=== PATIENT | male | born 1945 | race African-American/Black ===

== ENCOUNTER → 2020-06-11 16:03 | Outpatient (BNVA) | payer MEDICARE, SELFPAY | PROVIDERS: PCP Internal Medicine Geriatric Medicine; Referring Provider Internal Medicine Geriatric Medicine; Visit Provider Internal Medicine Pulmonary Disease | DX: J84.117 Desquamative interstitial pneumonia (principal); Z79.52 Long term (current) use of systemic steroids; Z99.81 Dependence on supplemental oxygen | CPT/HCPCS: 99214 ==

== ENCOUNTER → 2020-09-03 13:52 | Outpatient (BNVA) | payer MEDICARE, SELFPAY | PROVIDERS: PCP Internal Medicine Geriatric Medicine; Visit Provider Internal Medicine Pulmonary Disease | DX: Z13.89 Encounter for screening for other disorder (principal) | CPT/HCPCS: Q3014 ==

== ENCOUNTER 2020-09-15 02:11 | Inpatient (IN) | payer MEDICARE, SELFPAY ==
[2020-09-15] VITALS (19 sets, daily range): BP systolic 106–162; BP diastolic 51–90; PULSE 70–147; RESP 18–50; TEMP 36.5–40.2; O2SAT 78–100; BMI 26.9
--- NOTE | ~2020-09-15 | XR_ITS ---
EXAMINATION: XR CHEST CLINICAL INFORMATION: Hypoxemia COMPARISON: Previous chest x-rays most recent 10/06/2020 TECHNIQUE: Frontal view of the chest was obtained. FINDINGS: The patient is rotated to the right. Taking this into account, the cardiac and mediastinal contours are probably stable. There is persistent mixed interstitial and airspace disease throughout the lungs, right greater than left. This does not appear appreciably changed from 10/06/2020. There is no pleural effusion or pneumothorax. XR/XR chest 1V IMPRESSION: Extensive diffuse mixed interstitial and airspace disease similar to 10/06/2020 exam.
--- NOTE | ~2020-09-15 | XR_ITS ---
EXAMINATION: XR CHEST CLINICAL INFORMATION: Hypoxemia, recent COVID infection COMPARISON: Chest radiograph from 09/15/2020 TECHNIQUE: Frontal view of the chest was obtained. FINDINGS: Persistent diffuse interstitial and groundglass opacities throughout the bilateral lung baker, greatest in the bilateral lung bases, relatively stable from prior imaging. There is no pneumothorax. The trachea is midline. The cardiomediastinal silhouette is stable. Aorta demonstrates mild tortuosity. There is no pleural effusions. Osseous structures are intact. Soft tissues are unremarkable. XR/XR chest 1V IMPRESSION: Persistent diffuse interstitial and groundglass opacities throughout the bilateral lung baekr, greatest in the bilateral lung bases, relatively stable from prior imaging.
--- NOTE | 2020-09-15 02:19 | ED_ITS ---
HPI - SOB/Dyspnea General Chief Complaint: Fever Stated Complaint: copd asthma Time Seen by Provider: 09/15/20 02:19 Source: patient and old records reviewed Mode of arrival: ambulatory Limitations: physical limitation (respiratory distress) History of Present Illness HPI Narrative: EMS found patient on 4L NC in 60s, given 2 duonebs, IV steroids, IV magnesium and placed on CPAP MOLST from February 2020 DNR/DNI MD elicited complaint: shortness of breath Pertinent past history: COPD and pneumonia Onset (ago): hour(s) (24) Timing: progressively worsening Severity: similar to previous episodes Exacerbating factors: exertion, movement and coughing Relieving factors: oxygen, rest and bronchodilators Known history of: other (DIP and respiratory failure) Associated symptoms: cough and wheezing Treatment prior to arrival: oxygen, bronchodilator and other (steroids, magnesium) Related Data Home Medications Medication Instructions Recorded Confirmed albuterol sulfate mg INHALATION QID PRN 06/11/20 amlodipine 10 mg tablet 10 mg PO DAILY 06/11/20 benzonatate 100 mg capsule 100 mg PO BID PRN 06/11/20 calcium carbonate 600 mg (1,500 2 tab PO DAILY 06/11/20 mg)-vitamin D3 400 unit tablet cyanocobalamin (vitamin B-12) 2,000 mcg PO DAILY 06/11/20 1,000 mcg tablet folic acid 1 mg tablet 1 mg PO DAILY 06/11/20 levetiracetam 1,000 mg tablet 1,000 mg PO Q12H 06/11/20 lisinopril 20 mg tablet 20 mg PO DAILY 06/11/20 loratadine 10 mg tablet 10 mg PO DAILY 06/11/20 multivitamin 1 tab PO DAILY 06/11/20 nystatin 100,000 unit/mL oral 5 ml PO QID 06/11/20 suspension omeprazole 40 mg capsule,delayed 40 mg PO DAILY 06/11/20 release tamsulosin 0.4 mg capsule 0.8 mg PO BEDTIME 06/11/20 trazodone 50 mg tablet 50 mg PO BEDTIME 06/11/20 Previous Rx's Medication Instructions Recorded prednisone 10 mg tablet 20 mg PO DAILY #90 tab 07/03/20 Allergies Allergy/AdvReac Type Severity Reaction Status Date / Time No Known Allergies Allergy Verified 09/03/20 13:53 [No Known Allergies*] Review of Systems Review of Systems: ROS unable to be obtained due to respiratory distress [facility] Past Medical History Attestation statement: The following information was validated with the patient. Source: old records reviewed Medical History DIP (desquamative interstitial pneumonia) HTN (hypertension) Respiratory failure Supplemental oxygen dependent Social History Social History (Updated 06/11/20 @ 16:04 by Mily Jaquez MA) Smoking Status: Never smoker Use of substances other than those prescribed or required for medical reasons: No Advance Directives: No Advance Directives Information Provided: No Physical Exam Vital Signs: Vital Signs: Last Vital Signs Temp 101.4 F H 09/15/20 04:34 Pulse 73 09/15/20 05:40 Resp 26 H 09/15/20 05:40 BP 117/63 09/15/20 05:40 Pulse Ox 95 09/15/20 05:40 Body Mass Index 3.4 Appearance: Seems somewhat dazed. Oriented X2. Moderate acute distress Eyes: Pupils equal, round and reactive to light. ENT: Pharynx normal. Neck: Normal inspection. Neck supple. CVS: tachycardic heart rate and rhythm. Pulses normal. Respiratory: Moderate respiratory distress with retractions, tachypnea one word answers. Breath sounds decreased throughout Abdomen: Soft and nontender. Skin: Skin warm and dry. Normal skin color. Normal skin turgor. Extremities: No lower extremity edema. No calf ttp Neuro: Oriented X 2. No motor deficit. No sensory deficit. Course Course Course Narrative: patient is 91-92% on bipap now 98% on 45% FiO2 bipap, temp 104, MD tylenol ordered, zosyn ordered as well K repletions ordered patient much more awake at this time alert and oriented x to person/place, respiratory status improved, will keep on bipap til 4am and trial off off bipap now on 5L NC 88% according to EMR this is around his baseline, RR 22 + COVID will try patient on verduzco device humidified O2 - 86% on 6L NC 10L NC Verduzco device 95% doing much better ddimer under upper limits of normal patient still disoriented, states he is normally not confused but she is ve ry vague about it and seems to need repeat questioning herself, at this time will obtain CT scan head to r/o trauma MDM - SOB/Dyspnea MDM Narrative Medical decision making narrative: 75 yo male with desquamative interstitial pneumonia, HTN, respiratory failure on chronic steroids and 4 to 5L NC with his sats around 88% while at home, over the last 24 hours he reports increased work of breathing EMS found him on 4L in the 60s, given duoneb x 2, CPAP, IV steroids and IV magnesium - patient still in respiratory distress at this time - labs, cultures, CXR, COVID swab, bipap, 5mg neb, empiric zosyn ordered - anticipate admission Lab Data Result diagrams: 09/15/20 02:31 09/15/20 02:32 Labs: Lab Results 09/15/20 09/15/20 09/15/20 Range/Units 02:31 02:31 02:31 WBC 9.1 (4.8-10.8) X10*3/uL RBC 4.16 L (4.60-5.80) X10*6/uL Hgb 13.7 L (14.0-18.0) g/dl Hct 41.2 L (42-52) % MCV 99.0 H (80-98) fL MCH 32.9 (27.0-33.0) pg MCHC 33.3 (31.0-36.0) g/dl RDW 13.7 (11.0-16.0) % Plt Count 112 L (160-400) X10*3/uL MPV 10.6 (9.4-12.4) fL Immature Gran % (Auto) 0.5 H (0.0-0.4) % Neut % (Auto) 77.6 H (45-73) % Lymph % (Auto) 17.2 L (20-40) % Alexander % (Auto) 4.4 (2-11) % Eos % (Auto) 0.1 (0-4) % Baso % (Auto) 0.2 (0-2) % Lymph # (Auto) 1.6 (1.2-4.9) X10*3/uL Alexander # (Auto) 0.4 (0.1-1.2) X10*3/uL Eos # (Auto) 0.0 (0.0-0.4) X10*3/uL Baso # (Auto) 0.0 (0.0-0.2) X10*3/uL Abs Immat Gran (auto) 0.05 H (0.00-0.03) X10*3/uL Absolute Neuts (auto) 7.1 (2.0-8.3) X10*3/uL Absolute Nucleated RBC 0.000 (0.0-0.012) X10*3/uL Nucleated RBC % (auto) 0.0 (0.0-0.2) /100WBC Smear Tech's Comments VERIFIED PT 13.8 H (10.8-13.0) SEC INR 1.2 H (0.9-1.1) APTT 28.1 (24.1-38.0) SEC D-Dimer 227 NG/ML ABG pH (7.35-7.45) ABG pCO2 (32-45) mmHg ABG pO2 (83-108) mmHg ABG HCO3 (22-26) mmol/L ABG O2 Saturation % ABG Base Excess Oxygen Given Sodium (135-145) mmol/L Potassium (3.3-5.1) mmol/l Chloride (96-108) mmol/L Carbon Dioxide (22-29) mmol/L Anion Gap (12-20) BUN (9-16) mg/dL Creatinine (0.5-1.4) mg/dL Estim Creat Clear Calc Estimated GFR Random Glucose (60-115) mg/dL Lactic Acid 2.9 H* (0.5-2.0) mmol/L Calcium (8.4-10.2) mg/dL Magnesium (1.6-2.6) mg/dL Ferritin (20-250) ng/mL Total Bilirubin (0.0-1.0) mg/dL Direct Bilirubin (0.0-0.5) mg/dL AST (5-37) U/L ALT (0-40) U/L Alkaline Phosphatase (39-117) U/L Lactate Dehydrogenase (118-273) U/L Troponin I High Sens (<3.5-35.0) ng/L B-Natriuretic Peptide (<100) pg/mL Total Protein (6.5-8.0) g/dL Albumin (3.5-5.0) g/dL Lipase (8-78) U/L Procalcitonin ng/mL Coronavirus (PCR) (Negative) Influenza Type A (PCR) (Negative) Influenza Type B (PCR) (Negative) RSV RNA Qual (PCR) (Negative) 09/15/20 09/15/20 09/15/20 Range/Units 02:32 02:32 02:32 WBC (4.8-10.8) X10*3/uL RBC (4.60-5.80) X10*6/uL Hgb (14.0-18.0) g/dl Hct (42-52) % MCV (80-98) fL MCH (27.0-33.0) pg MCHC (31.0-36.0) g/dl RDW (11.0-16.0) % Plt Count (160-400) X10*3/uL MPV (9.4-12.4) fL Immature Gran % (Auto) (0.0-0.4) % Neut % (Auto) (45-73) % Lymph % (Auto) (20-40) % Alexander % (Auto) (2-11) % Eos % (Auto) (0-4) % Baso % (Auto) (0-2) % Lymph # (Auto) (1.2-4.9) X10*3/uL Alexander # (Auto) (0.1-1.2) X10*3/uL Eos # (Auto) (0.0-0.4) X10*3/uL Baso # (Auto) (0.0-0.2) X10*3/uL Abs Immat Gran (auto) (0.00-0.03) X10*3/uL Absolute Neuts (auto) (2.0-8.3) X10*3/uL Absolute Nucleated RBC (0.0-0.012) X10*3/uL Nucleated RBC % (auto) (0.0-0.2) /100WBC Smear Tech's Comments PT (10.8-13.0) SEC INR (0.9-1.1) APTT (24.1-38.0) SEC D-Dimer NG/ML ABG pH (7.35-7.45) ABG pCO2 (32-45) mmHg ABG pO2 (83-108) mmHg ABG HCO3 (22-26) mmol/L ABG O2 Saturation % ABG Base Excess Oxygen Given Sodium 143 (135-145) mmol/L Potassium 2.9 L (3.3-5.1) mmol/l Chloride 103 (96-108) mmol/L Carbon Dioxide 26 (22-29) mmol/L Anion Gap 17 (12-20) BUN 7 L (9-16) mg/dL Creatinine 0.96 (0.5-1.4) mg/dL Estim Creat Clear Calc 10.6 Estimated GFR > 60 Random Glucose 67 (60-115) mg/dL Lactic Acid (0.5-2.0) mmol/L Calcium 8.3 L (8.4-10.2) mg/dL Magnesium 2.8 H (1.6-2.6) mg/dL Ferritin 2305 H (20-250) ng/mL Total Bilirubin 0.8 (0.0-1.0) mg/dL Direct Bilirubin 0.6 H (0.0-0.5) mg/dL AST 83 H (5-37) U/L ALT 66 H (0-40) U/L Alkaline Phosphatase 68 (39-117) U/L Lactate Dehydrogenase 452 H (118-273) U/L Troponin I High Sens (<3.5-35.0) ng/L B-Natriuretic Peptide 25 (<100) pg/mL Total Protein 6.2 L (6.5-8.0) g/dL Albumin 3.2 L (3.5-5.0) g/dL Lipase 37 (8-78) U/L Procalcitonin 0.10 ng/mL Coronavirus (PCR) (Negative) Influenza Type A (PCR) (Negative) Influenza Type B (PCR) (Negative) RSV RNA Qual (PCR) (Negative) 09/15/20 09/15/20 09/15/20 Range/Units 02:33 02:33 03:17 WBC (4.8-10.8) X10*3/uL RBC (4.60-5.80) X10*6/uL Hgb (14.0-18.0) g/dl Hct (42-52) % MCV (80-98) fL MCH (27.0-33.0) pg MCHC (31.0-36.0) g/dl RDW (11.0-16.0) % Plt Count (160-400) X10*3/uL MPV (9.4-12.4) fL Immature Gran % (Auto) (0.0-0.4) % Neut % (Auto) (45-73) % Lymph % (Auto) (20-40) % Alexander % (Auto) (2-11) % Eos % (Auto) (0-4) % Baso % (Auto) (0-2) % Lymph # (Auto) (1.2-4.9) X10*3/uL Alexander # (Auto) (0.1-1.2) X10*3/uL Eos # (Auto) (0.0-0.4) X10*3/uL Baso # (Auto) (0.0-0.2) X10*3/uL Abs Immat Gran (auto) (0.00-0.03) X10*3/uL Absolute Neuts (auto) (2.0-8.3) X10*3/uL Absolute Nucleated RBC (0.0-0.012) X10*3/uL Nucleated RBC % (auto) (0.0-0.2) /100WBC Smear Tech's Comments PT (10.8-13.0) SEC INR (0.9-1.1) APTT (24.1-38.0) SEC D-Dimer NG/ML ABG pH 7.46 H (7.35-7.45) ABG pCO2 41 (32-45) mmHg ABG pO2 115 H (83-108) mmHg ABG HCO3 28 H (22-26) mmol/L ABG O2 Saturation 98.0 % ABG Base Excess 5.8 Oxygen Given 45% Sodium (135-145) mmol/L Potassium (3.3-5.1) mmol/l Chloride (96-108) mmol/L Carbon Dioxide (22-29) mmol/L Anion Gap (12-20) BUN (9-16) mg/dL Creatinine (0.5-1.4) mg/dL Estim Creat Clear Calc Estimated GFR Random Glucose (60-115) mg/dL Lactic Acid (0.5-2.0) mmol/L Calcium (8.4-10.2) mg/dL Magnesium (1.6-2.6) mg/dL Ferritin (20-250) ng/mL Total Bilirubin (0.0-1.0) mg/dL Direct Bilirubin (0.0-0.5) mg/dL AST (5-37) U/L ALT (0-40) U/L Alkaline Phosphatase (39-117) U/L Lactate Dehydrogenase (118-273) U/L Troponin I High Sens 19.7 (<3.5-35.0) ng/L B-Natriuretic Peptide (<100) pg/mL Total Protein (6.5-8.0) g/dL Albumin (3.5-5.0) g/dL Lipase (8-78) U/L Procalcitonin ng/mL Coronavirus (PCR) POSITIVE A (Negative) Influenza Type A (PCR) NEGATIVE (Negative) Influenza Type B (PCR) NEGATIVE (Negative) RSV RNA Qual (PCR) NEGATIVE (Negative) ECG Data Attestation: I personally reviewed and interpreted this ECG as follows: ECG interpretation date: 09/15/20 ECG interpretation time: 02:53 Interpretation: Rate: 115 Rhythm: sinus tachycardia [place]: left, LVH Normal P waves. Normal ATIF. RBBB ST T wave : inverted V1-V3, ST depression V4-V5 and I, no RERE qTC: prolonged prior studies: changed from 2019 The study has been interpreted contemporaneously by me. . Critical Care Time Critical Care Time Critical Care Time: Yes Total Critical Care Time: 60 Attestation: bipap, abg, nebs, iv antibiotics I attest to this time spent taking care of the patient Discharge Plan Discharge Clinical Impression: Acute hypokalemia, COVID-19, Pneumonia due to COVID-19 virus, Encephalopathy due to 2019-nCoV Fever Qualifiers: Fever type: unspecified Qualified Code(s): R50.9 - Fever, unspecified Respiratory failure Qualifiers: Chronicity: acute on chronic Respiratory failure complication: hypoxia Qualified Code(s): J96.21 - Acute and chronic respiratory failure with hypoxia Patient Disposition: Admitted As Inpatient
--- NOTE | 2020-09-15 02:20 | ECG_ITS ---
Test Reason : DIFFICULTY BREATHING Blood Pressure : / mmHG Vent. Rate : 115 BPM Atrial Rate : 115 BPM P-R Int : 142 ms QRS Dur : 116 ms QT Int : 400 ms P-R-T Axes : 030 -29 053 degrees QTc Int : 553 ms Sinus tachycardia with Premature supraventricular complexes Right bundle branch block Prolonged QT Abnormal ECG When compared with ECG of 01-APR-2019 19:01, Right bundle branch block now present Referred By: Eli Vargas Electronically Signed By:MOHIT ROTH
--- NOTE | 2020-09-15 02:21 | XR_ITS ---
EXAMINATION: XR CHEST CLINICAL INFORMATION: Dyspnea COMPARISON: 07/26/2019 TECHNIQUE: Frontal view of the chest was obtained. FINDINGS: Lung volumes are symmetric. Redemonstrated background of diffuse interstitial prominence. The possibility of some superimposed mild patchy opacity at the right base is difficult to exclude. No evidence of pneumothorax or significant pleural effusion. The cardiomediastinal contour is unremarkable. No acute osseous findings are seen. XR/XR chest 1V IMPRESSION: Chronic diffuse interstitial prominence. The possibility of mild superimposed developing patchy right basilar opacity is difficult to entirely exclude in the proper clinical setting.
[2020-09-15 02:41] LABS: Basophils Percent Auto 0.2 % (0-2); Eosinophils Percent Auto 0.1 % (0-4); MANUAL DIFF FLAG SCAN; Mean Platelet Volume 10.6 fL (9.4-12.4); PLT CLUMP 1; Red Cell Distribution Width 13.7 % (11.0-16.0); SCAN SMEAR FLAG 1
[2020-09-15 02:43] LABS: Hematocrit 41.2 % (42-52); Hemoglobin 13.7 g/dl (14.0-18.0); Imm Gran Abs Auto 0.05 X10*3/uL (0.00-0.03); Imm Gran Pct Auto 0.5 % (0.0-0.4); Lymphocytes Absolute Auto 1.6 X10*3/uL (1.2-4.9); Lymphocytes Percent Auto 17.2 % (20-40); Mean Corpuscular HGB Conc 33.3 g/dl (31.0-36.0); Mean Corpuscular Hemoglobin 32.9 pg (27.0-33.0); Monocytes Absolute Auto 0.4 X10*3/uL (0.1-1.2); Monocytes Percent Auto 4.4 % (2-11); Neutrophils Absolute Auto 7.1 X10*3/uL (2.0-8.3); Neutrophils Percent Auto 77.6 % (45-73); Platelet Count 112 X10*3/uL (160-400); Red Blood Count 4.16 X10*6/uL (4.60-5.80); White Blood Count 9.1 X10*3/uL (4.8-10.8)
[2020-09-15] MEDS: Piperacillin Sodium/Tazobactam 3.375 GM in 0.9 % Sodium Chloride 50 ML IV (02:45)
[2020-09-15 02:55] LABS: INTERNATIONAL NORM RATIO 1.2 (0.9-1.1); Prothrombin Time 13.8 SEC (10.8-13.0)
[2020-09-15 02:57] LABS: Partial Thromboplastin Time 28.1 SEC (24.1-38.0)
[2020-09-15 03:05] LABS: Alanine Aminotransferase 66 U/L (0-40); Albumin Level 3.2 g/dL (3.5-5.0); Alkaline Phosphatase 68 U/L (39-117); Anion Gap 17 (12-20); Aspartate Amino Transferase 83 U/L (5-37); Bilirubin Direct 0.6 mg/dL (0.0-0.5); Bilirubin Total 0.8 mg/dL (0.0-1.0); Blood Urea Nitrogen 7 mg/dL (9-16); Calcium 8.3 mg/dL (8.4-10.2); Carbon Dioxide 26 mmol/L (22-29); Chloride 103 mmol/L (96-108); Creatinine Clr Calc Pharmacy 10.6; Estimated Glomerular Filt Rate > 60; Glucose Random 67 mg/dL (60-115); Lactate Dehydrogenase 452 U/L (118-273); Lipase 37 U/L (8-78); Magnesium 2.8 mg/dL (1.6-2.6); Potassium 2.9 mmol/l (3.3-5.1); Sodium 143 mmol/L (135-145); Total Protein 6.2 g/dL (6.5-8.0)
[2020-09-15 03:07] LABS: B Type Natriuretic Peptide 25 pg/mL (<100)
[2020-09-15 03:07] LABS: Troponin-I High Sensitivity 19.7 ng/L (<3.5-35.0)
[2020-09-15 03:09] LABS: Lactic Acid 2.9 mmol/L (0.5-2.0)
[2020-09-15 03:21] LABS: SLIDE REVIEW VERIFIED
[2020-09-15] MEDS: Albuterol Sulfate (0.083%) 2.5 MG/3 ML VIAL.NEB 5 MG INHALE (03:23)
[2020-09-15] MEDS: KCl 40 mEq in 0.9 % Sodium Chl 40 MEQ/1,000 ML IV.SOLN 250 MEQ IVCONT ×3 (03:24→15:19)
[2020-09-15] MEDS: 0.9 % Sodium Chloride 500 ML IV (03:24)
[2020-09-15 03:26] LABS: ABG PCO2 41 mmHg (32-45); Base Excess ABG 5.8; HCO3 ABG 28 mmol/L (22-26); PO2 ABG 115 mmHg (83-108); Pt Ventilation O2% 45%; pH ABG 7.46 (7.35-7.45)
[2020-09-15 04:09] LABS: Influenza A PCR NEGATIVE (Negative); Influenza B PCR NEGATIVE (Negative); Resp Syncy Virus RNA Qual PCR NEGATIVE (Negative)
[2020-09-15 04:10] LABS: Ferritin 2305 ng/mL (20-250)
[2020-09-15 04:13] LABS: SARS COV2 PCR INHOUSE POSITIVE (Negative)
[2020-09-15 04:23] LABS: D Dimer 227 NG/ML
[2020-09-15 04:37] LABS: Reflex Lactate? Lactic Acid Added
--- NOTE | 2020-09-15 04:42 | PC.NURSE ---
pt has responded to ivf, rectal tylenol and is now on 10lnc humidified o2. pt is talking but vague with current year. pt is alert to person place and vague on time. pt is meseret ivf fluids and antibx. nsr on the monitor. ekg chest xray completed, abg completed. current vitals stable hr 81, 133/64 94% on 10l [id number]
--- NOTE | 2020-09-15 05:11 | CT_ITS ---
EXAMINATION: CT HEAD WITHOUT CONTRAST CLINICAL INFORMATION: Altered mental status COMPARISON: Head CT 05/25/2019 TECHNIQUE: Contiguous axial imaging was performed from the skull base to vertex without intravenous administration of contrast. This CT examination was performed using dose optimization techniques as appropriate, variously including the following: *Automated exposure control *Adjustment of mA and/or kV according to patient size (this includes techniques or standardized protocols for targeted exams where dose is matched to indication/reason for exam; i.e. extremities or head) *Use of iterative reconstruction technique DLP: 786 mGy-cm FINDINGS: There is no evidence of acute intracranial hemorrhage or territorial infarction. No abnormal mass effect or midline shift is seen. [place] to white matter differentiation is well preserved. No extra-axial fluid collections are identified. Complete interval resolution of previously visualized bilateral subdural hematomas. The ventricular system and cortical sulci are prominent, consistent with age-appropriate volume loss. There are areas of low density in the periventricular and subcortical white matter, most consistent with sequelae of microvascular ischemic change. The osseous structures and soft tissues are normal. There are calcifications of the cavernous internal carotid arteries. The visualized paranasal sinuses and mastoid air cells are well aerated. CT/CT head/brain wo con IMPRESSION: Chronic microvascular ischemic changes with no CT evidence of acute intracranial abnormality.
--- NOTE | 2020-09-15 05:18 | P.HPHOSP_ITS ---
History of Present Illness Date of Service: 09/15/20 Chief Complaint: SOB This is a 75-year-old male with 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 When asked about ROS , he tells me that the reason he came to the hospital is for coughing. he denies feeling any worsening SOB. He denies fever but reports chills, denies abdominal pain nausea or vomiting, no diarrhea constipation. Denies any chest pain, denies any sputum production her denies any urinary symptoms and no lower extremity edema. Per EMS report patient was found to be satting 60% on 5 L of oxygen at home. On arrival to the ED patient's vitals were significant for temperature of 104.4?, pulse rate of 112, of the Aminah rate of 12 off, blood pressure of 117/51, and pulse ox of her own 8% on room air. Patient was placed on CPAP for 1 hour with improvement of his symptoms, now he is on 10 L of non-rebreather satting 95%. Labs are significant for WBC count 9.1, hemoglobin 13.7, hematocrit 41.2, PT of 13.8, INR of 1.2, pH of 7.46, potassium of 2.9, BUN of 7, creatinine of 0.96, lactic acid of 2.9, COVID-19 PCR positive, Chest x-ray significant for chronic diffuse interstitial pneumonia with po ssibility of mild superimposed developing patchy right basilar opacity Past medical history: Subdural hematoma, hypertension, pulmonary interstitial fibrosis, BPH Past surgical history: Denies Family history: Denies Social history: Comes from home, reports former smoking occasional drinking, de nies illicit drugs Review of Systems Review of Systems: Yes all other systems are reviewed and are negative and Unobtainable due to mental status [facility] Medical History DIP (desquamative interstitial pneumonia) HTN (hypertension) Respiratory failure Supplemental oxygen dependent Social History (Updated 06/11/20 @ 16:04 by Mily Jaquez MA) Smoking Status: Never smoker Use of substances other than those prescribed or required for medical reasons: No Advance Directives: No Advance Directives Information Provided: No Meds Allergies Allergy/AdvReac Type Severity Reaction Status Date / Time No Known Allergies Allergy Verified 09/03/20 13:53 [No Known Allergies*] Home Medications Medication Instructions Recorded Confirmed Type albuterol sulfate mg INHALATION QID PRN 06/11/20 History amlodipine 10 mg tablet 10 mg PO DAILY 06/11/20 History benzonatate 100 mg capsule 100 mg PO BID PRN 06/11/20 History calcium carbonate 600 mg (1,500 2 tab PO DAILY 06/11/20 History mg)-vitamin D3 400 unit tablet cyanocobalamin (vitamin B-12) 2,000 mcg PO DAILY 06/11/20 History 1,000 mcg tablet folic acid 1 mg tablet 1 mg PO DAILY 06/11/20 History levetiracetam 1,000 mg tablet 1,000 mg PO Q12H 06/11/20 History lisinopril 20 mg tablet 20 mg PO DAILY 06/11/20 History loratadine 10 mg tablet 10 mg PO DAILY 06/11/20 History multivitamin 1 tab PO DAILY 06/11/20 History nystatin 100,000 unit/mL oral 5 ml PO QID 06/11/20 History suspension omeprazole 40 mg capsule,delayed 40 mg PO DAILY 06/11/20 History release tamsulosin 0.4 mg capsule 0.8 mg PO BEDTIME 06/11/20 History trazodone 50 mg tablet 50 mg PO BEDTIME 06/11/20 History Physical Exam Vital Signs and Narrative: Vital Signs: Last Vital Signs Temp 101.4 F H 09/15/20 04:34 Pulse 88 09/15/20 04:34 Resp 23 H 09/15/20 04:34 BP 133/64 09/15/20 04:34 Pulse Ox 91 L 09/15/20 04:34 Body Mass Index 3.4 Const: General: cooperative and no acute distress Eyes: General: appearance normal, both eyes and all related structures Resp: Effort & Inspection: normal respiratory effort and able to speak in complete sentences Cardio: Rate: regular rate Rhythm: regular rhythm GI: Palpation (GI): Soft to palpation Auscultation: normal bowel sounds Neuro: Cognition (Neuro): normal cognition Extrem: General: Yes normal to inspection and Yes no pedal edema Results Labs CBC and Chem 7: 09/15/20 02:31 09/15/20 02:32 Labs: Laboratory Results - last 24 hr 09/15/20 09/15/20 09/15/20 02:31 02:31 02:31 MCV 99.0 H MCH 32.9 MCHC 33.3 RDW 13.7 Plt Count 112 L MPV 10.6 Immature Gran % (Auto) 0.5 H Neut % (Auto) 77.6 H Lymph % (Auto) 17.2 L [place] % (Auto) 4.4 Eos % (Auto) 0.1 Baso % (Auto) 0.2 Lymph # (Auto) 1.6 [place] # (Auto) 0.4 Eos # (Auto) 0.0 Baso # (Auto) 0.0 Abs Immat Gran (auto) 0.05 H Absolute Neuts (auto) 7.1 Absolute Nucleated RBC 0.000 Nucleated RBC % (auto) 0.0 Smear Tech's Comments VERIFIED PT 13.8 H INR 1.2 H APTT 28.1 D-Dimer 227 ABG pH ABG pCO2 ABG pO2 ABG HCO3 ABG O2 Saturation ABG Base Excess Oxygen Given Anion Gap Estim Creat Clear Calc Estimated GFR Random Glucose Lactic Acid 2.9 H* Calcium Magnesium Ferritin Total Bilirubin Direct Bilirubin AST ALT Alkaline Phosphatase Lactate Dehydrogenase Troponin I High Sens B-Natriuretic Peptide Total Protein Albumin Lipase Procalcitonin Coronavirus (PCR) Influenza Type A (PCR) Influenza Type B (PCR) RSV RNA Qual (PCR) 09/15/20 09/15/20 09/15/20 02:32 02:32 02:32 MCV MCH MCHC RDW Plt Count MPV Immature Gran % (Auto) Neut % (Auto) Lymph % (Auto) [place] % (Auto) Eos % (Auto) Baso % (Auto) Lymph # (Auto) [place] # (Auto) Eos # (Auto) Baso # (Auto) Abs Immat Gran (auto) Absolute Neuts (auto) Absolute Nucleated RBC Nucleated RBC % (auto) Smear Tech's Comments PT INR APTT D-Dimer ABG pH ABG pCO2 ABG pO2 ABG HCO3 ABG O2 Saturation ABG Base Excess Oxygen Given Anion Gap 17 Estim Creat Clear Calc 10.6 Estimated GFR > 60 Random Glucose 67 Lactic Acid Calcium 8.3 L Magnesium 2.8 H Ferritin 2305 H Total Bilirubin 0.8 Direct Bilirubin 0.6 H AST 83 H ALT 66 H Alkaline Phosphatase 68 Lactate Dehydrogenase 452 H Troponin I High Sens B-Natriuretic Peptide 25 Total Protein 6.2 L Albumin 3.2 L Lipase 37 Procalcitonin 0.10 Coronavirus (PCR) Influenza Type A (PCR) Influenza Type B (PCR) RSV RNA Qual (PCR) 09/15/20 09/15/20 09/15/20 02:33 02:33 03:17 MCV MCH MCHC RDW Plt Count MPV Immature Gran % (Auto) Neut % (Auto) Lymph % (Auto) [place] % (Auto) Eos % (Auto) Baso % (Auto) Lymph # (Auto) [place] # (Auto) Eos # (Auto) Baso # (Auto) Abs Immat Gran (auto) Absolute Neuts (auto) Absolute Nucleated RBC Nucleated RBC % (auto) Smear Tech's Comments PT INR APTT D-Dimer ABG pH 7.46 H ABG pCO2 41 ABG pO2 115 H ABG HCO3 28 H ABG O2 Saturation 98.0 ABG Base Excess 5.8 Oxygen Given 45% Anion Gap Estim Creat Clear Calc Estimated GFR Random Glucose Lactic Acid Calcium Magnesium Ferritin Total Bilirubin Direct Bilirubin AST ALT Alkaline Phosphatase Lactate Dehydrogenase Troponin I High Sens 19.7 B-Natriuretic Peptide Total Protein Albumin Lipase Procalcitonin Coronavirus (PCR) POSITIVE A Influenza Type A (PCR) NEGATIVE Influenza Type B (PCR) NEGATIVE RSV RNA Qual (PCR) NEGATIVE Imaging Radiologist's Impressions: Impressions Chest X-Ray 09/15/20 02:21 IMPRESSION: Chronic diffuse interstitial prominence. The possibility of mild superimposed developing patchy right basilar opacity is difficult to entirely exclude in the proper clinical setting. Assessment and Plan (1) Sepsis with acute hypoxic respiratory failure: Qualifiers: Sepsis type: sepsis due to unspecified organism Severe sepsis shock status: without septic shock Qualified Code(s): A41.9 - Sepsis, unspecified organism; R65.20 - Severe sepsis without septic shock; J96.01 - Acute respiratory failure with hypoxia Status: Acute (2) Acute hypokalemia: Status: Acute (3) Pneumonia due to COVID-19 virus: Status: Acute This is a 75-year-old male with past medical history of pulmonary interstitial fibrosis on baseline 5-6 L of oxygen at home, and prednisone daily who presents to the hospital with shortness of breath, found to be hypoxic with O2 of 60% on 5 L of oxygen by EMS. # sepsis - most likely secondary to COVID pneumonia - has fever, tachycardia, tachypnea - no leukocytosis -will start patient on IV antibiotics, dexamethasone, - follow blood cultures # acute on chronic hypoxic respiratory failure - secondary to COVID-19 pneumonia versus bacterial pneumonia -COVID-19 PCR positive, chest x-ray significant for chronic interstitial fibrosis as well as new right-sided infiltrate concerning for pneumonia -fever of 104, no leukocytosis, procalcitonin of 0.10 Plan: -will start patient on dexamethasone 6 mg daily, will also start patient on broad-spectrum IV antibiotics given the right-sided infiltrate which is less typical of COVID-19 - consult infectious disease, follow blood cultures, - monitor respiratory staff # pneumonia due to COVID-19 - patient on baseline 5-6 L of oxygen now requiring 10 L of O2 -restart patient on dexamethasone, IV antibiotics, - continue O2 as required, monitor respiratory status # hypokalemia -repleted by ED physician -follow BMP #DIP - follows with Dr. Rahman - on baseline 5-6 L of O2 and chronic prednisone of 30 mg - follow up w human resources assistant manager upon discharge # History of subdural hematoma in 2019 DVT ppx: heparin subq
[2020-09-15] MEDS: Heparin Sodium,Porcine 5,000 UNIT/ML VIAL 5000 UNIT SUBCUT (05:25)
--- NOTE | 2020-09-15 05:35 | PC.NURSE ---
pt called in and tried to reconcile the meds the pt takes and this rn did not feel safe with the information she was giving on what he takes will clarify with pharmacy. pt unable to completly give a picture of the pt mental status before last night. pt was confused pulling at line and removing sat probe, pt states he takes his meds sometimes. states she gives him his medications daily. pper the pt has had the chills for 2-3 days before calling the ambulance. pt at this time is awake alert but vague to questions asked and is unknown if this is his baseline. pt follows commands very pleasant, avila. vitals improved.
[2020-09-15] MEDS: cefTRIAXone sodium 1 GM in 0.9 % Sodium Chloride 50 ML IV (07:09)
[2020-09-15] MEDS: Azithromycin 500 MG in 0.9 % Sodium Chloride 250 ML 125 MG IV (07:28)
--- NOTE | 2020-09-15 07:53 | PC.NURSE ---
report taken from darek blas pt medicated per emar, infiltrated l wrist iv removed, 22g iv placed in l hand. r hand iv patent and running. pt expresses feeling better than when he came in . pt appears to be shivering, rectal temp rechecked and pt no longer febrile, 98.6. pt given blanket att. wctm.
[2020-09-15] MEDS: dexAMETHasone sod phosphate 4 MG/ML VIAL 6 MG IVPUSH (08:22)
--- NOTE | 2020-09-15 08:25 | PC.NURSE ---
1 liter ns w/ 40meq kcl unavailable in er att, pharmacy called and advised nursing ice platform supervisor to obtain from stock room. nursing ice platform supervisor called.
[2020-09-15 08:51] LABS: ~Lactic Acid-LAB USE ONLY 4.3 mmol/L (0.5-2.0)
[2020-09-15] MEDS: diphenhydrAMINE HCL 25 MG TABLET PO (09:54)
[2020-09-15 10:14] LABS: Reflex Lactate? 2 Y
--- NOTE | 2020-09-15 11:08 | PC.NURSE ---
repeat lactic acid drawn by phlebotomy. pt schedule for 40 meq kcl in 1l ns changed by pharmacist.
[2020-09-15 11:17] LABS: ~Lactic Acid-LAB USE ONLY 3.1 mmol/L (0.5-2.0)
--- NOTE | 2020-09-15 12:31 | PC.NURSE ---
this rn walking by pt room, pt appears to be urinating in biohazard bin, urine on the floor and on all linens. pt removed oxygen tubing, o2 sat appears to be 63% on ra w good pleth. pt tranferred back to bed, linens removed and replaced, o2 back on, sat ^ to 93% on humidified nc. assisted w use of urinal, pt appears to have small, frequent voids.
--- NOTE | 2020-09-15 15:53 | PC.NURSE ---
report given to [facility] [place] [place] roopa akhtar
--- NOTE | 2020-09-15 15:56 | MHC.CM.PN ---
Attempted to meet with patient in regards to d/c planning. Nursing care currently being provided. Attempted to speak with patient's , Patty via telephone. Patient's nephew Miguel answered the phone and was able to help T/W with some fact finding info. Patient lives with his and requires oxygen at baseline. HCP verified to be on file. IMM explained and sent via certified mail. Patient is positive for Covid. Not sure patient will be able to safely return home. Will need physical therapy eval when medically stable. Continue to monitor for d/c needs.
--- NOTE | 2020-09-15 18:08 | PC.NURSE ---
Pt acting very aggressive to this RN and refusing his heparin. This RN will continue to monitor and try to administer again.
[2020-09-16] VITALS (11 sets, daily range): BP systolic 138–179; BP diastolic 71–92; PULSE 71–163; RESP 18–34; TEMP 36.2–37.7; O2SAT 87–94
[2020-09-16] MEDS: 0.9 % Sodium Chloride Flush 3 ML SYRINGE IVFLUSH ×4 (00:06→23:53)
[2020-09-16] MEDS: traZODone HCL 25 MG HALFTAB PO (01:11)
[2020-09-16] MEDS: hydrOXYzine HCL 25 MG TABLET PO (01:11)
[2020-09-16] MEDS: cefTRIAXone sodium 1 GM in 0.9 % Sodium Chloride 50 ML IV (05:52)
[2020-09-16] MEDS: Azithromycin 500 MG in 0.9 % Sodium Chloride 250 ML 125 MG IV (05:53)
[2020-09-16] MEDS: Heparin Sodium,Porcine 5,000 UNIT/ML VIAL 5000 UNIT SUBCUT ×2 (05:53→16:46)
[2020-09-16 06:21] LABS: Basophils Percent Auto 0.1 % (0-2); MANUAL DIFF FLAG SCAN; PLT CLUMP 1; Red Cell Distribution Width 13.8 % (11.0-16.0); SCAN SMEAR FLAG 1
[2020-09-16 06:23] LABS: Hemoglobin 13.9 g/dl (14.0-18.0); Imm Gran Abs Auto 0.08 X10*3/uL (0.00-0.03); Imm Gran Pct Auto 0.8 % (0.0-0.4); Lymphocytes Absolute Auto 0.7 X10*3/uL (1.2-4.9); Mean Corpuscular HGB Conc 33.1 g/dl (31.0-36.0); Mean Corpuscular Hemoglobin 33.6 pg (27.0-33.0); Mean Corpuscular Volume 101.4 fL (80-98); Mean Platelet Volume 11.6 fL (9.4-12.4); Monocytes Absolute Auto 0.5 X10*3/uL (0.1-1.2); Monocytes Percent Auto 4.5 % (2-11); Neutrophils Absolute Auto 9.2 X10*3/uL (2.0-8.3); Neutrophils Percent Auto 87.6 % (45-73); Platelet Count 114 X10*3/uL (160-400); Red Blood Count 4.14 X10*6/uL (4.60-5.80); White Blood Count 10.5 X10*3/uL (4.8-10.8)
[2020-09-16 06:55] LABS: Anion Gap 18 (12-20); Blood Urea Nitrogen 6 mg/dL (9-16); Calcium 7.9 mg/dL (8.4-10.2); Carbon Dioxide 22 mmol/L (22-29); Chloride 111 mmol/L (96-108); Creatinine Clr Calc Pharmacy 90.9; Estimated Glomerular Filt Rate > 60; Glucose Random 123 mg/dL (60-115); Sodium 147 mmol/L (135-145)
[2020-09-16 06:56] LABS: SLIDE REVIEW VERIFIED
[2020-09-16] MEDS: Folic Acid 1 MG TABLET PO (10:09)
[2020-09-16] MEDS: levETIRAcetam 1,000 MG TABLET 1000 MG PO (10:10)
[2020-09-16] MEDS: dexAMETHasone sod phosphate 4 MG/ML VIAL 6 MG IVPUSH (10:10)
[2020-09-16] MEDS: amLODIPine Besylate 10 MG TABLET PO (10:10)
[2020-09-16] MEDS: Omeprazole 40 MG CAPSULE.DR PO (10:11)
--- NOTE | 2020-09-16 12:01 | MHC.CM.PN ---
Male Dx COVID PNA. DP home with Oxygen, and VNA vs STR. Recovery will determine DP. CM will follow.
--- NOTE | 2020-09-16 12:04 | P.PNIM_ITS ---
Subjective Subjective Date of Service: 09/16/20 Interval History: the patient was seen and evaluated this morning Sitting in the chair, on 2 L of oxygen, in mild respiratory distress, able to speak known small sentences Denies any fever, chills o but reported shortness of breath and dyspnea No reported other overnight events. Systemic review: No fever, chills or weakness No chest pain, palpitation Reporting shortness of breath and episodes of coughing No abdominal pain, nausea or vomiting No urinary symptoms No any rash or wounds Physical Exam Vital Signs: Vital Signs: Last Vital Signs Temp 98.7 F 09/16/20 11:06 Pulse 105 H 09/16/20 11:06 Resp 25 H 09/16/20 11:06 BP 149/71 H 09/16/20 11:06 Pulse Ox 87 L 09/16/20 11:06 Body Mass Index 26.9 Const: Other: Constitutional : Alert, oriented about self and place, in mild respiratory distress Neck : Normal inspection, Supple Cardiovascular : RRR, S1 S2, no lower extremity edema Respiratory : Tachypnea, chest wall moving bilaterally, on 10 L oxygen Gastrointestinal: soft, lax, Normal bowel sounds, Non tender Skin : Warm/Dry, No rash Neurological : Alert & oriented, No focal deficit, anxious Objective Data Current Medications Generic Name Dose Route Start Last Admin Trade Name Freq PRN Reason Stop Dose Admin Acetaminophen 650 mg 09/15/20 05:17 Acetaminophen 325 Mg Tablet PO Q6H PRN Pain, Mild (Pain Scale 1-3) Amlodipine Besylate 10 mg 09/16/20 09:00 09/16/20 10:10 Amlodipine Besylate 10 Mg Tablet PO 10 mg DAILY [facility] Administration Protocol Benzonatate 200 mg 09/16/20 10:25 Benzonatate 100 Mg Capsule PO TID [facility] Dexamethasone Sodium Phosphate 6 mg 09/15/20 09:00 09/16/20 10:10 Dexamethasone Sod Phosphate 4 Mg/Ml Vial IVPUSH 6 mg DAILY [facility] Administration Docusate Sodium 100 mg 09/15/20 05:17 Docusate Sodium 100 Mg Capsule PO DAILY PRN Constipation Folic Acid 1 mg 09/16/20 09:00 09/16/20 10:09 Folic Acid 1 Mg Tablet PO 1 mg DAILY [facility] Administration Guaifenesin 600 mg 09/16/20 10:25 Guaifenesin La 600 Mg Tab.Er.12h PO BID [facility] Heparin Sodium (Porcine) 5,000 unit 09/15/20 05:17 09/16/20 05:53 Heparin Sodium,Porcine 5,000 Unit/Ml Vial SUBCUT 5,000 unit Q12H [facility] Administration Ceftriaxone Sodium 1 gm/ 50 mls @ 100 mls/hr 09/15/20 05:45 09/16/20 07:17 Sodium Chloride IV Infused Q24H [facility] Infusion Azithromycin 500 mg/ Sodium 250 mls @ 125 mls/hr 09/15/20 06:00 09/16/20 11:46 Chloride IV 125 mls/hr Q24H [facility] Infusion Potassium Chloride/Sodium Chloride 40 meq in 1,000 mls @ 250 mls/hr 09/15/20 13:15 09/16/20 10:11 IVCONT Not Given .Q4H [facility]O Remdesivir 200 mg/ Sodium 210 mls @ 105 mls/hr 09/16/20 12:00 Chloride IV 09/16/20 13:59 ONCE@1200 [facility]O Remdesivir 100 mg/ Sodium 230 mls @ 115 mls/hr 09/17/20 12:00 Chloride IV 09/20/20 13:59 Q24H DEO Levetiracetam 1,000 mg 09/16/20 09:00 09/16/20 10:10 Levetiracetam 1,000 Mg Tablet PO 1,000 mg BID [facility] Administration Omeprazole 40 mg 09/16/20 07:55 09/16/20 10:11 Omeprazole 40 Mg Capsule.Dr PO 40 mg DAILY@0630 [facility] Administration Ondansetron HCl 4 mg 09/15/20 05:17 Ondansetron Hcl 4 Mg/2 Ml Vial IVPUSH Q8H PRN Nausea and Vomiting Pharmacy Consult 1 each 09/15/20 02:19 Consult Rx Perform Med Rec MISCELLANE ONCE PRN Consult order Pharmacy Consult 1 each 09/15/20 03:19 Consult Rx Vancomycin Dosing MISCELLANE DAILY PRN Consult order Sodium Chloride 3 ml 09/15/20 08:00 09/16/20 10:10 0.9 % Sodium Chloride Flush 3 Ml Syringe IVFLUSH 3 ml QSHIFT [facility]O Administration Tamsulosin HCl 0.8 mg 09/16/20 21:00 Tamsulosin Hcl 0.4 Mg Capsule PO BEDTIME [facility] Labs CBC & Chem 7: 09/16/20 05:49 09/16/20 05:49 Microbiology Microbiology Results: Microbiology 09/15/20 02:33 Blood - Venous Blood Culture - Preliminary No growth after 24 hours. 09/15/20 02:32 Blood - Venous Blood Culture - Preliminary No growth after 24 hours. Assessment and Plan (1) Sepsis with acute hypoxic respiratory failure: Status: Acute (2) Acute hypokalemia: Status: Acute (3) Pneumonia due to COVID-19 virus: Status: Acute (4) Encephalopathy due to 2019-nCoV: Status: Acute Assessment and Plan: This is a 75-year-old male with past medical history of pulmonary interstitial fibrosis on baseline 5-6 L of oxygen at home, and prednisone daily who presents to the hospital with shortness of breath, found to be hypoxic with O2 of 60% on 5 L of oxygen by EMS. acute on chronic hypoxic respiratory failure secondary to COVID-19 pneumonia Concern for bacterial pneumonia CXR showed new right-sided infiltrate concerning for pneumonia Continue dexamethasone 6 mg continue IV antibiotic of ceftriaxone azithromycin Start high-flow oxygen Start remdesivir to give plasma Id input appreciated Acute on chronic interstitial lung fibrosis baseline 5-6 L of oxygen and chronic prednisone 30 mg daily, now requiring high- flow oxygen Continue dexamethasone, IV antibiotics continue O2 as required, monitor respiratory status follows with Dr. Rahman hypokalemia repleted by ED physician follow BMP Metabolic Encephalopathy Likely secondary to hypoxemia, COVID-19 infection Avoid medications that would worsen his mental status Treat underlying causes Reorientation Thrombocytopenia Platelets drop to 100 from baseline above 200 Secondary to COVID infection, continue to monitor Hypernatremia Sodium of 147 Secondary to dehydration and decreased oral intake Encourage oral intake, continue to monitor BMP DVT ppx: heparin subq
[2020-09-16] MEDS: Remdesivir 200 MG in 0.9 % Sodium Chloride 210 ML 105 MG IV (12:24)
[2020-09-16] MEDS: Benzonatate 100 MG CAPSULE 200 MG PO (12:24)
[2020-09-16] MEDS: guaiFENesin LA 600 MG TAB.ER.12H PO (12:24)
--- NOTE | 2020-09-16 14:11 | W.PM.IDCN ---
History of Present Illness Data of Consult Service Date: 09/16/20 Requesting physician: Gloria Leon Primary Care Provider: MD CORI Thurman Reason for consult: shortness of breath He presents with shortness of breath for 24 hours,worse than usual He has interstitial lung disease and is on oxygen He has some chills and fatigue and body aches as well No one else is reported ill He has increasing respiratory needs Review of Systems Cardiovascular: Cardiovascular: Reports dyspnea Respiratory: Respiratory: Reports dyspnea PMFSH Past Medical History Medical History DIP (desquamative interstitial pneumonia) HTN (hypertension) Respiratory failure Supplemental oxygen dependent Family History Family history: reviewed and not pertinent Social History Social History Household Members: Spouse Housing: Apartment Do you presently have visiting nurse or other home services: No Smoking Status: Never smoker Use of substances other than those prescribed or required for medical reasons: No Currently Displaying Signs/Symptoms of Drug Intoxication Withdrawal: No Have you been hit, kicked, punched, or otherwise hurt by someone within the past year? If so, by whom?: No Do you feel safe in your current relationship?: Yes Is there a partner from a previous relationship who is making you feel unsafe now?: No Are you made to feel afraid or neglected: No Advance Directives: No Advance Directives Information Provided: No Do you have thoughts of harming others: None Do you have a plan to hurt others: No Plan Recently lost weight without trying: Unsure service: No Current occupational status: retired [employer] Allergies Allergy/AdvReac Type Severity Reaction Status Date / Time No Known Allergies Allergy Verified 09/03/20 13:53 [No Known Allergies*] Home Medications Medication Instructions Recorded Confirmed Type multivitamin 1 tab PO DAILY 06/11/20 09/16/20 History tamsulosin 0.4 mg capsule 0.8 mg PO BEDTIME 06/11/20 09/16/20 History trazodone 50 mg tablet 50 mg PO BEDTIME 06/11/20 09/16/20 History albuterol sulfate [ProAir HFA] 2 puff PO Q4H PRN 09/16/20 09/16/20 History amlodipine 1 tab PO DAILY 09/16/20 09/16/20 History calcium carbonate-vitamin D3 2 tab PO DAILY 09/16/20 09/16/20 History cyanocobalamin (vitamin B-12) 2 tab PO DAILY 09/16/20 09/16/20 History folic acid 1 tab PO DAILY 09/16/20 09/16/20 History insulin aspart U-100 [Novolog 10 - 20 unit SUBCUT TID 09/16/20 09/16/20 History Flexpen U-100 Insulin] insulin glargine [Lantus Solostar 35 unit SUBCUT BEDTIME 09/16/20 09/16/20 History U-100 Insulin] levetiracetam 10 ml PO BID 09/16/20 09/16/20 History Physical Exam Vital Signs: Vital Signs: Last Vital Signs Temp 98.7 F 09/16/20 11:06 Pulse 105 H 09/16/20 11:06 Resp 25 H 09/16/20 11:06 BP 149/71 H 09/16/20 11:06 Pulse Ox 87 L 09/16/20 11:06 Body Mass Index 26.9 Const: General: cooperative and ill appearing HENMT: Head: Yes normal to inspection Mouth: Normal oral and palatal mucosa present Eyes: General: appearance normal, both eyes and all related structures Resp: Effort & Inspection: decreased respiratory effort Cardio: Rate: regular rate Rhythm: regular rhythm GI: Palpation (GI): Soft to palpation and nontender Back/Spine/Pelvis: Cervical Spine: normal cervical lordosis Skin: General skin exam: no rashes or lesions noted Extrem: General: Yes normal to inspection Assessment and Plan (1) Encephalopathy due to 2019-nCoV: Status: Acute (2) Sepsis with acute hypoxic respiratory failure: Qualifiers: Sepsis type: sepsis due to unspecified organism Severe sepsis shock status: without septic shock Qualified Code(s): A41.9 - Sepsis, unspecified organism; R65.20 - Severe sepsis without septic shock; J96.01 - Acute respiratory failure with hypoxia Problem details: He has shortness of breath He has increased oxygen requirements with 10 l nasal cannula He has no fever or chills He has onset of illness within 10 days Status: Acute Would give Remdesivir and steroids per protocol May give convalescent plasm Oxygen as needed Results Labs CBC & Chem 7: 09/16/20 05:49 09/16/20 05:49 Labs: Short CBC 09/16/20 Range/Units 05:49 WBC 10.5 (4.8-10.8) X10*3/uL Hgb 13.9 L (14.0-18.0) g/dl Hct 42.0 (42-52) % Plt Count 114 L (160-400) X10*3/uL BMP 09/16/20 09/16/20 05:49 05:49 Sodium Cancelled 147 H Potassium Cancelled 4.0 D Chloride Cancelled 111 H Carbon Dioxide Cancelled 22 BUN Cancelled 6 L Creatinine Cancelled 0.77 Calcium Cancelled 7.9 L Microbiology Microbiology Results: Microbiology 09/15/20 02:33 Blood - Venous Blood Culture - Preliminary No growth after 24 hours. 09/15/20 02:32 Blood - Venous Blood Culture - Preliminary No growth after 24 hours.
[2020-09-16] MEDS: Insulin Lispro 100 UNIT/ML 3 ML VIAL SUBCUT (16:46)
[2020-09-16 16:51] LABS: Glucose, Whole Blood 186 mg/dL (60-115)
--- NOTE | 2020-09-16 19:55 | PM.EVENT ---
Event Note Date of Service: 09/16/20 Event Note: Called by nursing staff to evaluate tachycardia. Chart reviewed. 75 year old man with COVID with worsening hypoxemia and tachycardia. Has had increasing oxygen requirements and now is on high flow nasal cannula. He has a sitter in the room with him. On my arrival he was sitting in bed tachypneic. Denied chest pain or dyspnea. Ability to give accurate history is in doubt. On exam: VS: HR 150, BP: 138/84, RR: 34, O2: 94% high flow Gen: alert mild respiratory distress/tachypnea Chest: bibasilar insp dry crackles heard CV: Regular tachycardia. Cannot asses murmur due to ambient noise and tachycardia EKG Sinus tachycardia, narrow complex, possible SVT. Some slight ST depression seen in lateral precordial leads. A/P: 75 year old man with COVID pneumoinia and acute hypoxemic respiratory failure. Now with worsening tachycardia. Likely tachycardic due to SIRS response and anxiety, could also be SVT. Given Metoprolol 5mg IV with improvement-HR now 80-90. He is declining PO meds and spat out his evening doses. A such will continue Metoprolol 5mg IV q6 scheduled for now. Transition to PO once he can consistently take his meds.
[2020-09-16] MEDS: Metoprolol Tartrate 5 MG/5 ML VIAL 2.5 MG IVPUSH ×2 (19:59→20:13)
[2020-09-16 20:35] LABS: Glucose, Whole Blood 157 mg/dL (60-115)
[2020-09-16] MEDS: Adenosine 6 MG/2 ML VIAL 12 MG IVPUSH (22:20)
[2020-09-16] MEDS: dilTIAZem HCL 125 MG in 0.9 % Sodium Chloride 100 ML IVCONT (22:56)
[2020-09-17] VITALS (19 sets, daily range): BP systolic 105–151; BP diastolic 61–84; PULSE 58–158; RESP 18–20; TEMP 36.4–37; O2SAT 90–99
--- NOTE | 2020-09-17 00:32 | PC.NURSE ---
tachycardia , heart rate at 150 per minute, pt anxious, requires frequent reorientation. DR Callahan aware, meds ordered and administered: Lopressor 2.5 mg IV x 2 . Adenosine 6 mg and Adenosine 12 mg IV. Heart rate still high at 148-150.Cardizem drip started @ 5mg/hr.
--- NOTE | 2020-09-17 01:26 | PC.NURSE ---
P- pt on cardizem drip max dose 15mg/ml hr and HR is 150's-160 I- assessed and notified MD Caleb Lorenzo. Sitting assessed the PT and ordered IVP Lopressor 5 mg
[2020-09-17] MEDS: Metoprolol Tartrate 5 MG/5 ML VIAL IVPUSH (02:05)
--- NOTE | 2020-09-17 03:02 | PC.NURSE ---
This RN administered 5mg IVP of Lopressor. HR is in the 80's to 90's. IV Cardizem drip running at max 15mg /ml hr. . Sitting aware and wants the Cardizem to continue to run.
[2020-09-17] MEDS: cefTRIAXone sodium 1 GM in 0.9 % Sodium Chloride 50 ML IV (07:09)
[2020-09-17] MEDS: Heparin Sodium,Porcine 5,000 UNIT/ML VIAL 5000 UNIT SUBCUT (07:10)
[2020-09-17] MEDS: Omeprazole 40 MG CAPSULE.DR PO (07:10)
[2020-09-17 07:22] LABS: Glucose, Whole Blood 126 mg/dL (60-115)
[2020-09-17] MEDS: Folic Acid 1 MG TABLET PO (08:41)
[2020-09-17] MEDS: Multivitamin TABLET 1 TAB PO (08:41)
[2020-09-17] MEDS: Cyanocobalamin (Vitamin B-12) 1,000 MCG TABLET 2000 MCG PO (08:41)
[2020-09-17] MEDS: levETIRAcetam 1,000 MG TABLET 1000 MG PO ×2 (08:41→21:14)
[2020-09-17] MEDS: guaiFENesin LA 600 MG TAB.ER.12H PO ×2 (08:41→21:16)
[2020-09-17] MEDS: dexAMETHasone sod phosphate 4 MG/ML VIAL 6 MG IVPUSH (08:42)
[2020-09-17] MEDS: Benzonatate 100 MG CAPSULE 200 MG PO ×3 (08:42→21:15)
[2020-09-17] MEDS: Azithromycin 500 MG in 0.9 % Sodium Chloride 250 ML 125 MG IV (08:43)
[2020-09-17 09:32] LABS: Anion Gap 14 (12-20); Blood Urea Nitrogen 10 mg/dL (9-16); Calcium 7.8 mg/dL (8.4-10.2); Carbon Dioxide 28 mmol/L (22-29); Chloride 108 mmol/L (96-108); Creatinine Clr Calc Pharmacy 85.4; Estimated Glomerular Filt Rate > 60; Glucose Random 110 mg/dL (60-115); Potassium 3.9 mmol/l (3.3-5.1); Sodium 146 mmol/L (135-145)
[2020-09-17 11:16] LABS: Glucose, Whole Blood 145 mg/dL (60-115)
[2020-09-17] MEDS: Remdesivir 100 MG in 0.9 % Sodium Chloride 230 ML 115 MG IV (11:33)
[2020-09-17] MEDS: LORazepam 2 MG/ML VIAL 0.25 MG IVPUSH (12:25)
--- NOTE | 2020-09-17 16:05 | P.PNIM_ITS ---
Subjective Subjective Date of Service: 09/17/20 Interval History: the patient was seen and evaluated this morning The in his chair, looks in moderate respiratory distress, on high-flow oxygen Denies any fever, chills o but reported shortness of breath and dyspnea No reported other overnight events. Systemic review: No fever, chills or weakness No chest pain, palpitation Reporting shortness of breath and episodes of coughing No abdominal pain, nausea or vomiting No urinary symptoms No any rash or wounds Physical Exam Vital Signs: Vital Signs: Last Vital Signs Temp 97.5 F 09/17/20 15:51 Pulse 68 09/17/20 15:51 Resp 18 09/17/20 15:51 BP 129/81 09/17/20 15:51 Pulse Ox 97 09/17/20 15:51 Body Mass Index 26.9 Const: Other: Constitutional : Alert, oriented about self and place, in mild respiratory distress Neck : Normal inspection, Supple Cardiovascular : RRR, S1 S2, no lower extremity edema Respiratory : Tachypnea, chest wall moving bilaterally, on high-flow the the oxygen Gastrointestinal: soft, lax, Normal bowel sounds, Non tender Skin : Warm/Dry, No rash Neurological : Alert & oriented, No focal deficit, anxious Objective Data Current Medications Generic Name Dose Route Start Last Admin Trade Name Freq PRN Reason Stop Dose Admin Acetaminophen 650 mg 09/15/20 05:17 Acetaminophen 325 Mg Tablet PO Q6H PRN Pain, Mild (Pain Scale 1-3) Apixaban 5 mg 09/17/20 21:00 Apixaban 5 Mg Tablet PO BID DEO Benzonatate 200 mg 09/16/20 10:25 09/17/20 08:42 Benzonatate 100 Mg Capsule PO 200 mg TID [facility]O Administration Cyanocobalamin 2,000 mcg 09/17/20 09:00 09/17/20 08:41 Cyanocobalamin (Vitamin B-12) 1,000 Mcg Tablet PO 2,000 mcg DAILY [facility] Administration Dexamethasone Sodium Phosphate 6 mg 09/15/20 09:00 09/17/20 08:42 Dexamethasone Sod Phosphate 4 Mg/Ml Vial IVPUSH 6 mg DAILY [facility] Administration Docusate Sodium 100 mg 09/15/20 05:17 Docusate Sodium 100 Mg Capsule PO DAILY PRN Constipation Folic Acid 1 mg 09/16/20 09:00 09/17/20 08:41 Folic Acid 1 Mg Tablet PO 1 mg DAILY [facility] Administration Guaifenesin 600 mg 09/16/20 10:25 09/17/20 08:41 Guaifenesin La 600 Mg Tab.Er.12h PO 600 mg BID [facility] Administration Ceftriaxone Sodium 1 gm/ 50 mls @ 100 mls/hr 09/15/20 05:45 09/17/20 07:48 Sodium Chloride IV Infused Q24H [facility] Infusion Azithromycin 500 mg/ Sodium 250 mls @ 125 mls/hr 09/15/20 06:00 09/17/20 10:51 Chloride IV Infused Q24H [facility] Infusion Remdesivir 100 mg/ Sodium 230 mls @ 115 mls/hr 09/17/20 12:00 09/17/20 14:22 Chloride IV 09/20/20 13:59 Infused Q24H [facility] Infusion Insulin Glargine 35 unit 09/16/20 21:00 09/16/20 21:29 Insulin Glargine,Hum.Rec.Anlog 100 Unit/Ml 10 Ml Vial SUBCUT Not Given BEDTIME [facility] Insulin Human Lispro 0 unit 09/16/20 16:30 09/17/20 11:14 Insulin Lispro 100 Unit/Ml 3 Ml Vial SUBCUT Not Given QIDACHS [facility] Protocol Levetiracetam 1,000 mg 09/16/20 09:00 09/17/20 08:41 Levetiracetam 1,000 Mg Tablet PO 1,000 mg BID [facility] Administration Multivitamins/Vitamin C 1 tab 09/17/20 09:00 09/17/20 08:41 Multivitamin Tablet PO 1 tab DAILY [facility] Administration Omeprazole 40 mg 09/16/20 07:55 09/17/20 07:10 Omeprazole 40 Mg Capsule.Dr PO 40 mg DAILY@0630 [facility] Administration Ondansetron HCl 4 mg 09/15/20 05:17 Ondansetron Hcl 4 Mg/2 Ml Vial IVPUSH Q8H PRN Nausea and Vomiting Pharmacy Consult 1 each 09/15/20 02:19 Consult Rx Perform Med Rec MISCELLANE ONCE PRN Consult order Pharmacy Consult 1 each 09/15/20 03:19 Consult Rx Vancomycin Dosing MISCELLANE DAILY PRN Consult order Sodium Chloride 3 ml 09/15/20 08:00 09/17/20 07:50 0.9 % Sodium Chloride Flush 3 Ml Syringe IVFLUSH Not Given QSHIFT [facility] Tamsulosin HCl 0.8 mg 09/16/20 21:00 09/16/20 20:38 Tamsulosin Hcl 0.4 Mg Capsule PO Not Given BEDTIME [facility] Trazodone HCl 50 mg 09/16/20 15:36 Trazodone Hcl 50 Mg Tablet PO BEDTIME PRN Insomnia Labs CBC & Chem 7: 09/16/20 05:49 09/17/20 08:40 Microbiology Microbiology Results: Microbiology 09/15/20 02:33 Blood - Venous Blood Culture - Preliminary No growth after 48 hours. 09/15/20 02:32 Blood - Venous Blood Culture - Preliminary No growth after 48 hours. Assessment and Plan (1) Sepsis with acute hypoxic respiratory failure: Status: Acute (2) Acute hypokalemia: Status: Acute (3) Pneumonia due to COVID-19 virus: Status: Acute (4) Encephalopathy due to 2019-nCoV: Status: Acute Assessment and Plan: This is a 75-year-old male with past medical history of pulmonary interstitial fibrosis on baseline 5-6 L of oxygen at home, and prednisone daily who presents to the hospital with shortness of breath, found to be hypoxic with O2 of 60% on 5 L of oxygen by EMS. acute on chronic hypoxic respiratory failure secondary to COVID-19 pneumonia Concern for bacterial pneumonia CXR showed new right-sided infiltrate concerning for pneumonia Continue dexamethasone 6 mg contin the ue IV antibiotic of ceftriaxone azithromycin Continue high-flow oxygen Start remdesivir to give convalescent plasma today Id input appreciated New onset atrial fibrillation with RVR Noted overnight , confirmed by telemetry control with Kait salter DC Kaz Vasc score of 3, start Eliquis 5 mg b.i.d., discussed possible side effects including bleeding with the patient Start metoprolol b.i.d. for rate control Acute on chronic interstitial lung fibrosis baseline 5-6 L of oxygen and chronic prednisone 30 mg daily, now requiring high- flow oxygen Continue dexamethasone, IV antibiotics continue O2 as required, monitor respiratory status follows with Dr. Rahman as outpatient hypokalemia repleted by ED physician follow BMP Metabolic Encephalopathy Improved but still fluctuating Likely secondary to hypoxemia, COVID-19 infection Avoid medications that would worsen his mental status Treat underlying causes Reorientation Thrombocytopenia Platelets drop to 100 from baseline above 200 Secondary to COVID infection, continue to monitor Hypernatremia Sodium of 147 Secondary to dehydration and decreased oral intake Encourage oral intake, continue to monitor BMP DVT ppx: heparin subq
[2020-09-17 16:25] LABS: Glucose, Whole Blood 217 mg/dL (60-115)
[2020-09-17] MEDS: QUEtiapine Fumarate 25 MG TABLET 12.5 MG PO (17:13)
[2020-09-17] MEDS: 0.9 % Sodium Chloride Flush 3 ML SYRINGE IVFLUSH (17:13)
[2020-09-17] MEDS: Insulin Lispro 100 UNIT/ML 3 ML VIAL SUBCUT ×2 (17:13→21:16)
[2020-09-17 20:52] LABS: Glucose, Whole Blood 204 mg/dL (60-115)
[2020-09-17] MEDS: Metoprolol Tartrate 25 MG TABLET PO (21:16)
[2020-09-17] MEDS: Tamsulosin HCL 0.4 MG CAPSULE 0.8 MG PO (21:16)
[2020-09-17] MEDS: Apixaban 5 MG TABLET PO (21:16)
[2020-09-17] MEDS: traZODone HCL 50 MG TABLET PO (23:11)
[2020-09-18] VITALS (16 sets, daily range): BP systolic 133–163; BP diastolic 75–91; PULSE 55–83; RESP 16–24; TEMP 36.6–37.2; O2SAT 90–97; BMI 24.7
[2020-09-18] MEDS: 0.9 % Sodium Chloride Flush 3 ML SYRINGE IVFLUSH ×3 (00:07→15:07)
[2020-09-18] MEDS: Omeprazole 40 MG CAPSULE.DR PO (04:37)
[2020-09-18] MEDS: cefTRIAXone sodium 1 GM in 0.9 % Sodium Chloride 50 ML IV (04:37)
[2020-09-18] MEDS: Azithromycin 500 MG in 0.9 % Sodium Chloride 250 ML 125 MG IV (04:38)
[2020-09-18 06:50] LABS: Hematocrit 43.2 % (42-52); Hemoglobin 14.1 g/dl (14.0-18.0); Mean Corpuscular HGB Conc 32.6 g/dl (31.0-36.0); Mean Corpuscular Hemoglobin 32.9 pg (27.0-33.0); Mean Corpuscular Volume 100.9 fL (80-98); Mean Platelet Volume 11.7 fL (9.4-12.4); Platelet Count 157 X10*3/uL (160-400); Red Blood Count 4.28 X10*6/uL (4.60-5.80); Red Cell Distribution Width 13.2 % (11.0-16.0)
[2020-09-18 07:09] LABS: Anion Gap 21 (12-20); Blood Urea Nitrogen 11 mg/dL (9-16); C Reactive Protein 11.78 mg/dL (< or = 0.50); Carbon Dioxide 21 mmol/L (22-29); Chloride 104 mmol/L (96-108); Creatinine Clr Calc Pharmacy 83.3; Estimated Glomerular Filt Rate > 60; Glucose Random 129 mg/dL (60-115); Lactate Dehydrogenase 805 U/L (118-273); Potassium 3.9 mmol/l (3.3-5.1); Sodium 142 mmol/L (135-145)
[2020-09-18 07:39] LABS: Calcium 8.3 mg/dL (8.4-10.2)
[2020-09-18 07:48] LABS: Glucose, Whole Blood 164 mg/dL (60-115)
[2020-09-18] MEDS: Metoprolol Tartrate 25 MG TABLET PO ×2 (07:50→20:26)
[2020-09-18] MEDS: Insulin Lispro 100 UNIT/ML 3 ML VIAL SUBCUT ×2 (07:50→11:41)
[2020-09-18] MEDS: guaiFENesin LA 600 MG TAB.ER.12H PO ×2 (07:51→20:26)
[2020-09-18] MEDS: dexAMETHasone sod phosphate 4 MG/ML VIAL 6 MG IVPUSH (07:51)
[2020-09-18] MEDS: Multivitamin TABLET 1 TAB PO (07:51)
[2020-09-18] MEDS: Benzonatate 100 MG CAPSULE 200 MG PO ×3 (07:51→20:25)
[2020-09-18] MEDS: Apixaban 5 MG TABLET PO ×2 (07:51→20:25)
[2020-09-18] MEDS: levETIRAcetam 1,000 MG TABLET 1000 MG PO ×2 (07:51→20:25)
[2020-09-18] MEDS: Folic Acid 1 MG TABLET PO (07:51)
[2020-09-18] MEDS: Cyanocobalamin (Vitamin B-12) 1,000 MCG TABLET 2000 MCG PO (07:51)
[2020-09-18] MEDS: LORazepam 2 MG/ML VIAL 1 MG IVPUSH (10:06)
[2020-09-18] MEDS: QUEtiapine Fumarate 25 MG TABLET PO (11:03)
[2020-09-18] MEDS: Remdesivir 100 MG in 0.9 % Sodium Chloride 230 ML 115 MG IV (11:16)
[2020-09-18 11:36] LABS: Glucose, Whole Blood 162 mg/dL (60-115)
--- NOTE | 2020-09-18 12:29 | MHC.CM.PN ---
DP Home vs STR. Dispo will be determined by the Pts recovery from Covid-19. Continued stay r/t need for cardiac medications IV. A Home O2 eval may be required if Pt does not tolerate wean. CM will follow.
--- NOTE | 2020-09-18 14:04 | PC.NURSE ---
At 1245pm, Patient oxygen stats 78% on highflow 60L 100%. Respiratory therapist made aware/notified and at bedside. Patient placed on NRB 15L with the highflow and stats 91-93%. Dr. Leon made aware and notified. No further actions at this time.
--- NOTE | 2020-09-18 14:17 | P.PNIM_ITS ---
Subjective Subjective Date of Service: 09/18/20 Interval History: the patient was seen and evaluated this morning Seen and evaluated this morning, more anxious overnight looks in moderate respiratory distress, on high-flow oxygen Denies any fever, chills o but reported shortness of breath and dyspnea No reported other overnight events. Systemic review: No fever, chills or weakness No chest pain, palpitation Reporting shortness of breath and episodes of coughing No abdominal pain, nausea or vomiting No urinary symptoms No any rash or wounds Physical Exam Vital Signs: Vital Signs: Last Vital Signs Temp 97.8 F 09/18/20 11:14 Pulse 79 09/18/20 11:14 Resp 20 09/18/20 11:15 BP 141/77 H 09/18/20 11:14 Pulse Ox 92 09/18/20 12:45 Body Mass Index 26.9 Const: Other: Constitutional : Alert, oriented about self and place, in mild respiratory distress Neck : Normal inspection, Supple Cardiovascular : RRR, S1 S2, no lower extremity edema Respiratory : Tachypnea, chest wall moving bilaterally, on high-flow the the oxygen Gastrointestinal: soft, lax, Normal bowel sounds, Non tender Skin : Warm/Dry, No rash Neurological : Alert & oriented, No focal deficit, anxious Objective Data Current Medications Generic Name Dose Route Start Last Admin Trade Name Freq PRN Reason Stop Dose Admin Acetaminophen 650 mg 09/15/20 05:17 Acetaminophen 325 Mg Tablet PO Q6H PRN Pain, Mild (Pain Scale 1-3) Apixaban 5 mg 09/17/20 21:00 09/18/20 07:51 Apixaban 5 Mg Tablet PO 5 mg BID DEO Administration Benzonatate 200 mg 09/16/20 10:25 09/18/20 07:51 Benzonatate 100 Mg Capsule PO 200 mg TID DEO Administration Cyanocobalamin 2,000 mcg 09/17/20 09:00 09/18/20 07:51 Cyanocobalamin (Vitamin B-12) 1,000 Mcg Tablet PO 2,000 mcg DAILY DEO Administration Dexamethasone Sodium Phosphate 6 mg 09/15/20 09:00 09/18/20 07:51 Dexamethasone Sod Phosphate 4 Mg/Ml Vial IVPUSH 6 mg DAILY DEO Administration Docusate Sodium 100 mg 09/15/20 05:17 Docusate Sodium 100 Mg Capsule PO DAILY PRN Constipation Folic Acid 1 mg 09/16/20 09:00 09/18/20 07:51 Folic Acid 1 Mg Tablet PO 1 mg DAILY DEO Administration Guaifenesin 600 mg 09/16/20 10:25 09/18/20 07:51 Guaifenesin La 600 Mg Tab.Er.12h PO 600 mg BID DEO Administration Ceftriaxone Sodium 1 gm/ 50 mls @ 100 mls/hr 09/15/20 05:45 09/18/20 05:10 Sodium Chloride IV Infused Q24H DEO Infusion Azithromycin 500 mg/ Sodium 250 mls @ 125 mls/hr 09/15/20 06:00 09/18/20 06:38 Chloride IV Infused Q24H DEO Infusion Remdesivir 100 mg/ Sodium 230 mls @ 115 mls/hr 09/17/20 12:00 09/18/20 13:20 Chloride IV 09/20/20 13:59 Infused Q24H DEO Infusion Insulin Glargine 35 unit 09/16/20 21:00 09/17/20 21:18 Insulin Glargine,Hum.Rec.Anlog 100 Unit/Ml 10 Ml Vial SUBCUT Not Given BEDTIME [facility] Insulin Human Lispro 0 unit 09/16/20 16:30 09/18/20 11:41 Insulin Lispro 100 Unit/Ml 3 Ml Vial SUBCUT 2 unit QIDACHS [facility] Administration Protocol Levetiracetam 1,000 mg 09/16/20 09:00 09/18/20 07:51 Levetiracetam 1,000 Mg Tablet PO 1,000 mg BID DEO Administration Metoprolol Tartrate 25 mg 09/17/20 21:00 09/18/20 07:50 Metoprolol Tartrate 25 Mg Tablet PO 25 mg BID [facility] Administration Protocol Multivitamins/Vitamin C 1 tab 09/17/20 09:00 09/18/20 07:51 Multivitamin Tablet PO 1 tab DAILY DEO Administration Omeprazole 40 mg 09/16/20 07:55 09/18/20 04:37 Omeprazole 40 Mg Capsule.Dr PO 40 mg DAILY@0630 [facility] Administration Ondansetron HCl 4 mg 09/15/20 05:17 Ondansetron Hcl 4 Mg/2 Ml Vial IVPUSH Q8H PRN Nausea and Vomiting Pharmacy Consult 1 each 09/15/20 02:19 Consult Rx Perform Med Rec MISCELLANE ONCE PRN Consult order Pharmacy Consult 1 each 09/15/20 03:19 Consult Rx Vancomycin Dosing MISCELLANE DAILY PRN Consult order Quetiapine Fumarate 12.5 mg 09/18/20 21:00 Quetiapine Fumarate 25 Mg Tablet PO BID DEO Sodium Chloride 3 ml 09/15/20 08:00 09/18/20 07:50 0.9 % Sodium Chloride Flush 3 Ml Syringe IVFLUSH 3 ml QSHIFT DEO Administration Tamsulosin HCl 0.8 mg 09/16/20 21:00 09/17/20 21:16 Tamsulosin Hcl 0.4 Mg Capsule PO 0.8 mg BEDTIME [facility]O Administration Trazodone HCl 50 mg 09/16/20 15:36 09/17/20 23:11 Trazodone Hcl 50 Mg Tablet PO 50 mg BEDTIME PRN Administration Insomnia Labs CBC & Chem 7: 09/18/20 05:54 09/18/20 05:54 Microbiology Microbiology Results: Microbiology 09/15/20 02:33 Blood - Venous Blood Culture - Preliminary No growth after 48 hours. 09/15/20 02:32 Blood - Venous Blood Culture - Preliminary No growth after 48 hours. Assessment and Plan (1) Sepsis with acute hypoxic respiratory failure: Status: Acute (2) Acute hypokalemia: Status: Acute (3) Pneumonia due to COVID-19 virus: Status: Acute (4) Encephalopathy due to 2019-nCoV: Status: Acute Assessment and Plan: This is a 75-year-old male with past medical history of pulmonary interstitial fibrosis on baseline 5-6 L of oxygen at home, and prednisone daily who presents to the hospital with shortness of breath, found to be hypoxic with O2 of 60% on 5 L of oxygen by EMS. acute on chronic hypoxic respiratory failure secondary to COVID-19 pneumonia Concern for bacterial pneumonia CXR showed new right-sided infiltrate concerning for pneumonia Continue dexamethasone 6 mg D4/10 contin the ue IV antibiotic of ceftriaxone azithromycin D4/7 Continue high-flow oxygen Continue remdesivir D3/5 Received a dose of convalescent plasma Id input appreciated Metabolic Encephalopathy hyperactive delirium Worsened overnight Likely secondary to hypoxemia, COVID-19 infection, dexamethasone Avoid medications that would worsen his mental status Treat underlying causes Reorientation, use Seroquel as needed New onset atrial fibrillation with RVR Noted overnight , confirmed by telemetry control with Cardizem drip, DC Kaz Vasc score of 3 Continue Eliquis 5 mg b.i.d., discussed possible side effects including bleeding with the patient Continue metoprolol b.i.d. for rate control Acute on chronic interstitial lung fibrosis baseline 5-6 L of oxygen and chronic prednisone 30 mg daily, now requiring high- flow oxygen Continue dexamethasone, IV antibiotics continue O2 as required, monitor respiratory status follows with Dr. Rahman as outpatient hypokalemia repleted by ED physician follow BMP Thrombocytopenia Platelets drop to 100 from baseline above 200 Secondary to COVID infection, continue to monitor Hypernatremia Sodium of 142 Secondary to dehydration and decreased oral intake Encourage oral intake, continue to monitor BMP DVT ppx Eliquis
[2020-09-18 16:17] LABS: Glucose, Whole Blood 155 mg/dL (60-115)
[2020-09-18 20:04] LABS: Glucose, Whole Blood 145 mg/dL (60-115)
[2020-09-18] MEDS: QUEtiapine Fumarate 25 MG TABLET 12.5 MG PO (20:25)
[2020-09-18] MEDS: Tamsulosin HCL 0.4 MG CAPSULE 0.8 MG PO (20:25)
[2020-09-19] VITALS (19 sets, daily range): BP systolic 135–178; BP diastolic 62–93; PULSE 52–89; RESP 16–32; TEMP 36.6–37.2; O2SAT 82–97
[2020-09-19] MEDS: 0.9 % Sodium Chloride Flush 3 ML SYRINGE IVFLUSH ×4 (00:09→22:35)
[2020-09-19] MEDS: traZODone HCL 50 MG TABLET PO (01:34)
[2020-09-19] MEDS: cefTRIAXone sodium 1 GM in 0.9 % Sodium Chloride 50 ML IV (04:26)
[2020-09-19] MEDS: Azithromycin 500 MG in 0.9 % Sodium Chloride 250 ML 125 MG IV (04:27)
[2020-09-19] MEDS: Omeprazole 40 MG CAPSULE.DR PO (05:52)
[2020-09-19 07:30] LABS: Anion Gap 17 (12-20); Blood Urea Nitrogen 14 mg/dL (9-16); Calcium 8.3 mg/dL (8.4-10.2); Carbon Dioxide 23 mmol/L (22-29); Chloride 106 mmol/L (96-108); Creatinine Clr Calc Pharmacy 89.8; Estimated Glomerular Filt Rate > 60; Glucose Random 116 mg/dL (60-115); Potassium 4.1 mmol/l (3.3-5.1); Sodium 142 mmol/L (135-145)
[2020-09-19 07:34] LABS: Glucose, Whole Blood 136 mg/dL (60-115)
[2020-09-19] MEDS: dexAMETHasone sod phosphate 4 MG/ML VIAL 6 MG IVPUSH (08:35)
[2020-09-19] MEDS: levETIRAcetam 1,000 MG TABLET 1000 MG PO ×2 (08:35→20:19)
[2020-09-19] MEDS: Benzonatate 100 MG CAPSULE 200 MG PO ×2 (08:35→20:19)
[2020-09-19] MEDS: guaiFENesin LA 600 MG TAB.ER.12H PO ×2 (08:35→20:19)
[2020-09-19] MEDS: Cyanocobalamin (Vitamin B-12) 1,000 MCG TABLET 2000 MCG PO (08:35)
[2020-09-19] MEDS: Multivitamin TABLET 1 TAB PO (08:35)
[2020-09-19] MEDS: Metoprolol Tartrate 25 MG TABLET PO ×2 (08:36→20:20)
[2020-09-19] MEDS: Apixaban 5 MG TABLET PO ×2 (08:36→20:19)
[2020-09-19] MEDS: Folic Acid 1 MG TABLET PO (08:36)
[2020-09-19] MEDS: QUEtiapine Fumarate 25 MG TABLET 12.5 MG PO (08:42)
[2020-09-19 11:32] LABS: Glucose, Whole Blood 153 mg/dL (60-115)
[2020-09-19] MEDS: Insulin Lispro 100 UNIT/ML 3 ML VIAL SUBCUT ×2 (12:00→16:48)
[2020-09-19] MEDS: QUEtiapine Fumarate 25 MG TABLET PO ×2 (12:16→20:19)
[2020-09-19] MEDS: LORazepam 2 MG/ML VIAL 1 MG IVPUSH (12:16)
--- NOTE | 2020-09-19 12:42 | HO.PM.IMPN ---
Subjective Subjective Date of Service: 09/19/20 Interval History: the patient was seen and evaluated this morning Seen and evaluated this morning, more anxious overnight looks in moderate respiratory distress, on high-flow oxygen Denies any fever, chills o but reported shortness of breath and dyspnea No reported other overnight events. Systemic review: No fever, chills or weakness No chest pain, palpitation Reporting shortness of breath and episodes of coughing No abdominal pain, nausea or vomiting No urinary symptoms No any rash or wounds Physical Exam Vital Signs: Vital Signs: Last Vital Signs Temp 98.4 F 09/19/20 11:08 Pulse 60 09/19/20 11:08 Resp 22 H 09/19/20 11:49 BP 147/79 H 09/19/20 11:08 Pulse Ox 96 09/19/20 11:08 Body Mass Index 24.7 Const: Other: Constitutional : Alert, oriented about self and place, in mild respiratory distress Neck : Normal inspection, Supple Cardiovascular : RRR, S1 S2, no lower extremity edema Respiratory : Tachypnea, chest wall moving bilaterally, on high-flow the the oxygen Gastrointestinal: soft, lax, Normal bowel sounds, Non tender Skin : Warm/Dry, No rash Neurological : Alert & oriented, No focal deficit, anxious Objective Data Current Medications Generic Name Dose Route Start Last Admin Trade Name Freq PRN Reason Stop Dose Admin Acetaminophen 650 mg 09/15/20 05:17 Acetaminophen 325 Mg Tablet PO Q6H PRN Pain, Mild (Pain Scale 1-3) Apixaban 5 mg 09/17/20 21:00 09/19/20 08:36 Apixaban 5 Mg Tablet PO 5 mg BID DEO Administration Benzonatate 200 mg 09/16/20 10:25 09/19/20 08:35 Benzonatate 100 Mg Capsule PO 200 mg TID DEO Administration Cyanocobalamin 2,000 mcg 09/17/20 09:00 09/19/20 08:35 Cyanocobalamin (Vitamin B-12) 1,000 Mcg Tablet PO 2,000 mcg DAILY DEO Administration Dexamethasone Sodium Phosphate 6 mg 09/15/20 09:00 09/19/20 08:35 Dexamethasone Sod Phosphate 4 Mg/Ml Vial IVPUSH 6 mg DAILY DEO Administration Docusate Sodium 100 mg 09/15/20 05:17 Docusate Sodium 100 Mg Capsule PO DAILY PRN Constipation Folic Acid 1 mg 09/16/20 09:00 09/19/20 08:36 Folic Acid 1 Mg Tablet PO 1 mg DAILY DEO Administration Guaifenesin 600 mg 09/16/20 10:25 09/19/20 08:35 Guaifenesin La 600 Mg Tab.Er.12h PO 600 mg BID DEO Administration Ceftriaxone Sodium 1 gm/ 50 mls @ 100 mls/hr 09/15/20 05:45 09/19/20 04:56 Sodium Chloride IV Infused Q24H DEO Infusion Azithromycin 500 mg/ Sodium 250 mls @ 125 mls/hr 09/15/20 06:00 09/19/20 06:29 Chloride IV Infused Q24H DEO Infusion Remdesivir 100 mg/ Sodium 230 mls @ 115 mls/hr 09/17/20 12:00 09/18/20 13:20 Chloride IV 09/20/20 13:59 Infused Q24H DEO Infusion Insulin Glargine 35 unit 09/16/20 21:00 09/18/20 20:26 Insulin Glargine,Hum.Rec.Anlog 100 Unit/Ml 10 Ml Vial SUBCUT Not Given BEDTIME [facility] Insulin Human Lispro 0 unit 09/16/20 16:30 09/19/20 07:41 Insulin Lispro 100 Unit/Ml 3 Ml Vial SUBCUT Not Given QIDACHS [facility] Protocol Levetiracetam 1,000 mg 09/16/20 09:00 09/19/20 08:35 Levetiracetam 1,000 Mg Tablet PO 1,000 mg BID [facility] Administration Metoprolol Tartrate 25 mg 09/17/20 21:00 09/19/20 08:36 Metoprolol Tartrate 25 Mg Tablet PO 25 mg BID [facility] Administration Protocol Multivitamins/Vitamin C 1 tab 09/17/20 09:00 09/19/20 08:35 Multivitamin Tablet PO 1 tab DAILY [facility] Administration Omeprazole 40 mg 09/16/20 07:55 09/19/20 05:52 Omeprazole 40 Mg Capsule. PO 40 mg DAILY@0630 [facility] Administration Ondansetron HCl 4 mg 09/15/20 05:17 Ondansetron Hcl 4 Mg/2 Ml Vial IVPUSH Q8H PRN Nausea and Vomiting Pharmacy Consult 1 each 09/15/20 02:19 Consult Rx Perform Med Rec MISCELLANE ONCE PRN Consult order Pharmacy Consult 1 each 09/15/20 03:19 Consult Rx Vancomycin Dosing MISCELLANE DAILY PRN Consult order Quetiapine Fumarate 25 mg 09/19/20 21:00 Quetiapine Fumarate 25 Mg Tablet PO BID DEO Sodium Chloride 3 ml 09/15/20 08:00 09/19/20 08:59 0.9 % Sodium Chloride Flush 3 Ml Syringe IVFLUSH 3 ml QSHIFT DEO Administration Tamsulosin HCl 0.8 mg 09/16/20 21:00 09/18/20 20:25 Tamsulosin Hcl 0.4 Mg Capsule PO 0.8 mg BEDTIME [facility] Administration Trazodone HCl 50 mg 09/16/20 15:36 09/19/20 01:34 Trazodone Hcl 50 Mg Tablet PO 50 mg BEDTIME PRN Administration Insomnia Labs CBC & Chem 7: 09/18/20 05:54 09/19/20 06:28 Microbiology Microbiology Results: Microbiology 09/15/20 02:33 Blood - Venous Blood Culture - Preliminary No growth after 48 hours. 09/15/20 02:32 Blood - Venous Blood Culture - Preliminary No growth after 48 hours. Assessment and Plan (1) Sepsis with acute hypoxic respiratory failure: Status: Acute (2) Acute hypokalemia: Status: Acute (3) Pneumonia due to COVID-19 virus: Status: Acute (4) Encephalopathy due to 2019-nCoV: Status: Acute Assessment and Plan: This is a 75-year-old male with past medical history of pulmonary interstitial fibrosis on baseline 5-6 L of oxygen at home, and prednisone daily who presents to the hospital with shortness of breath, found to be hypoxic with O2 of 60% on 5 L of oxygen by EMS. acute on chronic hypoxic respiratory failure secondary to COVID-19 pneumonia Concern for bacterial pneumonia CXR showed new right-sided infiltrate concerning for pneumonia Continue dexamethasone 6 mg D5/10 contin the ue IV antibiotic of ceftriaxone azithromycin D4/7 Continue high-flow oxygen Continue remdesivir D4/5 Received a dose of convalescent plasma Id input appreciated Metabolic Encephalopathy hyperactive delirium Worsened overnight Likely secondary to hypoxemia, COVID-19 infection, dexamethasone Avoid medications that would worsen his mental status Treat underlying causes Reorientation, Start Seroquel New onset atrial fibrillation with RVR confirmed by telemetry control with Cardizem drip, DC, HR controlled Kaz Vasc score of 3 Continue Eliquis 5 mg b.i.d., discussed possible side effects including bleeding with the patient Continue metoprolol b.i.d. for rate control Acute on chronic interstitial lung fibrosis baseline 5-6 L of oxygen and chronic prednisone 30 mg daily, now requiring high-flow oxygen Continue dexamethasone, IV antibiotics continue O2 as required, monitor respiratory status follows with Dr. Rahman as outpatient hypokalemia repleted by ED physician follow BMP Thrombocytopenia Platelets drop to 100 from baseline above 200 Secondary to COVID infection, continue to monitor Hypernatremia Sodium of 142 Secondary to dehydration and decreased oral intake Encourage oral intake, continue to monitor BMP DVT ppx Eliquis
[2020-09-19] MEDS: Remdesivir 100 MG in 0.9 % Sodium Chloride 230 ML 115 MG IV (12:57)
--- NOTE | 2020-09-19 12:58 | PC.NURSE ---
11am- patient is increasingly agitated, pulling off oxygen mask, pulling at IV's, combative, swinging and hitting 1:1 sitter. Does not follow verbal commands. MD contacted, new order for 1mg IVpush Ativan and 25mg of Seroquel PO, to help him participate in his own care. Administered, effectiveness pending at this time. 1:[address] Other high fall risk measures remain in place.
--- NOTE | 2020-09-19 13:02 | W.MHC.ACPN ---
Advanced Care Planning Note Advanced Care Planning Note Discussed with: family member(s) Time spent (in minutes): 18 Narrative: I had a chance to speak with Patty Taylor Christopher [phone] the spouse and HCP of the patient to discuss ongoing medical problems and hospital course. The patient was admitted to the hospital for acute on chronic hypoxic respiratory failure secondary to COVID-19 infection. He has been requiring high-flow oxygen for the last 3 days. He received treatment of convulsant plasma, IV dexamethasone and remdesivir. He developed encephalopathy and acute delirium as a result of hospital stay, infection and post steroids. Discussed goals of care with the HCP and advanced directive. She confirm the patient is DNR DNI at this stage and she would like him to be treated for the current infection. She was concerned about harming the patient and doing extra thing that he does not know. She stated that she would rather change him to comfort measures able what were doing is causing any harm for him. I explained to her that he has on active treatment at this point and the course of treatment will decide where should we go with this decision. She would like to wait for the next few days before deciding to continue with treatment or to change his status to comfort measures. Problems Discussed (1) Sepsis with acute hypoxic respiratory failure: (2) Acute hypokalemia: (3) Pneumonia due to COVID-19 virus: (4) Encephalopathy due to 2019-nCoV: (5) Respiratory failure: (6) Acute delirium:
[2020-09-19 16:19] LABS: Glucose, Whole Blood 171 mg/dL (60-115)
[2020-09-19] MEDS: Tamsulosin HCL 0.4 MG CAPSULE 0.8 MG PO (20:19)
[2020-09-19 20:49] LABS: Glucose, Whole Blood 152 mg/dL (60-115)
[2020-09-19] MEDS: Morphine Sulfate 2 MG/ML CARTRIDGE 1 MG IVPUSH (21:15)
--- NOTE | 2020-09-19 21:20 | PM.EVENT ---
Event Note Date of Service: 09/19/20 Event Note: SHOWER ROOM ATTENDANT called approximately at 9 pm given oxygen saturation of the patient is found to be 82% despite been on maximum therapy of high flow treatment combined with NRBM. Code status documented as DNR/DNI. At present will give more nebulizer treatment and one dose of morphine for comfort. Oxygen saturation slightly improving to 89% upon repositioning and coughing. called for update on current status. Will closely monitor.
[2020-09-19] MEDS: Albuterol Sulfate (0.042%) 1.25 MG/3 ML VIAL.NEB INHALE (21:23)
[2020-09-20] VITALS (14 sets, daily range): BP systolic 117–155; BP diastolic 58–90; PULSE 56–111; RESP 18–25; TEMP 36.4–36.9; O2SAT 83–97
--- NOTE | 2020-09-20 | MHC.PIE ---
P: @ approx 2109 - continuous O2sat monitoring - O2 down to the low 80's, when assessing patient, patient coughing & SOB, RR elevated in low 30's. Initially on high flow nasal cannula 85% & 60 liters. I: Titrated to 100% & added 100% NRB, repositioned patient, cleaned of urinary incontinence & propped arms up, HOB >30 deg. RT called. P: Patient still not improving. Patient continuously coughing - called Rapid response. Confirmed Patient DNR/DNI, Dr Boland up to see patient. Ordered albuterol updraft & 1mg IVP morphine. Given to patient as ordered @ 2114. Dr Boland updated about patient respiratory status, maintaining DNR/DNI. E: Patient remains appropriate regarding behavior, answering questions, following directions - cooperative w/ care. Patient medicated w/ good effect, resting w/ max oxygen still, O2sat 91-95%. Patient still has coughing fits intermit, but recovers.
[2020-09-20] MEDS: Azithromycin 500 MG in 0.9 % Sodium Chloride 250 ML 125 MG IV (06:11)
[2020-09-20] MEDS: Omeprazole 40 MG CAPSULE.DR PO (06:12)
[2020-09-20] MEDS: cefTRIAXone sodium 1 GM in 0.9 % Sodium Chloride 50 ML IV (06:12)
[2020-09-20] MEDS: Albuterol Sulfate (0.042%) 1.25 MG/3 ML VIAL.NEB INHALE (06:52)
[2020-09-20 07:13] LABS: Anion Gap 16 (12-20); Blood Urea Nitrogen 14 mg/dL (9-16); Carbon Dioxide 24 mmol/L (22-29); Chloride 108 mmol/L (96-108); Creatinine Clr Calc Pharmacy 90.9; Estimated Glomerular Filt Rate > 60; Glucose Random 106 mg/dL (60-115); Potassium 3.9 mmol/l (3.3-5.1); Sodium 144 mmol/L (135-145)
[2020-09-20 07:25] LABS: Calcium 8.3 mg/dL (8.4-10.2)
[2020-09-20 07:47] LABS: Glucose, Whole Blood 114 mg/dL (60-115)
[2020-09-20] MEDS: dexAMETHasone sod phosphate 4 MG/ML VIAL 6 MG IVPUSH (08:47)
[2020-09-20] MEDS: Morphine Sulfate 2 MG/ML CARTRIDGE 1 MG IVPUSH (08:47)
[2020-09-20] MEDS: 0.9 % Sodium Chloride Flush 3 ML SYRINGE IVFLUSH ×2 (08:47→16:10)
[2020-09-20] MEDS: levETIRAcetam 1,000 MG TABLET 1000 MG PO ×2 (09:04→20:23)
[2020-09-20] MEDS: Benzonatate 100 MG CAPSULE 200 MG PO ×3 (09:04→20:23)
[2020-09-20] MEDS: Multivitamin TABLET 1 TAB PO (09:05)
[2020-09-20] MEDS: Folic Acid 1 MG TABLET PO (09:05)
[2020-09-20] MEDS: Cyanocobalamin (Vitamin B-12) 1,000 MCG TABLET 2000 MCG PO (09:05)
[2020-09-20] MEDS: Metoprolol Tartrate 25 MG TABLET PO ×2 (09:05→20:23)
[2020-09-20] MEDS: QUEtiapine Fumarate 25 MG TABLET PO ×2 (09:05→20:23)
[2020-09-20] MEDS: guaiFENesin LA 600 MG TAB.ER.12H PO ×2 (09:05→20:23)
[2020-09-20] MEDS: Apixaban 5 MG TABLET PO ×2 (09:43→20:23)
[2020-09-20] MEDS: Remdesivir 100 MG in 0.9 % Sodium Chloride 230 ML 115 MG IV (11:34)
[2020-09-20 11:36] LABS: Glucose, Whole Blood 154 mg/dL (60-115)
--- NOTE | 2020-09-20 15:00 | PC.NURSE ---
At 7 am patient desatting at shift change. SPo2 72-85% on 100% High flow at 60L/min, and 100% NRB. MD notified and spoke with . Patient remains DNR, DNI, 1 mg IV morphine given to help with SOB. At rest patient currently 85-89% at 100% highflow at 60L/min and 100% NRB. Patient removes 02 intermittently and telesitter in place to notify staff. Patient continues to desat into 70s at time. Patient alert and able to speak in short sentences to nurse. Patient ate 75% of lunch with assistance from nurse. updated. Will continue to monitor.
--- NOTE | 2020-09-20 15:55 | MHC.CM.PN ---
DP to be determined by the Pts recovery from Covid. Continued stay R/T low SPo2, on High flow oxygen 100% NRB. CM will follow..
[2020-09-20 16:37] LABS: Glucose, Whole Blood 194 mg/dL (60-115)
[2020-09-20] MEDS: Insulin Lispro 100 UNIT/ML 3 ML VIAL SUBCUT (16:49)
--- NOTE | 2020-09-20 17:15 | P.PNIM_ITS ---
Subjective Subjective Date of Service: 09/21/20 Interval History: Seen in f/u for acute hypoxic respiratory failure related to covid 19 with underlying pulmonary fibrosis. Hypoxia was worse this morning with O2 in 70s and 80s on non rebreather and high flow but seems much better this afternoon with O2 in around 95 to 97. Gen: no fever Resp: no sob, no cough CV: no chest, no RAMIREZ, no leg edema GI: No n/v, no abd pain Neuro: No confusion Physical Exam Vital Signs: Vital Signs: Last Vital Signs Temp 98.2 F 09/20/20 15:39 Pulse 67 09/20/20 15:39 Resp 20 09/20/20 16:17 BP 149/74 H 09/20/20 15:39 Pulse Ox 97 09/20/20 15:39 Body Mass Index 24.7 Const: Other: Constitutional : Alert, oriented about self and place, in mild respiratory distress Neck : Normal inspection, Supple Cardiovascular : RRR, S1 S2, no lower extremity edema Respiratory : moderate resp distress earlier but seem better today Gastrointestinal: soft, lax, Normal bowel sounds, Non tender Skin : Warm/Dry, No rash Neurological : Alert & oriented, No focal deficit, anxious Objective Data Current Medications Generic Name Dose Route Start Last Admin Trade Name Freq PRN Reason Stop Dose Admin Acetaminophen 650 mg 09/15/20 05:17 Acetaminophen 325 Mg Tablet PO Q6H PRN Pain, Mild (Pain Scale 1-3) Apixaban 5 mg 09/17/20 21:00 09/20/20 09:43 Apixaban 5 Mg Tablet PO 5 mg BID [facility]O Administration Benzonatate 200 mg 09/16/20 10:25 09/20/20 16:10 Benzonatate 100 Mg Capsule PO 200 mg TID [facility]O Administration Cyanocobalamin 2,000 mcg 09/17/20 09:00 09/20/20 09:05 Cyanocobalamin (Vitamin B-12) 1,000 Mcg Tablet PO 2,000 mcg DAILY [facility] Administration Dexamethasone Sodium Phosphate 6 mg 09/15/20 09:00 09/20/20 08:47 Dexamethasone Sod Phosphate 4 Mg/Ml Vial IVPUSH 6 mg DAILY [facility] Administration Docusate Sodium 100 mg 09/15/20 05:17 Docusate Sodium 100 Mg Capsule PO DAILY PRN Constipation Folic Acid 1 mg 09/16/20 09:00 09/20/20 09:05 Folic Acid 1 Mg Tablet PO 1 mg DAILY [facility] Administration Guaifenesin 600 mg 09/16/20 10:25 09/20/20 09:05 Guaifenesin La 600 Mg Tab.Er.12h PO 600 mg BID [facility] Administration Ceftriaxone Sodium 1 gm/ 50 mls @ 100 mls/hr 09/15/20 05:45 09/20/20 07:09 Sodium Chloride IV Infused Q24H [facility] Infusion Azithromycin 500 mg/ Sodium 250 mls @ 125 mls/hr 09/15/20 06:00 09/20/20 08:45 Chloride IV Infused Q24H [facility] Infusion Insulin Glargine 35 unit 09/16/20 21:00 09/19/20 22:33 Insulin Glargine,Hum.Rec.Anlog 100 Unit/Ml 10 Ml Vial SUBCUT Not Given BEDTIME [facility] Insulin Human Lispro 0 unit 09/16/20 16:30 09/20/20 16:49 Insulin Lispro 100 Unit/Ml 3 Ml Vial SUBCUT 2 unit QIDACHS [facility] Administration Protocol Levetiracetam 1,000 mg 09/16/20 09:00 09/20/20 09:04 Levetiracetam 1,000 Mg Tablet PO 1,000 mg BID [facility] Administration Metoprolol Tartrate 25 mg 09/17/20 21:00 09/20/20 09:05 Metoprolol Tartrate 25 Mg Tablet PO 25 mg BID [facility] Administration Protocol Multivitamins/Vitamin C 1 tab 09/17/20 09:00 09/20/20 09:05 Multivitamin Tablet PO 1 tab DAILY [facility] Administration Omeprazole 40 mg 09/16/20 07:55 09/20/20 06:12 Omeprazole 40 Mg Capsule.Dr PO 40 mg DAILY@0630 [facility] Administration Ondansetron HCl 4 mg 09/15/20 05:17 Ondansetron Hcl 4 Mg/2 Ml Vial IVPUSH Q8H PRN Nausea and Vomiting Pharmacy Consult 1 each 09/15/20 02:19 Consult Rx Perform Med Rec MISCELLANE ONCE PRN Consult order Pharmacy Consult 1 each 09/15/20 03:19 Consult Rx Vancomycin Dosing MISCELLANE DAILY PRN Consult order Quetiapine Fumarate 25 mg 09/19/20 21:00 09/20/20 09:05 Quetiapine Fumarate 25 Mg Tablet PO 25 mg BID [facility] Administration Sodium Chloride 3 ml 09/15/20 08:00 09/20/20 16:10 0.9 % Sodium Chloride Flush 3 Ml Syringe IVFLUSH 3 ml QSHIFT [facility] Administration Tamsulosin HCl 0.8 mg 09/16/20 21:00 09/19/20 20:19 Tamsulosin Hcl 0.4 Mg Capsule PO 0.8 mg BEDTIME [facility] Administration Trazodone HCl 50 mg 09/16/20 15:36 09/19/20 01:34 Trazodone Hcl 50 Mg Tablet PO 50 mg BEDTIME PRN Administration Insomnia Labs CBC & Chem 7: 09/18/20 05:54 09/20/20 05:39 Microbiology Microbiology Results: Microbiology 09/15/20 02:33 Blood - Venous Blood Culture - Final No growth after 5 days. 09/15/20 02:32 Blood - Venous Blood Culture - Final No growth after 5 days. Assessment and Plan (1) Sepsis with acute hypoxic respiratory failure: Status: Acute (2) Acute hypokalemia: Status: Acute (3) Pneumonia due to COVID-19 virus: Status: Acute (4) Encephalopathy due to 2019-nCoV: Status: Acute (5) Respiratory failure: Status: Acute (6) Acute delirium: Status: Acute Assessment and Plan: 75-year-old male with past medical history of pulmonary interstitial fibrosis on baseline 5-6 L of oxygen at home, and prednisone daily who presents to the [facility] with shortness of breath, found to be severely hypoxic with O2 of 60% on 5 L of oxygen by EMS. Acute and chronic hypoxic respiratory failure secondary to COVID-19 pneumonia Concern for bacterial pneumonia CXR showed new right-sided infiltrate concerning for pneumonia Continue dexamethasone 6 mg D6/10 contin the ue IV antibiotic of ceftriaxone azithromycin D5/7 Continue high-flow oxygen Continue remdesivir D5/5 Received a dose of convalescent plasma Id input appreciated Metabolic Encephalopathy/delirum--likely multifactorial from hypoxia, covid, steroid and owning. He seems better today. Seroquel PRN for agitation New onset atrial fibrillation with RVR--controlled, continue Metorpolol to control rate, Eliquis for anticoagulation. Acute on chronic interstitial lung fibrosis baseline 5-6 L of oxygen and chronic prednisone 30 mg daily, now requiring high- flow oxygen Continue dexamethasone, IV antibiotics continue O2 as required, monitor respiratory status follows with Dr. Rahman as outpatient hypokalemia repleted by ED physician follow BMP Thrombocytopenia Platelets drop to 100 from baseline above 200 Secondary to COVID infection, continue to monitor Hypernatremia Sodium of 142 Secondary to dehydration and decreased oral intake Encourage oral intake, continue to monitor BMP DVT ppx Eliquis Plan of care discussed with patient's and will not excalate care but concentrate on patient being comfortable wean off O2 as argelia
--- NOTE | 2020-09-20 19:09 | PC.NURSE ---
At around 7 pm patient switched from sinus rhythm to a-fib with rate in 110-120s. MD notified. Per MD will continue to monitor.
[2020-09-20] MEDS: Tamsulosin HCL 0.4 MG CAPSULE 0.8 MG PO (20:23)
[2020-09-20 21:05] LABS: Glucose, Whole Blood 136 mg/dL (60-115)
[2020-09-21] VITALS (18 sets, daily range): BP systolic 105–173; BP diastolic 64–90; PULSE 59–159; RESP 18–32; TEMP 36.4–37; O2SAT 89–100
[2020-09-21] MEDS: Morphine Sulfate 2 MG/ML CARTRIDGE 1 MG IVPUSH ×4 (00:11→20:28)
[2020-09-21] MEDS: 0.9 % Sodium Chloride Flush 3 ML SYRINGE IVFLUSH ×4 (00:21→20:40)
--- NOTE | 2020-09-21 00:43 | PC.NURSE ---
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 RN watching my monitors made aware Calibration Checker asked that she push Cardizem>
[2020-09-21] MEDS: dilTIAZem HCL 50 MG/10 ML VIAL 10 MG IVPUSH (01:34)
[2020-09-21] MEDS: 0.9 % Sodium Chloride 1,000 ML 999 ML IV (01:36)
--- NOTE | 2020-09-21 01:36 | PC.NURSE ---
500mL NS bolus being administered. MD ordered one liter, but tigertext me to tell me to administer only 500mL
[2020-09-21] MEDS: dilTIAZem HCL 125 MG in 0.9 % Sodium Chloride 100 ML 10 MG IVCONT (03:07)
[2020-09-21] MEDS: cefTRIAXone sodium 1 GM in 0.9 % Sodium Chloride 50 ML IV (06:39)
[2020-09-21] MEDS: Azithromycin 500 MG in 0.9 % Sodium Chloride 250 ML 125 MG IV (07:16)
[2020-09-21 07:22] LABS: Glucose, Whole Blood 104 mg/dL (60-115)
[2020-09-21] MEDS: dexAMETHasone sod phosphate 4 MG/ML VIAL 6 MG IVPUSH (07:48)
[2020-09-21] MEDS: Folic Acid 1 MG TABLET PO (07:50)
[2020-09-21] MEDS: Metoprolol Tartrate 25 MG TABLET PO ×2 (07:50→20:27)
[2020-09-21] MEDS: Apixaban 5 MG TABLET PO ×2 (07:50→20:27)
[2020-09-21] MEDS: Benzonatate 100 MG CAPSULE 200 MG PO ×2 (07:50→14:28)
[2020-09-21] MEDS: levETIRAcetam 1,000 MG TABLET 1000 MG PO ×2 (07:50→20:27)
[2020-09-21] MEDS: Multivitamin TABLET 1 TAB PO (07:50)
[2020-09-21] MEDS: guaiFENesin LA 600 MG TAB.ER.12H PO (07:51)
[2020-09-21] MEDS: Cyanocobalamin (Vitamin B-12) 1,000 MCG TABLET 2000 MCG PO (07:51)
[2020-09-21] MEDS: QUEtiapine Fumarate 25 MG TABLET PO ×2 (07:51→20:27)
[2020-09-21 11:22] LABS: Glucose, Whole Blood 186 mg/dL (60-115)
[2020-09-21] MEDS: Insulin Lispro 100 UNIT/ML 3 ML VIAL SUBCUT (11:23)
--- NOTE | 2020-09-21 13:47 | PC.NURSE ---
1330 Cardizem drip stopped per MD order. Patient remaining SR with HR~ 70's. Patient denies any discomfort at this time. Will continue to monitor and assess.
--- NOTE | 2020-09-21 14:37 | P.PNIM_ITS ---
Subjective Subjective Date of Service: 09/21/20 Interval History: Seen in f/u for acute hypoxic respiratory failure related to covid 19 with underlying pulmonary fibrosis. Overall hypoxia is better but on NRB and high flow. Went in AF w/ RVR overnight and put IV cardizem and is back in sinus rythm Gen: no fever Resp: no sob, no cough CV: no chest, no RAMIREZ, no leg edema GI: No n/v, no abd pain Neuro: some confusion Physical Exam Vital Signs: Vital Signs: Last Vital Signs Temp 98.2 F 09/21/20 11:13 Pulse 75 09/21/20 11:13 Resp 18 09/21/20 11:13 BP 153/81 H 09/21/20 11:13 Pulse Ox 91 L 09/21/20 11:13 Body Mass Index 24.7 Const: Other: Constitutional : Alert, oriented about self and place, in mild respiratory distress Neck : Normal inspection, Supple Cardiovascular : RRR, S1 S2, no lower extremity edema Respiratory : normal resp effor, no accessroy muschle use Gastrointestinal: soft, lax, Normal bowel sounds, Non tender Skin : Warm/Dry, No rash Neurological : Alert & oriented to self and place, No focal deficit, anxious Objective Data Current Medications Generic Name Dose Route Start Last Admin Trade Name Freq PRN Reason Stop Dose Admin Acetaminophen 650 mg 09/15/20 05:17 Acetaminophen 325 Mg Tablet PO Q6H PRN Pain, Mild (Pain Scale 1-3) Apixaban 5 mg 09/17/20 21:00 09/21/20 07:50 Apixaban 5 Mg Tablet PO 5 mg BID [facility] Administration Benzonatate 200 mg 09/16/20 10:25 09/21/20 14:28 Benzonatate 100 Mg Capsule PO 200 mg TID [facility] Administration Cyanocobalamin 2,000 mcg 09/17/20 09:00 09/21/20 07:51 Cyanocobalamin (Vitamin B-12) 1,000 Mcg Tablet PO 2,000 mcg DAILY [facility] Administration Dexamethasone Sodium Phosphate 6 mg 09/15/20 09:00 09/21/20 07:48 Dexamethasone Sod Phosphate 4 Mg/Ml Vial IVPUSH 6 mg DAILY [facility] Administration Docusate Sodium 100 mg 09/15/20 05:17 Docusate Sodium 100 Mg Capsule PO DAILY PRN Constipation Folic Acid 1 mg 09/16/20 09:00 09/21/20 07:50 Folic Acid 1 Mg Tablet PO 1 mg DAILY [facility] Administration Guaifenesin 600 mg 09/16/20 10:25 09/21/20 07:51 Guaifenesin La 600 Mg Tab.Er.12h PO 600 mg BID [facility] Administration Ceftriaxone Sodium 1 gm/ 50 mls @ 100 mls/hr 09/15/20 05:45 09/21/20 07:17 Sodium Chloride IV Infused Q24H [facility] Infusion Azithromycin 500 mg/ Sodium 250 mls @ 125 mls/hr 09/15/20 06:00 09/21/20 09:25 Chloride IV Infused Q24H [facility] Infusion Insulin Glargine 35 unit 09/16/20 21:00 09/20/20 21:15 Insulin Glargine,Hum.Rec.Anlog 100 Unit/Ml 10 Ml Vial SUBCUT Not Given BEDTIME [facility] Insulin Human Lispro 0 unit 09/16/20 16:30 09/21/20 11:23 Insulin Lispro 100 Unit/Ml 3 Ml Vial SUBCUT 2 unit QIDACHS [facility] Administration Protocol Levetiracetam 1,000 mg 09/16/20 09:00 09/21/20 07:50 Levetiracetam 1,000 Mg Tablet PO 1,000 mg BID [facility] Administration Metoprolol Tartrate 25 mg 09/17/20 21:00 09/21/20 07:50 Metoprolol Tartrate 25 Mg Tablet PO 25 mg BID [facility] Administration Protocol Morphine Sulfate 1 mg 09/20/20 17:32 09/21/20 07:48 Morphine Sulfate 2 Mg/Ml Cartridge IVPUSH 1 mg Q4H PRN Administration Pain and comfort Multivitamins/Vitamin C 1 tab 09/17/20 09:00 09/21/20 07:50 Multivitamin Tablet PO 1 tab DAILY [facility] Administration Omeprazole 40 mg 09/16/20 07:55 09/21/20 06:48 Omeprazole 40 Mg Capsule.Dr PO Not Given DAILY@0630 [facility] Ondansetron HCl 4 mg 09/15/20 05:17 Ondansetron Hcl 4 Mg/2 Ml Vial IVPUSH Q8H PRN Nausea and Vomiting Pharmacy Consult 1 each 09/15/20 02:19 Consult Rx Perform Med Rec MISCELLANE ONCE PRN Consult order Pharmacy Consult 1 each 01/24/21 03:19 Consult Rx Vancomycin Dosing MISCELLANE DAILY PRN Consult order Quetiapine Fumarate 25 mg 09/19/20 21:00 09/21/20 07:51 Quetiapine Fumarate 25 Mg Tablet PO 25 mg BID [facility] Administration Sodium Chloride 3 ml 09/15/20 08:00 09/21/20 14:29 0.9 % Sodium Chloride Flush 3 Ml Syringe IVFLUSH 3 ml QSHIFT [facility] Administration Tamsulosin HCl 0.8 mg 09/16/20 21:00 09/20/20 20:23 Tamsulosin Hcl 0.4 Mg Capsule PO 0.8 mg BEDTIME [facility] Administration Trazodone HCl 50 mg 09/16/20 15:36 09/19/20 01:34 Trazodone Hcl 50 Mg Tablet PO 50 mg BEDTIME PRN Administration Insomnia Labs CBC & Chem 7: 09/18/20 05:54 09/20/20 05:39 Microbiology Microbiology Results: Microbiology 09/15/20 02:33 Blood - Venous Blood Culture - Final No growth after 5 days. 09/15/20 02:32 Blood - Venous Blood Culture - Final No growth after 5 days. Assessment and Plan (1) Sepsis with acute hypoxic respiratory failure: Status: Acute (2) Acute hypokalemia: Status: Acute (3) Pneumonia due to COVID-19 virus: Status: Acute (4) Encephalopathy due to 2019-nCoV: Status: Acute (5) Respiratory failure: Status: Acute (6) Acute delirium: Status: Acute Assessment and Plan: 75-year-old male with past medical history of pulmonary interstitial fibrosis on baseline 5-6 L of oxygen at home, and prednisone daily who presents to the hospital with shortness of breath, found to be severely hypoxic with O2 of 60% on 5 L of oxygen by EMS. Acute and chronic hypoxic respiratory failure secondary to COVID-19 pneumonia Concern for bacterial pneumonia as well CXR showed new right-sided infiltrate concerning for pneumonia Continue dexamethasone 6 mg D7/10 contin the ue IV antibiotic of ceftriaxone azithromycin D6/7 Continue high-flow oxygen Finished Remdesevir on 09/20 Received a dose of convalescent plasma Id input appreciated Metabolic Encephalopathy/delirum--likely multifactorial from hypoxia, covid, steroid and sundowning. He seems better today. Seroquel PRN for agitation New onset atrial fibrillation with RVR--controlled, continue Metorpolol to control rate, Eliquis for anticoagulation. Acute on chronic interstitial lung fibrosis baseline 5-6 L of oxygen and chronic prednisone 30 mg daily, now requiring high- flow oxygen Continue dexamethasone, IV antibiotics continue O2 as required, monitor respiratory status follows with Dr. Rahman as outpatient hypokalemia repleted by ED physician follow BMP Thrombocytopenia Platelets drop to 100 from baseline above 200 Secondary to COVID infection, continue to monitor Hypernatremia Sodium of 142 Secondary to dehydration and decreased oral intake Encourage oral intake, continue to monitor BMP DVT ppx Eliquis Plan of care discussed with patient's and will not excalate care but montserrat ntrate on patient being comfortable wean off O2 as argelia
[2020-09-21 16:32] LABS: Glucose, Whole Blood 161 mg/dL (60-115)
[2020-09-21] MEDS: traZODone HCL 50 MG TABLET PO (20:28)
[2020-09-21 21:13] LABS: Glucose, Whole Blood 138 mg/dL (60-115)
[2020-09-22] VITALS (9 sets, daily range): BP systolic 154–178; BP diastolic 71–87; PULSE 52–115; RESP 17–26; TEMP 36.6–36.7; O2SAT 3–98
[2020-09-22] MEDS: cefTRIAXone sodium 1 GM in 0.9 % Sodium Chloride 50 ML IV (05:45)
[2020-09-22 07:21] LABS: Glucose, Whole Blood 116 mg/dL (60-115)
[2020-09-22] MEDS: Benzonatate 100 MG CAPSULE 200 MG PO ×3 (08:25→19:38)
[2020-09-22] MEDS: guaiFENesin LA 600 MG TAB.ER.12H PO ×2 (08:27→19:41)
[2020-09-22] MEDS: 0.9 % Sodium Chloride Flush 3 ML SYRINGE IVFLUSH ×3 (08:27→23:06)
[2020-09-22] MEDS: levETIRAcetam 1,000 MG TABLET 1000 MG PO ×2 (08:28→19:41)
[2020-09-22] MEDS: Cyanocobalamin (Vitamin B-12) 1,000 MCG TABLET 2000 MCG PO (08:28)
[2020-09-22] MEDS: Multivitamin TABLET 1 TAB PO (08:28)
[2020-09-22] MEDS: Metoprolol Tartrate 25 MG TABLET PO ×2 (08:29→19:40)
[2020-09-22] MEDS: Apixaban 5 MG TABLET PO ×2 (08:29→19:40)
[2020-09-22] MEDS: QUEtiapine Fumarate 25 MG TABLET PO ×2 (08:29→19:40)
[2020-09-22] MEDS: Folic Acid 1 MG TABLET PO (08:29)
[2020-09-22] MEDS: Morphine Sulfate 2 MG/ML CARTRIDGE 1 MG IVPUSH ×2 (09:45→19:37)
[2020-09-22] MEDS: dexAMETHasone sod phosphate 4 MG/ML VIAL 6 MG IVPUSH (10:13)
--- NOTE | 2020-09-22 12:38 | HO.PM.IMPN ---
Subjective Subjective Date of Service: 09/22/20 Interval History: Seen in f/u for acute hypoxic respiratory failure related to covid 19 with underlying pulmonary fibrosis. Overall unchanged. He is still quite hypoxic this morning on both NRB and high and satting high 80s. Gen: no fever Resp: no sob, no cough CV: no chest, no RAMIREZ, no leg edema GI: No n/v, no abd pain Neuro: some confusion Physical Exam Vital Signs: Vital Signs: Last Vital Signs Temp 98.1 F 09/22/20 07:18 Pulse 52 09/22/20 07:18 Resp 18 09/22/20 11:14 BP 158/71 H 09/22/20 07:18 Pulse Ox 96 09/22/20 07:18 Body Mass Index 24.7 Const: Other: Constitutional : Alert, oriented about self and place, presently no distress Neck : Normal inspection, Cardiovascular : RRR on monitor Respiratory : normal resp effor, no accessroy muschle use--asuculatation avoided due active covid Gastrointestinal: soft,nontender Skin : Warm/Dry, No rash Neurological : Alert & oriented to self and place, Objective Data Current Medications Generic Name Dose Route Start Last Admin Trade Name Freq PRN Reason Stop Dose Admin Acetaminophen 650 mg 09/15/20 05:17 Acetaminophen 325 Mg Tablet PO Q6H PRN Pain, Mild (Pain Scale 1-3) Apixaban 5 mg 09/17/20 21:00 09/22/20 08:29 Apixaban 5 Mg Tablet PO 5 mg BID [facility] Administration Benzonatate 200 mg 09/16/20 10:25 09/22/20 08:25 Benzonatate 100 Mg Capsule PO 200 mg TID [facility] Administration Cyanocobalamin 2,000 mcg 09/17/20 09:00 09/22/20 08:28 Cyanocobalamin (Vitamin B-12) 1,000 Mcg Tablet PO 2,000 mcg DAILY [facility] Administration Dexamethasone Sodium Phosphate 6 mg 09/15/20 09:00 09/22/20 10:13 Dexamethasone Sod Phosphate 4 Mg/Ml Vial IVPUSH 6 mg DAILY [facility] Administration Docusate Sodium 100 mg 09/15/20 05:17 Docusate Sodium 100 Mg Capsule PO DAILY PRN Constipation Folic Acid 1 mg 09/16/20 09:00 09/22/20 08:29 Folic Acid 1 Mg Tablet PO 1 mg DAILY [facility] Administration Guaifenesin 600 mg 09/16/20 10:25 09/22/20 08:27 Guaifenesin La 600 Mg Tab.Er.12h PO 600 mg BID [facility] Administration Insulin Glargine 35 unit 09/16/20 21:00 09/21/20 21:15 Insulin Glargine,Hum.Rec.Anlog 100 Unit/Ml 10 Ml Vial SUBCUT Not Given BEDTIME [facility] Insulin Human Lispro 0 unit 09/16/20 16:30 09/22/20 08:11 Insulin Lispro 100 Unit/Ml 3 Ml Vial SUBCUT Not Given QIDACHS [facility] Protocol Levetiracetam 1,000 mg 09/16/20 09:00 09/22/20 08:28 Levetiracetam 1,000 Mg Tablet PO 1,000 mg BID [facility] Administration Metoprolol Tartrate 25 mg 09/17/20 21:00 09/22/20 08:29 Metoprolol Tartrate 25 Mg Tablet PO 25 mg BID [facility] Administration Protocol Morphine Sulfate 1 mg 09/20/20 17:32 09/21/20 20:28 Morphine Sulfate 2 Mg/Ml Cartridge IVPUSH 1 mg Q4H PRN Administration Pain and comfort Multivitamins/Vitamin C 1 tab 09/17/20 09:00 09/22/20 08:28 Multivitamin Tablet PO 1 tab DAILY [facility] Administration Omeprazole 40 mg 09/16/20 07:55 09/22/20 06:27 Omeprazole 40 Mg Capsule.Dr PO Not Given DAILY@0630 [facility] Ondansetron HCl 4 mg 09/15/20 05:17 Ondansetron Hcl 4 Mg/2 Ml Vial IVPUSH Q8H PRN Nausea and Vomiting Pharmacy Consult 1 each 09/15/20 02:19 Consult Rx Perform Med Rec MISCELLANE ONCE PRN Consult order Quetiapine Fumarate 25 mg 09/19/20 21:00 09/22/20 08:29 Quetiapine Fumarate 25 Mg Tablet PO 25 mg BID [facility] Administration Sodium Chloride 3 ml 09/15/20 08:00 09/22/20 08:27 0.9 % Sodium Chloride Flush 3 Ml Syringe IVFLUSH 3 ml QSHIFT [facility] Administration Tamsulosin HCl 0.8 mg 09/16/20 21:00 09/21/20 20:40 Tamsulosin Hcl 0.4 Mg Capsule PO Not Given BEDTIME [facility] Trazodone HCl 50 mg 09/16/20 15:36 09/21/20 20:28 Trazodone Hcl 50 Mg Tablet PO 50 mg BEDTIME PRN Administration Insomnia Labs CBC & Chem 7: 09/18/20 05:54 09/20/20 05:39 Microbiology Microbiology Results: Microbiology 09/15/20 02:33 Blood - Venous Blood Culture - Final No growth after 5 days. 09/15/20 02:32 Blood - Venous Blood Culture - Final No growth after 5 days. Assessment and Plan (1) Sepsis with acute hypoxic respiratory failure: Status: Acute (2) Acute hypokalemia: Status: Acute (3) Pneumonia due to COVID-19 virus: Status: Acute (4) Encephalopathy due to 2019-nCoV: Status: Acute (5) Respiratory failure: Status: Acute (6) Acute delirium: Status: Acute Assessment and Plan: 75-year-old male with past medical history of pulmonary interstitial fibrosis on baseline 5-6 L of oxygen at home, and prednisone daily who presents to the hospital with shortness of breath, found to be severely hypoxic with O2 of 60% on 5 L of oxygen by EMS. Acute and chronic hypoxic respiratory failure--Persistent hypoxia secondary to COVID-19 pneumonia CXR showed new right-sided infiltrate concerning for pneumonia Continue dexamethasone 6 mg D8/10 contin the ue IV antibiotic of ceftriaxone azithromycin D7/7--stop today Continue high-flow oxygen and NRB if addition if needed Finished Remdesevir on 09/20 Received a dose of convalescent plasma on 09/16/20 ID has been following Metabolic Encephalopathy/delirum--likely multifactorial from hypoxia, covid, steroid and , underlying dementia He seems better today. Seroquel PRN for agitation New onset atrial fibrillation with RVR--controlled, continue Metorpolol to control rate, Eliquis for anticoagulation. Presently in sinus rythm Acute on chronic interstitial lung fibrosis baseline 5-6 L of oxygen and chronic prednisone 30 mg daily, now requiring high-flow oxygen Continue dexamethasone, IV antibiotics continue O2 as required, monitor respiratory status follows with Dr. Rahman as outpatient hypOkalemia repleted by ED physician follow BMP Thrombocytopenia Platelets drop to 100 from baseline above 200 Secondary to COVID infection, continue to monitor HypErnatremia--due to dehydration and not drinking, this has resolved. DVT ppx Eliquis Plan of care discussed with patient's and will not excalate care but concentrate on patient being comfortable wean off O2 as argelia
[2020-09-22 15:59] LABS: Glucose, Whole Blood 182 mg/dL (60-115)
[2020-09-22 19:37] LABS: Glucose, Whole Blood 156 mg/dL (60-115)
[2020-09-22] MEDS: Tamsulosin HCL 0.4 MG CAPSULE 0.8 MG PO (19:39)
[2020-09-22] MEDS: traZODone HCL 50 MG TABLET PO (19:40)
[2020-09-22] MEDS: Insulin Lispro 100 UNIT/ML 3 ML VIAL SUBCUT (19:41)
[2020-09-22] MEDS: Insulin Glargine,Hum.rec.anlog 100 UNIT/ML 10 ML VIAL 35 UNIT SUBCUT (19:42)
[2020-09-23] VITALS (13 sets, daily range): BP systolic 123–169; BP diastolic 57–90; PULSE 51–76; RESP 16–20; TEMP 36.6–37.2; O2SAT 95–98
--- NOTE | 2020-09-23 03:13 | MHC.PIE ---
p; pt in carlo while at sleep going down as low at 47 at times. note; pt stays in the 50-54 most of the time while at sleep. i; dr magallon made aware e; will cont to monitor
[2020-09-23] MEDS: Omeprazole 40 MG CAPSULE.DR PO (04:44)
[2020-09-23 07:51] LABS: Glucose, Whole Blood 92 mg/dL (60-115)
[2020-09-23] MEDS: Benzonatate 100 MG CAPSULE 200 MG PO ×2 (08:40→14:12)
[2020-09-23] MEDS: guaiFENesin LA 600 MG TAB.ER.12H PO (08:40)
[2020-09-23] MEDS: Folic Acid 1 MG TABLET PO (08:40)
[2020-09-23] MEDS: dexAMETHasone sod phosphate 4 MG/ML VIAL 6 MG IVPUSH (08:40)
[2020-09-23] MEDS: levETIRAcetam 1,000 MG TABLET 1000 MG PO ×2 (08:41→20:47)
[2020-09-23] MEDS: Multivitamin TABLET 1 TAB PO (08:41)
[2020-09-23] MEDS: QUEtiapine Fumarate 25 MG TABLET PO ×2 (08:41→20:47)
[2020-09-23] MEDS: Metoprolol Tartrate 25 MG TABLET PO ×2 (08:41→20:47)
[2020-09-23] MEDS: Apixaban 5 MG TABLET PO ×2 (08:41→20:48)
[2020-09-23] MEDS: Cyanocobalamin (Vitamin B-12) 1,000 MCG TABLET 2000 MCG PO (08:41)
[2020-09-23] MEDS: 0.9 % Sodium Chloride Flush 3 ML SYRINGE IVFLUSH ×2 (08:42→16:27)
[2020-09-23 11:44] LABS: Glucose, Whole Blood 115 mg/dL (60-115)
--- NOTE | 2020-09-23 13:01 | MHC.CM.PN ---
Patient is presently receiving IV Decadron and recently has required IV Morphine.Patient is not yet medically cleared for dc and the plan is home with VNA VS STR, pending PT eval. CM will continue to follow to confirm/adjust the dc plan as needed.
--- NOTE | 2020-09-23 14:07 | HO.PM.IMPN ---
Subjective Subjective Date of Service: 09/23/20 Interval History: very sleepy does not appear to be respiratory distress but is on maximum HFNC 60 Lpm 100% fiO2 unable to obtain ROS due to encephalopathy Physical Exam Vital Signs: Vital Signs: Last Vital Signs Temp 98.5 F 09/23/20 11:01 Pulse 52 09/23/20 11:01 Resp 18 09/23/20 11:31 BP 123/57 L 09/23/20 11:01 Pulse Ox 98 09/23/20 11:01 Body Mass Index 24.7 Gen: in no acute distress HEENT: sclera anicteric, moist mucus membranes Neck: supple Lungs: no respiratory distress, auscultation deferred due to COVID-19 Heart: normal peripheral pulses Abd: soft, non-tender, non-distended Ext: no cyanosis, clubbing, or edema Skin: warm/well-perfused Neuro: somnolent Objective Data Current Medications Generic Name Dose Route Start Last Admin Trade Name Freq PRN Reason Stop Dose Admin Acetaminophen 650 mg 09/15/20 05:17 Acetaminophen 325 Mg Tablet PO Q6H PRN Pain, Mild (Pain Scale 1-3) Apixaban 5 mg 09/17/20 21:00 09/23/20 08:41 Apixaban 5 Mg Tablet PO 5 mg BID [facility] Administration Benzonatate 200 mg 09/16/20 10:25 09/23/20 08:40 Benzonatate 100 Mg Capsule PO 200 mg TID [facility] Administration Cyanocobalamin 2,000 mcg 09/17/20 09:00 09/23/20 08:41 Cyanocobalamin (Vitamin B-12) 1,000 Mcg Tablet PO 2,000 mcg DAILY [facility] Administration Dexamethasone Sodium Phosphate 6 mg 09/15/20 09:00 09/23/20 08:40 Dexamethasone Sod Phosphate 4 Mg/Ml Vial IVPUSH 6 mg DAILY [facility] Administration Docusate Sodium 100 mg 09/15/20 05:17 Docusate Sodium 100 Mg Capsule PO DAILY PRN Constipation Folic Acid 1 mg 09/16/20 09:00 09/23/20 08:40 Folic Acid 1 Mg Tablet PO 1 mg DAILY [facility] Administration Guaifenesin 600 mg 09/16/20 10:25 09/23/20 08:40 Guaifenesin La 600 Mg Tab.Er.12h PO 600 mg BID [facility] Administration Insulin Glargine 35 unit 09/16/20 21:00 09/22/20 19:42 Insulin Glargine,Hum.Rec.Anlog 100 Unit/Ml 10 Ml Vial SUBCUT 35 unit BEDTIME [facility] Administration Insulin Human Lispro 0 unit 09/16/20 16:30 09/23/20 11:44 Insulin Lispro 100 Unit/Ml 3 Ml Vial SUBCUT Not Given QIDACHS [facility] Protocol Levetiracetam 1,000 mg 09/16/20 09:00 09/23/20 08:41 Levetiracetam 1,000 Mg Tablet PO 1,000 mg BID [facility] Administration Metoprolol Tartrate 25 mg 09/17/20 21:00 09/23/20 08:41 Metoprolol Tartrate 25 Mg Tablet PO 25 mg BID [facility] Administration Protocol Morphine Sulfate 1 mg 09/20/20 17:32 09/22/20 19:37 Morphine Sulfate 2 Mg/Ml Cartridge IVPUSH 1 mg Q4H PRN Administration Pain and comfort Multivitamins/Vitamin C 1 tab 09/17/20 09:00 09/23/20 08:41 Multivitamin Tablet PO 1 tab DAILY [facility] Administration Omeprazole 40 mg 09/16/20 07:55 09/23/20 04:44 Omeprazole 40 Mg Capsule.Dr PO 40 mg DAILY@0630 [facility] Administration Ondansetron HCl 4 mg 09/15/20 05:17 Ondansetron Hcl 4 Mg/2 Ml Vial IVPUSH Q8H PRN Nausea and Vomiting Pharmacy Consult 1 each 09/15/20 02:19 Consult Rx Perform Med Rec MISCELLANE ONCE PRN Consult order Quetiapine Fumarate 25 mg 09/19/20 21:00 09/23/20 08:41 Quetiapine Fumarate 25 Mg Tablet PO 25 mg BID [facility] Administration Sodium Chloride 3 ml 09/15/20 08:00 09/23/20 08:42 0.9 % Sodium Chloride Flush 3 Ml Syringe IVFLUSH 3 ml QSHIFT [facility] Administration Tamsulosin HCl 0.8 mg 09/16/20 21:00 09/22/20 19:39 Tamsulosin Hcl 0.4 Mg Capsule PO 0.8 mg BEDTIME [facility] Administration Trazodone HCl 50 mg 09/16/20 15:36 09/22/20 19:40 Trazodone Hcl 50 Mg Tablet PO 50 mg BEDTIME PRN Administration Insomnia Labs CBC & Chem 7: 09/18/20 05:54 09/20/20 05:39 Microbiology Microbiology Results: Microbiology 09/15/20 02:33 Blood - Venous Blood Culture - Final No growth after 5 days. 09/15/20 02:32 Blood - Venous Blood Culture - Final No growth after 5 days. Assessment and Plan (1) Sepsis with acute hypoxic respiratory failure: Status: Acute (2) Acute hypokalemia: Status: Acute (3) Pneumonia due to COVID-19 virus: Status: Acute (4) Encephalopathy due to 2019-nCoV: Status: Acute (5) Respiratory failure: Status: Acute (6) Acute delirium: Status: Acute Assessment and Plan: hospital d#9 75yo M with steroid-dependent pulmonary fibrosis on baseline O2 5-6Lpm + DM2 admitted for acute hypoxic respiratory failure due to COVID-19 pneumonia # acute/chronic hypoxic respiratory failure - supplemental O2, on maximum HFNC + NRB # COVID-19 pneumonia - dexamethasone d#05/02 - completed 5d of remdesivir 09/20 - completed 1u of convalescent plasma 09/16 - completed 7d of azithromycin for concern of superimposed bacterial PNA 09/22 - check inflammatory markers in am # metabolic encephalopathy - due to hypoxia, COVID, steroids, hospitalization - prn quetiapine # new-onset AF/RVR - rate-controlled on metoprolol, anticoagulated on apixaban, currently sinus rhythn # hypoK - repleted # hyperNa - mild, resolved # thrombocytopenia - mild, resolved # pulmonary fibrosis - baseline 5-6L O2 + prednisone 30 mg/d, followed by Dr Rahman as outpt # BPH - continue tamsulosin # hx SDH - on levetiracetam, continue # DM2 - basal/bolus insulin discussed with Patty [phone]- continue current care for now but if worsens will consider transition to comfort measures only
[2020-09-23 16:32] LABS: Glucose, Whole Blood 131 mg/dL (60-115)
[2020-09-23 20:05] LABS: Glucose, Whole Blood 127 mg/dL (60-115)
[2020-09-24] VITALS (13 sets, daily range): BP systolic 137–160; BP diastolic 66–83; PULSE 6–128; RESP 18–94; TEMP 36.4–38.1; O2SAT 89–99; BMI 24.8
[2020-09-24] MEDS: 0.9 % Sodium Chloride Flush 3 ML SYRINGE IVFLUSH ×3 (00:21→16:27)
--- NOTE | 2020-09-24 03:50 | PC.NURSE ---
[id number] shift; at about 0230, patient's , Patty, called for an update. Patient has been calm and sleeping since about 2330, pt has 1:1 sitter, and telesitter. , Patty, would like a call from , Dr. Patel sometime in the morning. Next shift RN made aware to pass along the message.
[2020-09-24 07:17] LABS: MANUAL DIFF FLAG NO
[2020-09-24 07:25] LABS: Basophils Percent Auto 0.3 % (0-2); Eosinophils Absolute Auto 0.1 X10*3/uL (0.0-0.4); Eosinophils Percent Auto 0.7 % (0-4); Hematocrit 40.9 % (42-52); Hemoglobin 13.2 g/dl (14.0-18.0); Imm Gran Pct Auto 2.2 % (0.0-0.4); Lymphocytes Absolute Auto 0.9 X10*3/uL (1.2-4.9); Lymphocytes Percent Auto 9.7 % (20-40); Mean Corpuscular HGB Conc 32.3 g/dl (31.0-36.0); Mean Corpuscular Hemoglobin 32.2 pg (27.0-33.0); Mean Corpuscular Volume 99.8 fL (80-98); Mean Platelet Volume 11.3 fL (9.4-12.4); Monocytes Absolute Auto 0.7 X10*3/uL (0.1-1.2); Monocytes Percent Auto 7.1 % (2-11); Neutrophils Absolute Auto 7.4 X10*3/uL (2.0-8.3); Platelet Count 227 X10*3/uL (160-400); Red Cell Distribution Width 13.5 % (11.0-16.0); White Blood Count 9.2 X10*3/uL (4.8-10.8)
[2020-09-24 07:33] LABS: D Dimer 1048 NG/ML
[2020-09-24 07:40] LABS: Glucose, Whole Blood 101 mg/dL (60-115)
[2020-09-24] MEDS: Benzonatate 100 MG CAPSULE 200 MG PO ×3 (07:49→20:17)
[2020-09-24] MEDS: Folic Acid 1 MG TABLET PO (07:50)
[2020-09-24] MEDS: QUEtiapine Fumarate 25 MG TABLET PO ×2 (07:52→20:18)
[2020-09-24 08:03] LABS: Alanine Aminotransferase 62 U/L (0-40); Albumin Level 3.2 g/dL (3.5-5.0); Alkaline Phosphatase 71 U/L (39-117); Anion Gap 16 (12-20); Aspartate Amino Transferase 42 U/L (5-37); Bilirubin Total 0.7 mg/dL (0.0-1.0); Blood Urea Nitrogen 16 mg/dL (9-16); C Reactive Protein 2.51 mg/dL (< or = 0.50); Calcium 8.6 mg/dL (8.4-10.2); Carbon Dioxide 22 mmol/L (22-29); Chloride 108 mmol/L (96-108); Creatinine Clr Calc Pharmacy 75.3; Estimated Glomerular Filt Rate > 60; Glucose Random 110 mg/dL (60-115); Lactate Dehydrogenase 493 U/L (118-273); Magnesium 2.4 mg/dL (1.6-2.6); Potassium 3.6 mmol/L (3.3-5.1); Sodium 142 mmol/L (135-145); Total Protein 6.4 g/dL (6.5-8.0)
[2020-09-24 08:05] LABS: Procalcitonin 0.08 ng/mL
[2020-09-24 08:24] LABS: Ferritin 944 ng/mL (20-250)
[2020-09-24] MEDS: Apixaban 5 MG TABLET PO ×2 (09:39→20:17)
[2020-09-24] MEDS: Metoprolol Tartrate 25 MG TABLET PO ×2 (09:41→20:18)
[2020-09-24] MEDS: levETIRAcetam 1,000 MG TABLET 1000 MG PO ×2 (09:42→20:17)
[2020-09-24] MEDS: guaiFENesin LA 600 MG TAB.ER.12H PO (09:42)
[2020-09-24 11:37] LABS: Glucose, Whole Blood 85 mg/dL (60-115)
--- NOTE | 2020-09-24 13:38 | HO.PM.IMPN ---
Subjective Subjective Date of Service: 09/24/20 Interval History: Refused medications this AM Somnolent Unable to obtain ROS Physical Exam Vital Signs: Vital Signs: Last Vital Signs Temp 97.8 F 09/24/20 07:12 Pulse 78 09/24/20 07:09 Resp 20 09/24/20 11:39 BP 158/77 H 09/24/20 07:09 Pulse Ox 93 09/24/20 07:09 Body Mass Index 24.7 Gen: somonolent, moaning HEENT: sclera anicteric, moist mucus membranes Neck: supple Lungs: no respiratory distress, auscultation deferred due to COVID-19 Heart: normal peripheral pulses Abd: soft, non-tender, non-distended Ext: no cyanosis, clubbing, or edema Skin: warm/well-perfused Neuro: somnolent Objective Data Current Medications Generic Name Dose Route Start Last Admin Trade Name Freq PRN Reason Stop Dose Admin Acetaminophen 650 mg 09/15/20 05:17 Acetaminophen 325 Mg Tablet PO Q6H PRN Pain, Mild (Pain Scale 1-3) Apixaban 5 mg 09/17/20 21:00 09/24/20 09:39 Apixaban 5 Mg Tablet PO 5 mg BID [facility]O Administration Benzonatate 200 mg 09/16/20 10:25 09/24/20 07:49 Benzonatate 100 Mg Capsule PO 200 mg TID DEO Administration Cyanocobalamin 2,000 mcg 09/17/20 09:00 09/24/20 07:49 Cyanocobalamin (Vitamin B-12) 1,000 Mcg Tablet PO Not Given DAILY [facility] Dexamethasone Sodium Phosphate 6 mg 09/15/20 09:00 09/24/20 07:49 Dexamethasone Sod Phosphate 4 Mg/Ml Vial IVPUSH Not Given DAILY [facility]O Docusate Sodium 100 mg 09/15/20 05:17 Docusate Sodium 100 Mg Capsule PO DAILY PRN Constipation Folic Acid 1 mg 09/16/20 09:00 09/24/20 07:50 Folic Acid 1 Mg Tablet PO 1 mg DAILY [facility] Administration Guaifenesin 600 mg 09/16/20 10:25 09/24/20 09:42 Guaifenesin La 600 Mg Tab.Er.12h PO 600 mg BID [facility] Administration Insulin Glargine 35 unit 09/16/20 21:00 09/23/20 20:48 Insulin Glargine,Hum.Rec.Anlog 100 Unit/Ml 10 Ml Vial SUBCUT Not Given BEDTIME [facility] Insulin Human Lispro 0 unit 09/16/20 16:30 09/24/20 12:09 Insulin Lispro 100 Unit/Ml 3 Ml Vial SUBCUT Not Given QIDACHS [facility] Protocol Levetiracetam 1,000 mg 09/16/20 09:00 09/24/20 09:42 Levetiracetam 1,000 Mg Tablet PO 1,000 mg BID [facility] Administration Metoprolol Tartrate 25 mg 09/17/20 21:00 09/24/20 09:41 Metoprolol Tartrate 25 Mg Tablet PO 25 mg BID [facility] Administration Protocol Morphine Sulfate 1 mg 09/20/20 17:32 09/22/20 19:37 Morphine Sulfate 2 Mg/Ml Cartridge IVPUSH 1 mg Q4H PRN Administration Pain and comfort Multivitamins/Vitamin C 1 tab 09/17/20 09:00 09/24/20 07:50 Multivitamin Tablet PO Not Given DAILY [facility] Omeprazole 40 mg 09/16/20 07:55 09/24/20 05:54 Omeprazole 40 Mg Capsule.Dr PO Not Given DAILY@0630 [facility] Ondansetron HCl 4 mg 09/15/20 05:17 Ondansetron Hcl 4 Mg/2 Ml Vial IVPUSH Q8H PRN Nausea and Vomiting Pharmacy Consult 1 each 09/15/20 02:19 Consult Rx Perform Med Rec MISCELLANE ONCE PRN Consult order Quetiapine Fumarate 25 mg 09/19/20 21:00 09/24/20 07:52 Quetiapine Fumarate 25 Mg Tablet PO 25 mg BID [facility] Administration Sodium Chloride 3 ml 09/15/20 08:00 09/24/20 07:49 0.9 % Sodium Chloride Flush 3 Ml Syringe IVFLUSH 3 ml QSHIFT [facility] Administration Tamsulosin HCl 0.8 mg 09/16/20 21:00 09/23/20 21:00 Tamsulosin Hcl 0.4 Mg Capsule PO Not Given BEDTIME [facility] Trazodone HCl 50 mg 09/16/20 15:36 09/22/20 19:40 Trazodone Hcl 50 Mg Tablet PO 50 mg BEDTIME PRN Administration Insomnia Labs CBC & Chem 7: 09/24/20 06:31 09/24/20 06:31 Labs: Laboratory Results - last 24 hr 09/23/20 09/23/20 09/24/20 16:21 20:01 06:31 WBC 9.2 RBC 4.10 L Hgb 13.2 L Hct 40.9 L MCV 99.8 H MCH 32.2 MCHC 32.3 RDW 13.5 Plt Count 227 D MPV 11.3 Immature Gran % (Auto) 2.2 H Neut % (Auto) 80.0 H Lymph % (Auto) 9.7 L [place] % (Auto) 7.1 Eos % (Auto) 0.7 Baso % (Auto) 0.3 Lymph # (Auto) 0.9 L [place] # (Auto) 0.7 Eos # (Auto) 0.1 Baso # (Auto) 0.0 Abs Immat Gran (auto) 0.20 H Absolute Neuts (auto) 7.4 Absolute Nucleated RBC 0.000 Nucleated RBC % (auto) 0.0 D-Dimer Sodium Potassium Chloride Carbon Dioxide Anion Gap BUN Creatinine Estim Creat Clear Calc Estimated GFR POC Glucose 131 H 127 H Random Glucose Calcium Magnesium Ferritin Total Bilirubin AST ALT Alkaline Phosphatase Lactate Dehydrogenase C-Reactive Protein Total Protein Albumin Procalcitonin 09/24/20 09/24/20 09/24/20 06:31 06:31 06:31 WBC RBC Hgb Hct MCV MCH MCHC RDW Plt Count MPV Immature Gran % (Auto) Neut % (Auto) Lymph % (Auto) [place] % (Auto) Eos % (Auto) Baso % (Auto) Lymph # (Auto) [place] # (Auto) Eos # (Auto) Baso # (Auto) Abs Immat Gran (auto) Absolute Neuts (auto) Absolute Nucleated RBC Nucleated RBC % (auto) D-Dimer 1048 Sodium 142 Potassium 3.6 Chloride 108 Carbon Dioxide 22 Anion Gap 16 BUN 16 Creatinine 0.93 Estim Creat Clear Calc 75.3 Estimated GFR > 60 POC Glucose Random Glucose 110 Calcium 8.6 Magnesium 2.4 Ferritin 944 H Total Bilirubin 0.7 AST 42 H D ALT 62 H Alkaline Phosphatase 71 Lactate Dehydrogenase 493 H C-Reactive Protein 2.51 H Total Protein 6.4 L Albumin 3.2 L Procalcitonin 0.08 09/24/20 09/24/20 07:37 11:33 WBC RBC Hgb Hct MCV MCH MCHC RDW Plt Count MPV Immature Gran % (Auto) Neut % (Auto) Lymph % (Auto) [place] % (Auto) Eos % (Auto) Baso % (Auto) Lymph # (Auto) [place] # (Auto) Eos # (Auto) Baso # (Auto) Abs Immat Gran (auto) Absolute Neuts (auto) Absolute Nucleated RBC Nucleated RBC % (auto) D-Dimer Sodium Potassium Chloride Carbon Dioxide Anion Gap BUN Creatinine Estim Creat Clear Calc Estimated GFR POC Glucose 101 85 Random Glucose Calcium Magnesium Ferritin Total Bilirubin AST ALT Alkaline Phosphatase Lactate Dehydrogenase C-Reactive Protein Total Protein Albumin Procalcitonin Microbiology Microbiology Results: Microbiology 09/15/20 02:33 Blood - Venous Blood Culture - Final No growth after 5 days. 09/15/20 02:32 Blood - Venous Blood Culture - Final No growth after 5 days. 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 she also requests that the pt's 2 sisters be allowed to visit. # COVID-19 pneumonia - dexamethasone d#06/01 - completed 5d of remdesivir 09/20 - completed 1u of convalescent plasma 09/16 - completed 7d of azithromycin for concern of superimposed bacterial PNA 09/22 # metabolic encephalopathy - due to hypoxia, COVID, steroids, hospitalization - prn quetiapine # new-onset AF/RVR - rate-controlled on metoprolol, anticoagulated on apixaban, currently in sinus # hypoK - resolved # hyperNa - resolved # thrombocytopenia - resolved # pulmonary fibrosis - baseline 5-6L O2 + prednisone 30 mg/d, followed by Dr Josiah as outpt # BPH - continue tamsulosin # hx SDH - continue levetiracetam # DM2 - basal/bolus insulin # VTE ppx - apixaban
[2020-09-24 16:09] LABS: Glucose, Whole Blood 83 mg/dL (60-115)
--- NOTE | 2020-09-24 16:12 | PC.NURSE ---
Patient remains in [facility] on NRB and highflo NC. Vitals stable. Spoke with who would like to make patient APPLICATION PROGRAMMER ANALYST because she can't take care of him . Patient appears to be comfortable. Will continue to monitor.
[2020-09-24 20:00] LABS: Glucose, Whole Blood 73 mg/dL (60-115)
[2020-09-24] MEDS: guaiFENesin 100 MG/5 ML LIQUID PO (21:39)
[2020-09-25] VITALS (14 sets, daily range): BP systolic 127–148; BP diastolic 68–80; PULSE 70–150; RESP 16–189; TEMP 36.6–37.7; O2SAT 91–98
[2020-09-25] MEDS: 0.9 % Sodium Chloride Flush 3 ML SYRINGE IVFLUSH ×4 (00:03→20:19)
[2020-09-25 07:19] LABS: Glucose, Whole Blood 85 mg/dL (60-115)
--- NOTE | 2020-09-25 08:48 | ECG_ITS ---
Test Reason : RHYTHM CHANGE Blood Pressure : / mmHG Vent. Rate : 102 BPM Atrial Rate : 102 BPM P-R Int : 118 ms QRS Dur : 120 ms QT Int : 438 ms P-R-T Axes : -14 -15 159 degrees QTc Int : 570 ms Sinus tachycardia with Premature supraventricular complexes Right bundle branch block Left ventricular hypertrophy with repolarization abnormality Abnormal ECG When compared with ECG of 15-SEP-2020 02:28, ST no longer depressed in Anterior leads T wave inversion more evident in Inferior leads Referred By: Mary Patel Electronically Signed By:
[2020-09-25] MEDS: dexAMETHasone sod phosphate 4 MG/ML VIAL 6 MG IVPUSH (08:53)
[2020-09-25] MEDS: QUEtiapine Fumarate 25 MG TABLET PO ×2 (08:53→20:19)
[2020-09-25] MEDS: Cyanocobalamin (Vitamin B-12) 1,000 MCG TABLET 2000 MCG PO (08:53)
[2020-09-25] MEDS: levETIRAcetam 1,000 MG TABLET 1000 MG PO ×2 (08:53→20:19)
[2020-09-25] MEDS: Apixaban 5 MG TABLET PO ×2 (08:54→20:20)
[2020-09-25] MEDS: Metoprolol Tartrate 25 MG TABLET PO ×2 (08:54→20:19)
[2020-09-25] MEDS: Folic Acid 1 MG TABLET PO (08:55)
--- NOTE | 2020-09-25 11:14 | HO.PM.IMPN ---
Subjective Subjective Date of Service: 09/25/20 Interval History: more awake this AM but quickly fell back asleep still requiring maximum HFNC 60 LPM + fiO2 100% AND NRB at 15 Lpm Physical Exam Vital Signs: Vital Signs: Last Vital Signs Temp 99.9 F 09/25/20 07:16 Pulse 150 H 09/25/20 08:54 Resp 189 H 09/25/20 11:01 BP 137/72 09/25/20 07:16 Pulse Ox 91 L 09/25/20 07:16 Body Mass Index 24.8 Gen: no acute distress HEENT: sclera anicteric, moist mucus membranes Neck: supple Lungs: no respiratory distress, auscultation deferred due to COVID-19 Heart: normal peripheral pulses Abd: soft, non-tender, non-distended Ext: no cyanosis, clubbing, or edema Skin: warm/well-perfused Neuro: disoriented Objective Data Current Medications Generic Name Dose Route Start Last Admin Trade Name Freq PRN Reason Stop Dose Admin Acetaminophen 650 mg 09/15/20 05:17 Acetaminophen 325 Mg Tablet PO Q6H PRN Pain, Mild (Pain Scale 1-3) Apixaban 5 mg 09/17/20 21:00 09/25/20 08:54 Apixaban 5 Mg Tablet PO 5 mg BID DEO Administration Benzonatate 200 mg 09/16/20 10:25 09/25/20 08:55 Benzonatate 100 Mg Capsule PO Not Given TID [facility]O Cyanocobalamin 2,000 mcg 09/17/20 09:00 09/25/20 08:53 Cyanocobalamin (Vitamin B-12) 1,000 Mcg Tablet PO 2,000 mcg DAILY [facility] Administration Dexamethasone Sodium Phosphate 6 mg 09/15/20 09:00 09/25/20 08:53 Dexamethasone Sod Phosphate 4 Mg/Ml Vial IVPUSH 6 mg DAILY [facility]O Administration Docusate Sodium 100 mg 09/15/20 05:17 Docusate Sodium 100 Mg Capsule PO DAILY PRN Constipation Folic Acid 1 mg 09/16/20 09:00 09/25/20 08:55 Folic Acid 1 Mg Tablet PO 1 mg DAILY [facility] Administration Guaifenesin 600 mg 09/16/20 10:25 09/25/20 08:55 Guaifenesin La 600 Mg Tab.Er.12h PO Not Given BID [facility] Insulin Glargine 35 unit 09/16/20 21:00 09/24/20 20:35 Insulin Glargine,Hum.Rec.Anlog 100 Unit/Ml 10 Ml Vial SUBCUT Not Given BEDTIME [facility] Insulin Human Lispro 0 unit 09/16/20 16:30 09/25/20 08:37 Insulin Lispro 100 Unit/Ml 3 Ml Vial SUBCUT Not Given QIDACHS [facility] Protocol Levetiracetam 1,000 mg 09/16/20 09:00 09/25/20 08:53 Levetiracetam 1,000 Mg Tablet PO 1,000 mg BID DEO Administration Metoprolol Tartrate 25 mg 09/17/20 21:00 09/25/20 08:54 Metoprolol Tartrate 25 Mg Tablet PO 25 mg BID [facility] Administration Protocol Morphine Sulfate 1 mg 09/20/20 17:32 09/22/20 19:37 Morphine Sulfate 2 Mg/Ml Cartridge IVPUSH 1 mg Q4H PRN Administration Pain and comfort Multivitamins/Vitamin C 1 tab 09/17/20 09:00 09/25/20 09:01 Multivitamin Tablet PO Not Given DAILY [facility] Omeprazole 40 mg 09/16/20 07:55 09/25/20 05:30 Omeprazole 40 Mg Capsule.Dr PO Not Given DAILY@0630 [facility] Ondansetron HCl 4 mg 09/15/20 05:17 Ondansetron Hcl 4 Mg/2 Ml Vial IVPUSH Q8H PRN Nausea and Vomiting Pharmacy Consult 1 each 09/15/20 02:19 Consult Rx Perform Med Rec MISCELLANE ONCE PRN Consult order Quetiapine Fumarate 25 mg 09/19/20 21:00 09/25/20 08:53 Quetiapine Fumarate 25 Mg Tablet PO 25 mg BID [facility] Administration Sodium Chloride 3 ml 09/15/20 08:00 09/25/20 08:55 0.9 % Sodium Chloride Flush 3 Ml Syringe IVFLUSH 3 ml QSHIFT [facility] Administration Tamsulosin HCl 0.8 mg 09/16/20 21:00 09/24/20 20:37 Tamsulosin Hcl 0.4 Mg Capsule PO Not Given BEDTIME [facility] Trazodone HCl 50 mg 09/16/20 15:36 09/22/20 19:40 Trazodone Hcl 50 Mg Tablet PO 50 mg BEDTIME PRN Administration Insomnia Labs CBC & Chem 7: 09/24/20 06:31 09/24/20 06:31 Labs: Laboratory Results - last 24 hr 09/24/20 09/24/20 09/24/20 11:33 16:04 19:49 POC Glucose 85 83 73 09/25/20 07:08 POC Glucose 85 Microbiology Microbiology Results: Microbiology 09/15/20 02:33 Blood - Venous Blood Culture - Final No growth after 5 days. 09/15/20 02:32 Blood - Venous Blood Culture - Final No growth after 5 days. 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 + DM2 admitted for acute hypoxic respiratory failure due to COVID-19 pneumonia # acute/chronic hypoxic respiratory failure - supplemental O2, on maximum HFNC + NRB # COVID-19 pneumonia - completed 10d of dexamethasone / - completed 5d of remdesivir 09/20 - completed 1u of convalescent plasma 09/16 - completed 7d of azithromycin for concern of superimposed bacterial PNA 09/22 # metabolic encephalopathy - due to hypoxia, COVID, steroids, hospitalization - prn quetiapine # new-onset AF/RVR - rate-controlled on metoprolol, anticoagulated on apixaban, currently in sinus # hypoK - resolved # hyperNa - resolved # thrombocytopenia - resolved # pulmonary fibrosis - baseline 5-6L O2 + prednisone 20 mg/d [resumed today], followed by Dr Rahman as outpt # BPH - continue tamsulosin # hx SDH - continue levetiracetam # DM2 - basal/bolus insulin # VTE ppx - apixaban # dispo - plan is for Patty to visit Wednesday when she is released from COVID-19 isolation; also for pt's 2 sisters to visit; then consider transition to KETT[employer] FIRER
[2020-09-25 11:49] LABS: Glucose, Whole Blood 117 mg/dL (60-115)
[2020-09-25 16:23] LABS: Glucose, Whole Blood 150 mg/dL (60-115)
[2020-09-25 20:14] LABS: Glucose, Whole Blood 132 mg/dL (60-115)
[2020-09-25] MEDS: guaiFENesin LA 600 MG TAB.ER.12H PO (20:19)
[2020-09-26] VITALS (14 sets, daily range): BP systolic 119–153; BP diastolic 58–78; PULSE 60–73; RESP 18–22; TEMP 36.4–36.9; O2SAT 91–100
[2020-09-26] MEDS: Acetaminophen 325 MG TABLET 650 MG PO (00:44)
[2020-09-26] MEDS: traZODone HCL 50 MG TABLET PO ×2 (00:44→20:00)
--- NOTE | 2020-09-26 03:26 | PC.NURSE ---
This RN was notified by the sitter on 10-31 that while he was putting the NRB back in place on the patient, the patient reached out and grab the sitter between the legs.
[2020-09-26 08:00] LABS: Glucose, Whole Blood 102 mg/dL (60-115)
[2020-09-26] MEDS: QUEtiapine Fumarate 25 MG TABLET PO ×2 (08:45→20:00)
[2020-09-26] MEDS: levETIRAcetam 1,000 MG TABLET 1000 MG PO ×2 (08:45→20:00)
[2020-09-26] MEDS: Folic Acid 1 MG TABLET PO (08:45)
[2020-09-26] MEDS: Apixaban 5 MG TABLET PO ×2 (08:45→20:00)
[2020-09-26] MEDS: predniSONE 20 MG TABLET PO (08:45)
[2020-09-26] MEDS: 0.9 % Sodium Chloride Flush 3 ML SYRINGE IVFLUSH ×3 (08:45→20:09)
[2020-09-26] MEDS: Metoprolol Tartrate 25 MG TABLET PO ×2 (08:48→19:59)
[2020-09-26] MEDS: Cyanocobalamin (Vitamin B-12) 1,000 MCG TABLET 2000 MCG PO (08:48)
[2020-09-26 11:26] LABS: Glucose, Whole Blood 142 mg/dL (60-115)
[2020-09-26] MEDS: Benzonatate 100 MG CAPSULE 200 MG PO ×2 (13:45→19:59)
--- NOTE | 2020-09-26 15:46 | HO.PM.IMPN ---
Subjective Subjective Date of Service: 09/26/20 Interval History: more awake this AM but quickly fell back asleep still requiring maximum HFNC 60 LPM + fiO2 100% AND NRB at 15 Lpm Physical Exam Vital Signs: Vital Signs: Last Vital Signs Temp 98.4 F 09/26/20 15:29 Pulse 69 09/26/20 15:29 Resp 18 09/26/20 15:29 BP 121/70 09/26/20 15:29 Pulse Ox 100 09/26/20 15:29 Body Mass Index 24.8 Gen: no acute distress HEENT: sclera anicteric, moist mucus membranes Neck: supple Lungs: no respiratory distress, auscultation deferred due to COVID-19 Heart: normal peripheral pulses Abd: soft, non-tender, non-distended Ext: no cyanosis, clubbing, or edema Skin: warm/well-perfused Neuro: disoriented Objective Data Current Medications Generic Name Dose Route Start Last Admin Trade Name Freq PRN Reason Stop Dose Admin Acetaminophen 650 mg 09/15/20 05:17 09/26/20 00:44 Acetaminophen 325 Mg Tablet PO 650 mg Q6H PRN Administration Pain, Mild (Pain Scale 1-3) Apixaban 5 mg 09/17/20 21:00 09/26/20 08:45 Apixaban 5 Mg Tablet PO 5 mg BID [facility] Administration Benzonatate 200 mg 09/16/20 10:25 09/26/20 13:45 Benzonatate 100 Mg Capsule PO 200 mg TID [facility]O Administration Cyanocobalamin 2,000 mcg 09/17/20 09:00 09/26/20 08:48 Cyanocobalamin (Vitamin B-12) 1,000 Mcg Tablet PO 2,000 mcg DAILY [facility] Administration Docusate Sodium 100 mg 09/15/20 05:17 Docusate Sodium 100 Mg Capsule PO DAILY PRN Constipation Folic Acid 1 mg 09/16/20 09:00 09/26/20 08:45 Folic Acid 1 Mg Tablet PO 1 mg DAILY [facility] Administration Guaifenesin 600 mg 09/16/20 10:25 09/26/20 08:46 Guaifenesin La 600 Mg Tab.Er.12h PO Not Given BID [facility] Insulin Glargine 35 unit 09/16/20 21:00 09/25/20 20:20 Insulin Glargine,Hum.Rec.Anlog 100 Unit/Ml 10 Ml Vial SUBCUT Not Given BEDTIME [facility] Insulin Human Lispro 0 unit 09/16/20 16:30 09/26/20 11:27 Insulin Lispro 100 Unit/Ml 3 Ml Vial SUBCUT Not Given QIDACHS [facility] Protocol Levetiracetam 1,000 mg 09/16/20 09:00 09/26/20 08:45 Levetiracetam 1,000 Mg Tablet PO 1,000 mg BID [facility] Administration Metoprolol Tartrate 25 mg 09/17/20 21:00 09/26/20 08:48 Metoprolol Tartrate 25 Mg Tablet PO 25 mg BID [facility] Administration Protocol Multivitamins/Vitamin C 1 tab 09/17/20 09:00 09/26/20 08:46 Multivitamin Tablet PO Not Given DAILY [facility] Omeprazole 40 mg 09/16/20 07:55 09/26/20 06:27 Omeprazole 40 Mg Capsule.Dr PO Not Given DAILY@0630 [facility] Ondansetron HCl 4 mg 09/15/20 05:17 Ondansetron Hcl 4 Mg/2 Ml Vial IVPUSH Q8H PRN Nausea and Vomiting Pharmacy Consult 1 each 09/15/20 02:19 Consult Rx Perform Med Rec MISCELLANE ONCE PRN Consult order Prednisone 20 mg 09/26/20 09:00 09/26/20 08:45 Prednisone 20 Mg Tablet PO 20 mg DAILY [facility] Administration Quetiapine Fumarate 25 mg 09/19/20 21:00 09/26/20 08:45 Quetiapine Fumarate 25 Mg Tablet PO 25 mg BID [facility] Administration Sodium Chloride 3 ml 09/15/20 08:00 09/26/20 15:12 0.9 % Sodium Chloride Flush 3 Ml Syringe IVFLUSH 3 ml QSHIFT [facility] Administration Tamsulosin HCl 0.8 mg 09/16/20 21:00 09/25/20 20:21 Tamsulosin Hcl 0.4 Mg Capsule PO Not Given BEDTIME [facility] Trazodone HCl 50 mg 09/16/20 15:36 09/26/20 00:44 Trazodone Hcl 50 Mg Tablet PO 50 mg BEDTIME PRN Administration Insomnia Labs CBC & Chem 7: 09/24/20 06:31 09/24/20 06:31 Microbiology Microbiology Results: Microbiology 09/15/20 02:33 Blood - Venous Blood Culture - Final No growth after 5 days. 09/15/20 02:32 Blood - Venous Blood Culture - Final No growth after 5 days. 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 + DM2 admitted for acute hypoxic respiratory failure due to COVID-19 pneumonia # acute/chronic hypoxic respiratory failure - supplemental O2, on maximum HFNC + NRB # COVID-19 pneumonia - completed 10d of dexamethasone 09/24 - completed 5d of remdesivir 09/20 - completed 1u of convalescent plasma 09/16 - completed 7d of azithromycin for concern of superimposed bacterial PNA 09/22 # metabolic encephalopathy - due to hypoxia, COVID, steroids, hospitalization - prn quetiapine # new-onset AF/RVR - rate-controlled on metoprolol, anticoagulated on apixaban, currently in sinus # hypoK - resolved # hyperNa - resolved # thrombocytopenia - resolved # pulmonary fibrosis - baseline 5-6L O2 + prednisone 20 mg/d [resumed today], followed by Dr Rahman as outpt # BPH - continue tamsulosin # hx SDH - continue levetiracetam # DM2 - basal/bolus insulin # VTE ppx - apixaban # dispo - plan is for Patty to visit Wednesday when she is released from COVID-19 isolation; also for pt's 2 sisters to visit; then consider transition to BL[employer]
[2020-09-26 16:33] LABS: Glucose, Whole Blood 165 mg/dL (60-115)
[2020-09-26 19:55] LABS: Glucose, Whole Blood 117 mg/dL (60-115)
[2020-09-26] MEDS: guaiFENesin LA 600 MG TAB.ER.12H PO (20:00)
[2020-09-27] VITALS (15 sets, daily range): BP systolic 106–166; BP diastolic 65–84; PULSE 66–97; RESP 18–28; TEMP 36.1–36.9; O2SAT 88–97; BMI 23.4
[2020-09-27 07:41] LABS: Glucose, Whole Blood 90 mg/dL (60-115)
[2020-09-27] MEDS: 0.9 % Sodium Chloride Flush 3 ML SYRINGE IVFLUSH ×3 (08:08→23:56)
[2020-09-27] MEDS: Folic Acid 1 MG TABLET PO (08:09)
[2020-09-27] MEDS: Cyanocobalamin (Vitamin B-12) 1,000 MCG TABLET 2000 MCG PO (08:09)
[2020-09-27] MEDS: QUEtiapine Fumarate 25 MG TABLET PO ×2 (08:09→21:31)
[2020-09-27] MEDS: Apixaban 5 MG TABLET PO ×2 (08:09→21:31)
[2020-09-27] MEDS: levETIRAcetam 1,000 MG TABLET 1000 MG PO ×2 (08:09→21:31)
[2020-09-27] MEDS: predniSONE 20 MG TABLET PO (08:09)
[2020-09-27] MEDS: Metoprolol Tartrate 25 MG TABLET PO ×2 (08:10→21:32)
--- NOTE | 2020-09-27 08:22 | MHC.CM.PN ---
at this time dc plan is uncertain d/t high o2 demands and length of time in hospital. pending a pt eval, dc plan will be home c vna vs. str. cm to cont. to follow.
[2020-09-27 11:29] LABS: Glucose, Whole Blood 114 mg/dL (60-115)
[2020-09-27 16:17] LABS: Glucose, Whole Blood 151 mg/dL (60-115)
[2020-09-27] MEDS: Acetaminophen 325 MG TABLET 650 MG PO (17:36)
--- NOTE | 2020-09-27 17:37 | P.PNIM_ITS ---
Subjective Subjective Date of Service: 09/27/20 Interval History: Seen in f/u for covid related resp failure max on O2, he's doing better with variable O2 level. visited today but did not make decision about comfort and it appears that she irritated the patient, i don't believe patient himself is ready to give up Physical Exam Vital Signs: Vital Signs: Last Vital Signs Temp 97.1 F 09/27/20 11:18 Pulse 80 09/27/20 16:00 Resp 24 H 09/27/20 15:53 BP 120/76 09/27/20 16:00 Pulse Ox 97 09/27/20 16:00 Body Mass Index 24.8 Const: Other: Constitutional : Alert, oriented about self and place, presently no distress Neck : Normal inspection, Cardiovascular : RRR on monitor Respiratory : normal resp effor, no accessroy muschle use--asuculatation avoided due active covid Gastrointestinal: soft,nontender Skin : Warm/Dry, No rash Neurological : Alert & oriented to self and place, Objective Data Current Medications Generic Name Dose Route Start Last Admin Trade Name Freq PRN Reason Stop Dose Admin Acetaminophen 650 mg 09/15/20 05:17 09/27/20 17:36 Acetaminophen 325 Mg Tablet PO 650 mg Q6H PRN Administration Pain, Mild (Pain Scale 1-3) Apixaban 5 mg 09/17/20 21:00 09/27/20 08:09 Apixaban 5 Mg Tablet PO 5 mg BID [facility] Administration Benzonatate 200 mg 09/16/20 10:25 09/27/20 14:15 Benzonatate 100 Mg Capsule PO Not Given TID DEO Cyanocobalamin 2,000 mcg 09/17/20 09:00 09/27/20 08:09 Cyanocobalamin (Vitamin B-12) 1,000 Mcg Tablet PO 2,000 mcg DAILY [facility] Administration Docusate Sodium 100 mg 09/15/20 05:17 Docusate Sodium 100 Mg Capsule PO DAILY PRN Constipation Folic Acid 1 mg 09/16/20 09:00 09/27/20 08:09 Folic Acid 1 Mg Tablet PO 1 mg DAILY [facility] Administration Guaifenesin 600 mg 09/16/20 10:25 09/27/20 08:09 Guaifenesin La 600 Mg Tab.Er.12h PO Not Given BID [facility] Insulin Glargine 35 unit 09/16/20 21:00 09/26/20 19:59 Insulin Glargine,Hum.Rec.Anlog 100 Unit/Ml 10 Ml Vial SUBCUT Not Given BEDTIME [facility] Insulin Human Lispro 0 unit 09/16/20 16:30 09/27/20 16:34 Insulin Lispro 100 Unit/Ml 3 Ml Vial SUBCUT Not Given QIDACHS [facility] Protocol Levetiracetam 1,000 mg 09/16/20 09:00 09/27/20 08:09 Levetiracetam 1,000 Mg Tablet PO 1,000 mg BID [facility] Administration Metoprolol Tartrate 25 mg 09/17/20 21:00 09/27/20 08:10 Metoprolol Tartrate 25 Mg Tablet PO 25 mg BID [facility] Administration Protocol Multivitamins/Vitamin C 1 tab 09/17/20 09:00 09/27/20 08:09 Multivitamin Tablet PO Not Given DAILY [facility] Omeprazole 40 mg 09/16/20 07:55 09/27/20 05:04 Omeprazole 40 Mg Capsule.Dr PO Not Given DAILY@0630 [facility] Ondansetron HCl 4 mg 09/15/20 05:17 Ondansetron Hcl 4 Mg/2 Ml Vial IVPUSH Q8H PRN Nausea and Vomiting Pharmacy Consult 1 each 09/15/20 02:19 Consult Rx Perform Med Rec MISCELLANE ONCE PRN Consult order Prednisone 20 mg 09/26/20 09:00 09/27/20 08:09 Prednisone 20 Mg Tablet PO 20 mg DAILY [facility] Administration Quetiapine Fumarate 25 mg 09/19/20 21:00 09/27/20 08:09 Quetiapine Fumarate 25 Mg Tablet PO 25 mg BID [facility] Administration Sodium Chloride 3 ml 09/15/20 08:00 09/27/20 15:13 0.9 % Sodium Chloride Flush 3 Ml Syringe IVFLUSH 3 ml QSHIFT [facility] Administration Tamsulosin HCl 0.8 mg 09/16/20 21:00 09/26/20 20:04 Tamsulosin Hcl 0.4 Mg Capsule PO Not Given BEDTIME [facility] Trazodone HCl 50 mg 09/16/20 15:36 09/26/20 20:00 Trazodone Hcl 50 Mg Tablet PO 50 mg BEDTIME PRN Administration Insomnia Labs CBC & Chem 7: 09/24/20 06:31 09/24/20 06:31 Microbiology Microbiology Results: Microbiology 09/15/20 02:33 Blood - Venous Blood Culture - Final No growth after 5 days. 09/15/20 02:32 Blood - Venous Blood Culture - Final No growth after 5 days. 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 + DM2 admitted for acute hypoxic respiratory failure due to COVID-19 pneumonia # acute/chronic hypoxic respiratory failure - supplemental O2, on maximum HFNC + NRB # COVID-19 pneumonia - completed 10d of dexamethasone / - completed 5d of remdesivir 09/20 - completed 1u of convalescent plasma 09/16 - completed 7d of azithromycin for concern of superimposed bacterial PNA 09/22 -Wean as tolerate # metabolic encephalopathy - due to hypoxia, COVID, steroids, hospitalization - prn quetiapine -seem better # new-onset AF/RVR - rate-controlled on metoprolol, anticoagulated on apixaban, currently in sinus # hypoK - resolved # hyperNa - resolved # thrombocytopenia - resolved # pulmonary fibrosis - baseline 5-6L O2 + prednisone 20 mg/d [resumed today], followed by Dr Rahman as outpt # BPH - continue tamsulosin # hx SDH - continue levetiracetam # DM2 - basal/bolus insulin # VTE ppx - apixaban # dispo - plan is for Patty visited today and did not make a decision about [employer] ER[employer]IST, patient himself doesn't feel he is ready for to give
[2020-09-27 20:36] LABS: Glucose, Whole Blood 87 mg/dL (60-115)
[2020-09-27] MEDS: Benzonatate 100 MG CAPSULE 200 MG PO (21:31)
[2020-09-27] MEDS: traZODone HCL 50 MG TABLET PO (21:31)
[2020-09-27] MEDS: Tamsulosin HCL 0.4 MG CAPSULE 0.8 MG PO (21:31)
[2020-09-27] MEDS: guaiFENesin LA 600 MG TAB.ER.12H PO (21:32)
[2020-09-27] MEDS: Insulin Glargine,Hum.rec.anlog 100 UNIT/ML 10 ML VIAL 35 UNIT SUBCUT (21:32)
[2020-09-28] VITALS (13 sets, daily range): BP systolic 97–159; BP diastolic 55–82; PULSE 64–96; RESP 13–20; TEMP 36.2–36.7; O2SAT 93–100
[2020-09-28 07:37] LABS: Glucose, Whole Blood 88 mg/dL (60-115)
[2020-09-28] MEDS: Cyanocobalamin (Vitamin B-12) 1,000 MCG TABLET 2000 MCG PO (08:44)
[2020-09-28] MEDS: Folic Acid 1 MG TABLET PO (08:44)
[2020-09-28] MEDS: levETIRAcetam 1,000 MG TABLET 1000 MG PO ×2 (08:44→21:06)
[2020-09-28] MEDS: Benzonatate 100 MG CAPSULE 200 MG PO ×3 (08:44→21:06)
[2020-09-28] MEDS: Multivitamin TABLET 1 TAB PO (08:45)
[2020-09-28] MEDS: predniSONE 20 MG TABLET PO (08:45)
[2020-09-28] MEDS: Apixaban 5 MG TABLET PO ×2 (08:45→21:07)
[2020-09-28] MEDS: QUEtiapine Fumarate 25 MG TABLET PO ×2 (08:45→21:06)
[2020-09-28] MEDS: guaiFENesin LA 600 MG TAB.ER.12H PO ×2 (08:45→21:07)
[2020-09-28] MEDS: 0.9 % Sodium Chloride Flush 3 ML SYRINGE IVFLUSH (09:03)
[2020-09-28 11:17] LABS: Glucose, Whole Blood 103 mg/dL (60-115)
--- NOTE | 2020-09-28 11:30 | P.PNIM_ITS ---
Subjective Subjective Date of Service: 09/28/20 Interval History: Seen in f/u for covid related resp failure max on O2, Oxygenation is better, he is taken off NRB and has gone down on high flow. He is more alert and interactive today Cardiovascular Cardiovascular: Denies chest pain and Reports dyspnea Respiratory Respiratory: Reports dyspnea and Denies wheezing Allergic/Immunologic Allergic/Immunologic: Denies wheezing Physical Exam Vital Signs: Vital Signs: Last Vital Signs Temp 97.2 F 09/28/20 07:12 Pulse 68 09/28/20 11:14 Resp 18 09/28/20 11:14 BP 114/68 09/28/20 11:14 Pulse Ox 93 09/28/20 11:14 Body Mass Index 23.4 Const: Orientation/consciousness: oriented to place and oriented to time Resp: Effort & Inspection: normal respiratory effort, able to speak in complete sentences and decreased respiratory effort GI: Palpation (GI): Soft to palpation and nontender Auscultation: normal bowel sounds Back/Spine/Pelvis: Cervical Spine: normal cervical lordosis Skin: General skin exam: no rashes or lesions noted Neuro: General: oriented to place and oriented to time Motor exam (neuro): 5/5 motor strength present throughout Extrem: General: Yes normal to inspection and Yes no pedal edema Psych: Other: labile affect Objective Data Current Medications Generic Name Dose Route Start Last Admin Trade Name Freq PRN Reason Stop Dose Admin Acetaminophen 650 mg 09/15/20 05:17 09/27/20 17:36 Acetaminophen 325 Mg Tablet PO 650 mg Q6H PRN Administration Pain, Mild (Pain Scale 1-3) Apixaban 5 mg 09/17/20 21:00 09/28/20 08:45 Apixaban 5 Mg Tablet PO 5 mg BID [facility] Administration Benzonatate 200 mg 09/16/20 10:25 09/28/20 08:44 Benzonatate 100 Mg Capsule PO 200 mg TID [facility] Administration Cyanocobalamin 2,000 mcg 09/17/20 09:00 09/28/20 08:44 Cyanocobalamin (Vitamin B-12) 1,000 Mcg Tablet PO 2,000 mcg DAILY [facility] Administration Docusate Sodium 100 mg 09/15/20 05:17 Docusate Sodium 100 Mg Capsule PO DAILY PRN Constipation Folic Acid 1 mg 09/16/20 09:00 09/28/20 08:44 Folic Acid 1 Mg Tablet PO 1 mg DAILY [facility] Administration Guaifenesin 600 mg 09/16/20 10:25 09/28/20 08:45 Guaifenesin La 600 Mg Tab.Er.12h PO 600 mg BID [facility] Administration Insulin Glargine 35 unit 09/16/20 21:00 09/27/20 21:32 Insulin Glargine,Hum.Rec.Anlog 100 Unit/Ml 10 Ml Vial SUBCUT 35 unit BEDTIME [facility] Administration Insulin Human Lispro 0 unit 09/16/20 16:30 09/28/20 08:46 Insulin Lispro 100 Unit/Ml 3 Ml Vial SUBCUT Not Given QIDACHS [facility] Protocol Levetiracetam 1,000 mg 09/16/20 09:00 09/28/20 08:44 Levetiracetam 1,000 Mg Tablet PO 1,000 mg BID [facility] Administration Metoprolol Tartrate 25 mg 09/17/20 21:00 09/28/20 08:45 Metoprolol Tartrate 25 Mg Tablet PO Not Given BID [facility] Protocol Multivitamins/Vitamin C 1 tab 09/17/20 09:00 09/28/20 08:45 Multivitamin Tablet PO 1 tab DAILY [facility] Administration Omeprazole 40 mg 09/16/20 07:55 09/28/20 08:46 Omeprazole 40 Mg Capsule.Dr PO Not Given DAILY@0630 [facility] Ondansetron HCl 4 mg 09/15/20 05:17 Ondansetron Hcl 4 Mg/2 Ml Vial IVPUSH Q8H PRN Nausea and Vomiting Pharmacy Consult 1 each 09/15/20 02:19 Consult Rx Perform Med Rec MISCELLANE ONCE PRN Consult order Prednisone 20 mg 09/26/20 09:00 09/28/20 08:45 Prednisone 20 Mg Tablet PO 20 mg DAILY [facility] Administration Quetiapine Fumarate 25 mg 09/19/20 21:00 09/28/20 08:45 Quetiapine Fumarate 25 Mg Tablet PO 25 mg BID [facility] Administration Sodium Chloride 3 ml 09/15/20 08:00 09/28/20 09:03 0.9 % Sodium Chloride Flush 3 Ml Syringe IVFLUSH 3 ml QSHIFT [facility] Administration Tamsulosin HCl 0.8 mg 09/16/20 21:00 09/27/20 21:31 Tamsulosin Hcl 0.4 Mg Capsule PO 0.8 mg BEDTIME [facility] Administration Trazodone HCl 50 mg 09/16/20 15:36 09/27/20 21:31 Trazodone Hcl 50 Mg Tablet PO 50 mg BEDTIME PRN Administration Insomnia Labs CBC & Chem 7: 09/24/20 06:31 09/24/20 06:31 Microbiology Microbiology Results: Microbiology 09/15/20 02:33 Blood - Venous Blood Culture - Final No growth after 5 days. 09/15/20 02:32 Blood - Venous Blood Culture - Final No growth after 5 days. 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 + DM2 admitted for acute hypoxic respiratory failure due to COVID-19 pneumonia # acute/chronic hypoxic respiratory failure - supplemental O2, on maximum HFNC + NRB # COVID-19 pneumonia - completed 10d of dexamethasone / - completed 5d of remdesivir 09/20 - completed 1u of convalescent plasma 09/16 - completed 7d of azithromycin for concern of superimposed bacterial PNA 09/22 -Wean down O2 as tolerate # metabolic encephalopathy--better - due to hypoxia, COVID, steroids, hospitalization - prn quetiapine # new-onset AF/RVR - rate-controlled on metoprolol, anticoagulated with apixaban, currently in sinus # hypoK - resolved # hyperNa - resolved # thrombocytopenia - resolved # pulmonary fibrosis - baseline 5-6L O2 + prednisone 20 mg/d [resumed today], followed by Dr Rahman as outpt # BPH - continue tamsulosin # hx SDH - continue levetiracetam # DM2 - basal/bolus insulin # VTE ppx - apixaban # dispo - plan is for Patty visited today and did not make a decision about [employer], patient himself doesn't feel he is ready for to give, once on nasal canula can go home or SNF
[2020-09-28 16:10] LABS: Glucose, Whole Blood 122 mg/dL (60-115)
--- NOTE | 2020-09-28 18:11 | PC.NURSE ---
wean o2 throughout day with respiratory therapist assist. taken off 100% nonrebreather and high flow down to 45L or 85%. pt desat down to high 70's with minimal exertion and becomes tachycardic to 130's when oob to commode and back. able to recover after a few minutes. pt irritaed at times. previously ripped out iv and o2 multipl times. updated via telephone multiple times throughout day.
[2020-09-28 20:22] LABS: Glucose, Whole Blood 86 mg/dL (60-115)
[2020-09-28] MEDS: Tamsulosin HCL 0.4 MG CAPSULE 0.8 MG PO (21:06)
[2020-09-28] MEDS: traZODone HCL 50 MG TABLET PO (21:06)
[2020-09-28] MEDS: Metoprolol Tartrate 25 MG TABLET PO (21:07)
[2020-09-28] MEDS: Insulin Glargine,Hum.rec.anlog 100 UNIT/ML 10 ML VIAL 35 UNIT SUBCUT (21:07)
[2020-09-29] VITALS (14 sets, daily range): BP systolic 100–170; BP diastolic 63–88; PULSE 70–124; RESP 16–26; TEMP 36.4–37.3; O2SAT 90–98
[2020-09-29] MEDS: Omeprazole 40 MG CAPSULE.DR PO (05:38)
[2020-09-29 07:35] LABS: Glucose, Whole Blood 74 mg/dL (60-115)
[2020-09-29] MEDS: guaiFENesin LA 600 MG TAB.ER.12H PO (08:31)
[2020-09-29] MEDS: Benzonatate 100 MG CAPSULE 200 MG PO ×2 (08:31→20:54)
[2020-09-29] MEDS: QUEtiapine Fumarate 25 MG TABLET PO ×2 (08:31→20:54)
[2020-09-29] MEDS: Folic Acid 1 MG TABLET PO (08:32)
[2020-09-29] MEDS: levETIRAcetam 1,000 MG TABLET 1000 MG PO ×2 (08:32→20:54)
[2020-09-29] MEDS: Metoprolol Tartrate 25 MG TABLET PO ×2 (08:32→20:54)
[2020-09-29] MEDS: Multivitamin TABLET 1 TAB PO (08:32)
[2020-09-29] MEDS: Cyanocobalamin (Vitamin B-12) 1,000 MCG TABLET 2000 MCG PO (08:32)
[2020-09-29] MEDS: predniSONE 20 MG TABLET PO (08:32)
[2020-09-29] MEDS: Apixaban 5 MG TABLET PO ×2 (08:32→20:54)
[2020-09-29 11:30] LABS: Glucose, Whole Blood 87 mg/dL (60-115)
--- NOTE | 2020-09-29 12:03 | P.PNIM_ITS ---
Subjective Subjective Date of Service: 09/29/20 Interval History: Seen in f/u for covid related resp failure max on O2, oxygen level continues to fluctutes, but overall trendind down on high flow O2 but with less Oxygen Cardiovascular Cardiovascular: Denies chest pain and Reports dyspnea Respiratory Respiratory: Reports dyspnea and Denies wheezing Allergic/Immunologic Allergic/Immunologic: Denies wheezing Physical Exam Vital Signs: Vital Signs: Last Vital Signs Temp 97.8 F 09/29/20 11:23 Pulse 74 09/29/20 11:23 Resp 22 H 09/29/20 11:23 BP 125/71 09/29/20 11:23 Pulse Ox 96 09/29/20 11:23 Body Mass Index 23.4 Const: General: cooperative and no acute distress Orientation/consciousness: oriented to person and oriented to place Resp: Effort & Inspection: normal respiratory effort, able to speak in complete sentences and decreased respiratory effort GI: Palpation (GI): Soft to palpation and nontender Auscultation: normal bowel sounds Back/Spine/Pelvis: Cervical Spine: normal cervical lordosis Skin: General skin exam: no rashes or lesions noted Neuro: General: oriented to place Motor exam (neuro): 5/5 motor strength present throughout Extrem: General: Yes normal to inspection and Yes no pedal edema Psych: Other: labile affect Objective Data Current Medications Generic Name Dose Route Start Last Admin Trade Name Freq PRN Reason Stop Dose Admin Acetaminophen 650 mg 09/15/20 05:17 09/27/20 17:36 Acetaminophen 325 Mg Tablet PO 650 mg Q6H PRN Administration Pain, Mild (Pain Scale 1-3) Apixaban 5 mg 09/17/20 21:00 09/29/20 08:32 Apixaban 5 Mg Tablet PO 5 mg BID [facility] Administration Benzonatate 200 mg 09/16/20 10:25 09/29/20 08:31 Benzonatate 100 Mg Capsule PO 200 mg TID [facility] Administration Cyanocobalamin 2,000 mcg 09/17/20 09:00 09/29/20 08:32 Cyanocobalamin (Vitamin B-12) 1,000 Mcg Tablet PO 2,000 mcg DAILY [facility] Administration Docusate Sodium 100 mg 09/15/20 05:17 Docusate Sodium 100 Mg Capsule PO DAILY PRN Constipation Folic Acid 1 mg 09/16/20 09:00 09/29/20 08:32 Folic Acid 1 Mg Tablet PO 1 mg DAILY [facility] Administration Guaifenesin 600 mg 09/16/20 10:25 09/29/20 08:31 Guaifenesin La 600 Mg Tab.Er.12h PO 600 mg BID [facility] Administration Insulin Glargine 35 unit 09/16/20 21:00 09/28/20 21:07 Insulin Glargine,Hum.Rec.Anlog 100 Unit/Ml 10 Ml Vial SUBCUT 35 unit BEDTIME [facility] Administration Insulin Human Lispro 0 unit 09/16/20 16:30 09/29/20 12:00 Insulin Lispro 100 Unit/Ml 3 Ml Vial SUBCUT Not Given [facility] Protocol Levetiracetam 1,000 mg 09/16/20 09:00 09/29/20 08:32 Levetiracetam 1,000 Mg Tablet PO 1,000 mg BID [facility] Administration Metoprolol Tartrate 25 mg 09/17/20 21:00 09/29/20 08:32 Metoprolol Tartrate 25 Mg Tablet PO 25 mg BID [facility] Administration Protocol Multivitamins/Vitamin C 1 tab 09/17/20 09:00 09/29/20 08:32 Multivitamin Tablet PO 1 tab DAILY [facility] Administration Omeprazole 40 mg 09/16/20 07:55 09/29/20 05:38 Omeprazole 40 Mg Capsule.Dr PO 40 mg DAILY@0630 [facility] Administration Ondansetron HCl 4 mg 09/15/20 05:17 Ondansetron Hcl 4 Mg/2 Ml Vial IVPUSH Q8H PRN Nausea and Vomiting Pharmacy Consult 1 each 09/15/20 02:19 Consult Rx Perform Med Rec MISCELLANE ONCE PRN Consult order Prednisone 20 mg 09/26/20 09:00 09/29/20 08:32 Prednisone 20 Mg Tablet PO 20 mg DAILY [facility] Administration Quetiapine Fumarate 25 mg 09/19/20 21:00 09/29/20 08:31 Quetiapine Fumarate 25 Mg Tablet PO 25 mg BID [facility] Administration Sodium Chloride 3 ml 09/15/20 08:00 09/29/20 08:32 0.9 % Sodium Chloride Flush 3 Ml Syringe IVFLUSH Not Given QSHIFT [facility] Tamsulosin HCl 0.8 mg 09/16/20 21:00 09/28/20 21:06 Tamsulosin Hcl 0.4 Mg Capsule PO 0.8 mg BEDTIME [facility] Administration Trazodone HCl 50 mg 09/16/20 15:36 09/28/20 21:06 Trazodone Hcl 50 Mg Tablet PO 50 mg BEDTIME PRN Administration Insomnia Labs CBC & Chem 7: 09/24/20 06:31 09/24/20 06:31 Microbiology Microbiology Results: Microbiology 09/15/20 02:33 Blood - Venous Blood Culture - Final No growth after 5 days. 09/15/20 02:32 Blood - Venous Blood Culture - Final No growth after 5 days. 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 + DM2 admitted for acute hypoxic respiratory failure due to COVID-19 pneumonia # acute/chronic hypoxic respiratory failure - supplemental O2, on maximum HFNC + NRB # COVID-19 pneumonia - completed 10d of dexamethasone /2 - completed 5d of remdesivir 09/20 - completed 1u of convalescent plasma 09/16 - completed 7d of azithromycin for concern of superimposed bacterial PNA 09/22 -Wean down O2 as tolerate # metabolic encephalopathy--better - due to hypoxia, COVID, steroids, hospitalization - prn quetiapine # new-onset AF/RVR - rate-controlled on metoprolol, anticoagulated with apixaban, currently in sinus # hypoK - resolved # hyperNa - resolved # thrombocytopenia - resolved # pulmonary fibrosis - baseline 5-6L O2 + prednisone 20 mg/d [resumed today], followed by Dr Rahman as outpt # BPH - continue tamsulosin # hx SDH - continue levetiracetam # DM2 - basal/bolus insulin # VTE ppx - apixaban # dispo -Overall plan is to continue weaning oxygen and ultimately to SNF and if no progress is made, may consider comfort measures only
--- NOTE | 2020-09-29 16:11 | PC.NURSE ---
PATIENT WEANED DOWN TO 50 L/75% HIGH FLOW NASAL CANNULA. STILL REQURING USE OF 100% NONREBREATHER OVER HFNC DURING TRANSFERS OOB TO COMMODE/CHAIR. UPDATED MULTIPLE TIMES THROUGHOUT DAY. PT STILL AGITATED AT TIMES FREQUENTLY REMOVING MEDICAL DEVICES USED FOR MONITORING AND O2 CANNULA. ALSO USE OF FOUL LANGUAGE TOWARDS FEMALE MEDICAL STAFF. CONTINUE TO WEAN DOWN O2 TOLERATED AND MAINTAIN PATIENT SAFETY.
[2020-09-29 16:32] LABS: Glucose, Whole Blood 98 mg/dL (60-115)
[2020-09-29 20:19] LABS: Glucose, Whole Blood 87 mg/dL (60-115)
[2020-09-29] MEDS: traZODone HCL 50 MG TABLET PO (20:54)
[2020-09-29] MEDS: Tamsulosin HCL 0.4 MG CAPSULE 0.8 MG PO (20:54)
[2020-09-29] MEDS: 0.9 % Sodium Chloride Flush 3 ML SYRINGE IVFLUSH (21:12)
[2020-09-30] VITALS (13 sets, daily range): BP systolic 116–160; BP diastolic 70–89; PULSE 71–93; RESP 16–24; TEMP 36–37.1; O2SAT 87–96
[2020-09-30] MEDS: Omeprazole 40 MG CAPSULE.DR PO (06:47)
[2020-09-30 07:34] LABS: Glucose, Whole Blood 78 mg/dL (60-115)
[2020-09-30] MEDS: Cyanocobalamin (Vitamin B-12) 1,000 MCG TABLET 2000 MCG PO (07:58)
[2020-09-30] MEDS: Multivitamin TABLET 1 TAB PO (07:59)
[2020-09-30] MEDS: Apixaban 5 MG TABLET PO ×2 (07:59→22:46)
[2020-09-30] MEDS: QUEtiapine Fumarate 25 MG TABLET PO ×2 (07:59→22:47)
[2020-09-30] MEDS: Folic Acid 1 MG TABLET PO (07:59)
[2020-09-30] MEDS: guaiFENesin LA 600 MG TAB.ER.12H PO (07:59)
[2020-09-30] MEDS: Benzonatate 100 MG CAPSULE 200 MG PO (07:59)
[2020-09-30] MEDS: levETIRAcetam 1,000 MG TABLET 1000 MG PO ×2 (07:59→22:46)
[2020-09-30] MEDS: Metoprolol Tartrate 25 MG TABLET PO ×2 (07:59→22:48)
[2020-09-30] MEDS: predniSONE 20 MG TABLET PO (07:59)
[2020-09-30] MEDS: 0.9 % Sodium Chloride Flush 3 ML SYRINGE IVFLUSH ×2 (08:00→22:49)
--- NOTE | 2020-09-30 11:08 | HO.PM.IMPN ---
Subjective Subjective Date of Service: 09/30/20 Interval History: Seen in f/u for covid related resp failure max on O2, oxygen level continues to fluctute, but overall trendind down on high flow O2 but with less Oxygen, he is more alert and interactive Cardiovascular Cardiovascular: Denies chest pain and Reports dyspnea Respiratory Respiratory: Reports dyspnea and Denies wheezing Allergic/Immunologic Allergic/Immunologic: Denies wheezing Physical Exam Vital Signs: Vital Signs: Last Vital Signs Temp 98.6 F 09/30/20 07:18 Pulse 92 09/30/20 07:18 Resp 18 09/30/20 07:45 BP 124/70 09/30/20 07:18 Pulse Ox 87 L 09/30/20 07:18 Body Mass Index 23.4 Const: General: cooperative and no acute distress Orientation/consciousness: oriented to person and oriented to place Resp: Effort & Inspection: normal respiratory effort, able to speak in complete sentences and no use of accessory muscles Cardio: Jugular venous distension: no JVD Rate: regular rate Rhythm: regular rhythm Heart sounds: S1 normal heart sound present and S2 normal heart sound present GI: Inspection: Yes normal to inspection Palpation (GI): Soft to palpation Auscultation: normal bowel sounds Skin: General skin exam: no rashes or lesions noted Neuro: General: oriented to person and oriented to place Psych: Affect: Labile affect present Objective Data Current Medications Generic Name Dose Route Start Last Admin Trade Name Freq PRN Reason Stop Dose Admin Acetaminophen 650 mg 09/15/20 05:17 09/27/20 17:36 Acetaminophen 325 Mg Tablet PO 650 mg Q6H PRN Administration Pain, Mild (Pain Scale 1-3) Apixaban 5 mg 09/17/20 21:00 09/30/20 07:59 Apixaban 5 Mg Tablet PO 5 mg BID [facility] Administration Benzonatate 200 mg 09/16/20 10:25 09/30/20 07:59 Benzonatate 100 Mg Capsule PO 200 mg TID [facility] Administration Cyanocobalamin 2,000 mcg 09/17/20 09:00 09/30/20 07:58 Cyanocobalamin (Vitamin B-12) 1,000 Mcg Tablet PO 2,000 mcg DAILY [facility] Administration Docusate Sodium 100 mg 09/15/20 05:17 Docusate Sodium 100 Mg Capsule PO DAILY PRN Constipation Folic Acid 1 mg 09/16/20 09:00 09/30/20 07:59 Folic Acid 1 Mg Tablet PO 1 mg DAILY [facility] Administration Guaifenesin 600 mg 09/16/20 10:25 09/30/20 07:59 Guaifenesin La 600 Mg Tab.Er.12h PO 600 mg BID [facility] Administration Insulin Glargine 35 unit 09/16/20 21:00 09/29/20 20:53 Insulin Glargine,Hum.Rec.Anlog 100 Unit/Ml 10 Ml Vial SUBCUT Not Given BEDTIME [facility] Insulin Human Lispro 0 unit 09/16/20 16:30 09/30/20 08:00 Insulin Lispro 100 Unit/Ml 3 Ml Vial SUBCUT Not Given QIDACHS [facility] Protocol Levetiracetam 1,000 mg 09/16/20 09:00 09/30/20 07:59 Levetiracetam 1,000 Mg Tablet PO 1,000 mg BID [facility] Administration Metoprolol Tartrate 25 mg 09/17/20 21:00 09/30/20 07:59 Metoprolol Tartrate 25 Mg Tablet PO 25 mg BID [facility] Administration Protocol Multivitamins/Vitamin C 1 tab 09/17/20 09:00 09/30/20 07:59 Multivitamin Tablet PO 1 tab DAILY [facility] Administration Omeprazole 40 mg 09/16/20 07:55 09/30/20 06:47 Omeprazole 40 Mg Capsule.Dr PO 40 mg DAILY@0630 [facility] Administration Ondansetron HCl 4 mg 09/15/20 05:17 Ondansetron Hcl 4 Mg/2 Ml Vial IVPUSH Q8H PRN Nausea and Vomiting Pharmacy Consult 1 each 09/15/20 02:19 Consult Rx Perform Med Rec MISCELLANE ONCE PRN Consult order Prednisone 20 mg 09/26/20 09:00 09/30/20 07:59 Prednisone 20 Mg Tablet PO 20 mg DAILY [facility] Administration Quetiapine Fumarate 25 mg 09/19/20 21:00 09/30/20 07:59 Quetiapine Fumarate 25 Mg Tablet PO 25 mg BID [facility] Administration Sodium Chloride 3 ml 09/15/20 08:00 09/30/20 08:00 0.9 % Sodium Chloride Flush 3 Ml Syringe IVFLUSH 3 ml QSHIFT [facility] Administration Tamsulosin HCl 0.8 mg 09/16/20 21:00 09/29/20 20:54 Tamsulosin Hcl 0.4 Mg Capsule PO 0.8 mg BEDTIME [facility] Administration Trazodone HCl 50 mg 09/16/20 15:36 09/29/20 20:54 Trazodone Hcl 50 Mg Tablet PO 50 mg BEDTIME PRN Administration Insomnia Labs CBC & Chem 7: 09/24/20 06:31 09/24/20 06:31 Microbiology Microbiology Results: Microbiology 09/15/20 02:33 Blood - Venous Blood Culture - Final No growth after 5 days. 09/15/20 02:32 Blood - Venous Blood Culture - Final No growth after 5 days. 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 + DM2 admitted for acute hypoxic respiratory failure due to COVID-19 pneumonia # acute/chronic hypoxic respiratory failure - supplemental O2, he is now on high flow only and we are titratind down # COVID-19 pneumonia - completed 10d of dexamethasone / - completed 5d of remdesivir 09/20 - completed 1u of convalescent plasma 09/16 - completed 7d of azithromycin for concern of superimposed bacterial PNA 09/22 -Wean down O2 as tolerate # metabolic encephalopathy--better - due to hypoxia, COVID, steroids, hospitalization - prn quetiapine # new-onset AF/RVR - rate-controlled on metoprolol, anticoagulated with apixaban, currently in sinus # hypOkelmia - resolved # hyperNa - resolved # thrombocytopenia - resolved # pulmonary fibrosis - baseline 5-6L O2 + prednisone 20 mg/d [resumed today], followed by Dr Rahman as outpt # BPH - continue tamsulosin # hx SDH - continue levetiracetam # DM2 - basal/bolus insulin # VTE ppx - apixaban # dispo -Overall plan is to continue weaning oxygen and ultimately to SNF and if no progress is made, may consider comfort measures only
[2020-09-30 11:35] LABS: Glucose, Whole Blood 112 mg/dL (60-115)
--- NOTE | 2020-09-30 11:44 | MHC.CM.PN ---
Home with VNA is the goal for dc but Patient is not yet medically cleared (high flow O2; CM will continue to follow for dc planning and possible need to adjust the dc plan.
[2020-09-30 16:31] LABS: Glucose, Whole Blood 117 mg/dL (60-115)
[2020-09-30 20:15] LABS: Glucose, Whole Blood 97 mg/dL (60-115)
[2020-09-30] MEDS: traZODone HCL 50 MG TABLET PO (22:47)
[2020-10-01] VITALS (15 sets, daily range): BP systolic 119–164; BP diastolic 52–87; PULSE 74–97; RESP 17–28; TEMP 36.4–37.2; O2SAT 91–98
[2020-10-01 08:19] LABS: Glucose, Whole Blood 85 mg/dL (60-115)
[2020-10-01] MEDS: 0.9 % Sodium Chloride Flush 3 ML SYRINGE IVFLUSH ×2 (08:50→17:36)
[2020-10-01] MEDS: levETIRAcetam 1,000 MG TABLET 1000 MG PO ×2 (08:50→20:51)
[2020-10-01] MEDS: Multivitamin TABLET 1 TAB PO (08:50)
[2020-10-01] MEDS: Benzonatate 100 MG CAPSULE 200 MG PO ×2 (08:50→15:38)
[2020-10-01] MEDS: Apixaban 5 MG TABLET PO ×2 (08:51→20:51)
[2020-10-01] MEDS: Cyanocobalamin (Vitamin B-12) 1,000 MCG TABLET 2000 MCG PO (08:51)
[2020-10-01] MEDS: guaiFENesin LA 600 MG TAB.ER.12H PO (08:51)
[2020-10-01] MEDS: predniSONE 20 MG TABLET PO (08:51)
[2020-10-01] MEDS: Folic Acid 1 MG TABLET PO (08:52)
[2020-10-01] MEDS: Metoprolol Tartrate 25 MG TABLET PO ×2 (08:52→20:51)
[2020-10-01] MEDS: QUEtiapine Fumarate 25 MG TABLET PO ×2 (08:52→20:51)
[2020-10-01 11:50] LABS: Glucose, Whole Blood 115 mg/dL (60-115)
--- NOTE | 2020-10-01 12:38 | HO.PM.IMPN ---
Subjective Subjective Date of Service: 10/01/20 Interval History: Seen in f/u for covid related resp failure max on O2, oxygen level continues to fluctute, but overall trendind down on high flow O2 only and attempt was made to wean to oxymizer, yet unsucessful Physical Exam Vital Signs: Vital Signs: Last Vital Signs Temp 98.7 F 10/01/20 11:18 Pulse 76 10/01/20 11:18 Resp 19 10/01/20 11:18 BP 146/78 H 10/01/20 11:18 Pulse Ox 98 10/01/20 11:18 Body Mass Index 23.4 Const: Other: Constitutional : Alert, oriented about self and place, presently no distress Neck : Normal inspection, Cardiovascular : RRR on monitor Respiratory : normal resp effort, no accessroy muschle use--asuculatation avoided due active covid Gastrointestinal: soft,nontender Skin : Warm/Dry, No rash Neurological : Alert & oriented to self and place, Objective Data Current Medications Generic Name Dose Route Start Last Admin Trade Name Pranavq PRN Reason Stop Dose Admin Acetaminophen 650 mg 09/15/20 05:17 09/27/20 17:36 Acetaminophen 325 Mg Tablet PO 650 mg Q6H PRN Administration Pain, Mild (Pain Scale 1-3) Apixaban 5 mg 09/17/20 21:00 10/01/20 08:51 Apixaban 5 Mg Tablet PO 5 mg BID DEO Administration Benzonatate 200 mg 09/16/20 10:25 10/01/20 08:50 Benzonatate 100 Mg Capsule PO 200 mg TID DEO Administration Cyanocobalamin 2,000 mcg 09/17/20 09:00 10/01/20 08:51 Cyanocobalamin (Vitamin B-12) 1,000 Mcg Tablet PO 2,000 mcg DAILY DEO Administration Docusate Sodium 100 mg 09/15/20 05:17 Docusate Sodium 100 Mg Capsule PO DAILY PRN Constipation Folic Acid 1 mg 09/16/20 09:00 10/01/20 08:52 Folic Acid 1 Mg Tablet PO 1 mg DAILY DEO Administration Guaifenesin 600 mg 09/16/20 10:25 10/01/20 08:51 Guaifenesin La 600 Mg Tab.Er.12h PO 600 mg BID DEO Administration Insulin Glargine 35 unit 09/16/20 21:00 09/30/20 22:08 Insulin Glargine,Hum.Rec.Anlog 100 Unit/Ml 10 Ml Vial SUBCUT Not Given BEDTIME [facility] Insulin Human Lispro 0 unit 09/16/20 16:30 10/01/20 11:53 Insulin Lispro 100 Unit/Ml 3 Ml Vial SUBCUT Not Given QIDACHS [facility] Protocol Levetiracetam 1,000 mg 09/16/20 09:00 10/01/20 08:50 Levetiracetam 1,000 Mg Tablet PO 1,000 mg BID DEO Administration Metoprolol Tartrate 25 mg 09/17/20 21:00 10/01/20 08:52 Metoprolol Tartrate 25 Mg Tablet PO 25 mg BID [facility] Administration Protocol Multivitamins/Vitamin C 1 tab 09/17/20 09:00 10/01/20 08:50 Multivitamin Tablet PO 1 tab DAILY [facility] Administration Omeprazole 40 mg 09/16/20 07:55 10/01/20 05:10 Omeprazole 40 Mg Capsule.Dr PO Not Given DAILY@0630 [facility] Ondansetron HCl 4 mg 09/15/20 05:17 Ondansetron Hcl 4 Mg/2 Ml Vial IVPUSH Q8H PRN Nausea and Vomiting Pharmacy Consult 1 each 09/15/20 02:19 Consult Rx Perform Med Rec MISCELLANE ONCE PRN Consult order Prednisone 20 mg 09/26/20 09:00 10/01/20 08:51 Prednisone 20 Mg Tablet PO 20 mg DAILY DEO Administration Quetiapine Fumarate 25 mg 09/19/20 21:00 10/01/20 08:52 Quetiapine Fumarate 25 Mg Tablet PO 25 mg BID [facility] Administration Sodium Chloride 3 ml 09/15/20 08:00 10/01/20 08:50 0.9 % Sodium Chloride Flush 3 Ml Syringe IVFLUSH 3 ml QSHIFT [facility] Administration Tamsulosin HCl 0.8 mg 09/16/20 21:00 09/30/20 22:48 Tamsulosin Hcl 0.4 Mg Capsule PO Not Given BEDTIME [facility] Trazodone HCl 50 mg 09/16/20 15:36 09/30/20 22:47 Trazodone Hcl 50 Mg Tablet PO 50 mg BEDTIME PRN Administration Insomnia Labs CBC & Chem 7: 09/24/20 06:31 09/24/20 06:31 Microbiology Microbiology Results: Microbiology 09/15/20 02:33 Blood - Venous Blood Culture - Final No growth after 5 days. 09/15/20 02:32 Blood - Venous Blood Culture - Final No growth after 5 days. 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 + DM2 admitted for acute hypoxic respiratory failure due to COVID-19 pneumonia # acute/chronic hypoxic respiratory failure - supplemental O2, he is now on high flow only and we are titrating dilcia, unsuccessful with for Oxymizer # COVID-19 pneumonia - completed 10d of dexamethasone on 09/24 - completed 5d of remdesivir on 09/20 - completed 1u of convalescent plasma on 09/16 - completed 7d of azithromycin for concern of superimposed bacterial PNA 09/22 -Wean down O2 as tolerate # metabolic encephalopathy--much better - due to hypoxia, COVID, steroids, hospitalization - prn quetiapine # new-onset AF/RVR - rate-controlled on metoprolol, anticoagulated with apixaban, currently in sinus # hypOkelmia - resolved # hyperNa - resolved # thrombocytopenia - resolved # pulmonary fibrosis - baseline 5-6L O2 + prednisone 20 mg/d [resumed today], followed by Dr Rahman as outpt # BPH - continue tamsulosin # hx SDH - continue levetiracetam # DM2 - basal/bolus insulin # VTE ppx - apixaban # dispo -Overall plan is to continue weaning oxygen and ultimately to SNF and if no progress is made, may consider comfort measures only -Try and get out of bed
[2020-10-01 16:18] LABS: Glucose, Whole Blood 159 mg/dL (60-115)
[2020-10-01] MEDS: Insulin Lispro 100 UNIT/ML 3 ML VIAL SUBCUT (16:46)
[2020-10-01 20:13] LABS: Glucose, Whole Blood 82 mg/dL (60-115)
[2020-10-01] MEDS: traZODone HCL 50 MG TABLET PO (20:51)
[2020-10-02] VITALS (14 sets, daily range): BP systolic 115–137; BP diastolic 68–81; PULSE 73–87; RESP 18–28; TEMP 36.4–37.2; O2SAT 77–100
[2020-10-02] MEDS: guaiFENesin DM 100/10/5 ML 5 ML SYRUP PO (00:20)
[2020-10-02] MEDS: 0.9 % Sodium Chloride Flush 3 ML SYRINGE IVFLUSH (08:56)
[2020-10-02 08:57] LABS: Glucose, Whole Blood 89 mg/dL (60-115)
--- NOTE | 2020-10-02 11:16 | MHC.CLN ---
F/U RECOMMEND ADDING ENSURE TID R/T POOR PO
[2020-10-02 12:26] LABS: Glucose, Whole Blood 99 mg/dL (60-115)
--- NOTE | 2020-10-02 13:57 | MHC.CM.PN ---
The goal for dc is home vs STR ([employer] option may be presented to family if Patient does not show improvement). CM will follow for dc planning.
--- NOTE | 2020-10-02 13:58 | P.PNIM_ITS ---
Subjective Subjective Date of Service: 10/02/20 Interval History: Seen in f/u for covid related resp failure max on O2, oxygen level continues to fluctute. He went back into AFIB Cardiovascular Cardiovascular: Denies chest pain and Reports dyspnea Respiratory Respiratory: Reports dyspnea and Denies wheezing Allergic/Immunologic Allergic/Immunologic: Denies wheezing Physical Exam Vital Signs: Vital Signs: Last Vital Signs Temp 98.3 F 10/02/20 12:00 Pulse 87 10/02/20 12:00 Resp 20 10/02/20 12:00 BP 124/75 10/02/20 12:00 Pulse Ox 97 10/02/20 12:00 Body Mass Index 23.4 Const: Other: Constitutional : Alert, oriented about self and place, presently no distress Neck : Normal inspection, Cardiovascular :irregular on monitor Respiratory : normal resp effort, no accessroy muschle use--asuculatation avoided due active covid Gastrointestinal: soft,nontender Skin : Warm/Dry, No rash Neurological : Alert & oriented to self and place, Objective Data Current Medications Generic Name Dose Route Start Last Admin Trade Name Pranavq PRN Reason Stop Dose Admin Acetaminophen 650 mg 09/15/20 05:17 09/27/20 17:36 Acetaminophen 325 Mg Tablet PO 650 mg Q6H PRN Administration Pain, Mild (Pain Scale 1-3) Apixaban 5 mg 09/17/20 21:00 10/02/20 10:39 Apixaban 5 Mg Tablet PO Not Given BID [facility] Benzonatate 200 mg 09/16/20 10:25 10/02/20 10:39 Benzonatate 100 Mg Capsule PO Not Given TID [facility] Cyanocobalamin 2,000 mcg 09/17/20 09:00 10/02/20 10:39 Cyanocobalamin (Vitamin B-12) 1,000 Mcg Tablet PO Not Given DAILY DEO Docusate Sodium 100 mg 09/15/20 05:17 Docusate Sodium 100 Mg Capsule PO DAILY PRN Constipation Folic Acid 1 mg 09/16/20 09:00 10/02/20 10:41 Folic Acid 1 Mg Tablet PO Not Given DAILY DEO Guaifenesin 600 mg 09/16/20 10:25 10/02/20 10:42 Guaifenesin La 600 Mg Tab.Er.12h PO Not Given BID DEO Guaifenesin/Dextromethorphan 5 ml 10/02/20 00:07 10/02/20 00:20 Guaifenesin Dm 100/10/5 Ml 5 Ml Syrup PO 5 ml Q6H PRN Administration cough Insulin Glargine 35 unit 09/16/20 21:00 10/01/20 20:35 Insulin Glargine,Hum.Rec.Anlog 100 Unit/Ml 10 Ml Vial SUBCUT Not Given BEDTIME [facility] Insulin Human Lispro 0 unit 09/16/20 16:30 10/02/20 12:11 Insulin Lispro 100 Unit/Ml 3 Ml Vial SUBCUT Not Given QIDACHS [facility] Protocol Levetiracetam 1,000 mg 09/16/20 09:00 10/02/20 10:42 Levetiracetam 1,000 Mg Tablet PO Not Given BID [facility] Metoprolol Tartrate 25 mg 09/17/20 21:00 10/02/20 10:42 Metoprolol Tartrate 25 Mg Tablet PO Not Given BID [facility] Protocol Multivitamins/Vitamin C 1 tab 09/17/20 09:00 10/02/20 10:42 Multivitamin Tablet PO Not Given DAILY [facility] Omeprazole 40 mg 09/16/20 07:55 10/02/20 05:54 Omeprazole 40 Mg Capsule.Dr PO Not Given DAILY@0630 [facility] Ondansetron HCl 4 mg 09/15/20 05:17 Ondansetron Hcl 4 Mg/2 Ml Vial IVPUSH Q8H PRN Nausea and Vomiting Pharmacy Consult 1 each 09/15/20 02:19 Consult Rx Perform Med Rec MISCELLANE ONCE PRN Consult order Prednisone 20 mg 09/26/20 09:00 10/02/20 10:43 Prednisone 20 Mg Tablet PO Not Given DAILY [facility] Quetiapine Fumarate 25 mg 09/19/20 21:00 10/02/20 10:43 Quetiapine Fumarate 25 Mg Tablet PO Not Given BID [facility] Sodium Chloride 3 ml 09/15/20 08:00 10/02/20 08:56 0.9 % Sodium Chloride Flush 3 Ml Syringe IVFLUSH 3 ml QSHIFT DEO Administration Tamsulosin HCl 0.8 mg 09/16/20 21:00 10/01/20 20:50 Tamsulosin Hcl 0.4 Mg Capsule PO Not Given BEDTIME [facility] Trazodone HCl 50 mg 09/16/20 15:36 10/01/20 20:51 Trazodone Hcl 50 Mg Tablet PO 50 mg BEDTIME PRN Administration Insomnia Labs CBC & Chem 7: 09/24/20 06:31 09/24/20 06:31 Microbiology Microbiology Results: Microbiology 09/15/20 02:33 Blood - Venous Blood Culture - Final No growth after 5 days. 09/15/20 02:32 Blood - Venous Blood Culture - Final No growth after 5 days. 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 + DM2 admitted for acute hypoxic respiratory failure due to COVID-19 pneumonia # acute/chronic hypoxic respiratory failure - supplemental O2, he is now on high flow only and we are titrating dilcia, unsuccessful with for Oxymizer, so continue high flow # COVID-19 pneumonia - completed 10d of dexamethasone on 09/24 - completed 5d of remdesivir on 09/20 - completed 1u of convalescent plasma on 09/16 - completed 7d of azithromycin for concern of superimposed bacterial PNA 09/22 -Wean down O2 as tolerate # metabolic encephalopathy--much better - due to hypoxia, COVID, steroids, hospitalization - prn quetiapine # new-onset AF/RVR, went back in RVR briefly today - rate-controlled on metoprolol, anticoagulated with apixaban, currently in sinus # hypOkelmia - resolved # hyperNa - resolved # thrombocytopenia - resolved # pulmonary fibrosis - baseline 5-6L O2 + prednisone 20 mg/d , followed by Dr Rahman as outpt # BPH - continue tamsulosin # hx SDH - continue levetiracetam # DM2 - basal/bolus insulin # VTE ppx - apixaban # dispo -Overall plan is to continue weaning oxygen and ultimately to SNF and if no progress is made, may consider comfort measures only -Try and get out of bed
[2020-10-02 16:17] LABS: Glucose, Whole Blood 104 mg/dL (60-115)
--- NOTE | 2020-10-02 18:04 | PC.NURSE ---
Pt refused all morning medication. This RN notified Dr. Coe and he is aware.
[2020-10-02 19:54] LABS: Glucose, Whole Blood 89 mg/dL (60-115)
[2020-10-02] MEDS: Metoprolol Tartrate 25 MG TABLET PO (20:52)
[2020-10-02] MEDS: Tamsulosin HCL 0.4 MG CAPSULE 0.8 MG PO (20:52)
[2020-10-02] MEDS: guaiFENesin LA 600 MG TAB.ER.12H PO (20:52)
[2020-10-02] MEDS: QUEtiapine Fumarate 25 MG TABLET PO (20:52)
[2020-10-02] MEDS: levETIRAcetam 1,000 MG TABLET 1000 MG PO (20:52)
[2020-10-02] MEDS: Apixaban 5 MG TABLET PO (20:52)
[2020-10-03] VITALS (14 sets, daily range): BP systolic 103–153; BP diastolic 64–79; PULSE 73–111; RESP 18–30; TEMP 36.1–37.1; O2SAT 92–100
[2020-10-03 07:24] LABS: Glucose, Whole Blood 78 mg/dL (60-115)
--- NOTE | 2020-10-03 08:54 | HO.PM.IMPN ---
Subjective Subjective Date of Service: 10/03/20 Interval History: Seen in f/u for covid related resp failure max on O2, oxygen level continues to fluctute. He is aggressive and agitated this mornig and O2 desated but is recovering Review of Systems .agitated, anxious and agressive, reports no sob Physical Exam Vital Signs: Vital Signs: Last Vital Signs Temp 97.4 F 10/03/20 07:23 Pulse 96 10/03/20 07:23 Resp 20 10/03/20 07:48 BP 122/69 10/03/20 07:23 Pulse Ox 95 10/03/20 07:23 Body Mass Index 23.4 Const: Other: Constitutional : Alert, oriented about self and place, presently no distress Neck : Normal inspection, Cardiovascular :irregular on monitor Respiratory : normal resp effort, no accessroy muschle use--asuculatation avoided due active covid Gastrointestinal: soft,nontender Skin : Warm/Dry, No rash Neurological : Alert & oriented to self and place, Objective Data Current Medications Generic Name Dose Route Start Last Admin Trade Name Pranavq PRN Reason Stop Dose Admin Acetaminophen 650 mg 09/15/20 05:17 09/27/20 17:36 Acetaminophen 325 Mg Tablet PO 650 mg Q6H PRN Administration Pain, Mild (Pain Scale 1-3) Apixaban 5 mg 09/17/20 21:00 10/02/20 20:52 Apixaban 5 Mg Tablet PO 5 mg BID DEO Administration Benzonatate 200 mg 09/16/20 10:25 10/02/20 20:55 Benzonatate 100 Mg Capsule PO Not Given TID [facility] Cyanocobalamin 2,000 mcg 09/17/20 09:00 10/02/20 10:39 Cyanocobalamin (Vitamin B-12) 1,000 Mcg Tablet PO Not Given DAILY DEO Docusate Sodium 100 mg 09/15/20 05:17 Docusate Sodium 100 Mg Capsule PO DAILY PRN Constipation Folic Acid 1 mg 09/16/20 09:00 10/02/20 10:41 Folic Acid 1 Mg Tablet PO Not Given DAILY DEO Guaifenesin 600 mg 09/16/20 10:25 10/02/20 20:52 Guaifenesin La 600 Mg Tab.Er.12h PO 600 mg BID DEO Administration Guaifenesin/Dextromethorphan 5 ml 10/02/20 00:07 10/02/20 00:20 Guaifenesin Dm 100/10/5 Ml 5 Ml Syrup PO 5 ml Q6H PRN Administration cough Insulin Glargine 35 unit 09/16/20 21:00 10/02/20 20:54 Insulin Glargine,Hum.Rec.Anlog 100 Unit/Ml 10 Ml Vial SUBCUT Not Given BEDTIME DEO Insulin Human Lispro 0 unit 09/16/20 16:30 10/03/20 07:56 Insulin Lispro 100 Unit/Ml 3 Ml Vial SUBCUT Not Given QIDACHS [facility] Protocol Levetiracetam 1,000 mg 09/16/20 09:00 10/02/20 20:52 Levetiracetam 1,000 Mg Tablet PO 1,000 mg BID DEO Administration Metoprolol Tartrate 25 mg 09/17/20 21:00 10/02/20 20:52 Metoprolol Tartrate 25 Mg Tablet PO 25 mg BID DEO Administration Protocol Multivitamins/Vitamin C 1 tab 09/17/20 09:00 10/02/20 10:42 Multivitamin Tablet PO Not Given DAILY [facility] Omeprazole 40 mg 09/16/20 07:55 10/03/20 05:16 Omeprazole 40 Mg Capsule.Dr PO Not Given DAILY@0630 [facility] Ondansetron HCl 4 mg 09/15/20 05:17 Ondansetron Hcl 4 Mg/2 Ml Vial IVPUSH Q8H PRN Nausea and Vomiting Pharmacy Consult 1 each 09/15/20 02:19 Consult Rx Perform Med Rec MISCELLANE ONCE PRN Consult order Prednisone 20 mg 09/26/20 09:00 10/02/20 10:43 Prednisone 20 Mg Tablet PO Not Given DAILY [facility] Quetiapine Fumarate 25 mg 09/19/20 21:00 10/02/20 20:52 Quetiapine Fumarate 25 Mg Tablet PO 25 mg BID DEO Administration Sodium Chloride 3 ml 09/15/20 08:00 10/03/20 07:56 0.9 % Sodium Chloride Flush 3 Ml Syringe IVFLUSH Not Given QSHIFT [facility] Tamsulosin HCl 0.8 mg 09/16/20 21:00 10/02/20 20:52 Tamsulosin Hcl 0.4 Mg Capsule PO 0.8 mg BEDTIME DEO Administration Trazodone HCl 50 mg 09/16/20 15:36 10/01/20 20:51 Trazodone Hcl 50 Mg Tablet PO 50 mg BEDTIME PRN Administration Insomnia Labs CBC & Chem 7: 09/24/20 06:31 09/24/20 06:31 Microbiology Microbiology Results: Microbiology 09/15/20 02:33 Blood - Venous Blood Culture - Final No growth after 5 days. 09/15/20 02:32 Blood - Venous Blood Culture - Final No growth after 5 days. 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 + DM2 admitted for acute hypoxic respiratory failure due to COVID-19 pneumonia # acute/chronic hypoxic respiratory failure due to covid with underlying pulm fibrosis and chronic oxygen depdendenc - supplemental O2, he is now on high flow and back on NRB this morning,continue trending down # COVID-19 pneumonia - completed 10d of dexamethasone on 09/24 - completed 5d of remdesivir on 09/20 - completed 1u of convalescent plasma on 09/16 - completed 7d of azithromycin for concern of superimposed bacterial PNA 09/22 -Wean down O2 as tolerate # metabolic encephalopathy with likely underlying dementia--much better - due to hypoxia, COVID, steroids, hospitalization - prn quetiapine # new-onset AF/RVR, went back in RVR briefly yesterdya - rate-controlled on metoprolol, anticoagulated with apixaban # hypOkelmia - resolved # hyperNa - resolved # thrombocytopenia - resolved # pulmonary fibrosis - baseline 5-6L O2 + prednisone 20 mg/d , followed by Dr Rahman as outpt # BPH - continue tamsulosin # hx SDH - continue levetiracetam # DM2 - basal/bolus insulin # VTE ppx - apixaban # dispo -Overall plan is to continue weaning oxygen and ultimately to SNF and if no progress is made, may consider comfort measures only -Try and get out of bed
[2020-10-03] MEDS: levETIRAcetam 1,000 MG TABLET 1000 MG PO ×2 (09:40→21:36)
[2020-10-03] MEDS: QUEtiapine Fumarate 25 MG TABLET PO ×2 (09:41→21:36)
[2020-10-03] MEDS: Metoprolol Tartrate 25 MG TABLET PO ×2 (09:41→21:36)
[2020-10-03] MEDS: Apixaban 5 MG TABLET PO ×2 (09:41→21:36)
[2020-10-03] MEDS: predniSONE 20 MG TABLET PO (09:41)
[2020-10-03 11:12] LABS: Glucose, Whole Blood 98 mg/dL (60-115)
[2020-10-03 16:29] LABS: Glucose, Whole Blood 115 mg/dL (60-115)
[2020-10-03 20:25] LABS: Glucose, Whole Blood 105 mg/dL (60-115)
[2020-10-03] MEDS: Benzonatate 100 MG CAPSULE 200 MG PO (21:36)
[2020-10-03] MEDS: guaiFENesin LA 600 MG TAB.ER.12H PO (21:36)
[2020-10-03] MEDS: Insulin Glargine,Hum.rec.anlog 100 UNIT/ML 10 ML VIAL 35 UNIT SUBCUT (21:36)
[2020-10-03] MEDS: Tamsulosin HCL 0.4 MG CAPSULE 0.8 MG PO (21:37)
[2020-10-03] MEDS: traZODone HCL 50 MG TABLET PO (21:53)
[2020-10-04] VITALS (14 sets, daily range): BP systolic 115–140; BP diastolic 68–80; PULSE 62–91; RESP 14–30; TEMP 35.8–36.4; O2SAT 95–100
[2020-10-04] MEDS: Omeprazole 40 MG CAPSULE.DR PO (05:59)
[2020-10-04 07:02] LABS: Hematocrit 41.2 % (42-52); Hemoglobin 13.2 g/dl (14.0-18.0); Mean Corpuscular Hemoglobin 32.5 pg (27.0-33.0); Mean Corpuscular Volume 101.5 fL (80-98); Mean Platelet Volume 12.9 fL (9.4-12.4); Platelet Count 141 X10*3/uL (160-400); Red Blood Count 4.06 X10*6/uL (4.60-5.80); Red Cell Distribution Width 13.2 % (11.0-16.0); White Blood Count 8.7 X10*3/uL (4.8-10.8)
[2020-10-04 07:29] LABS: Anion Gap 20 (12-20); Blood Urea Nitrogen 21 mg/dL (9-16); Calcium 8.8 mg/dL (8.4-10.2); Carbon Dioxide 17 mmol/L (22-29); Chloride 109 mmol/L (96-108); Creatinine Clr Calc Pharmacy 63.1; Estimated Glomerular Filt Rate > 60; Glucose Random 74 mg/dL (60-115); Potassium 5.8 mmol/L (3.3-5.1); Sodium 140 mmol/L (135-145)
[2020-10-04 07:55] LABS: Glucose, Whole Blood 88 mg/dL (60-115)
[2020-10-04] MEDS: QUEtiapine Fumarate 25 MG TABLET PO ×2 (08:37→21:30)
[2020-10-04] MEDS: Cyanocobalamin (Vitamin B-12) 1,000 MCG TABLET 2000 MCG PO (08:37)
[2020-10-04] MEDS: Apixaban 5 MG TABLET PO ×2 (08:37→21:30)
[2020-10-04] MEDS: guaiFENesin LA 600 MG TAB.ER.12H PO ×2 (08:37→21:30)
[2020-10-04] MEDS: Benzonatate 100 MG CAPSULE 200 MG PO ×2 (08:37→21:30)
[2020-10-04] MEDS: Multivitamin TABLET 1 TAB PO (08:37)
[2020-10-04] MEDS: Folic Acid 1 MG TABLET PO (08:37)
[2020-10-04] MEDS: levETIRAcetam 1,000 MG TABLET 1000 MG PO ×2 (08:37→21:29)
[2020-10-04] MEDS: Metoprolol Tartrate 25 MG TABLET PO ×2 (08:37→21:30)
[2020-10-04] MEDS: predniSONE 20 MG TABLET PO (08:37)
--- NOTE | 2020-10-04 10:39 | P.PNIM_ITS ---
Subjective Subjective Date of Service: 10/04/20 Interval History: Seen in f/u for covid related resp failure max on O2, oxygen level continues to fluctute. He is becoming more and more frustrated about being here. still on high flow, NRB discontinued this morning Review of Systems Gen: no fever Resp: + sob, no cough CV: no chest, no RAMIREZ, no leg edema GI: No n/v, no abd pain Neuro: No confusion Physical Exam Vital Signs: Vital Signs: Last Vital Signs Temp 97.1 F 10/04/20 07:22 Pulse 82 10/04/20 07:22 Resp 26 H 10/04/20 07:22 BP 115/79 10/04/20 07:22 Pulse Ox 100 10/04/20 10:22 Body Mass Index 23.4 Const: Other: Constitutional : Alert, oriented about self and place, presently no distress Neck : Normal inspection, Cardiovascular :irregular on monitor Respiratory : normal resp effort, no accessroy muschle use--asuculatation avoided due active covid Gastrointestinal: soft,nontender Skin : Warm/Dry, No rash Neurological : Alert & oriented to self and place, Objective Data Current Medications Generic Name Dose Route Start Last Admin Trade Name Freq PRN Reason Stop Dose Admin Acetaminophen 650 mg 09/15/20 05:17 09/27/20 17:36 Acetaminophen 325 Mg Tablet PO 650 mg Q6H PRN Administration Pain, Mild (Pain Scale 1-3) Apixaban 5 mg 09/17/20 21:00 10/04/20 08:37 Apixaban 5 Mg Tablet PO 5 mg BID DEO Administration Benzonatate 200 mg 09/16/20 10:25 10/04/20 08:37 Benzonatate 100 Mg Capsule PO 200 mg TID DEO Administration Cyanocobalamin 2,000 mcg 09/17/20 09:00 10/04/20 08:37 Cyanocobalamin (Vitamin B-12) 1,000 Mcg Tablet PO 2,000 mcg DAILY DEO Administration Docusate Sodium 100 mg 09/15/20 05:17 Docusate Sodium 100 Mg Capsule PO DAILY PRN Constipation Folic Acid 1 mg 09/16/20 09:00 10/04/20 08:37 Folic Acid 1 Mg Tablet PO 1 mg DAILY DEO Administration Guaifenesin 600 mg 09/16/20 10:25 10/04/20 08:37 Guaifenesin La 600 Mg Tab.Er.12h PO 600 mg BID DEO Administration Guaifenesin/Dextromethorphan 5 ml 10/02/20 00:07 10/02/20 00:20 Guaifenesin Dm 100/10/5 Ml 5 Ml Syrup PO 5 ml Q6H PRN Administration cough Insulin Glargine 35 unit 09/16/20 21:00 10/03/20 21:36 Insulin Glargine,Hum.Rec.Anlog 100 Unit/Ml 10 Ml Vial SUBCUT 35 unit BEDTIME DEO Administration Insulin Human Lispro 0 unit 09/16/20 16:30 10/04/20 08:13 Insulin Lispro 100 Unit/Ml 3 Ml Vial SUBCUT Not Given QIDACHS [facility] Protocol Levetiracetam 1,000 mg 09/16/20 09:00 10/04/20 08:37 Levetiracetam 1,000 Mg Tablet PO 1,000 mg BID DEO Administration Metoprolol Tartrate 25 mg 09/17/20 21:00 10/04/20 08:37 Metoprolol Tartrate 25 Mg Tablet PO 25 mg BID DEO Administration Protocol Multivitamins/Vitamin C 1 tab 09/17/20 09:00 10/04/20 08:37 Multivitamin Tablet PO 1 tab DAILY [facility] Administration Omeprazole 40 mg 09/16/20 07:55 10/04/20 05:59 Omeprazole 40 Mg Capsule.Dr PO 40 mg DAILY@0630 [facility] Administration Ondansetron HCl 4 mg 09/15/20 05:17 Ondansetron Hcl 4 Mg/2 Ml Vial IVPUSH Q8H PRN Nausea and Vomiting Pharmacy Consult 1 each 09/15/20 02:19 Consult Rx Perform Med Rec MISCELLANE ONCE PRN Consult order Prednisone 20 mg 09/26/20 09:00 10/04/20 08:37 Prednisone 20 Mg Tablet PO 20 mg DAILY [facility] Administration Quetiapine Fumarate 25 mg 09/19/20 21:00 10/04/20 08:37 Quetiapine Fumarate 25 Mg Tablet PO 25 mg BID DEO Administration Sodium Chloride 3 ml 09/15/20 08:00 10/04/20 08:13 0.9 % Sodium Chloride Flush 3 Ml Syringe IVFLUSH Not Given QSHIFT [facility] Tamsulosin HCl 0.8 mg 09/16/20 21:00 10/03/20 21:37 Tamsulosin Hcl 0.4 Mg Capsule PO 0.8 mg BEDTIME [facility] Administration Trazodone HCl 50 mg 09/16/20 15:36 10/03/20 21:53 Trazodone Hcl 50 Mg Tablet PO 50 mg BEDTIME PRN Administration Insomnia Labs CBC & Chem 7: 10/04/20 06:03 10/04/20 06:03 Microbiology Microbiology Results: Microbiology 09/15/20 02:33 Blood - Venous Blood Culture - Final No growth after 5 days. 09/15/20 02:32 Blood - Venous Blood Culture - Final No growth after 5 days. 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 + DM2 admitted for acute hypoxic respiratory failure due to COVID-19 pneumonia # acute/chronic hypoxic respiratory failure due to covid with underlying pulm fibrosis and chronic oxygen depdendenc - supplemental O2, he is now on high flow and back on NRB this morning,continue trending down # COVID-19 pneumonia - completed 10d of dexamethasone on 09/24 - completed 5d of remdesivir on 09/20 - completed 1u of convalescent plasma on 09/16 - completed 7d of azithromycin for concern of superimposed bacterial PNA 09/22 -Wean down O2 as tolerate # metabolic encephalopathy with likely underlying dementia--much better - due to hypoxia, COVID, steroids, hospitalization - prn quetiapine # new-onset AF/RVR, went back in RVR briefly yesterdya - rate-controlled on metoprolol, anticoagulated with apixaban # hypOkelmia - resolved # hyperNa - resolved # thrombocytopenia - resolved # pulmonary fibrosis - baseline 5-6L O2 + prednisone 20 mg/d , followed by Dr Rahman as outpt # BPH - continue tamsulosin # hx SDH - continue levetiracetam # DM2 - basal/bolus insulin # VTE ppx - apixaban # dispo -Overall plan is to continue weaning oxygen and ultimately to SNF and if no progress is made, may consider comfort measures only -Try and get out of bed
--- NOTE | 2020-10-04 11:17 | MHC.CM.PN ---
Per ROUNDS discussion, Patient is not yet medically cleared for dc (Hypoxic, High flow O2, aggressive agitated at X's). MD possibly going to approach regarding goals of care. CM will continue to follow for planning; present plan is home vs STR, pending PT eval.
[2020-10-04 11:43] LABS: Glucose, Whole Blood 115 mg/dL (60-115)
[2020-10-04 16:52] LABS: Glucose, Whole Blood 127 mg/dL (60-115)
[2020-10-04 20:43] LABS: Glucose, Whole Blood 93 mg/dL (60-115)
[2020-10-04] MEDS: Tamsulosin HCL 0.4 MG CAPSULE 0.8 MG PO (21:30)
[2020-10-04] MEDS: 0.9 % Sodium Chloride Flush 3 ML SYRINGE IVFLUSH (22:00)
[2020-10-04] MEDS: Haloperidol Lactate 5 MG/ML VIAL 2.5 MG IM (23:06)
--- NOTE | 2020-10-04 23:08 | PC.RT ---
pt takes of hfnc walking out of room had to otu back into bed , increased WOb placed back on HFNC plus NRB
[2020-10-05] VITALS (14 sets, daily range): BP systolic 114–154; BP diastolic 66–91; PULSE 62–120; RESP 18–20; TEMP 35.6–36.6; O2SAT 90–100
[2020-10-05] MEDS: predniSONE 20 MG TABLET PO (08:42)
[2020-10-05] MEDS: Apixaban 5 MG TABLET PO ×2 (08:43→20:54)
[2020-10-05] MEDS: Metoprolol Tartrate 25 MG TABLET PO ×2 (08:43→20:56)
[2020-10-05] MEDS: Benzonatate 100 MG CAPSULE 200 MG PO ×2 (08:43→14:37)
[2020-10-05] MEDS: Folic Acid 1 MG TABLET PO (08:43)
[2020-10-05] MEDS: Multivitamin TABLET 1 TAB PO (08:43)
[2020-10-05] MEDS: QUEtiapine Fumarate 25 MG TABLET PO ×2 (08:43→20:54)
[2020-10-05] MEDS: guaiFENesin LA 600 MG TAB.ER.12H PO (08:43)
[2020-10-05] MEDS: Cyanocobalamin (Vitamin B-12) 1,000 MCG TABLET 2000 MCG PO (08:43)
[2020-10-05] MEDS: levETIRAcetam 1,000 MG TABLET 1000 MG PO ×2 (08:43→20:53)
[2020-10-05 09:09] LABS: Glucose, Whole Blood 88 mg/dL (60-115)
--- NOTE | 2020-10-05 11:01 | P.PNIM_ITS ---
Subjective Subjective Date of Service: 10/05/20 Interval History: the patient was seen and evaluated this morning Laying in bed, looks in mild respiratory distress requiring high-flow and non- rebreather Requiring S sitter in the room as she tries to take of oxygen in keep moving Denies any fever, chills or chest pain No reported other overnight events. Systemic review: No fever, chills or weakness No chest pain, palpitation No shortness of breath while on oxygen No abdominal pain, nausea or vomiting No urinary symptoms No any rash or wounds Physical Exam Vital Signs: Vital Signs: Last Vital Signs Temp 97.2 F 10/05/20 08:00 Pulse 87 10/05/20 08:43 Resp 20 10/05/20 08:19 BP 114/67 10/05/20 08:43 Pulse Ox 100 10/05/20 08:00 Body Mass Index 23.4 Const: Other: Constitutional : Alert, oriented to self, in mild respiratory distress Neck : Normal inspection, Supple Cardiovascular : RRR, S1 S2, no lower extremity edema Respiratory : Bilateral chest wall movement, on high-flow oxygen and non- rebreather mask, mild distress Gastrointestinal: soft, lax, Normal bowel sounds, Non tender Skin : Warm/Dry, No rash Neurological : Alert & oriented to self, No focal deficit Objective Data Current Medications Generic Name Dose Route Start Last Admin Trade Name Pranavq PRN Reason Stop Dose Admin Acetaminophen 650 mg 09/15/20 05:17 09/27/20 17:36 Acetaminophen 325 Mg Tablet PO 650 mg Q6H PRN Administration Pain, Mild (Pain Scale 1-3) Apixaban 5 mg 09/17/20 21:00 10/05/20 08:43 Apixaban 5 Mg Tablet PO 5 mg BID DEO Administration Benzonatate 200 mg 09/16/20 10:25 10/05/20 08:43 Benzonatate 100 Mg Capsule PO 200 mg TID DEO Administration Cyanocobalamin 2,000 mcg 09/17/20 09:00 10/05/20 08:43 Cyanocobalamin (Vitamin B-12) 1,000 Mcg Tablet PO 2,000 mcg DAILY DEO Administration Docusate Sodium 100 mg 09/15/20 05:17 Docusate Sodium 100 Mg Capsule PO DAILY PRN Constipation Folic Acid 1 mg 09/16/20 09:00 10/05/20 08:43 Folic Acid 1 Mg Tablet PO 1 mg DAILY EDO Administration Guaifenesin 600 mg 09/16/20 10:25 10/05/20 08:43 Guaifenesin La 600 Mg Tab.Er.12h PO 600 mg BID DEO Administration Guaifenesin/Dextromethorphan 5 ml 10/02/20 00:07 10/02/20 00:20 Guaifenesin Dm 100/10/5 Ml 5 Ml Syrup PO 5 ml Q6H PRN Administration cough Insulin Glargine 35 unit 09/16/20 21:00 10/04/20 21:59 Insulin Glargine,Hum.Rec.Anlog 100 Unit/Ml 10 Ml Vial SUBCUT Not Given BEDTIME REPLACED BY [facility] Insulin Human Lispro 0 unit 09/16/20 16:30 10/05/20 09:05 Insulin Lispro 100 Unit/Ml 3 Ml Vial SUBCUT Not Given QIDACHS REPLACED BY [facility] Protocol Levetiracetam 1,000 mg 09/16/20 09:00 10/05/20 08:43 Levetiracetam 1,000 Mg Tablet PO 1,000 mg BID REPLACED BY [facility] Administration Metoprolol Tartrate 25 mg 09/17/20 21:00 10/05/20 08:43 Metoprolol Tartrate 25 Mg Tablet PO 25 mg BID REPLACED BY [facility] Administration Protocol Multivitamins/Vitamin C 1 tab 09/17/20 09:00 10/05/20 08:43 Multivitamin Tablet PO 1 tab DAILY REPLACED BY [facility] Administration Omeprazole 40 mg 09/16/20 07:55 10/05/20 05:11 Omeprazole 40 Mg Capsule.Dr PO Not Given DAILY@0630 REPLACED BY [facility] Ondansetron HCl 4 mg 09/15/20 05:17 Ondansetron Hcl 4 Mg/2 Ml Vial IVPUSH Q8H PRN Nausea and Vomiting Pharmacy Consult 1 each 09/15/20 02:19 Consult Rx Perform Med Rec MISCELLANE ONCE PRN Consult order Prednisone 20 mg 09/26/20 09:00 10/05/20 08:42 Prednisone 20 Mg Tablet PO 20 mg DAILY DEO Administration Quetiapine Fumarate 25 mg 09/19/20 21:00 10/05/20 08:43 Quetiapine Fumarate 25 Mg Tablet PO 25 mg BID DEO Administration Sodium Chloride 3 ml 09/15/20 08:00 10/05/20 08:44 0.9 % Sodium Chloride Flush 3 Ml Syringe IVFLUSH Not Given QSHIFT DEO Tamsulosin HCl 0.8 mg 09/16/20 21:00 10/04/20 21:30 Tamsulosin Hcl 0.4 Mg Capsule PO 0.8 mg BEDTIME DEO Administration Trazodone HCl 50 mg 09/16/20 15:36 10/03/20 21:53 Trazodone Hcl 50 Mg Tablet PO 50 mg BEDTIME PRN Administration Insomnia Labs CBC & Chem 7: 10/04/20 06:03 10/04/20 06:03 Microbiology Microbiology Results: Microbiology 09/15/20 02:33 Blood - Venous Blood Culture - Final No growth after 5 days. 09/15/20 02:32 Blood - Venous Blood Culture - Final No growth after 5 days. 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 + DM2 admitted for acute hypoxic respiratory failure due to COVID-19 pneumonia acute/chronic hypoxic respiratory failure due to covid with underlying pulm fibrosis and chronic oxygen depdendenc now on high flow and NRB continue trending down the as tolerated Start incentive spirometry COVID-19 pneumonia - completed 10d of dexamethasone on 09/24 - completed 5d of remdesivir on 09/20 - completed 1u of convalescent plasma on 09/16 - completed 7d of azithromycin for concern of superimposed bacterial PNA 09/22 metabolic encephalopathy with likely underlying dementia Improved due to hypoxia, COVID, steroids, hospitalization prn quetiapine new-onset AF/RVR Rate better controlled today Continue metoprolol, anticoagulated with apixaban thrombocytopenia resolved pulmonary fibrosis baseline 5-6L O2 + prednisone 20 mg/d , followed by Dr Rahman as outpt BPH continue tamsulosin hx SDH continue levetiracetam DM2 basal/bolus insulin VTE ppx apixaban dispo Overall plan is to continue weaning oxygen and ultimately to SNF and if no progress is made, may consider comfort measures only Home
[2020-10-05 11:43] LABS: Glucose, Whole Blood 102 mg/dL (60-115)
[2020-10-05 16:12] LABS: Glucose, Whole Blood 124 mg/dL (60-115)
[2020-10-05] MEDS: 0.9 % Sodium Chloride Flush 3 ML SYRINGE IVFLUSH (16:14)
[2020-10-05] MEDS: guaiFENesin DM 100/10/5 ML 5 ML SYRUP PO (16:14)
[2020-10-05 19:55] LABS: Glucose, Whole Blood 119 mg/dL (60-115)
[2020-10-05] MEDS: Tamsulosin HCL 0.4 MG CAPSULE 0.8 MG PO (20:54)
[2020-10-06] VITALS (12 sets, daily range): BP systolic 121–165; BP diastolic 66–89; PULSE 71–108; RESP 18–24; TEMP 36.1–36.7; O2SAT 92–100
--- NOTE | 2020-10-06 | ECG_ITS ---
Test Reason : evaluate QT Blood Pressure : / mmHG Vent. Rate : 069 BPM Atrial Rate : 069 BPM P-R Int : 164 ms QRS Dur : 120 ms QT Int : 450 ms P-R-T Axes : 039 -26 033 degrees QTc Int : 482 ms Normal sinus rhythm Right bundle branch block Abnormal ECG When compared to the previous EKG of Anterior T wave inversions have improved. Referred By: Imani Enriquez Electronically Signed By:Anmol Henry
[2020-10-06] MEDS: traZODone HCL 50 MG TABLET PO ×2 (00:59→20:17)
[2020-10-06] MEDS: Haloperidol Lactate 5 MG/ML VIAL 2.5 MG IVPUSH (02:35)
--- NOTE | 2020-10-06 06:26 | P.EN_ITS ---
Event Note Date of Service: 10/06/20 Event Note: Received a mssg from nurse that pt's would like to speak to sheba baxter immediately regarding her , pawelun 1 am. A call was made to who stated that she wants her to become PHYSICIAN ASSISTANT PSYCHIATRY. Had a lengthy discussion with her, she is aware of his clinical status, her medical diagnoses and his prognosis and would like usw to stop all medical intervention except for those that make him comfortable and ease his suffering. She would like to visit him before we implement the PHYSICIAN ASSISTANT PSYCHIATRY orders and arranegement has been made between nursing clay preparation supervisor/staff and pt for her to visit him in AM.
--- NOTE | 2020-10-06 06:26 | PM.EVENT ---
Event Note Date of Service: 10/06/20 Event Note: Received a mssg from nurse that pt's would like to speak to doctor immediately regarding her , aroun 1 am. A call was made to who stated that she wants her to become HEAD OF ADVERTISING. Had a lengthy discussion with her, she is aware of his clinical status, her medical diagnoses and his prognosis and would like usw to stop all medical intervention except for those that make him comfortable and ease his suffering. She would like to visit him before we implement the HEAD OF ADVERTISING orders and arranegement has been made between nursing terminal operations supervisor/staff and pt for her to visit him in AM.
--- NOTE | 2020-10-06 06:30 | P.EN_ITS ---
Event Note Date of Service: 10/06/20 Event Note: Received mssg from nurse that pt became hypoxid suddently after be ing on RA. Sats dropped below 90% but we were unable to help him with NC as pt mostly mouth breather. Xray ordered showed possible development of right lobe infiltrate Pt currently on NRB sating >95% Given presentation of xray- concern for aspiration will start him on unasyn
[2020-10-06 06:59] LABS: Hematocrit 35.2 % (42-52); Hemoglobin 11.4 g/dl (14.0-18.0); Mean Corpuscular HGB Conc 32.4 g/dl (31.0-36.0); Mean Corpuscular Hemoglobin 32.1 pg (27.0-33.0); Mean Corpuscular Volume 99.2 fL (80-98); Mean Platelet Volume 11.3 fL (9.4-12.4); Platelet Count 210 X10*3/uL (160-400); Red Blood Count 3.55 X10*6/uL (4.60-5.80); Red Cell Distribution Width 13.2 % (11.0-16.0); White Blood Count 8.6 X10*3/uL (4.8-10.8)
[2020-10-06 07:43] LABS: Anion Gap 15 (12-20); Blood Urea Nitrogen 25 mg/dL (9-16); Carbon Dioxide 24 mmol/L (22-29); Chloride 105 mmol/L (96-108); Estimated Glomerular Filt Rate 56; Glucose Random 95 mg/dL (60-115); Potassium 4.1 mmol/L (3.3-5.1); Sodium 140 mmol/L (135-145)
[2020-10-06 07:52] LABS: Glucose, Whole Blood 96 mg/dL (60-115)
[2020-10-06] MEDS: Metoprolol Tartrate 25 MG TABLET PO ×2 (09:15→20:02)
[2020-10-06] MEDS: levETIRAcetam 1,000 MG TABLET 1000 MG PO ×2 (09:15→20:03)
[2020-10-06] MEDS: Benzonatate 100 MG CAPSULE 200 MG PO ×3 (09:15→20:03)
[2020-10-06] MEDS: Folic Acid 1 MG TABLET PO (09:15)
[2020-10-06] MEDS: Multivitamin TABLET 1 TAB PO (09:15)
[2020-10-06] MEDS: QUEtiapine Fumarate 25 MG TABLET PO ×2 (09:15→20:02)
[2020-10-06] MEDS: predniSONE 20 MG TABLET PO (09:15)
[2020-10-06] MEDS: guaiFENesin LA 600 MG TAB.ER.12H PO ×2 (09:15→20:03)
[2020-10-06] MEDS: Cyanocobalamin (Vitamin B-12) 1,000 MCG TABLET 2000 MCG PO (09:16)
[2020-10-06] MEDS: Apixaban 5 MG TABLET PO ×2 (09:16→20:03)
--- NOTE | 2020-10-06 10:54 | HO.PM.IMPN ---
Subjective Subjective Date of Service: 10/06/20 Interval History: the patient was seen and evaluated this morning Laying in bed, looks in mild respiratory distress requiring high-flow and non-rebreather Requiring S sitter in the room as she tries to take of oxygen in keep moving Denies any fever, chills or chest pain No reported other overnight events. Systemic review: No fever, chills or weakness No chest pain, palpitation No shortness of breath while on oxygen No abdominal pain, nausea or vomiting No urinary symptoms No any rash or wounds Physical Exam Vital Signs: Vital Signs: Last Vital Signs Temp 97.1 F 10/06/20 07:53 Pulse 86 10/06/20 07:53 Resp 20 10/06/20 10:44 BP 132/77 10/06/20 07:53 Pulse Ox 98 10/06/20 07:53 Body Mass Index 23.4 Const: Other: Constitutional : Alert, disoriented , recognize self, in mild respiratory distress Neck : Normal inspection, Supple Cardiovascular : RRR, S1 S2, no lower extremity edema Respiratory : Bilateral chest wall movement, on high-flow oxygen and non-rebreather mask, mild distress Gastrointestinal: soft, lax, Normal bowel sounds, Non tender Skin : Warm/Dry, No rash Neurological : Alert & oriented to self, confused, No focal deficit Objective Data Current Medications Generic Name Dose Route Start Last Admin Trade Name Freq PRN Reason Stop Dose Admin Acetaminophen 650 mg 09/15/20 05:17 09/27/20 17:36 Acetaminophen 325 Mg Tablet PO 650 mg Q6H PRN Administration Pain, Mild (Pain Scale 1-3) Apixaban 5 mg 09/17/20 21:00 10/06/20 09:16 Apixaban 5 Mg Tablet PO 5 mg BID DEO Administration Benzonatate 200 mg 09/16/20 10:25 10/06/20 09:15 Benzonatate 100 Mg Capsule PO 200 mg TID DEO Administration Cyanocobalamin 2,000 mcg 09/17/20 09:00 10/06/20 09:16 Cyanocobalamin (Vitamin B-12) 1,000 Mcg Tablet PO 2,000 mcg DAILY DEO Administration Docusate Sodium 100 mg 09/15/20 05:17 Docusate Sodium 100 Mg Capsule PO DAILY PRN Constipation Folic Acid 1 mg 09/16/20 09:00 10/06/20 09:15 Folic Acid 1 Mg Tablet PO 1 mg DAILY DEO Administration Guaifenesin 600 mg 09/16/20 10:25 10/06/20 09:15 Guaifenesin La 600 Mg Tab.Er.12h PO 600 mg BID DEO Administration Guaifenesin/Dextromethorphan 5 ml 10/02/20 00:07 10/05/20 16:14 Guaifenesin Dm 100/10/5 Ml 5 Ml Syrup PO 5 ml Q6H PRN Administration cough Insulin Glargine 35 unit 09/16/20 21:00 10/05/20 20:54 Insulin Glargine,Hum.Rec.Anlog 100 Unit/Ml 10 Ml Vial SUBCUT Not Given BEDTIME [facility] Insulin Human Lispro 0 unit 09/16/20 16:30 10/06/20 09:14 Insulin Lispro 100 Unit/Ml 3 Ml Vial SUBCUT Not Given QIDACHS [facility] Protocol Levetiracetam 1,000 mg 09/16/20 09:00 10/06/20 09:15 Levetiracetam 1,000 Mg Tablet PO 1,000 mg BID [facility] Administration Metoprolol Tartrate 25 mg 09/17/20 21:00 10/06/20 09:15 Metoprolol Tartrate 25 Mg Tablet PO 25 mg BID [facility] Administration Protocol Multivitamins/Vitamin C 1 tab 09/17/20 09:00 10/06/20 09:15 Multivitamin Tablet PO 1 tab DAILY [facility] Administration Omeprazole 40 mg 09/16/20 07:55 10/06/20 04:54 Omeprazole 40 Mg Capsule.Dr PO Not Given DAILY@0630 [facility] Ondansetron HCl 4 mg 09/15/20 05:17 Ondansetron Hcl 4 Mg/2 Ml Vial IVPUSH Q8H PRN Nausea and Vomiting Pharmacy Consult 1 each 09/15/20 02:19 Consult Rx Perform Med Rec MISCELLANE ONCE PRN Consult order Prednisone 20 mg 09/26/20 09:00 10/06/20 09:15 Prednisone 20 Mg Tablet PO 20 mg DAILY [facility] Administration Quetiapine Fumarate 25 mg 10/06/20 21:00 Quetiapine Fumarate 25 Mg Tablet PO BEDTIME [facility] Sodium Chloride 3 ml 09/15/20 08:00 10/06/20 09:15 0.9 % Sodium Chloride Flush 3 Ml Syringe IVFLUSH Not Given QSHIFT [facility] Tamsulosin HCl 0.8 mg 09/16/20 21:00 10/05/20 20:54 Tamsulosin Hcl 0.4 Mg Capsule PO 0.8 mg BEDTIME DEO Administration Trazodone HCl 50 mg 09/16/20 15:36 10/06/20 00:59 Trazodone Hcl 50 Mg Tablet PO 50 mg BEDTIME PRN Administration Insomnia Labs CBC & Chem 7: 10/06/20 06:20 10/06/20 06:20 Microbiology Microbiology Results: Microbiology 09/15/20 02:33 Blood - Venous Blood Culture - Final No growth after 5 days. 09/15/20 02:32 Blood - Venous Blood Culture - Final No growth after 5 days. 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 + DM2 admitted for acute hypoxic respiratory failure due to COVID-19 pneumonia acute/chronic hypoxic respiratory failure due to covid with underlying pulm fibrosis and chronic oxygen depdendenc now on high flow and NRB continue trending down the as tolerated incentive spirometry 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 COVID-19 pneumonia - completed 10d of dexamethasone on 09/24 - completed 5d of remdesivir on 09/20 - completed 1u of convalescent plasma on 09/16 - completed 7d of azithromycin for concern of superimposed bacterial PNA 09/22 metabolic encephalopathy with likely underlying dementia Improved due to hypoxia, COVID, steroids, hospitalization prn quetiapine new-onset AF/RVR Rate better controlled today Continue metoprolol, anticoagulated with apixaban thrombocytopenia resolved pulmonary fibrosis baseline 5-6L O2 + prednisone 20 mg/d , followed by Dr Rahman as outpt BPH continue tamsulosin hx SDH continue levetiracetam DM2 basal/bolus insulin VTE ppx apixaban dispo Overall plan is to continue weaning oxygen and ultimately to SNF and if no progress is made, may consider comfort measures only Home
[2020-10-06 11:44] LABS: Glucose, Whole Blood 123 mg/dL (60-115)
[2020-10-06 16:01] LABS: Glucose, Whole Blood 156 mg/dL (60-115)
[2020-10-06 19:55] LABS: Glucose, Whole Blood 115 mg/dL (60-115)
[2020-10-06] MEDS: Insulin Glargine,Hum.rec.anlog 100 UNIT/ML 10 ML VIAL 35 UNIT SUBCUT (20:02)
[2020-10-06] MEDS: Tamsulosin HCL 0.4 MG CAPSULE 0.8 MG PO (20:03)
[2020-10-07] VITALS (14 sets, daily range): BP systolic 114–185; BP diastolic 72–86; PULSE 65–118; RESP 17–22; TEMP 35.7–36.5; O2SAT 91–100
[2020-10-07] MEDS: 0.9 % Sodium Chloride Flush 3 ML SYRINGE IVFLUSH (00:34)
[2020-10-07] MEDS: guaiFENesin DM 100/10/5 ML 5 ML SYRUP PO (02:07)
[2020-10-07] MEDS: Omeprazole 40 MG CAPSULE.DR PO (05:02)
[2020-10-07] MEDS: hydrOXYzine HCL 50 MG TABLET PO (05:02)
[2020-10-07 07:44] LABS: Glucose, Whole Blood 62 mg/dL (60-115)
[2020-10-07] MEDS: guaiFENesin LA 600 MG TAB.ER.12H PO ×2 (07:46→21:40)
[2020-10-07] MEDS: Benzonatate 100 MG CAPSULE 200 MG PO ×3 (07:46→21:40)
[2020-10-07] MEDS: Metoprolol Tartrate 25 MG TABLET PO ×2 (07:46→21:39)
[2020-10-07] MEDS: Multivitamin TABLET 1 TAB PO (07:47)
[2020-10-07] MEDS: Folic Acid 1 MG TABLET PO (07:47)
[2020-10-07] MEDS: predniSONE 20 MG TABLET PO (07:47)
[2020-10-07] MEDS: Cyanocobalamin (Vitamin B-12) 1,000 MCG TABLET 2000 MCG PO (07:47)
[2020-10-07] MEDS: Apixaban 5 MG TABLET PO ×2 (07:47→21:40)
[2020-10-07] MEDS: levETIRAcetam 1,000 MG TABLET 1000 MG PO ×2 (07:47→21:40)
--- NOTE | 2020-10-07 11:33 | HO.PM.IMPN ---
Subjective Subjective Date of Service: 10/07/20 Interval History: the patient was seen and evaluated this morning Laying in bed, looks in mild respiratory distress requiring high-flow DC non-rebreather Requiring S sitter in the room as she tries to take of oxygen in keep moving Denies any fever, chills or chest pain No reported other overnight events. Systemic review: No fever, chills or weakness No chest pain, palpitation No shortness of breath while on oxygen No abdominal pain, nausea or vomiting No urinary symptoms No any rash or wounds Physical Exam Vital Signs: Vital Signs: Last Vital Signs Temp 96.6 F L 10/07/20 11:04 Pulse 74 10/07/20 11:04 Resp 20 10/07/20 11:04 BP 144/86 H 10/07/20 11:04 Pulse Ox 100 10/07/20 11:04 Body Mass Index 23.4 Const: Other: Constitutional : Alert, disoriented , recognize self, in mild respiratory distress Neck : Normal inspection, Supple Cardiovascular : RRR, S1 S2, no lower extremity edema Respiratory : Bilateral chest wall movement, on high-flow oxygen and non-rebreather mask, mild distress Gastrointestinal: soft, lax, Normal bowel sounds, Non tender Skin : Warm/Dry, No rash Neurological : Alert & oriented to self, confused, No focal deficit Objective Data Current Medications Generic Name Dose Route Start Last Admin Trade Name Freq PRN Reason Stop Dose Admin Acetaminophen 650 mg 09/15/20 05:17 09/27/20 17:36 Acetaminophen 325 Mg Tablet PO 650 mg Q6H PRN Administration Pain, Mild (Pain Scale 1-3) Apixaban 5 mg 09/17/20 21:00 10/07/20 07:47 Apixaban 5 Mg Tablet PO 5 mg BID DEO Administration Benzonatate 200 mg 09/16/20 10:25 10/07/20 07:46 Benzonatate 100 Mg Capsule PO 200 mg TID DEO Administration Cyanocobalamin 2,000 mcg 09/17/20 09:00 10/07/20 07:47 Cyanocobalamin (Vitamin B-12) 1,000 Mcg Tablet PO 2,000 mcg DAILY DEO Administration Docusate Sodium 100 mg 09/15/20 05:17 Docusate Sodium 100 Mg Capsule PO DAILY PRN Constipation Folic Acid 1 mg 09/16/20 09:00 10/07/20 07:47 Folic Acid 1 Mg Tablet PO 1 mg DAILY DEO Administration Guaifenesin 600 mg 09/16/20 10:25 10/07/20 07:46 Guaifenesin La 600 Mg Tab.Er.12h PO 600 mg BID DEO Administration Guaifenesin/Dextromethorphan 5 ml 10/02/20 00:07 10/07/20 02:07 Guaifenesin Dm 100/10/5 Ml 5 Ml Syrup PO 5 ml Q6H PRN Administration cough Hydroxyzine HCl 50 mg 10/07/20 03:36 10/07/20 05:02 Hydroxyzine Hcl 50 Mg Tablet PO 50 mg Q6H PRN Administration anxiety/restlessness Insulin Glargine 35 unit 09/16/20 21:00 10/06/20 20:02 Insulin Glargine,Hum.Rec.Anlog 100 Unit/Ml 10 Ml Vial SUBCUT 35 unit BEDTIME [facility]O Administration Insulin Human Lispro 0 unit 09/16/20 16:30 10/07/20 07:48 Insulin Lispro 100 Unit/Ml 3 Ml Vial SUBCUT Not Given QIDACHS [facility] Protocol Levetiracetam 1,000 mg 09/16/20 09:00 10/07/20 07:47 Levetiracetam 1,000 Mg Tablet PO 1,000 mg BID DEO Administration Metoprolol Tartrate 25 mg 09/17/20 21:00 10/07/20 07:46 Metoprolol Tartrate 25 Mg Tablet PO 25 mg BID DEO Administration Protocol Multivitamins/Vitamin C 1 tab 09/17/20 09:00 10/07/20 07:47 Multivitamin Tablet PO 1 tab DAILY [facility]O Administration Omeprazole 40 mg 09/16/20 07:55 10/07/20 05:02 Omeprazole 40 Mg Capsule. PO 40 mg DAILY@0630 [facility]O Administration Ondansetron HCl 4 mg 09/15/20 05:17 Ondansetron Hcl 4 Mg/2 Ml Vial IVPUSH Q8H PRN Nausea and Vomiting Pharmacy Consult 1 each 09/15/20 02:19 Consult Rx Perform Med Rec MISCELLANE ONCE PRN Consult order Prednisone 20 mg 09/26/20 09:00 10/07/20 07:47 Prednisone 20 Mg Tablet PO 20 mg DAILY [facility]O Administration Quetiapine Fumarate 25 mg 10/06/20 21:00 10/06/20 20:02 Quetiapine Fumarate 25 Mg Tablet PO 25 mg BEDTIME [facility]O Administration Sodium Chloride 3 ml 09/15/20 08:00 10/07/20 07:48 0.9 % Sodium Chloride Flush 3 Ml Syringe IVFLUSH Not Given QSHIFT DEO Tamsulosin HCl 0.8 mg 09/16/20 21:00 10/06/20 20:03 Tamsulosin Hcl 0.4 Mg Capsule PO 0.8 mg BEDTIME [facility]O Administration Trazodone HCl 50 mg 09/16/20 15:36 10/06/20 20:17 Trazodone Hcl 50 Mg Tablet PO 50 mg BEDTIME PRN Administration Insomnia Labs CBC & Chem 7: 10/06/20 06:20 10/06/20 06:20 Microbiology Microbiology Results: Microbiology 09/15/20 02:33 Blood - Venous Blood Culture - Final No growth after 5 days. 09/15/20 02:32 Blood - Venous Blood Culture - Final No growth after 5 days. 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 + DM2 admitted for acute hypoxic respiratory failure due to COVID-19 pneumonia acute/chronic hypoxic respiratory failure due to covid with underlying pulm fibrosis and chronic oxygen depdendenc now on high flow discontinue NRB and wean O2 down as tolerated continue trending down the as tolerated incentive spirometry 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 status change as she wans to visit him today COVID-19 pneumonia - completed 10d of dexamethasone on 09/24 - completed 5d of remdesivir on 09/20 - completed 1u of convalescent plasma on 09/16 - completed 7d of azithromycin for concern of superimposed bacterial PNA 09/22 metabolic encephalopathy with likely underlying dementia Improved due to hypoxia, COVID, steroids, hospitalization prn quetiapine new-onset AF/RVR Rate better controlled today Continue metoprolol, anticoagulated with apixaban thrombocytopenia resolved pulmonary fibrosis baseline 5-6L O2 + prednisone 20 mg/d , followed by Dr Rahman as outpt BPH continue tamsulosin hx SDH continue levetiracetam DM2 basal/bolus insulin VTE ppx apixaban dispo Overall plan is to continue weaning oxygen and ultimately to SNF and if no progress is made, may consider comfort measures only Home
[2020-10-07 11:49] LABS: Glucose, Whole Blood 83 mg/dL (60-115)
--- NOTE | 2020-10-07 12:00 | W.MHC.ACPN ---
Advanced Care Planning Note Advanced Care Planning Note Discussed with: family member(s) Time spent (in minutes): 20 Narrative: I had a chance to discuss with the patient and HCP current hospital stay and advanced directive. The patient was admitted to the hospital almost 3 weeks ago for acute hypoxic respiratory failure secondary to COVID-19 infection. He has an underlying lung fibrosis requiring 5-6 L of oxygen at baseline. During the hospital stay he went into acute delirium status and mental status changes. He has been requiring high-flow oxygen for almost 20 days with inability to wean him down. Otherwise he has been alert, confused, participating in discussions, eating and drinking well. I spoke with his today who is the HCP regarding his current status and the goals of care. 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 We agreed that she will come to visit the patient and talk to him before taking that decision. For the meantime will keep his status as DNR DNI and continue with the high-flow oxygen trying to wean him down as tolerated. Problems Discussed (1) Sepsis with acute hypoxic respiratory failure: (2) Acute hypokalemia: (3) Pneumonia due to COVID-19 virus: (4) Encephalopathy due to 2019-nCoV: (5) Respiratory failure: (6) Acute delirium:
[2020-10-07 16:15] LABS: Glucose, Whole Blood 91 mg/dL (60-115)
[2020-10-07 19:54] LABS: Glucose, Whole Blood 90 mg/dL (60-115)
[2020-10-07] MEDS: Tamsulosin HCL 0.4 MG CAPSULE 0.8 MG PO (21:39)
[2020-10-07] MEDS: QUEtiapine Fumarate 25 MG TABLET PO (21:40)
--- NOTE | 2020-10-07 22:44 | PC.NURSE ---
POC at HS 90, Lantus [address] Beard notified. Will continue to monitor.
[2020-10-08] VITALS (10 sets, daily range): BP systolic 106–150; BP diastolic 64–82; PULSE 73–97; RESP 16–20; TEMP 36.4–37.1; O2SAT 95–100
[2020-10-08 07:35] LABS: Glucose, Whole Blood 97 mg/dL (60-115)
[2020-10-08] MEDS: Apixaban 5 MG TABLET PO ×2 (08:17→20:40)
[2020-10-08] MEDS: Metoprolol Tartrate 25 MG TABLET PO ×2 (08:20→20:41)
[2020-10-08] MEDS: predniSONE 20 MG TABLET PO (08:21)
[2020-10-08] MEDS: Cyanocobalamin (Vitamin B-12) 1,000 MCG TABLET 2000 MCG PO (08:21)
[2020-10-08] MEDS: Folic Acid 1 MG TABLET PO (08:21)
[2020-10-08] MEDS: Benzonatate 100 MG CAPSULE 200 MG PO ×2 (08:22→15:45)
[2020-10-08] MEDS: Multivitamin TABLET 1 TAB PO (08:24)
[2020-10-08] MEDS: levETIRAcetam 1,000 MG TABLET 1000 MG PO ×2 (08:26→20:40)
[2020-10-08 12:14] LABS: Glucose, Whole Blood 109 mg/dL (60-115)
--- NOTE | 2020-10-08 13:35 | PC.NURSE ---
patient apears to have had a 40 beat run of SVT. returned to a NSR. Dr. Leon aware via tiger text. will continue to monitor.
--- NOTE | 2020-10-08 15:26 | HO.PM.IMPN ---
Subjective Subjective Date of Service: 10/08/20 Interval History: the patient was seen and evaluated this morning Laying in bed, looks more comfortable Requiring S sitter in the room as she tries to take of oxygen in keep moving Continue to wean down oxygen as tolerated Denies any fever, chills or chest pain No reported other overnight events. Systemic review: No fever, chills or weakness No chest pain, palpitation No shortness of breath while on oxygen No abdominal pain, nausea or vomiting No urinary symptoms No any rash or wounds Physical Exam Vital Signs: Vital Signs: Last Vital Signs Temp 98.7 F 10/08/20 11:34 Pulse 74 10/08/20 11:34 Resp 20 10/08/20 11:34 BP 150/78 H 10/08/20 11:34 Pulse Ox 98 10/08/20 11:34 Body Mass Index 23.4 Const: Other: Constitutional : Alert, disoriented , recognize self, in mild respiratory distress Neck : Normal inspection, Supple Cardiovascular : RRR, S1 S2, no lower extremity edema Respiratory : Bilateral chest wall movement, on high-flow oxygen and non-rebreather mask, mild distress Gastrointestinal: soft, lax, Normal bowel sounds, Non tender Skin : Warm/Dry, No rash Neurological : Alert & oriented to self, confused, No focal deficit Objective Data Current Medications Generic Name Dose Route Start Last Admin Trade Name Pranavq PRN Reason Stop Dose Admin Acetaminophen 650 mg 09/15/20 05:17 09/27/20 17:36 Acetaminophen 325 Mg Tablet PO 650 mg Q6H PRN Administration Pain, Mild (Pain Scale 1-3) Apixaban 5 mg 09/17/20 21:00 10/08/20 08:17 Apixaban 5 Mg Tablet PO 5 mg BID DEO Administration Benzonatate 200 mg 09/16/20 10:25 10/08/20 08:22 Benzonatate 100 Mg Capsule PO 200 mg TID DEO Administration Cyanocobalamin 2,000 mcg 09/17/20 09:00 10/08/20 08:21 Cyanocobalamin (Vitamin B-12) 1,000 Mcg Tablet PO 2,000 mcg DAILY [facility] Administration Docusate Sodium 100 mg 09/15/20 05:17 Docusate Sodium 100 Mg Capsule PO DAILY PRN Constipation Folic Acid 1 mg 09/16/20 09:00 10/08/20 08:21 Folic Acid 1 Mg Tablet PO 1 mg DAILY [facility] Administration Guaifenesin 600 mg 09/16/20 10:25 10/08/20 08:23 Guaifenesin La 600 Mg Tab.Er.12h PO Not Given BID [facility] Guaifenesin/Dextromethorphan 5 ml 10/02/20 00:07 10/07/20 02:07 Guaifenesin Dm 100/10/5 Ml 5 Ml Syrup PO 5 ml Q6H PRN Administration cough Hydroxyzine HCl 50 mg 10/07/20 03:36 10/07/20 05:02 Hydroxyzine Hcl 50 Mg Tablet PO 50 mg Q6H PRN Administration anxiety/restlessness Insulin Glargine 35 unit 09/16/20 21:00 10/07/20 22:04 Insulin Glargine,Hum.Rec.Anlog 100 Unit/Ml 10 Ml Vial SUBCUT Not Given BEDTIME [facility] Insulin Human Lispro 0 unit 09/16/20 16:30 10/08/20 12:17 Insulin Lispro 100 Unit/Ml 3 Ml Vial SUBCUT Not Given QIDACHS [facility] Protocol Levetiracetam 1,000 mg 09/16/20 09:00 10/08/20 08:26 Levetiracetam 1,000 Mg Tablet PO 1,000 mg BID [facility] Administration Metoprolol Tartrate 25 mg 09/17/20 21:00 10/08/20 08:20 Metoprolol Tartrate 25 Mg Tablet PO 25 mg BID [facility] Administration Protocol Multivitamins/Vitamin C 1 tab 09/17/20 09:00 10/08/20 08:24 Multivitamin Tablet PO 1 tab DAILY [facility] Administration Omeprazole 40 mg 09/16/20 07:55 10/08/20 05:37 Omeprazole 40 Mg Capsule.Dr PO Not Given DAILY@0630 [facility] Ondansetron HCl 4 mg 09/15/20 05:17 Ondansetron Hcl 4 Mg/2 Ml Vial IVPUSH Q8H PRN Nausea and Vomiting Pharmacy Consult 1 each 09/15/20 02:19 Consult Rx Perform Med Rec MISCELLANE ONCE PRN Consult order Prednisone 20 mg 09/26/20 09:00 10/08/20 08:21 Prednisone 20 Mg Tablet PO 20 mg DAILY [facility] Administration Quetiapine Fumarate 25 mg 10/06/20 21:00 10/07/20 21:40 Quetiapine Fumarate 25 Mg Tablet PO 25 mg BEDTIME [facility] Administration Sodium Chloride 3 ml 09/15/20 08:00 10/08/20 08:44 0.9 % Sodium Chloride Flush 3 Ml Syringe IVFLUSH Not Given QSHIFT [facility]O Tamsulosin HCl 0.8 mg 09/16/20 21:00 10/07/20 21:39 Tamsulosin Hcl 0.4 Mg Capsule PO 0.8 mg BEDTIME [facility] Administration Trazodone HCl 50 mg 09/16/20 15:36 10/06/20 20:17 Trazodone Hcl 50 Mg Tablet PO 50 mg BEDTIME PRN Administration Insomnia Labs CBC & Chem 7: 10/06/20 06:20 10/06/20 06:20 Microbiology Microbiology Results: Microbiology 09/15/20 02:33 Blood - Venous Blood Culture - Final No growth after 5 days. 09/15/20 02:32 Blood - Venous Blood Culture - Final No growth after 5 days. 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 + DM2 admitted for acute hypoxic respiratory failure due to COVID-19 pneumonia acute/chronic hypoxic respiratory failure due to covid with underlying pulm fibrosis and chronic oxygen depdendenc DC high flow To use NRB and wean O2 down as tolerated with O2 target 90% continue trending down the as tolerated incentive spirometry HCP considering [employer] status change as she wans to visit him today COVID-19 pneumonia - completed 10d of dexamethasone on 09/24 - completed 5d of remdesivir on 09/20 - completed 1u of convalescent plasma on 09/16 - completed 7d of azithromycin for concern of superimposed bacterial PNA 09/22 metabolic encephalopathy with likely underlying dementia Improved due to hypoxia, COVID, steroids, hospitalization prn quetiapine new-onset AF/RVR Rate better controlled today Continue metoprolol, anticoagulated with apixaban thrombocytopenia resolved pulmonary fibrosis baseline 5-6L O2 + prednisone 20 mg/d , followed by Dr Rahman as outpt BPH continue tamsulosin hx SDH continue levetiracetam DM2 basal/bolus insulin VTE ppx apixaban dispo Overall plan is to continue weaning oxygen and ultimately to SNF and if no progress is made, may consider comfort measures only Home
[2020-10-08 16:46] LABS: Glucose, Whole Blood 132 mg/dL (60-115)
[2020-10-08 20:19] LABS: Glucose, Whole Blood 145 mg/dL (60-115)
[2020-10-08] MEDS: Insulin Glargine,Hum.rec.anlog 100 UNIT/ML 10 ML VIAL 35 UNIT SUBCUT (20:39)
[2020-10-08] MEDS: guaiFENesin LA 600 MG TAB.ER.12H PO (20:40)
[2020-10-08] MEDS: QUEtiapine Fumarate 25 MG TABLET PO (20:40)
[2020-10-09] VITALS (8 sets, daily range): BP systolic 134–157; BP diastolic 68–88; PULSE 73–101; RESP 18–24; TEMP 36.1–37.2; O2SAT 91–100
[2020-10-09] MEDS: guaiFENesin DM 100/10/5 ML 5 ML SYRUP PO (04:18)
[2020-10-09] MEDS: Omeprazole 40 MG CAPSULE.DR PO (05:36)
[2020-10-09] MEDS: Benzonatate 100 MG CAPSULE 200 MG PO (07:46)
[2020-10-09] MEDS: guaiFENesin LA 600 MG TAB.ER.12H PO ×2 (07:46→22:32)
[2020-10-09] MEDS: Metoprolol Tartrate 25 MG TABLET PO ×2 (07:46→22:32)
[2020-10-09] MEDS: levETIRAcetam 1,000 MG TABLET 1000 MG PO ×2 (07:46→22:33)
[2020-10-09] MEDS: Cyanocobalamin (Vitamin B-12) 1,000 MCG TABLET 2000 MCG PO (07:47)
[2020-10-09] MEDS: Apixaban 5 MG TABLET PO ×2 (07:47→22:32)
[2020-10-09] MEDS: predniSONE 20 MG TABLET PO (07:47)
[2020-10-09] MEDS: Folic Acid 1 MG TABLET PO (07:47)
[2020-10-09] MEDS: Multivitamin TABLET 1 TAB PO (07:47)
[2020-10-09 07:48] LABS: Glucose, Whole Blood 85 mg/dL (60-115)
--- NOTE | 2020-10-09 11:31 | HO.PM.IMPN ---
Subjective Subjective Date of Service: 10/09/20 Interval History: the patient was seen and evaluated this morning Laying in bed, looks more comfortable with decreased oxygen requirment to 9L NRB Requiring S sitter in the room as she tries to take of oxygen and keep moving Continue to wean down oxygen as tolerated Denies any fever, chills or chest pain No reported other overnight events. Systemic review: No fever, chills or weakness No chest pain, palpitation No shortness of breath while on oxygen No abdominal pain, nausea or vomiting No urinary symptoms No any rash or wounds Physical Exam Vital Signs: Vital Signs: Last Vital Signs Temp 97.0 F 10/09/20 07:25 Pulse 97 10/09/20 07:25 Resp 24 H 10/09/20 07:25 BP 157/68 H 10/09/20 07:25 Pulse Ox 100 10/09/20 07:25 Body Mass Index 23.4 Const: Other: Constitutional : Alert, disoriented , recognize self, in mild respiratory distress Neck : Normal inspection, Supple Cardiovascular : RRR, S1 S2, no lower extremity edema Respiratory : Bilateral chest wall movement, on high-flow oxygen and non-rebreather mask, mild distress Gastrointestinal: soft, lax, Normal bowel sounds, Non tender Skin : Warm/Dry, No rash Neurological : Alert & oriented to self, confused, No focal deficit Objective Data Current Medications Generic Name Dose Route Start Last Admin Trade Name Freq PRN Reason Stop Dose Admin Acetaminophen 650 mg 09/15/20 05:17 09/27/20 17:36 Acetaminophen 325 Mg Tablet PO 650 mg Q6H PRN Administration Pain, Mild (Pain Scale 1-3) Apixaban 5 mg 09/17/20 21:00 10/09/20 07:47 Apixaban 5 Mg Tablet PO 5 mg BID DEO Administration Benzonatate 200 mg 09/16/20 10:25 10/09/20 07:46 Benzonatate 100 Mg Capsule PO 200 mg TID DEO Administration Cyanocobalamin 2,000 mcg 09/17/20 09:00 10/09/20 07:47 Cyanocobalamin (Vitamin B-12) 1,000 Mcg Tablet PO 2,000 mcg DAILY [facility] Administration Docusate Sodium 100 mg 09/15/20 05:17 Docusate Sodium 100 Mg Capsule PO DAILY PRN Constipation Folic Acid 1 mg 09/16/20 09:00 10/09/20 07:47 Folic Acid 1 Mg Tablet PO 1 mg DAILY [facility] Administration Guaifenesin 600 mg 09/16/20 10:25 10/09/20 07:46 Guaifenesin La 600 Mg Tab.Er.12h PO 600 mg BID DEO Administration Guaifenesin/Dextromethorphan 5 ml 10/02/20 00:07 10/09/20 04:18 Guaifenesin Dm 100/10/5 Ml 5 Ml Syrup PO 5 ml Q6H PRN Administration cough Hydroxyzine HCl 50 mg 10/07/20 03:36 10/07/20 05:02 Hydroxyzine Hcl 50 Mg Tablet PO 50 mg Q6H PRN Administration anxiety/restlessness Insulin Glargine 35 unit 09/16/20 21:00 10/08/20 20:39 Insulin Glargine,Hum.Rec.Anlog 100 Unit/Ml 10 Ml Vial SUBCUT 35 unit BEDTIME [facility] Administration Insulin Human Lispro 0 unit 09/16/20 16:30 10/09/20 07:45 Insulin Lispro 100 Unit/Ml 3 Ml Vial SUBCUT Not Given QIDACHS [facility] Protocol Levetiracetam 1,000 mg 09/16/20 09:00 10/09/20 07:46 Levetiracetam 1,000 Mg Tablet PO 1,000 mg BID DEO Administration Metoprolol Tartrate 25 mg 09/17/20 21:00 10/09/20 07:46 Metoprolol Tartrate 25 Mg Tablet PO 25 mg BID DEO Administration Protocol Multivitamins/Vitamin C 1 tab 09/17/20 09:00 10/09/20 07:47 Multivitamin Tablet PO 1 tab DAILY [facility] Administration Omeprazole 40 mg 09/16/20 07:55 10/09/20 05:36 Omeprazole 40 Mg Capsule.Dr PO 40 mg DAILY@0630 [facility] Administration Ondansetron HCl 4 mg 09/15/20 05:17 Ondansetron Hcl 4 Mg/2 Ml Vial IVPUSH Q8H PRN Nausea and Vomiting Pharmacy Consult 1 each 09/15/20 02:19 Consult Rx Perform Med Rec MISCELLANE ONCE PRN Consult order Prednisone 20 mg 09/26/20 09:00 10/09/20 07:47 Prednisone 20 Mg Tablet PO 20 mg DAILY [facility] Administration Quetiapine Fumarate 25 mg 10/06/20 21:00 10/08/20 20:40 Quetiapine Fumarate 25 Mg Tablet PO 25 mg BEDTIME [facility] Administration Sodium Chloride 3 ml 09/15/20 08:00 10/09/20 07:45 0.9 % Sodium Chloride Flush 3 Ml Syringe IVFLUSH Not Given QSHIFT [facility] Tamsulosin HCl 0.8 mg 09/16/20 21:00 10/08/20 21:07 Tamsulosin Hcl 0.4 Mg Capsule PO Not Given BEDTIME [facility] Trazodone HCl 50 mg 09/16/20 15:36 10/06/20 20:17 Trazodone Hcl 50 Mg Tablet PO 50 mg BEDTIME PRN Administration Insomnia Labs CBC & Chem 7: 10/06/20 06:20 10/06/20 06:20 Microbiology Microbiology Results: Microbiology 09/15/20 02:33 Blood - Venous Blood Culture - Final No growth after 5 days. 09/15/20 02:32 Blood - Venous Blood Culture - Final No growth after 5 days. 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 + DM2 admitted for acute hypoxic respiratory failure due to COVID-19 pneumonia acute/chronic hypoxic respiratory failure due to covid with underlying pulm fibrosis and chronic oxygen depdendenc DC high flow wean down NRB as tolerated with O2 target 90% continue trending down the as tolerated incentive spirometry COVID-19 pneumonia - completed 10d of dexamethasone on 09/24 - completed 5d of remdesivir on 09/20 - completed 1u of convalescent plasma on 09/16 - completed 7d of azithromycin for concern of superimposed bacterial PNA 09/22 metabolic encephalopathy with likely underlying dementia Improved due to hypoxia, COVID, steroids, hospitalization prn quetiapine new-onset AF/RVR Rate better controlled today Continue metoprolol, anticoagulated with apixaban thrombocytopenia resolved pulmonary fibrosis baseline 5-6L O2 + prednisone 20 mg/d , followed by Dr Josiah as outpt BPH continue tamsulosin hx SDH continue levetiracetam DM2 basal/bolus insulin VTE ppx apixaban dispo Overall plan is to continue weaning oxygen and ultimately to SNF
[2020-10-09 12:04] LABS: Glucose, Whole Blood 99 mg/dL (60-115)
--- NOTE | 2020-10-09 13:25 | MHC.CM.PN ---
DP home with resumption of [facility]NA. Pt requires Highflow oxygen. He had a 40 beat run of SVT per RN. Pt is not ready for discharge. CM will follow.
--- NOTE | 2020-10-09 15:16 | PC.NURSE ---
HAVE TRIED TO WEAN O2 DOWN HOWEVER, PT DESATS WITH THE LEAST ACTIVITY REQUIRING TITRATION UP FOR A PERIOD OF TIME.
[2020-10-09 16:31] LABS: Glucose, Whole Blood 112 mg/dL (60-115)
[2020-10-09 20:47] LABS: Glucose, Whole Blood 82 mg/dL (60-115)
[2020-10-09] MEDS: Tamsulosin HCL 0.4 MG CAPSULE 0.8 MG PO (22:32)
[2020-10-09] MEDS: QUEtiapine Fumarate 25 MG TABLET PO (22:32)
[2020-10-09] MEDS: Insulin Glargine,Hum.rec.anlog 100 UNIT/ML 10 ML VIAL 35 UNIT SUBCUT (22:33)
[2020-10-10] VITALS (13 sets, daily range): BP systolic 109–136; BP diastolic 59–78; PULSE 66–90; RESP 14–94; TEMP 22.8–36.9; O2SAT 20–100
--- NOTE | 2020-10-10 01:56 | PC.NURSE ---
Addendum entered by Rosalio Torres RN 10/10/20 05:44: awake..alert...vague responses...harsh non-productive recurrant cough...sao2 70's with 11 l/m oximyzer---o2 to 15 l/m w/o effect...prn robittussin given...returned to 100% nrb mask with gradual improvement of sao2 to 98-100%..to wean o2 as cough med becomes effective Original Note: CARE ASSUMED 23;15...NAPPING INTERMITTANTLYPREVIOUSLY RECEIVED SEROQUEL AT HS...O2 11 L/M VIA OXIMZER CANNULA..NO DISTRESS AT REST...SAO2 96-98%...DE-SATURATES WITH ACTIVITY ..NSR..DISORIENTED AND ATTEMPTS TO PULL OFF O2 WHEN AWAKE...SITTER REMAINS AT BEDSIDE FOR PATIENT SAFETY AND RE-DIRECTION..CURRENTLY DOZING..NO DISTRESS
[2020-10-10] MEDS: guaiFENesin DM 100/10/5 ML 5 ML SYRUP PO (05:24)
[2020-10-10 07:22] LABS: Glucose, Whole Blood 78 mg/dL (60-115)
[2020-10-10] MEDS: guaiFENesin LA 600 MG TAB.ER.12H PO ×2 (09:30→20:23)
[2020-10-10] MEDS: Cyanocobalamin (Vitamin B-12) 1,000 MCG TABLET 2000 MCG PO (09:30)
[2020-10-10] MEDS: Apixaban 5 MG TABLET PO ×2 (09:30→20:23)
[2020-10-10] MEDS: Folic Acid 1 MG TABLET PO (09:30)
[2020-10-10] MEDS: levETIRAcetam 1,000 MG TABLET 1000 MG PO ×2 (09:30→20:23)
[2020-10-10] MEDS: Metoprolol Tartrate 25 MG TABLET PO ×2 (09:31→20:23)
[2020-10-10] MEDS: Multivitamin TABLET 1 TAB PO (09:31)
[2020-10-10] MEDS: Benzonatate 100 MG CAPSULE 200 MG PO (09:31)
[2020-10-10] MEDS: predniSONE 20 MG TABLET PO (09:32)
[2020-10-10 11:51] LABS: Glucose, Whole Blood 120 mg/dL (60-115)
--- NOTE | 2020-10-10 13:09 | P.PNIM_ITS ---
Subjective Subjective Date of Service: 10/10/20 Interval History: the patient was seen and evaluated this morning Laying in bed, looks more comfortable with decreased oxygen requirment to 10L NS Requiring S sitter in the room as she tries to take off oxygen Continue to wean down oxygen as tolerated Denies any fever, chills or chest pain No reported other overnight events. Systemic review: No fever, chills or weakness No chest pain, palpitation No shortness of breath while on oxygen No abdominal pain, nausea or vomiting No urinary symptoms No any rash or wounds Physical Exam Vital Signs: Vital Signs: Last Vital Signs Temp 98.4 F 10/10/20 11:49 Pulse 86 10/10/20 12:05 Resp 94 H 10/10/20 12:06 BP 113/66 10/10/20 12:05 Pulse Ox 95 10/10/20 12:05 Body Mass Index 23.4 Const: Other: Constitutional : Alert, disoriented , recognize self, in mild respiratory distress Neck : Normal inspection, Supple Cardiovascular : RRR, S1 S2, no lower extremity edema Respiratory : Bilateral chest wall movement, on high-flow oxygen and non- rebreather mask, mild distress Gastrointestinal: soft, lax, Normal bowel sounds, Non tender Skin : Warm/Dry, No rash Neurological : Alert & oriented to self, confused, No focal deficit Objective Data Current Medications Generic Name Dose Route Start Last Admin Trade Name Freq PRN Reason Stop Dose Admin Acetaminophen 650 mg 09/15/20 05:17 09/27/20 17:36 Acetaminophen 325 Mg Tablet PO 650 mg Q6H PRN Administration Pain, Mild (Pain Scale 1-3) Apixaban 5 mg 09/17/20 21:00 10/10/20 09:30 Apixaban 5 Mg Tablet PO 5 mg BID DEO Administration Benzonatate 200 mg 09/16/20 10:25 10/10/20 09:31 Benzonatate 100 Mg Capsule PO 200 mg TID DEO Administration Cyanocobalamin 2,000 mcg 09/17/20 09:00 10/10/20 09:30 Cyanocobalamin (Vitamin B-12) 1,000 Mcg Tablet PO 2,000 mcg DAILY [facility] Administration Docusate Sodium 100 mg 09/15/20 05:17 Docusate Sodium 100 Mg Capsule PO DAILY PRN Constipation Folic Acid 1 mg 09/16/20 09:00 10/10/20 09:30 Folic Acid 1 Mg Tablet PO 1 mg DAILY [facility] Administration Guaifenesin 600 mg 09/16/20 10:25 10/10/20 09:30 Guaifenesin La 600 Mg Tab.Er.12h PO 600 mg BID DEO Administration Guaifenesin/Dextromethorphan 5 ml 10/02/20 00:07 10/10/20 05:24 Guaifenesin Dm 100/10/5 Ml 5 Ml Syrup PO 5 ml Q6H PRN Administration cough Hydroxyzine HCl 50 mg 10/07/20 03:36 10/07/20 05:02 Hydroxyzine Hcl 50 Mg Tablet PO 50 mg Q6H PRN Administration anxiety/restlessness Insulin Glargine 35 unit 09/16/20 21:00 10/09/20 22:33 Insulin Glargine,Hum.Rec.Anlog 100 Unit/Ml 10 Ml Vial SUBCUT 35 unit BEDTIME [facility] Administration Insulin Human Lispro 0 unit 09/16/20 16:30 10/10/20 11:57 Insulin Lispro 100 Unit/Ml 3 Ml Vial SUBCUT Not Given QIDACHS [facility] Protocol Levetiracetam 1,000 mg 09/16/20 09:00 10/10/20 09:30 Levetiracetam 1,000 Mg Tablet PO 1,000 mg BID DEO Administration Metoprolol Tartrate 25 mg 09/17/20 21:00 10/10/20 09:31 Metoprolol Tartrate 25 Mg Tablet PO 25 mg BID DEO Administration Protocol Multivitamins/Vitamin C 1 tab 09/17/20 09:00 10/10/20 09:31 Multivitamin Tablet PO 1 tab DAILY [facility] Administration Omeprazole 40 mg 09/16/20 07:55 10/10/20 05:53 Omeprazole 40 Mg Capsule.Dr PO Not Given DAILY@0630 [facility] Ondansetron HCl 4 mg 09/15/20 05:17 Ondansetron Hcl 4 Mg/2 Ml Vial IVPUSH Q8H PRN Nausea and Vomiting Pharmacy Consult 1 each 09/15/20 02:19 Consult Rx Perform Med Rec MISCELLANE ONCE PRN Consult order Prednisone 20 mg 09/26/20 09:00 10/10/20 09:32 Prednisone 20 Mg Tablet PO 20 mg DAILY [facility] Administration Quetiapine Fumarate 25 mg 10/06/20 21:00 10/09/20 22:32 Quetiapine Fumarate 25 Mg Tablet PO 25 mg BEDTIME [facility] Administration Sodium Chloride 3 ml 09/15/20 08:00 10/10/20 07:45 0.9 % Sodium Chloride Flush 3 Ml Syringe IVFLUSH Not Given QSHIFT [facility]O Tamsulosin HCl 0.8 mg 09/16/20 21:00 10/09/20 22:32 Tamsulosin Hcl 0.4 Mg Capsule PO 0.8 mg BEDTIME [facility] Administration Trazodone HCl 50 mg 09/16/20 15:36 10/06/20 20:17 Trazodone Hcl 50 Mg Tablet PO 50 mg BEDTIME PRN Administration Insomnia Labs CBC & Chem 7: 10/06/20 06:20 10/06/20 06:20 Microbiology Microbiology Results: Microbiology 09/15/20 02:33 Blood - Venous Blood Culture - Final No growth after 5 days. 09/15/20 02:32 Blood - Venous Blood Culture - Final No growth after 5 days. 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 + DM2 admitted for acute hypoxic respiratory failure due to COVID-19 pneumonia acute/chronic hypoxic respiratory failure due to covid with underlying pulm fibrosis and chronic oxygen depdendenc DC high flow wean down O2 as tolerated with O2 target 90% continue trending down the as tolerated incentive spirometry COVID-19 pneumonia - completed 10d of dexamethasone on 09/24 - completed 5d of remdesivir on 09/20 - completed 1u of convalescent plasma on 09/16 - completed 7d of azithromycin for concern of superimposed bacterial PNA 09/22 metabolic encephalopathy with likely underlying dementia Improved due to hypoxia, COVID, steroids, hospitalization prn quetiapine new-onset AF/RVR Rate better controlled today Continue metoprolol, anticoagulated with apixaban thrombocytopenia resolved pulmonary fibrosis baseline 5-6L O2 + prednisone 20 mg/d , followed by Dr Rahman as outpt BPH continue tamsulosin hx SDH continue levetiracetam DM2 basal/bolus insulin VTE ppx apixaban dispo Overall plan is to continue weaning oxygen and ultimately to SNF
--- NOTE | 2020-10-10 13:58 | MHC.CM.PN ---
A referral to [facility] has been made. The Pt will require a secondary payor source for LTC. PT evaluation states not a candidate for STR. Dispo should be LTC vs Home with / care. Spoke with Emily from [facility] and faxed the referral. Pt unable to provide info needed. Contact info for Pts was provided for the referral.
[2020-10-10 16:03] LABS: Glucose, Whole Blood 132 mg/dL (60-115)
[2020-10-10 19:41] LABS: Glucose, Whole Blood 96 mg/dL (60-115)
[2020-10-10] MEDS: QUEtiapine Fumarate 25 MG TABLET PO (20:23)
[2020-10-10 20:37] LABS: Glucose, Whole Blood 117 mg/dL (60-115)
[2020-10-11] VITALS (7 sets, daily range): BP systolic 114–143; BP diastolic 62–85; PULSE 77–95; RESP 18–22; TEMP 36.6–37.4; O2SAT 94–100
[2020-10-11] MEDS: guaiFENesin DM 100/10/5 ML 5 ML SYRUP PO (03:50)
[2020-10-11] MEDS: traZODone HCL 50 MG TABLET PO (03:50)
[2020-10-11 07:56] LABS: Glucose, Whole Blood 101 mg/dL (60-115)
[2020-10-11] MEDS: levETIRAcetam 1,000 MG TABLET 1000 MG PO ×2 (08:04→21:22)
[2020-10-11] MEDS: Cyanocobalamin (Vitamin B-12) 1,000 MCG TABLET 2000 MCG PO (08:05)
[2020-10-11] MEDS: Metoprolol Tartrate 25 MG TABLET PO ×2 (08:07→21:22)
[2020-10-11] MEDS: Benzonatate 100 MG CAPSULE 200 MG PO (08:08)
[2020-10-11] MEDS: Apixaban 5 MG TABLET PO ×2 (08:08→21:22)
[2020-10-11] MEDS: predniSONE 20 MG TABLET PO (08:08)
[2020-10-11] MEDS: Folic Acid 1 MG TABLET PO (08:09)
[2020-10-11] MEDS: Multivitamin TABLET 1 TAB PO (08:09)
[2020-10-11] MEDS: guaiFENesin LA 600 MG TAB.ER.12H PO (08:09)
[2020-10-11 11:25] LABS: Glucose, Whole Blood 97 mg/dL (60-115)
--- NOTE | 2020-10-11 12:43 | P.PNIM_ITS ---
Subjective Subjective Date of Service: 10/11/20 Interval History: the patient was seen and evaluated this morning Laying in bed, looks more comfortable with decreased oxygen requirment to 8L Oxymizer Denies any fever, chills or chest pain No reported other overnight events. Systemic review: No fever, chills or weakness No chest pain, palpitation No shortness of breath while on oxygen, weaning O2 down as tolerated No abdominal pain, nausea or vomiting No urinary symptoms No any rash or wounds Physical Exam Vital Signs: Vital Signs: Last Vital Signs Temp 99.0 F 10/11/20 08:05 Pulse 93 10/11/20 08:07 Resp 22 H 10/11/20 08:05 BP 114/62 10/11/20 08:07 Pulse Ox 100 10/11/20 08:05 Body Mass Index 23.4 Const: Other: Constitutional : Alert, disoriented , recognize self, in mild respiratory distress Neck : Normal inspection, Supple Cardiovascular : RRR, S1 S2, no lower extremity edema Respiratory : Bilateral chest wall movement, on Oxymizer 8L, not in distress Gastrointestinal: soft, lax, Normal bowel sounds, Non tender Skin : Warm/Dry, No rash Neurological : Alert & oriented to self, confused, No focal deficit Objective Data Current Medications Generic Name Dose Route Start Last Admin Trade Name Freq PRN Reason Stop Dose Admin Acetaminophen 650 mg 09/15/20 05:17 09/27/20 17:36 Acetaminophen 325 Mg Tablet PO 650 mg Q6H PRN Administration Pain, Mild (Pain Scale 1-3) Apixaban 5 mg 09/17/20 21:00 10/11/20 08:08 Apixaban 5 Mg Tablet PO 5 mg BID DEO Administration Cyanocobalamin 2,000 mcg 09/17/20 09:00 10/11/20 08:05 Cyanocobalamin (Vitamin B-12) 1,000 Mcg Tablet PO 2,000 mcg DAILY [facility] Administration Docusate Sodium 100 mg 10/11/20 09:29 Docusate Sodium 100 Mg/10 Ml Liquid PO DAILY PRN Constipation Folic Acid 1 mg 09/16/20 09:00 10/11/20 08:09 Folic Acid 1 Mg Tablet PO 1 mg DAILY [facility]O Administration Guaifenesin 10 ml 10/11/20 10:00 Guaifenesin 200 Mg/10 Ml 10 Ml Liquid PO Q6H DEO Guaifenesin/Dextromethorphan 5 ml 10/02/20 00:07 10/11/20 03:50 Guaifenesin Dm 100/10/5 Ml 5 Ml Syrup PO 5 ml Q6H PRN Administration cough Hydroxyzine HCl 50 mg 10/07/20 03:36 10/07/20 05:02 Hydroxyzine Hcl 50 Mg Tablet PO 50 mg Q6H PRN Administration anxiety/restlessness Insulin Glargine 35 unit 09/16/20 21:00 10/10/20 19:41 Insulin Glargine,Hum.Rec.Anlog 100 Unit/Ml 10 Ml Vial SUBCUT Not Given BEDTIME [facility] Insulin Human Lispro 0 unit 09/16/20 16:30 10/11/20 07:48 Insulin Lispro 100 Unit/Ml 3 Ml Vial SUBCUT Not Given QIDACHS [facility] Protocol Levetiracetam 1,000 mg 09/16/20 09:00 10/11/20 08:04 Levetiracetam 1,000 Mg Tablet PO 1,000 mg BID [facility] Administration Metoprolol Tartrate 25 mg 09/17/20 21:00 10/11/20 08:07 Metoprolol Tartrate 25 Mg Tablet PO 25 mg BID DEO Administration Protocol Multivitamins/Vitamin C 1 tab 09/17/20 09:00 10/11/20 08:09 Multivitamin Tablet PO 1 tab DAILY [facility] Administration Omeprazole 40 mg 09/16/20 07:55 10/11/20 05:56 Omeprazole 40 Mg Capsule.Dr PO Not Given DAILY@0630 [facility] Ondansetron HCl 4 mg 10/11/20 09:32 Ondansetron Odt 4 Mg Tab.Rapdis TRANSLINGU Q8H PRN Nausea and Vomiting Pharmacy Consult 1 each 09/15/20 02:19 Consult Rx Perform Med Rec MISCELLANE ONCE PRN Consult order Prednisone 20 mg 09/26/20 09:00 10/11/20 08:08 Prednisone 20 Mg Tablet PO 20 mg DAILY [facility] Administration Quetiapine Fumarate 25 mg 10/06/20 21:00 10/10/20 20:23 Quetiapine Fumarate 25 Mg Tablet PO 25 mg BEDTIME [facility] Administration Sodium Chloride 3 ml 09/15/20 08:00 10/11/20 08:09 0.9 % Sodium Chloride Flush 3 Ml Syringe IVFLUSH Not Given QSHIFT [facility] Tamsulosin HCl 0.8 mg 09/16/20 21:00 10/10/20 20:36 Tamsulosin Hcl 0.4 Mg Capsule PO Not Given BEDTIME [facility] Trazodone HCl 50 mg 09/16/20 15:36 10/11/20 03:50 Trazodone Hcl 50 Mg Tablet PO 50 mg BEDTIME PRN Administration Insomnia Labs CBC & Chem 7: 10/06/20 06:20 10/06/20 06:20 Microbiology Microbiology Results: Microbiology 09/15/20 02:33 Blood - Venous Blood Culture - Final No growth after 5 days. 09/15/20 02:32 Blood - Venous Blood Culture - Final No growth after 5 days. 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 + DM2 admitted for acute hypoxic respiratory failure due to COVID-19 pneumonia acute/chronic hypoxic respiratory failure due to covid with underlying pulm fibrosis and chronic oxygen depdendenc on Oxymizer 8L today wean down O2 as tolerated with O2 target 90% Baseline on 5-6L for ILD incentive spirometry COVID-19 pneumonia - completed 10d of dexamethasone on 09/24 - completed 5d of remdesivir on 09/20 - completed 1u of convalescent plasma on 09/16 - completed 7d of azithromycin for concern of superimposed bacterial PNA 09/22 metabolic encephalopathy with likely underlying dementia Improved prn quetiapine new-onset AF/RVR Rate better controlled Continue metoprolol, anticoagulated with apixaban thrombocytopenia resolved pulmonary fibrosis baseline 5-6L O2 + prednisone 20 mg/d followed by Dr Rahman as outpt BPH continue tamsulosin hx SDH continue levetiracetam DM2 basal/bolus insulin VTE ppx apixaban dispo Overall plan is to continue weaning oxygen and ultimately to SNF
--- NOTE | 2020-10-11 13:39 | MHC.CM.PN ---
Patient seen by PT yesterday, but refused to participate so discharged from PT. Remains on 1:1 for safety. Jumps out of bed, pulls of oxygen, unsteady, confused. RN reports SaO2 decrease to 60% without oxygen . Patient on O2 8L NC with high flow tubing. On 5-6 L O2 at home. Discussed with hospitalist, patient lives with and possible dc home with O2 [employer]. Hospitalist to discuss with family
[2020-10-11 16:17] LABS: Glucose, Whole Blood 100 mg/dL (60-115)
[2020-10-11 20:08] LABS: Glucose, Whole Blood 99 mg/dL (60-115)
[2020-10-11] MEDS: QUEtiapine Fumarate 25 MG TABLET PO (21:22)
[2020-10-11] MEDS: guaiFENesin 200 MG/10 ML 10 ML LIQUID PO (21:22)
[2020-10-12] VITALS (14 sets, daily range): BP systolic 105–144; BP diastolic 62–77; PULSE 61–76; RESP 16–20; TEMP 36.1–36.8; O2SAT 70–99; BMI 22.1
--- NOTE | 2020-10-12 03:25 | PC.NURSE ---
Patient continues to desat to 70-80s with coughing and repositioning. Increasing O2 to 15L via glaser nasal cannula when desatting, titrating O2 back down to 6L when patient is resting. spo2 at 98% at rest. Sitter at bedside, to help encourage patient to keep nasal cannula on. Patient remains only alert to self. High fall risk measures in place.
[2020-10-12] MEDS: guaiFENesin 200 MG/10 ML 10 ML LIQUID PO ×4 (05:18→20:34)
[2020-10-12 07:14] LABS: Anion Gap 15 (12-20); Blood Urea Nitrogen 30 mg/dL (9-16); Calcium 8.8 mg/dL (8.4-10.2); Carbon Dioxide 23 mmol/L (22-29); Chloride 107 mmol/L (96-108); Creatinine Clr Calc Pharmacy 57.4; Estimated Glomerular Filt Rate 58; Glucose Random 82 mg/dL (60-115); Potassium 4.2 mmol/L (3.3-5.1); Sodium 141 mmol/L (135-145)
[2020-10-12 07:55] LABS: Glucose, Whole Blood 86 mg/dL (60-115)
[2020-10-12] MEDS: 0.9 % Sodium Chloride Flush 3 ML SYRINGE IVFLUSH ×2 (10:53→16:30)
[2020-10-12] MEDS: Multivitamin TABLET 1 TAB PO (10:53)
[2020-10-12] MEDS: levETIRAcetam 1,000 MG TABLET 1000 MG PO ×2 (10:53→20:33)
[2020-10-12] MEDS: Apixaban 5 MG TABLET PO ×2 (10:53→20:34)
[2020-10-12] MEDS: Metoprolol Tartrate 25 MG TABLET PO ×2 (10:53→20:34)
[2020-10-12] MEDS: Cyanocobalamin (Vitamin B-12) 1,000 MCG TABLET 2000 MCG PO (10:54)
[2020-10-12] MEDS: predniSONE 20 MG TABLET PO (10:54)
[2020-10-12] MEDS: Folic Acid 1 MG TABLET PO (10:54)
[2020-10-12 11:20] LABS: Glucose, Whole Blood 89 mg/dL (60-115)
--- NOTE | 2020-10-12 13:43 | P.PNIM_ITS ---
Subjective Subjective Date of Service: 10/12/20 Interval History: Seen in f/u for covid related resp failure max on O2, oxygen level continues to fluctute but overall has headed in the right direction and finally of high flow and NRB. He is less aggresive. Review of Systems Gen: no fever Resp: + sob, no cough CV: no chest, no RAMIREZ, no leg edema GI: No n/v, no abd pain Neuro: No confusion Physical Exam Vital Signs: Vital Signs: Last Vital Signs Temp 97.6 F 10/12/20 12:00 Pulse 76 10/12/20 12:00 Resp 18 10/12/20 12:00 BP 108/62 10/12/20 12:00 Pulse Ox 89 L 10/12/20 12:55 Body Mass Index 23.4 Const: Other: Constitutional : Alert, oriented about self and place, presently no distress Neck : Normal inspection, Cardiovascular :irregular on monitor Respiratory : normal resp effort, no accessroy muschle use--asuculatation avoided due active covid Gastrointestinal: soft,nontender Skin : Warm/Dry, No rash Neurological : Alert & oriented to self and place, Objective Data Current Medications Generic Name Dose Route Start Last Admin Trade Name Freq PRN Reason Stop Dose Admin Acetaminophen 650 mg 09/15/20 05:17 09/27/20 17:36 Acetaminophen 325 Mg Tablet PO 650 mg Q6H PRN Administration Pain, Mild (Pain Scale 1-3) Apixaban 5 mg 09/17/20 21:00 10/12/20 10:53 Apixaban 5 Mg Tablet PO 5 mg BID DEO Administration Cyanocobalamin 2,000 mcg 09/17/20 09:00 10/12/20 10:54 Cyanocobalamin (Vitamin B-12) 1,000 Mcg Tablet PO 2,000 mcg DAILY [facility] Administration Docusate Sodium 100 mg 10/11/20 09:29 Docusate Sodium 100 Mg/10 Ml Liquid PO DAILY PRN Constipation Folic Acid 1 mg 09/16/20 09:00 10/12/20 10:54 Folic Acid 1 Mg Tablet PO 1 mg DAILY [facility] Administration Guaifenesin 10 ml 10/11/20 10:00 10/12/20 10:53 Guaifenesin 200 Mg/10 Ml 10 Ml Liquid PO 10 ml Q6H DEO Administration Guaifenesin/Dextromethorphan 5 ml 10/02/20 00:07 10/11/20 03:50 Guaifenesin Dm 100/10/5 Ml 5 Ml Syrup PO 5 ml Q6H PRN Administration cough Hydroxyzine HCl 50 mg 10/07/20 03:36 10/07/20 05:02 Hydroxyzine Hcl 50 Mg Tablet PO 50 mg Q6H PRN Administration anxiety/restlessness Insulin Glargine 35 unit 09/16/20 21:00 10/11/20 21:33 Insulin Glargine,Hum.Rec.Anlog 100 Unit/Ml 10 Ml Vial SUBCUT Not Given BEDTIME [facility] Insulin Human Lispro 0 unit 09/16/20 16:30 10/12/20 12:09 Insulin Lispro 100 Unit/Ml 3 Ml Vial SUBCUT Not Given QIDACHS [facility] Protocol Levetiracetam 1,000 mg 09/16/20 09:00 10/12/20 10:53 Levetiracetam 1,000 Mg Tablet PO 1,000 mg BID [facility] Administration Metoprolol Tartrate 25 mg 09/17/20 21:00 10/12/20 10:53 Metoprolol Tartrate 25 Mg Tablet PO 25 mg BID [facility] Administration Protocol Multivitamins/Vitamin C 1 tab 09/17/20 09:00 10/12/20 10:53 Multivitamin Tablet PO 1 tab DAILY [facility] Administration Omeprazole 40 mg 09/16/20 07:55 10/12/20 05:22 Omeprazole 40 Mg Capsule.Dr PO Not Given DAILY@0630 [facility] Ondansetron HCl 4 mg 10/11/20 09:32 Ondansetron Odt 4 Mg Tab.Rapdis TRANSLINGU Q8H PRN Nausea and Vomiting Pharmacy Consult 1 each 09/15/20 02:19 Consult Rx Perform Med Rec MISCELLANE ONCE PRN Consult order Prednisone 20 mg 09/26/20 09:00 10/12/20 10:54 Prednisone 20 Mg Tablet PO 20 mg DAILY [facility] Administration Quetiapine Fumarate 25 mg 10/06/20 21:00 10/11/20 21:22 Quetiapine Fumarate 25 Mg Tablet PO 25 mg BEDTIME [facility] Administration Sodium Chloride 3 ml 09/15/20 08:00 10/12/20 10:53 0.9 % Sodium Chloride Flush 3 Ml Syringe IVFLUSH 3 ml QSHIFT [facility] Administration Tamsulosin HCl 0.8 mg 09/16/20 21:00 10/11/20 21:28 Tamsulosin Hcl 0.4 Mg Capsule PO Not Given BEDTIME [facility] Trazodone HCl 50 mg 09/16/20 15:36 10/11/20 03:50 Trazodone Hcl 50 Mg Tablet PO 50 mg BEDTIME PRN Administration Insomnia Labs CBC & Chem 7: 10/06/20 06:20 10/12/20 06:01 Microbiology Microbiology Results: Microbiology 09/15/20 02:33 Blood - Venous Blood Culture - Final No growth after 5 days. 09/15/20 02:32 Blood - Venous Blood Culture - Final No growth after 5 days. 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 + DM2 admitted for acute hypoxic respiratory failure due to COVID-19 pneumonia acute/chronic hypoxic respiratory failure due to covid with underlying pulm fibrosis and chronic oxygen depdendenc on 11L Verduzco today wean down O2 as tolerated with O2 target 90% Baseline on 5-6L for ILD incentive spirometry COVID-19 pneumonia - completed 10d of dexamethasone on 09/24 - completed 5d of remdesivir on 09/20 - completed 1u of convalescent plasma on 09/16 - completed 7d of azithromycin for concern of superimposed bacterial PNA 09/22 metabolic encephalopathy with likely underlying dementia Improved prn quetiapine AF/RVR Rate better controlled Continue metoprolol, anticoagulated with apixaban thrombocytopenia resolved pulmonary fibrosis baseline 5-6L O2 + prednisone 20 mg/d followed by Dr Rahman as outpt BPH continue tamsulosin hx SDH continue levetiracetam DM2 basal/bolus insulin VTE ppx apixaban dispo Overall plan is to continue weaning oxygen and ultimately to SNF, will discuss with
[2020-10-12 16:27] LABS: Glucose, Whole Blood 156 mg/dL (60-115)
[2020-10-12] MEDS: Insulin Lispro 100 UNIT/ML 3 ML VIAL SUBCUT (16:30)
[2020-10-12] MEDS: hydrOXYzine HCL 50 MG TABLET PO (17:26)
--- NOTE | 2020-10-12 17:31 | PC.NURSE ---
Pt was on 11L glaser NC satting 97-99%. Slowly titrated down to 5L NC, baseline for pt, and pt tolerated well satting 90-95%. Pt has no c/o sob, or discomfort. Repo q2hr, up to commode with 1 assist.
[2020-10-12] MEDS: QUEtiapine Fumarate 25 MG TABLET PO (20:33)
[2020-10-12] MEDS: Tamsulosin HCL 0.4 MG CAPSULE 0.8 MG PO (20:34)
[2020-10-12 20:37] LABS: Glucose, Whole Blood 112 mg/dL (60-115)
[2020-10-12] MEDS: Insulin Glargine,Hum.rec.anlog 100 UNIT/ML 10 ML VIAL 35 UNIT SUBCUT (20:39)
[2020-10-13] VITALS (10 sets, daily range): BP systolic 99–145; BP diastolic 59–77; PULSE 60–91; RESP 2–20; TEMP 36.1–36.8; O2SAT 75–100
[2020-10-13] MEDS: Omeprazole 40 MG CAPSULE.DR PO (05:05)
[2020-10-13] MEDS: guaiFENesin 200 MG/10 ML 10 ML LIQUID PO ×4 (05:06→20:14)
[2020-10-13 07:40] LABS: Glucose, Whole Blood 121 mg/dL (60-115)
[2020-10-13] MEDS: Folic Acid 1 MG TABLET PO (08:01)
[2020-10-13] MEDS: Multivitamin TABLET 1 TAB PO (08:01)
[2020-10-13] MEDS: levETIRAcetam 1,000 MG TABLET 1000 MG PO ×2 (08:01→20:02)
[2020-10-13] MEDS: Metoprolol Tartrate 25 MG TABLET PO ×2 (08:01→20:02)
[2020-10-13] MEDS: 0.9 % Sodium Chloride Flush 3 ML SYRINGE IVFLUSH ×2 (08:01→17:19)
[2020-10-13] MEDS: Apixaban 5 MG TABLET PO ×2 (08:01→20:02)
[2020-10-13] MEDS: predniSONE 20 MG TABLET PO (08:01)
[2020-10-13] MEDS: Cyanocobalamin (Vitamin B-12) 1,000 MCG TABLET 2000 MCG PO (08:01)
--- NOTE | 2020-10-13 09:40 | HO.PM.IMPN ---
Subjective Subjective Date of Service: 10/13/20 Interval History: Seen in f/u for covid related resp failure max on O2, his making slow progress. NO new issues Review of Systems Gen: no fever Resp: + sob, no cough CV: no chest, no RAMIREZ, no leg edema GI: No n/v, no abd pain Neuro: No confusion Physical Exam Vital Signs: Vital Signs: Last Vital Signs Temp 96.9 F 10/13/20 07:13 Pulse 91 10/13/20 07:13 Resp 20 10/13/20 07:13 BP 99/59 L 10/13/20 07:13 Pulse Ox 92 10/13/20 08:51 Body Mass Index 22.1 Const: Other: Constitutional : Alert, oriented about self and place, presently no distress Neck : Normal inspection, Cardiovascular :irregular on monitor Respiratory : normal resp effort, no accessroy muschle use--asuculatation avoided due active covid Gastrointestinal: soft,nontender Skin : Warm/Dry, No rash Neurological : Alert & oriented to self and place, Objective Data Current Medications Generic Name Dose Route Start Last Admin Trade Name Freq PRN Reason Stop Dose Admin Acetaminophen 650 mg 09/15/20 05:17 09/27/20 17:36 Acetaminophen 325 Mg Tablet PO 650 mg Q6H PRN Administration Pain, Mild (Pain Scale 1-3) Apixaban 5 mg 09/17/20 21:00 10/13/20 08:01 Apixaban 5 Mg Tablet PO 5 mg BID DEO Administration Cyanocobalamin 2,000 mcg 09/17/20 09:00 10/13/20 08:01 Cyanocobalamin (Vitamin B-12) 1,000 Mcg Tablet PO 2,000 mcg DAILY [facility] Administration Docusate Sodium 100 mg 10/11/20 09:29 Docusate Sodium 100 Mg/10 Ml Liquid PO DAILY PRN Constipation Folic Acid 1 mg 09/16/20 09:00 10/13/20 08:01 Folic Acid 1 Mg Tablet PO 1 mg DAILY [facility] Administration Guaifenesin 10 ml 10/11/20 10:00 10/13/20 05:06 Guaifenesin 200 Mg/10 Ml 10 Ml Liquid PO 10 ml Q6H DEO Administration Guaifenesin/Dextromethorphan 5 ml 10/02/20 00:07 10/11/20 03:50 Guaifenesin Dm 100/10/5 Ml 5 Ml Syrup PO 5 ml Q6H PRN Administration cough Hydroxyzine HCl 50 mg 10/07/20 03:36 10/12/20 17:26 Hydroxyzine Hcl 50 Mg Tablet PO 50 mg Q6H PRN Administration anxiety/restlessness Insulin Glargine 35 unit 09/16/20 21:00 10/12/20 20:39 Insulin Glargine,Hum.Rec.Anlog 100 Unit/Ml 10 Ml Vial SUBCUT 35 unit BEDTIME [facility] Administration Insulin Human Lispro 0 unit 09/16/20 16:30 10/13/20 07:58 Insulin Lispro 100 Unit/Ml 3 Ml Vial SUBCUT Not Given QIDACHS [facility] Protocol Levetiracetam 1,000 mg 09/16/20 09:00 10/13/20 08:01 Levetiracetam 1,000 Mg Tablet PO 1,000 mg BID [facility] Administration Metoprolol Tartrate 25 mg 09/17/20 21:00 10/13/20 08:01 Metoprolol Tartrate 25 Mg Tablet PO 25 mg BID [facility] Administration Protocol Multivitamins/Vitamin C 1 tab 09/17/20 09:00 10/13/20 08:01 Multivitamin Tablet PO 1 tab DAILY [facility] Administration Omeprazole 40 mg 09/16/20 07:55 10/13/20 05:05 Omeprazole 40 Mg Capsule.Dr PO 40 mg DAILY@0630 [facility] Administration Ondansetron HCl 4 mg 10/11/20 09:32 Ondansetron Odt 4 Mg Tab.Rapdis TRANSLINGU Q8H PRN Nausea and Vomiting Pharmacy Consult 1 each 09/15/20 02:19 Consult Rx Perform Med Rec MISCELLANE ONCE PRN Consult order Prednisone 20 mg 09/26/20 09:00 10/13/20 08:01 Prednisone 20 Mg Tablet PO 20 mg DAILY [facility] Administration Quetiapine Fumarate 25 mg 10/06/20 21:00 10/12/20 20:33 Quetiapine Fumarate 25 Mg Tablet PO 25 mg BEDTIME [facility] Administration Sodium Chloride 3 ml 09/15/20 08:00 10/13/20 08:01 0.9 % Sodium Chloride Flush 3 Ml Syringe IVFLUSH 3 ml QSHIFT [facility] Administration Tamsulosin HCl 0.8 mg 09/16/20 21:00 10/12/20 20:34 Tamsulosin Hcl 0.4 Mg Capsule PO 0.8 mg BEDTIME [facility] Administration Trazodone HCl 50 mg 09/16/20 15:36 10/11/20 03:50 Trazodone Hcl 50 Mg Tablet PO 50 mg BEDTIME PRN Administration Insomnia Labs CBC & Chem 7: 10/06/20 06:20 10/12/20 06:01 Microbiology Microbiology Results: Microbiology 09/15/20 02:33 Blood - Venous Blood Culture - Final No growth after 5 days. 09/15/20 02:32 Blood - Venous Blood Culture - Final No growth after 5 days. 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 + DM2 admitted for acute hypoxic respiratory failure due to COVID-19 pneumonia Covid 19 with acute/chronic hypoxic respiratory failure, now long-hauler Underlying Pulmonary fibrosis with baseline home O2 5 to 6 L Goal of O2 88% Continue weaning, presently on 10 liters COVID-19 pneumonia - completed 10d of dexamethasone on 09/24 - completed 5d of remdesivir on 09/20 - completed 1u of convalescent plasma on 09/16 - completed 7d of azithromycin for concern of superimposed bacterial PNA 09/22 metabolic encephalopathy with likely underlying dementia Improved prn quetiapine for agiation AF/RVR (new onset during this hospitalization) Rate better controlled Continue metoprolol, anticoagulated with apixaban thrombocytopenia--liekly related to covid and resolved pulmonary fibrosis baseline 5-6L O2 + prednisone 20 mg/d followed by Dr Rahman as outpt BPH - continue tamsulosin hx SDH continue levetiracetam DM2 basal/bolus insulin VTE ppx apixaban dispo Overall plan is to continue weaning oxygen and ultimately to SNF, will discuss with
[2020-10-13 11:32] LABS: Glucose, Whole Blood 134 mg/dL (60-115)
--- NOTE | 2020-10-13 13:31 | PC.NURSE ---
PT REMOVING TELE MONITOR, PROVIDER NOTIFIED. PROVIDER INSTRUCTED FOR PT TO REMAIN OFF TELE AT THIS TIME, WILL CONT TO EDUCATE PT AND ATTEMPT TO PLACE TELE MONITOR BACK ON PT.
[2020-10-13 17:20] LABS: Glucose, Whole Blood 128 mg/dL (60-115)
--- NOTE | 2020-10-13 18:08 | PC.NURSE ---
Pt alert, oriented to self. Impulsive sitter in room. Pt uncooperative with care at times, frequently removing tele monitor and O2 finger probe, provider notified and aware, instructed to leave off pt for time being, ongoing education and redirection provided. VSS, maintaining O2 sat on 6L NC.
[2020-10-13] MEDS: QUEtiapine Fumarate 25 MG TABLET PO (20:02)
[2020-10-13] MEDS: traZODone HCL 50 MG TABLET PO (20:02)
[2020-10-13 20:14] LABS: Glucose, Whole Blood 135 mg/dL (60-115)
[2020-10-13 20:20] LABS: Glucose, Whole Blood 108 mg/dL (60-115)
[2020-10-14] VITALS (8 sets, daily range): BP systolic 104–172; BP diastolic 62–80; PULSE 56–117; RESP 16–20; TEMP 36–37.1; O2SAT 93–98
[2020-10-14] MEDS: guaiFENesin 200 MG/10 ML 10 ML LIQUID PO ×4 (03:57→22:42)
[2020-10-14 07:33] LABS: Glucose, Whole Blood 83 mg/dL (60-115)
[2020-10-14] MEDS: levETIRAcetam 1,000 MG TABLET 1000 MG PO ×2 (10:22→20:32)
[2020-10-14] MEDS: Cyanocobalamin (Vitamin B-12) 1,000 MCG TABLET 2000 MCG PO (10:22)
[2020-10-14] MEDS: predniSONE 20 MG TABLET PO (10:23)
[2020-10-14] MEDS: Multivitamin TABLET 1 TAB PO (10:23)
[2020-10-14] MEDS: Apixaban 5 MG TABLET PO ×2 (10:23→20:33)
[2020-10-14] MEDS: Metoprolol Tartrate 25 MG TABLET PO ×2 (10:23→20:32)
[2020-10-14] MEDS: Folic Acid 1 MG TABLET PO (10:24)
[2020-10-14 12:10] LABS: Glucose, Whole Blood 93 mg/dL (60-115)
--- NOTE | 2020-10-14 12:54 | HO.PM.IMPN ---
Subjective Subjective Date of Service: 10/14/20 Interval History: the patient was seen and evaluated this morning Laying in bed, looks more comfortable with decreased oxygen requirment to 5L NC Denies any fever, chills or chest pain No reported other overnight events. Systemic review: No fever, chills or weakness No chest pain, palpitation No shortness of breath while on oxygen, weaning O2 down as tolerated No abdominal pain, nausea or vomiting No urinary symptoms No any rash or wounds Physical Exam Vital Signs: Vital Signs: Last Vital Signs Temp 96.8 F 10/14/20 12:00 Pulse 69 10/14/20 12:00 Resp 20 10/14/20 12:00 BP 114/71 10/14/20 12:00 Pulse Ox 96 10/14/20 12:00 Body Mass Index 22.1 Const: Other: Constitutional : Alert, disoriented , recognize self, not in distress Neck : Normal inspection, Supple Cardiovascular : RRR, S1 S2, no lower extremity edema Respiratory : Bilateral chest wall movement, on NC 5L, not in distress Gastrointestinal: soft, lax, Normal bowel sounds, Non tender Skin : Warm/Dry, No rash Neurological : Alert & oriented to self, confused, No focal deficit Objective Data Current Medications Generic Name Dose Route Start Last Admin Trade Name Freq PRN Reason Stop Dose Admin Acetaminophen 650 mg 09/15/20 05:17 09/27/20 17:36 Acetaminophen 325 Mg Tablet PO 650 mg Q6H PRN Administration Pain, Mild (Pain Scale 1-3) Apixaban 5 mg 09/17/20 21:00 10/14/20 10:23 Apixaban 5 Mg Tablet PO 5 mg BID [facility] Administration Cyanocobalamin 2,000 mcg 09/17/20 09:00 10/14/20 10:22 Cyanocobalamin (Vitamin B-12) 1,000 Mcg Tablet PO 2,000 mcg DAILY [facility] Administration Docusate Sodium 100 mg 10/11/20 09:29 Docusate Sodium 100 Mg/10 Ml Liquid PO DAILY PRN Constipation Folic Acid 1 mg 09/16/20 09:00 10/14/20 10:24 Folic Acid 1 Mg Tablet PO 1 mg DAILY [facility] Administration Guaifenesin 10 ml 10/11/20 10:00 10/14/20 10:20 Guaifenesin 200 Mg/10 Ml 10 Ml Liquid PO 10 ml Q6H [facility]O Administration Guaifenesin/Dextromethorphan 5 ml 10/02/20 00:07 10/11/20 03:50 Guaifenesin Dm 100/10/5 Ml 5 Ml Syrup PO 5 ml Q6H PRN Administration cough Hydroxyzine HCl 50 mg 10/07/20 03:36 10/12/20 17:26 Hydroxyzine Hcl 50 Mg Tablet PO 50 mg Q6H PRN Administration anxiety/restlessness Insulin Glargine 35 unit 09/16/20 21:00 10/13/20 20:14 Insulin Glargine,Hum.Rec.Anlog 100 Unit/Ml 10 Ml Vial SUBCUT Not Given BEDTIME [facility] Insulin Human Lispro 0 unit 09/16/20 16:30 10/14/20 10:24 Insulin Lispro 100 Unit/Ml 3 Ml Vial SUBCUT Not Given QIDACHS [facility] Protocol Levetiracetam 1,000 mg 09/16/20 09:00 10/14/20 10:22 Levetiracetam 1,000 Mg Tablet PO 1,000 mg BID [facility] Administration Metoprolol Tartrate 25 mg 09/17/20 21:00 10/14/20 10:23 Metoprolol Tartrate 25 Mg Tablet PO 25 mg BID [facility] Administration Protocol Multivitamins/Vitamin C 1 tab 09/17/20 09:00 10/14/20 10:23 Multivitamin Tablet PO 1 tab DAILY [facility] Administration Omeprazole 40 mg 10/14/20 06:30 10/14/20 10:24 Omeprazole 20 Mg/10 Ml Susp.Recon PO 40 mg DAILY@0630 [facility] Administration Ondansetron HCl 4 mg 10/11/20 09:32 Ondansetron Odt 4 Mg Tab.Rapdis TRANSLINGU Q8H PRN Nausea and Vomiting Pharmacy Consult 1 each 09/15/20 02:19 Consult Rx Perform Med Rec MISCELLANE ONCE PRN Consult order Prednisone 20 mg 09/26/20 09:00 10/14/20 10:23 Prednisone 20 Mg Tablet PO 20 mg DAILY [facility] Administration Quetiapine Fumarate 25 mg 10/06/20 21:00 10/13/20 20:02 Quetiapine Fumarate 25 Mg Tablet PO 25 mg BEDTIME [facility] Administration Sodium Chloride 3 ml 09/15/20 08:00 10/14/20 10:24 0.9 % Sodium Chloride Flush 3 Ml Syringe IVFLUSH 3 ml QSHIFT [facility] Administration Tamsulosin HCl 0.8 mg 09/16/20 21:00 10/13/20 20:03 Tamsulosin Hcl 0.4 Mg Capsule PO Not Given BEDTIME [facility] Trazodone HCl 50 mg 09/16/20 15:36 10/13/20 20:02 Trazodone Hcl 50 Mg Tablet PO 50 mg BEDTIME PRN Administration Insomnia Labs CBC & Chem 7: 10/06/20 06:20 10/12/20 06:01 Microbiology Microbiology Results: Microbiology 09/15/20 02:33 Blood - Venous Blood Culture - Final No growth after 5 days. 09/15/20 02:32 Blood - Venous Blood Culture - Final No growth after 5 days. 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 + DM2 admitted for acute hypoxic respiratory failure due to COVID-19 pneumonia Covid 19 with acute/chronic hypoxic respiratory failure, now long-hauler Underlying Pulmonary fibrosis with baseline home O2 5 to 6 L Goal of O2 88-90% Continue weaning, presently on 5L NC plan DC when placement ready COVID-19 pneumonia completed 10d of dexamethasone on 09/24 completed 5d of remdesivir on 09/20 completed 1u of convalescent plasma on 09/16 completed 7d of azithromycin for concern of superimposed bacterial PNA 09/22 metabolic encephalopathy with likely underlying dementia Improved prn quetiapine for agiation AF/RVR (new onset during this hospitalization) Rate better controlled Continue metoprolol, anticoagulated with apixaban thrombocytopenia likely related to covid and resolved pulmonary fibrosis baseline 5-6L O2 + prednisone 20 mg/d followed by Dr Rahman as outpt BPH continue tamsulosin hx SDH continue levetiracetam DM2 basal/bolus insulin VTE ppx apixaban dispo Overall plan is to continue weaning oxygen and ultimately to SNF
--- NOTE | 2020-10-14 15:36 | MHC.CM.PN ---
ALMA SPOKE TO PTS , BARRETT ([phone]) WHO REPORTS SHE HAS BEEN WITHOUT HER FOR ALMOST A MONTH AND SHE WANTS HIM TO COME HOME. SHE REPORTS SHE INITIALLY WANTED HIM TO COME HOME BUT THEN THOUGHT HE MAY NEED STR BECAUSE OF BEING IN THE HOSPITAL BUT NOW SHE KNOWS HE IS NOT GOING TO DO WELL AT STR. SHE REPORTS THE PT WAS NOT CONFUSED AT HOME AND ONLY BECAME CONFUSED WHEN HE GOT TO THE HOSPITAL SHE REPORTS SHE FEELS HE WILL BE BETTER AT HOME. BARRETT REPORTS SHE IS SURE SHE WILL HAVE NO TROUBLE CARING FOR THE PT. 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 SHE STATES SHE KNOWS THE PT HAS BEEN NON COMPLIANT IN THE HOSPITAL BUT HE WILL EAT AND DO WHAT HE NEEDS WHEN HE GETS HOME. SHE REPORTS HE WILL BE IN HIS HOME . BARRETT IS AGREEABLE TO [facility] BEING ARRANGED FOR HOME PHYSICAL THERAPY. REFERRALS MADE BASED ON PREFERENCE AND PTS INSURANCE. PT WILL DISCHARGE HOME TOMORROW WITH [facility] FOR PT, REFERRALS MADE. PT WILL REQUIRE BLS TRANSPORT AND IS OXYGEN DEPENDENT AT BASELINE. PLEASE CONTACT BARRETT TO CONFIRM DC TIME AND [facility] AGENCY
[2020-10-14 15:57] LABS: Glucose, Whole Blood 114 mg/dL (60-115)
[2020-10-14 16:54] LABS: Glucose, Whole Blood 99 mg/dL (60-115)
[2020-10-14] MEDS: Tamsulosin HCL 0.4 MG CAPSULE 0.8 MG PO (20:32)
[2020-10-14] MEDS: QUEtiapine Fumarate 25 MG TABLET PO (20:33)
[2020-10-14] MEDS: Insulin Glargine,Hum.rec.anlog 100 UNIT/ML 10 ML VIAL 35 UNIT SUBCUT (20:41)
[2020-10-14 20:47] LABS: Glucose, Whole Blood 91 mg/dL (60-115)
[2020-10-14] MEDS: 0.9 % Sodium Chloride Flush 3 ML SYRINGE IVFLUSH (22:43)
[2020-10-15 03:57] VITALS: BP 119/78; PULSE 63; RESP 18; TEMP 37; O2SAT 97
[2020-10-15 05:13] VITALS: BP 109/63; PULSE 77
[2020-10-15] MEDS: guaiFENesin DM 100/10/5 ML 5 ML SYRUP PO ×2 (06:15→12:55)
[2020-10-15 07:04] VITALS: BP 124/65; PULSE 64; RESP 18; TEMP 36.4; O2SAT 90
[2020-10-15 07:08] LABS: Glucose, Whole Blood 75 mg/dL (60-115)
[2020-10-15] MEDS: levETIRAcetam 1,000 MG TABLET 1000 MG PO (09:28)
[2020-10-15 09:29] VITALS: BP 124/65; PULSE 64
[2020-10-15] MEDS: Apixaban 5 MG TABLET PO (09:29)
[2020-10-15] MEDS: Folic Acid 1 MG TABLET PO (09:29)
[2020-10-15] MEDS: predniSONE 20 MG TABLET PO (09:29)
[2020-10-15] MEDS: Multivitamin TABLET 1 TAB PO (09:29)
[2020-10-15] MEDS: Cyanocobalamin (Vitamin B-12) 1,000 MCG TABLET 2000 MCG PO (09:29)
[2020-10-15] MEDS: Metoprolol Tartrate 25 MG TABLET PO (09:29)
[2020-10-15] MEDS: guaiFENesin 200 MG/10 ML 10 ML LIQUID PO (09:29)
[2020-10-15 11:30] LABS: Glucose, Whole Blood 96 mg/dL (60-115)
[2020-10-15 12:00] VITALS: BP 107/65; PULSE 60; RESP 20; TEMP 36.9; O2SAT 97
--- NOTE | 2020-10-15 12:29 | P.DS_ITS ---
DS: Providers Provider Date of Service: 10/15/20 Date of admission: 09/15/20 05:17 Primary care physician: Gavin Thomas MD Consults: 09/15/20 05:17 Consult to Infectious Diseases Routine Consulting Provider: Madelin Ervin Reason for consultation: COVID 19 PNA Has provider been notified: No DS: Diagnosis Discharge Diagnosis (1) Sepsis with acute hypoxic respiratory failure: Status: Acute (2) Acute hypokalemia: Status: Acute (3) Pneumonia due to COVID-19 virus: Status: Acute (4) Encephalopathy due to 2019-nCoV: Status: Acute (5) Respiratory failure: Status: Acute (6) Acute delirium: Status: Acute DS: Medications Discharge Medications Home Medications: Home Medications Medication Instructions Recorded Confirmed Lantus Solostar U-100 Insulin 35 unit SUBCUT DAILY 09/16/20 09/16/20 albuterol sulfate [ProAir HFA] 2 puff PO Q4H PRN 09/16/20 09/16/20 calcium carbonate-vitamin D3 2 tab PO DAILY 09/16/20 09/16/20 cyanocobalamin (vitamin B-12) 2 tab PO DAILY 09/16/20 09/16/20 folic acid 1 tab PO DAILY 09/16/20 09/16/20 guaifenesin 10 ml PO Q8H PRN 09/16/20 09/16/20 insulin aspart U-100 [Novolog See Protocol SUBCUT TID 09/16/20 09/16/20 Flexpen U-100 Insulin] levetiracetam 10 ml PO BID 09/16/20 09/16/20 multivitamin 1 tab PO DAILY 09/16/20 09/16/20 pantoprazole 1 tab PO DAILY 09/16/20 09/16/20 tamsulosin 2 cap PO BEDTIME 09/16/20 09/16/20 trazodone 1 tab PO BEDTIME PRN 09/16/20 09/16/20 Previous Rx's Medication Instructions Recorded prednisone 10 mg tablet 20 mg PO DAILY #90 tab 07/03/20 apixaban [Eliquis] 5 mg PO BID #60 tab 10/15/20 metoprolol tartrate 25 mg PO BID #60 tab 10/15/20 DS: Summary Hospital Course Hospital Course: Admission note HPI This is a 75-year-old male with 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 When asked about ROS , he tells me that the reason he came to the hospital is for coughing. he denies feeling any worsening SOB. He denies fever but reports chills, denies abdominal pain nausea or vomiting, no diarrhea constipation. Denies any chest pain, denies any sputum production her denies any urinary symptoms and no lower extremity edema. Per EMS report patient was found to be satting 60% on 5 L of oxygen at home. On arrival to the ED patient's vitals were significant for temperature of 104.4?, pulse rate of 112, of the Aminah rate of 12 off, blood pressure of 117/51, and pulse ox of her own 8% on room air. Patient was placed on CPAP for 1 hour with improvement of his symptoms, now he is on 10 L of non-rebreather satting 95%. Labs are significant for WBC count 9.1, hemoglobin 13.7, hematocrit 41.2, PT of 13.8, INR of 1.2, pH of 7.46, potassium of 2.9, BUN of 7, creatinine of 0.96, lactic acid of 2.9, COVID-19 PCR positive, Chest x-ray significant for chronic diffuse interstitial pneumonia with possibility of mild superimposed developing patchy right basilar opacity Hospital course The patient has prolonged hospital stay. For full details please returned to EMR. The patient was admitted to the hospital for treatment of Covid 19 with acute/chronic hypoxic respiratory failure with history of Underlying Pulmonary fibrosis with baseline home O2 5 to 6 L completed 10d of dexamethasone on 09/24 completed 5d of remdesivir on 09/20 completed 1u of convalescent plasma on 09/16 completed 7d of azithromycin for concern of superimposed bacterial PNA 09/22 Continue to require high-flow oxygen and non-rebreather mask for long period of time. Weaned down on the oxygen over the last few days to baseline of 6 L NC. metabolic encephalopathy with likely underlying dementia, being sick in the hospital, steroid usage. His baseline improved but still mildly confused the day of discharge. Hopefully with returning back home to his comfort zone he w ill improve better. The patient developed AF/RVR (new onset during this hospitalization). Evaluated by Cardiology as echo was within normal. Started on anticoagulation with Eliquis and rate was controlled with metoprolol. To continue both at time of discharge. Time Spent with Patient Time attestation: Total time spent providing and/or coordinating discharge services: Discharge coordination time: Greater than 30 minutes Physical Exam Vital Signs: Vital Signs: Last Vital Signs Temp 98.5 F 10/15/20 12:00 Pulse 60 10/15/20 12:00 Resp 20 10/15/20 12:00 BP 107/65 10/15/20 12:00 Pulse Ox 97 10/15/20 12:00 Body Mass Index 22.1 Const: Other: Constitutional : Alert, disoriented , recognize self, not in distress Neck : Normal inspection, Supple Cardiovascular : RRR, S1 S2, no lower extremity edema Respiratory : Bilateral chest wall movement, on NC 6L, not in distress Gastrointestinal: soft, lax, Normal bowel sounds, Non tender Skin : Warm/Dry, No rash Neurological : Alert & oriented to self only, confused, No focal deficit DS: Data Data Completed and Pending Labs on day of discharge: Laboratory Results - last 24 hr 10/14/20 10/14/20 10/14/20 15:52 16:43 20:33 POC Glucose 114 99 91 10/15/20 10/15/20 07:01 11:26 POC Glucose 75 96 Discharge Plan Discharge Patient Disposition: Home Health Service Referrals: Name,MD Gavin [Primary Care Provider] - Discharge Medications: New metoprolol tartrate 25 mg Tablet 25 mg PO BID Qty: 60 RF: 0 Eliquis 5 mg Tablet 5 mg PO BID Qty: 60 RF: 0 Continued prednisone 10 mg tablet 20 mg PO DAILY Qty: 90 RF: 1 insulin aspart U-100 [Novolog Flexpen U-100 Insulin] 100 unit/mL (3 mL) insulin pen See Protocol unit subcut TID RF: 0 levetiracetam 100 mg/mL solution 10 ml PO BID RF: 0 Lantus Solostar U-100 Insulin 100 unit/mL (3 mL) insulin pen 35 unit subcut DAILY RF: 0 albuterol sulfate [ProAir HFA] 90 mcg/actuation HFA aerosol inhaler 2 puff PO Q4H PRN (Reason: Wheezing) RF: 0 calcium carbonate-vitamin D3 600 mg(1,500mg) -400 unit tablet 2 tab PO DAILY RF: 0 cyanocobalamin (vitamin B-12) 1,000 mcg tablet 2 tab PO DAILY RF: 0 folic acid 1 mg tablet 1 tab PO DAILY RF: 0 multivitamin Tablet 1 tab PO DAILY RF: 0 trazodone 50 mg tablet 1 tab PO BEDTIME PRN (Reason: Insomnia) RF: 0 tamsulosin 0.4 mg capsule 2 cap PO BEDTIME RF: 0 guaifenesin 100 mg/5 mL liquid 10 ml PO Q8H PRN (Reason: Cough) RF: 0 pantoprazole 40 mg tablet,delayed release (DR/EC) 1 tab PO DAILY RF: 0 Discontinued amlodipine 10 mg tablet 1 tab PO DAILY RF: 0 Discharge Orders: Discharge Order (Routine); Ordered 10/15/20 Ordered By: Gloria Leon Diet: advance to usual diet Activity on Discharge: As tolerated Stand Alone Forms: Patient Portal Discharge page Care Plan Goals: Read below Health Concerns: Read below Plan of Treatment: You were admitted to the hospital for treatment of COVID-19 infection with associated low oxygen levels. treated with steroids, Remdesivir, Plasma transfusion, inhalors and oxygen supplement with good response over the course of prolonged hospital stay. You were noted to have new irregular heart rhythm called Atrial fibrillation, evaluated by cardiology and treated with blood thinner of Eliquis and control the rate with Metoprolol You will be discharged back home on basic O2 requirement of 5-6L. DC Amlodipine Start Eliquis and Metoprolol. Follow with cardiology as outpatient.
--- NOTE | 2020-10-15 12:34 | MHC.CM.PN ---
IMM 10/14/20 DC today. Spoke with Pts . She requests 4pm pick from [facility]. Transportation booked 4pm. Pt has Home O2 in place with [facility]. [facility] has been notified of DC today. They will provide home services. CM will follow, thru DC process.
[2020-10-15 15:44] VITALS: BP 133/64; PULSE 98; RESP 24; TEMP 35.8; O2SAT 60
[2020-10-15 16:36] LABS: Glucose, Whole Blood 129 mg/dL (60-115)
== END 2020-10-15 16:35 | disposition home health service (06) | DRG 871 ==
LOC: HO.ED 03:32 → HO.EDOVER 05:34 → HO.IMC 15:21
PROVIDERS: Family Medicine; Internal Medicine; Admitting Provider Internal Medicine; Emergency Provider Emergency Medicine; PCP Internal Medicine Geriatric Medicine; Visit Provider Student in an Organized Health Care Education/Training Program
DX: A41.89 Other specified sepsis (principal); U07.1 COVID-19; J96.21 Acute and chronic respiratory failure with hypoxia; J12.82 Pneumonia due to coronavirus disease 2019; G93.41 Metabolic encephalopathy; E87.0 Hyperosmolality and hypernatremia; F05 Delirium due to known physiological condition; D69.6 Thrombocytopenia, unspecified; N40.0 Benign prostatic hyperplasia without lower urinary tract symptoms; E86.0 Dehydration; I48.91 Unspecified atrial fibrillation; F03.90 Unspecified dementia, unspecified severity, without behavioral disturbance, psychotic disturbance, mood disturbance, and anxiety; J84.10 Pulmonary fibrosis, unspecified; R65.20 Severe sepsis without septic shock; E87.6 Hypokalemia; Z99.81 Dependence on supplemental oxygen; Z79.4 Long term (current) use of insulin; Z79.899 Other long term (current) drug therapy; Z66 Do not resuscitate
CPT/HCPCS: 0241U; 36415; 36600; 70450; 71045; 80048; 80053; 80076; 82728; 82803; 82947; 83605; 83615; 83690; 83735; 83880; 84145; 84484; 85025; 85027; 85379; 85610; 85730; 86140; 86850; 86900; 86901; 87040; 93005; 94640; 94660; 96361; 96365; 96366; 96367; 96375; 97162; 99285; 99291; J0153; J0456; J0696; J1100; J2060; J2270; J2543; J3370; J3490; Q0163

== ENCOUNTER 2020-10-16 19:27 | Inpatient (IN) | payer MEDICARE, SELFPAY ==
--- NOTE | ~2020-10-16 | XR_ITS ---
EXAMINATION: XR CHEST CLINICAL INFORMATION: Shortness of breath. Vomiting blood. COMPARISON: Chest x-ray 10/11/2019 TECHNIQUE: Frontal view of the chest was obtained. FINDINGS: Stable cardiac silhouette. Prominent patchy bilateral airspace disease is again noted. No gross lobar consolidation. No pleural effusion or pneumothorax. XR/XR chest 1V IMPRESSION: Stable prominence of patchy bilateral airspace disease.
[2020-10-16 19:32] VITALS: BP 127/74; BP 128/75; PULSE 102; PULSE 78; RESP 40; TEMP 36.7; O2SAT 95; O2SAT 97; BMI 22.4
--- NOTE | 2020-10-16 19:48 | ECG_ITS ---
Test Reason : ALTERED MENTAL Blood Pressure : / mmHG Vent. Rate : 076 BPM Atrial Rate : 076 BPM P-R Int : 162 ms QRS Dur : 126 ms QT Int : 420 ms P-R-T Axes : 064 -29 046 degrees QTc Int : 472 ms Normal sinus rhythm Right bundle branch block Abnormal ECG No previous ECGs available Referred By: Lynda Figueroa Electronically Signed By:ERIC MCKEON MD
[2020-10-16 19:55] LABS: Glucose, Whole Blood 124 mg/dL (60-115)
--- NOTE | 2020-10-16 19:55 | ED.AMS ---
HPI - Altered Mental Status General Chief Complaint: Altered Mental Status Stated Complaint: VOMITING BLOOD,BLOODY STOOLS Time Seen by Provider: 10/16/20 19:46 Source: EMS Mode of arrival: EMS Limitations: altered mental status History of Present Illness HPI narrative: Patient comes to the emergency room by EMS. EMS reports that they were called for altered mental status and for the patient vomiting blood per patient's . Patient has altered mental status at baseline, however the patient reports it is worse than usual. Patient is awake, using her usual 4 L of oxygen, unable to give any history, answers yes and no. Patient states he does not have chest pain shortness of breath or abdominal pain. Patient denies vomiting blood or having dark stools. However, patient's and others are not reliable. Of note, patient was discharged yesterday from this hospital, patient was admitted for sepsis,COVID-19, hypokalemia, encephalopathy. Patient was discharged with Eliquis Related Data Home Medications Medication Instructions Recorded Confirmed Lantus Solostar U-100 Insulin 35 unit SUBCUT DAILY 09/16/20 09/16/20 albuterol sulfate [ProAir HFA] 2 puff PO Q4H PRN 09/16/20 09/16/20 calcium carbonate-vitamin D3 2 tab PO DAILY 09/16/20 09/16/20 cyanocobalamin (vitamin B-12) 2 tab PO DAILY 09/16/20 09/16/20 folic acid 1 tab PO DAILY 09/16/20 09/16/20 guaifenesin 10 ml PO Q8H PRN 09/16/20 09/16/20 insulin aspart U-100 [Novolog See Protocol SUBCUT TID 09/16/20 09/16/20 Flexpen U-100 Insulin] levetiracetam 10 ml PO BID 09/16/20 09/16/20 multivitamin 1 tab PO DAILY 09/16/20 09/16/20 pantoprazole 1 tab PO DAILY 09/16/20 09/16/20 tamsulosin 2 cap PO BEDTIME 09/16/20 09/16/20 trazodone 1 tab PO BEDTIME PRN 09/16/20 09/16/20 Previous Rx's Medication Instructions Recorded prednisone 10 mg tablet 20 mg PO DAILY #90 tab 07/03/20 apixaban [Eliquis] 5 mg PO BID #60 tab 10/15/20 metoprolol tartrate 25 mg PO BID #60 tab 10/15/20 Allergies Allergy/AdvReac Type Severity Reaction Status Date / Time No Known Allergies Allergy Verified 09/03/20 13:53 [No Known Allergies*] Review of Systems Review of Systems: Constitutional : No Weight loss, No Fever, No Chills, No Night Sweats, No Fatigue, No Malaise ENT/Mouth : No Hearing loss, No Ear Pain, No Nasal Congestion, No Sinus Pain, No Hoarseness, No sore throat, No Rhinorrhea, No Swallowing Difficulty Eyes: No Eye Pain, No Swelling, No Redness, No Foreign Body, No Discharge, No Vision Changes Cardiovascular : No Chest Pain, No SOB, No Dyspnea on Exertion, No Orthopnea, No Edema, No Palpitations Respiratory : No Cough, No Sputum, No Wheezing, No Smoke Exposure, No Dyspnea Gastrointestinal : No Nausea, No Vomiting, No Diarrhea, No Constipation, No abdominal Pain, per patient's , vomiting blood Genitourinary : no irregular bleeding, No Dysuria, No Urinary Frequency, No Hematuria, No Urinary Incontinence, No Urgency, No Flank Pain, No Urinary Flow Changes, No Hesitancy Musculoskeletal : No joint pain, No Myalgias, No Joint Swelling Skin : No Skin Lesions, No rash Neuro : No Weakness, No Numbness, No Paresthesias, No Loss of Consciousness, No Dizziness, No Headache Psych : No Anxiety/Panic, No Depression, No SI/HI/AH/VH, No Social Issues, Heme/Lymph: No Bruising, No Bleeding,No Lymphadenopathy Endocrine : No Polyuria, No Polydipsia, No Temperature Intolerance [facility] Past Medical History Medical History Diabetes DIP (desquamative interstitial pneumonia) HTN (hypertension) Respiratory failure Supplemental oxygen dependent Social History Social History Household Members: Spouse Housing: Apartment Alcohol intake: unknown Smoking Status: Unknown if ever smoked Use of substances other than those prescribed or required for medical reasons: Unknown Advance Directives: No Advance Directives Information Provided: Yes service: No Current occupational status: retired Physical Exam Vital Signs: Vital Signs: Last Vital Signs Temp 98.8 F 10/16/20 22:00 Pulse 70 02/24/21 22:00 Resp 20 10/16/20 22:00 BP 121/80 10/16/20 22:00 Pulse Ox 95 10/16/20 22:00 Body Mass Index 22.4 Appearance: Alert. Oriented X2. No acute distress. Eyes: Pupils equal, round and reactive to light. ENT: Pharynx normal. Neck: Normal inspection. Neck supple. No lymph nodes noted. No crepitus CVS: Normal heart rate and rhythm. Pulses normal. Normal S1 and S2 Respiratory: No respiratory distress. Breath sounds normal. No Wheezing. No rales , on 4 to 6 L oxygen Abdomen: Soft and nontender. No rigidity. No distention. good BS x4, GENET shows black stool Skin: Skin warm and dry. Normal skin color. Normal skin turgor. Extremities: No lower extremity edema. No lower extremity edema. No Lacerations. No Rash Neuro: Oriented X 3. No motor deficit. No sensory deficit. Moving all extermities. No slurred speech. Course Course Course Narrative: I discussed with the patient that she does have blood in the stool, guaiac positive. Patient has not vomited since he has been here in the emergency room. Patient agrees to stay. I discussed the patient with our hospitalist Dr. Zoe SMALLWOOD - Altered Mental Status Lab Data Result diagrams: 10/16/20 20:06 10/16/20 20:06 Labs: Lab Results 10/16/20 10/16/20 10/16/20 Range/Units 19:44 20:06 20:06 WBC 7.5 (4.8-10.8) X10*3/uL RBC 3.74 L (4.60-5.80) X10*6/uL Hgb 11.9 L (14.0-18.0) g/dl Hct 36.2 L (42-52) % MCV 96.8 (80-98) fL MCH 31.8 (27.0-33.0) pg MCHC 32.9 (31.0-36.0) g/dl RDW 13.7 (11.0-16.0) % Plt Count 272 D (160-400) X10*3/uL MPV 10.6 (9.4-12.4) fL Immature Gran % (Auto) 0.7 H (0.0-0.4) % Neut % (Auto) 83.2 H (45-73) % Lymph % (Auto) 12.1 L (20-40) % [place] % (Auto) 3.7 (2-11) % Eos % (Auto) 0.0 (0-4) % Baso % (Auto) 0.3 (0-2) % Lymph # (Auto) 0.9 L (1.2-4.9) X10*3/uL [place] # (Auto) 0.3 (0.1-1.2) X10*3/uL Eos # (Auto) 0.0 (0.0-0.4) X10*3/uL Baso # (Auto) 0.0 (0.0-0.2) X10*3/uL Abs Immat Gran (auto) 0.05 H (0.00-0.03) X10*3/uL Absolute Neuts (auto) 6.3 (2.0-8.3) X10*3/uL Absolute Nucleated RBC 0.000 (0.0-0.012) X10*3/uL Nucleated RBC % (auto) 0.0 (0.0-0.2) /100WBC PT 17.5 H D (10.8-13.0) SEC INR 1.5 H (0.9-1.1) Sodium (135-145) mmol/L Potassium (3.3-5.1) mmol/L Chloride (96-108) mmol/L Carbon Dioxide (22-29) mmol/L Anion Gap (12-20) BUN (9-16) mg/dL Creatinine (0.5-1.4) mg/dL Estim Creat Clear Calc Estimated GFR POC Glucose 124 H (60-115) mg/dL Random Glucose (60-115) mg/dL Calcium (8.4-10.2) mg/dL Magnesium (1.6-2.6) mg/dL Total Bilirubin (0.0-1.0) mg/dL Direct Bilirubin (0.0-0.5) mg/dL AST (5-37) U/L ALT (0-40) U/L Alkaline Phosphatase (39-117) U/L Total Protein (6.5-8.0) g/dL Albumin (3.5-5.0) g/dL Stool Occult Blood (NEG) Blood Type Antibody Screen 10/16/20 10/16/20 10/16/20 Range/Units 20:06 20:08 20:49 WBC (4.8-10.8) X10*3/uL RBC (4.60-5.80) X10*6/uL Hgb (14.0-18.0) g/dl Hct (42-52) % MCV (80-98) fL MCH (27.0-33.0) pg MCHC (31.0-36.0) g/dl RDW (11.0-16.0) % Plt Count (160-400) X10*3/uL MPV (9.4-12.4) fL Immature Gran % (Auto) (0.0-0.4) % Neut % (Auto) (45-73) % Lymph % (Auto) (20-40) % [place] % (Auto) (2-11) % Eos % (Auto) (0-4) % Baso % (Auto) (0-2) % Lymph # (Auto) (1.2-4.9) X10*3/uL [place] # (Auto) (0.1-1.2) X10*3/uL Eos # (Auto) (0.0-0.4) X10*3/uL Baso # (Auto) (0.0-0.2) X10*3/uL Abs Immat Gran (auto) (0.00-0.03) X10*3/uL Absolute Neuts (auto) (2.0-8.3) X10*3/uL Absolute Nucleated RBC (0.0-0.012) X10*3/uL Nucleated RBC % (auto) (0.0-0.2) /100WBC PT (10.8-13.0) SEC INR (0.9-1.1) Sodium 138 (135-145) mmol/L Potassium 4.9 (3.3-5.1) mmol/L Chloride 105 (96-108) mmol/L Carbon Dioxide 20 L (22-29) mmol/L Anion Gap 18 (12-20) BUN 23 H (9-16) mg/dL Creatinine 1.26 (0.5-1.4) mg/dL Estim Creat Clear Calc 50.6 Estimated GFR 56 POC Glucose (60-115) mg/dL Random Glucose 147 H D (60-115) mg/dL Calcium 9.1 (8.4-10.2) mg/dL Magnesium 2.0 (1.6-2.6) mg/dL Total Bilirubin 0.4 (0.0-1.0) mg/dL Direct Bilirubin 0.2 (0.0-0.5) mg/dL AST 31 (5-37) U/L ALT 34 (0-40) U/L Alkaline Phosphatase 63 (39-117) U/L Total Protein 7.2 (6.5-8.0) g/dL Albumin 3.4 L (3.5-5.0) g/dL Stool Occult Blood POS (NEG) Blood Type B Positive Antibody Screen NEGATIVE Discharge Plan Discharge Clinical Impression: Acute upper GI bleed Patient Disposition: Admitted As Inpatient Prescriptions: No Action prednisone 10 mg tablet 20 mg PO DAILY Qty: 90 RF: 1 insulin aspart U-100 [Novolog Flexpen U-100 Insulin] 100 unit/mL (3 mL) insulin pen See Protocol unit subcut TID RF: 0 levetiracetam 100 mg/mL solution 10 ml PO BID RF: 0 Lantus Solostar U-100 Insulin 100 unit/mL (3 mL) insulin pen 35 unit subcut DAILY RF: 0 albuterol sulfate [ProAir HFA] 90 mcg/actuation HFA aerosol inhaler 2 puff PO Q4H PRN (Reason: Wheezing) RF: 0 calcium carbonate-vitamin D3 600 mg(1,500mg) -400 unit tablet 2 tab PO DAILY RF: 0 cyanocobalamin (vitamin B-12) 1,000 mcg tablet 2 tab PO DAILY RF: 0 folic acid 1 mg tablet 1 tab PO DAILY RF: 0 multivitamin Tablet 1 tab PO DAILY RF: 0 trazodone 50 mg tablet 1 tab PO BEDTIME PRN (Reason: Insomnia) RF: 0 tamsulosin 0.4 mg capsule 2 cap PO BEDTIME RF: 0 guaifenesin 100 mg/5 mL liquid 10 ml PO Q8H PRN (Reason: Cough) RF: 0 pantoprazole 40 mg tablet,delayed release (DR/EC) 1 tab PO DAILY RF: 0 metoprolol tartrate 25 mg Tablet 25 mg PO BID Qty: 60 RF: 0 Eliquis 5 mg Tablet 5 mg PO BID Qty: 60 RF: 0
[2020-10-16 20:13] LABS: MANUAL DIFF FLAG NO
[2020-10-16 20:14] LABS: OBS Int Ctl Valid YES; OBS1 POS (NEG)
[2020-10-16 20:14] LABS: Basophils Percent Auto 0.3 % (0-2); Hematocrit 36.2 % (42-52); Hemoglobin 11.9 g/dl (14.0-18.0); Imm Gran Abs Auto 0.05 X10*3/uL (0.00-0.03); Imm Gran Pct Auto 0.7 % (0.0-0.4); Lymphocytes Absolute Auto 0.9 X10*3/uL (1.2-4.9); Lymphocytes Percent Auto 12.1 % (20-40); Mean Corpuscular HGB Conc 32.9 g/dl (31.0-36.0); Mean Corpuscular Hemoglobin 31.8 pg (27.0-33.0); Mean Corpuscular Volume 96.8 fL (80-98); Mean Platelet Volume 10.6 fL (9.4-12.4); Monocytes Absolute Auto 0.3 X10*3/uL (0.1-1.2); Monocytes Percent Auto 3.7 % (2-11); Neutrophils Absolute Auto 6.3 X10*3/uL (2.0-8.3); Neutrophils Percent Auto 83.2 % (45-73); Platelet Count 272 X10*3/uL (160-400); Red Blood Count 3.74 X10*6/uL (4.60-5.80); Red Cell Distribution Width 13.7 % (11.0-16.0); White Blood Count 7.5 X10*3/uL (4.8-10.8)
[2020-10-16 20:19] LABS: INTERNATIONAL NORM RATIO 1.5 (0.9-1.1); Prothrombin Time 17.5 SEC (10.8-13.0)
--- NOTE | 2020-10-16 21:30 | PC.NURSE ---
Pt difficult stick- unable to obtain IV at this time. Several RN attempts unsuccessful. aware, possible EJ?
[2020-10-16 21:53] VITALS: BP 120/75; PULSE 70; RESP 18; O2SAT 96
[2020-10-16 22:00] VITALS: BP 121/80; PULSE 70; RESP 20; TEMP 37.1; O2SAT 95
[2020-10-16 22:14] LABS: Alanine Aminotransferase 34 U/L (0-40); Albumin Level 3.4 g/dL (3.5-5.0); Alkaline Phosphatase 63 U/L (39-117); Anion Gap 18 (12-20); Aspartate Amino Transferase 31 U/L (5-37); Bilirubin Direct 0.2 mg/dL (0.0-0.5); Bilirubin Total 0.4 mg/dL (0.0-1.0); Blood Urea Nitrogen 23 mg/dL (9-16); Calcium 9.1 mg/dL (8.4-10.2); Carbon Dioxide 20 mmol/L (22-29); Chloride 105 mmol/L (96-108); Creatinine Clr Calc Pharmacy 50.6; Estimated Glomerular Filt Rate 56; Glucose Random 147 mg/dL (60-115); Potassium 4.9 mmol/L (3.3-5.1); Sodium 138 mmol/L (135-145); Total Protein 7.2 g/dL (6.5-8.0)
--- NOTE | 2020-10-16 22:27 | PC.NURSE ---
Pt disoriented, attempted to re-orient and unsuccessful. Pt frequently pulling off tele, spo2, but cooperative when this rn places them back on.
[2020-10-16 22:51] LABS: COVID-19 Test Negative (Negative); IDNOW Serial# 9DD0AD1C
[2020-10-17] VITALS (8 sets, daily range): BP systolic 119–139; BP diastolic 62–79; PULSE 60–112; RESP 18–20; TEMP 36.4–37.1; O2SAT 90–100
[2020-10-17 05:00] LABS: MANUAL DIFF FLAG NO
[2020-10-17 05:14] LABS: Basophils Percent Auto 0.3 % (0-2); Eosinophils Percent Auto 0.1 % (0-4); Hematocrit 37.6 % (42-52); Hemoglobin 12.3 g/dl (14.0-18.0); Imm Gran Pct Auto 0.8 % (0.0-0.4); Lymphocytes Absolute Auto 1.9 X10*3/uL (1.2-4.9); Lymphocytes Percent Auto 15.5 % (20-40); Mean Corpuscular HGB Conc 32.7 g/dl (31.0-36.0); Mean Corpuscular Hemoglobin 31.6 pg (27.0-33.0); Mean Corpuscular Volume 96.7 fL (80-98); Mean Platelet Volume 11.7 fL (9.4-12.4); Monocytes Absolute Auto 1.3 X10*3/uL (0.1-1.2); Monocytes Percent Auto 10.7 % (2-11); NRBC Pct Auto 0.2 /100WBC (0.0-0.2); Neutrophils Absolute Auto 8.7 X10*3/uL (2.0-8.3); Neutrophils Percent Auto 72.6 % (45-73); Platelet Count 249 X10*3/uL (160-400); Red Blood Count 3.89 X10*6/uL (4.60-5.80); Red Cell Distribution Width 13.5 % (11.0-16.0); White Blood Count 12.1 X10*3/uL (4.8-10.8)
--- NOTE | 2020-10-17 05:26 | P.HPHOSP_ITS ---
History of Present Illness Date of Service: 10/16/20 Chief Complaint: bleeding This is a 75-year-old male with past medical history of pulmonary interstitial fibrosis, subdural hematoma, hypertension, BPH was discharged from the hospital on 10/15 after a prolonged hospital stay for management of COVID-19 with acute on chronic hypoxic respiratory failure. Patient is at baseline 6 L of oxygen and was successfully weaned down to 6 L and sent home on the . While in the hospital patient developed AFib with RVR when at that time was started on Eliquis. He returns today stating that he had 1 episode of bloody vomitus. He also has a constant non relenting cough and reports that he noticed sputum produced with cough was also slightly bloody. He is also reporting black tarry stools for past 1 day. He otherwise denies any abdominal pain, no nausea, no chest pain, no shortness of breath more than usual, no abdominal pain diarrhea constipation, no urinary symptoms and no lower extremity edema. On arrival to the ED hemodynamically stable with no No significant abnormal vitals. Labs are significant for WBC count of 12.1 hemoglobin 12.3 which is around his baseline, PT of 17.5, INR of 1.5, BUN of 23, creatinine of 1.38 from 1.26 on the day prior, stool occult blood positive. Patient will be admitted for further management. Review of Systems Review of Systems: Yes all other systems are reviewed and are negative [facility] Medical History (Updated 10/17/20 @ 05:38 by Imani Enriquez MD) Afib Diabetes DIP (desquamative interstitial pneumonia) HTN (hypertension) Respiratory failure Supplemental oxygen dependent Pertinent family history: Denies any family history Social History Household Members: Spouse Housing: House Alcohol intake: unknown Smoking Status: Never smoker Use of substances other than those prescribed or required for medical reasons: No Have you been hit, kicked, punched, or otherwise hurt by someone within the past year? If so, by whom?: No Do you feel safe in your current relationship?: Yes Is there a partner from a previous relationship who is making you feel unsafe now?: No Are you made to feel afraid or neglected: No [facility] Practices: episcopal Advance Directives: No Advance Directives Information Provided: Yes Do you have thoughts of harming others: None Do you have a plan to hurt others: No Plan Recently lost weight without trying: No service: No Current occupational status: retired Meds Allergies Allergy/AdvReac Type Severity Reaction Status Date / Time No Known Allergies Allergy Verified 09/03/20 13:53 [No Known Allergies*] Active Medications: Current Medications Generic Name Dose Route Start Last Admin Trade Name Freq PRN Reason Stop Dose Admin Acetaminophen 650 mg 10/17/20 01:47 Acetaminophen 325 Mg Tablet PO Q6H PRN Pain, Mild (Pain Scale 1-3) Docusate Sodium 100 mg 10/17/20 01:47 Docusate Sodium 100 Mg Capsule PO DAILY PRN Constipation Hydrocodone Bit/Homatropine Methylb 5 ml 10/17/20 04:35 Hydrocodone/Homat 5/1.5/5 Ml 5 Ml Syrup PO Q6H PRN Cough Ondansetron HCl 4 mg 10/17/20 01:47 Ondansetron Hcl 4 Mg/2 Ml Vial IVPUSH Q8H PRN Nausea and Vomiting Pantoprazole Sodium 40 mg 10/17/20 06:30 Pantoprazole Sodium 40 Mg/10 Ml Vial IVPUSH BID@0630,1630 [facility] Home Medications Medication Instructions Recorded Confirmed Last Taken Type Lantus Solostar U-100 Insulin 35 unit SUBCUT DAILY 09/16/20 10/16/20 Unknown History albuterol sulfate [ProAir HFA] 2 puff PO Q4H PRN 09/16/20 10/16/20 Unknown History calcium carbonate-vitamin D3 2 tab PO DAILY 09/16/20 10/16/20 Unknown History cyanocobalamin (vitamin B-12) 2 tab PO DAILY 09/16/20 10/16/20 Unknown History folic acid 1 tab PO DAILY 09/16/20 10/16/20 Unknown History guaifenesin 10 ml PO Q8H PRN 09/16/20 10/16/20 Unknown History insulin aspart U-100 [Novolog See Protocol SUBCUT TID 09/16/20 10/16/20 Unknown History Flexpen U-100 Insulin] levetiracetam 10 ml PO BID 09/16/20 10/16/20 Unknown History multivitamin 1 tab PO DAILY 09/16/20 10/16/20 Unknown History pantoprazole 1 tab PO DAILY 09/16/20 10/16/20 Unknown History tamsulosin 2 cap PO BEDTIME 09/16/20 10/16/20 Unknown History trazodone 1 tab PO BEDTIME PRN 09/16/20 10/16/20 Unknown History Physical Exam Vital Signs and Narrative: Vital Signs: Last Vital Signs Temp 98.8 F 10/17/20 02:36 Pulse 81 10/17/20 02:36 Resp 20 10/17/20 02:36 BP 139/79 10/17/20 02:36 Pulse Ox 95 10/16/20 22:00 Body Mass Index 22.4 Const: Other: Constant cough General: cooperative and no acute distress Orientation/consciousness: patient oriented x3 Eyes: General: appearance normal, both eyes and all related structures Resp: Other: Tachypneic, coughing Effort & Inspection: normal respiratory effort and Actively coughing Auscultation: crackles Cardio: Rate: regular rate Rhythm: regular rhythm GI: Palpation (GI): Soft to palpation Auscultation: normal bowel sounds Neuro: General: patient oriented x3 Cognition (Neuro): normal cognition Extrem: General: Yes normal to inspection and Yes no pedal edema Results Labs CBC and Chem 7: 10/17/20 04:51 10/17/20 04:51 Labs: Laboratory Results - last 24 hr 10/16/20 10/16/20 10/16/20 19:44 20:06 20:06 MCV 96.8 MCH 31.8 MCHC 32.9 RDW 13.7 Plt Count 272 D MPV 10.6 Immature Gran % (Auto) 0.7 H Neut % (Auto) 83.2 H Lymph % (Auto) 12.1 L [place] % (Auto) 3.7 Eos % (Auto) 0.0 Baso % (Auto) 0.3 Lymph # (Auto) 0.9 L [place] # (Auto) 0.3 Eos # (Auto) 0.0 Baso # (Auto) 0.0 Abs Immat Gran (auto) 0.05 H Absolute Neuts (auto) 6.3 Absolute Nucleated RBC 0.000 Nucleated RBC % (auto) 0.0 PT 17.5 H D INR 1.5 H Anion Gap Estim Creat Clear Calc Estimated GFR POC Glucose 124 H Random Glucose Calcium Magnesium Total Bilirubin Direct Bilirubin AST ALT Alkaline Phosphatase Total Protein Albumin Stool Occult Blood COVID-19 (MAURILIO) COVID-Babelverse Com Blood Type Antibody Screen 10/16/20 10/16/20 10/16/20 20:06 20:08 20:49 MCV MCH MCHC RDW Plt Count MPV Immature Gran % (Auto) Neut % (Auto) Lymph % (Auto) [place] % (Auto) Eos % (Auto) Baso % (Auto) Lymph # (Auto) [place] # (Auto) Eos # (Auto) Baso # (Auto) Abs Immat Gran (auto) Absolute Neuts (auto) Absolute Nucleated RBC Nucleated RBC % (auto) PT INR Anion Gap 18 Estim Creat Clear Calc 50.6 Estimated GFR 56 POC Glucose Random Glucose 147 H D Calcium 9.1 Magnesium 2.0 Total Bilirubin 0.4 Direct Bilirubin 0.2 AST 31 ALT 34 Alkaline Phosphatase 63 Total Protein 7.2 Albumin 3.4 L Stool Occult Blood POS COVID-19 (MAURILIO) COVID-[facility]abel[facility] Com Blood Type B Positive Antibody Screen NEGATIVE 10/16/20 10/17/20 22:31 04:51 MCV 96.7 MCH 31.6 MCHC 32.7 RDW 13.5 Plt Count 249 MPV 11.7 Immature Gran % (Auto) 0.8 H Neut % (Auto) 72.6 Lymph % (Auto) 15.5 L [place] % (Auto) 10.7 Eos % (Auto) 0.1 Baso % (Auto) 0.3 Lymph # (Auto) 1.9 [place] # (Auto) 1.3 H Eos # (Auto) 0.0 Baso # (Auto) 0.0 Abs Immat Gran (auto) 0.10 H Absolute Neuts (auto) 8.7 H Absolute Nucleated RBC 0.020 H Nucleated RBC % (auto) 0.2 PT INR Anion Gap Estim Creat Clear Calc Estimated GFR POC Glucose Random Glucose Calcium Magnesium Total Bilirubin Direct Bilirubin AST ALT Alkaline Phosphatase Total Protein Albumin Stool Occult Blood COVID-19 (MAURILIO) Negative COVID-NOZA See Note Blood Type Antibody Screen Imaging Radiologist's Impressions: Impressions Chest X-Ray 10/16/20 19:48 IMPRESSION: Stable prominence of patchy bilateral airspace disease. Assessment and Plan (1) Hematemesis: Status: Acute (2) Acute upper GI bleed: Status: Acute (3) RADHA (acute kidney injury): Status: Acute (4) Afib: Status: Inactive This is a 75-year-old gentleman with past medical history as above who presents to the hospital with complaints of hematemesis, hemoptysis, and tired black stool for 1 day. # GI bleed - most likely upper GI given the hemoptysis and hematemesis - possibly Allison-Hankins tear secondary to the vomiting and the constant cough verses ulcer - patient was recently diagnosed with AFib and started on Eliquis on most recent admission. - hemodynamically stable with no significant change to his hemoglobin Plan: - will hold Eliquis - make NPO - start pantoprazole 40 IV b.i.d. - consult GI - follow H&H and transfuse threshold of <7 # AFib - rate controlled - at this time will hold Eliquis and continue metoprolol # RADHA - possibly prerenal - right knee mildly elevated from day of discharge - start him on IV fluids - follow BMP # chronic hypoxic respiratory failure with recent COVID infection - no change in O2 requirement - follow respiratory status DVT prophylaxis: SCDs
[2020-10-17 05:29] LABS: Anion Gap 19 (12-20); Blood Urea Nitrogen 23 mg/dL (9-16); Calcium 9.1 mg/dL (8.4-10.2); Carbon Dioxide 21 mmol/L (22-29); Chloride 106 mmol/L (96-108); Creatinine Clr Calc Pharmacy 46.2; Estimated Glomerular Filt Rate 50; Glucose Random 107 mg/dL (60-115); Potassium 4.7 mmol/L (3.3-5.1); Sodium 141 mmol/L (135-145)
[2020-10-17] MEDS: Pantoprazole Sodium 40 MG/10 ML VIAL IVPUSH ×2 (05:52→16:58)
[2020-10-17] MEDS: Lactated Ringers 1,000 ML 80 ML IVCONT (07:42)
[2020-10-17 07:45] LABS: Glucose, Whole Blood 101 mg/dL (60-115)
--- NOTE | 2020-10-17 09:43 | MHC.CM.PN ---
IMM 10/17/20, EMR REVIEWED, PT ADMITTED W/UPPER GI BLEED, RADHA AND HEMATAEMISIS AFTER BEING DISCHARGED ON 10/16/20 AFTER BEING TX'D FOR COVID PNA, CM ATTEMPTED TO MEET WITH PT WHO IS ALERT AND ORIENTED TO NAME AND PLACE ONLY, CM ATTEMPTED TO CONTACT PT'S AT [phone] AT 9:25AM AND MESSAGE WAS LEFT, PER RECORDS FROM RECENT STAY PT'S WANTED PT HOME AND HE WAS DISCHARGED WITH [facility] FOR HOME PT, [facility] HAS NOT SEEN PT YET DUE TO PT DISCHARGING ON 10/16/20, CM WILL SEND ANOTHER REFERRAL TO [facility] AND WILL DISCUSS STR OPTION FOR PT. PER RECORD PT WAS NOT CONFUSED PRIOR TO AUGUST ADMISSION, PT HAS HOME O2 AT [facility] WITH [facility] AND WAS ON 6L UPON D/C ON 10/16/20. HCP: BARRETT WALLACE () [phone]
[2020-10-17] MEDS: levETIRAcetam 500 MG TABLET 1000 MG PO ×2 (10:05→21:18)
[2020-10-17] MEDS: Metoprolol Tartrate 25 MG TABLET PO ×2 (10:05→21:18)
[2020-10-17] MEDS: Folic Acid 1 MG TABLET PO (10:06)
[2020-10-17] MEDS: Benzonatate 100 MG CAPSULE 200 MG PO ×3 (10:14→21:19)
[2020-10-17] MEDS: guaiFEN/Codeine SF 200/20/10ML 10 ML LIQUID PO ×3 (10:14→23:31)
[2020-10-17] MEDS: guaiFENesin LA 600 MG TAB.ER.12H PO ×2 (10:14→21:18)
--- NOTE | 2020-10-17 10:18 | HO.PM.IMPN ---
Subjective Subjective Date of Service: 10/17/20 Interval History: the patient was seen and evaluated this morning Laying in bed, feels distressed with coughing episodes Denies any fever, chills or shortness of breath at this point no hemoptysis\hematomesis episodes reported in hospital increase oxygen requirmenets No reported other overnight events. Systemic review: No fever, chills or weakness No chest pain, palpitation No shortness of breath but has significant coughing No abdominal pain, nausea or vomiting No urinary symptoms No any rash or wounds Physical Exam Vital Signs: Vital Signs: Last Vital Signs Temp 98.1 F 10/17/20 07:12 Pulse 81 10/17/20 10:05 Resp 19 10/17/20 07:12 BP 135/72 10/17/20 10:05 Pulse Ox 91 L 10/17/20 07:12 Body Mass Index 22.4 Const: Other: Constitutional : Alert, oriented to self and place Neck : Normal inspection, Supple Cardiovascular : RRR, S1 S2, no lower extremity edema Respiratory : fair bilateral air entry, fine basal crackles, no wheezes or rhonchi Gastrointestinal: soft, lax, Normal bowel sounds, Non tender Skin : Warm/Dry, No rash Neurological : Alert & oriented to self and place, No focal deficit Objective Data Current Medications Generic Name Dose Route Start Last Admin Trade Name Freq PRN Reason Stop Dose Admin Acetaminophen 650 mg 10/17/20 01:47 Acetaminophen 325 Mg Tablet PO Q6H PRN Pain, Mild (Pain Scale 1-3) Albuterol Sulfate 2 puff 10/17/20 05:43 Albuterol Sulfate 90 Mcg 8 Gm Inhaler INHALE Q4H PRN Wheezing Benzonatate 200 mg 10/17/20 10:05 10/17/20 10:14 Benzonatate 100 Mg Capsule PO 200 mg TID DEO Administration Docusate Sodium 100 mg 10/17/20 01:47 Docusate Sodium 100 Mg Capsule PO DAILY PRN Constipation Folic Acid 1 mg 10/17/20 09:00 10/17/20 10:06 Folic Acid 1 Mg Tablet PO 1 mg DAILY DEO Administration Guaifenesin 600 mg 10/17/20 11:00 10/17/20 10:14 Guaifenesin La 600 Mg Tab.Er.12h PO 600 mg BID DEO Administration Guaifenesin/Codeine Phosphate 10 ml 10/17/20 11:00 10/17/20 10:14 Guaifen/Codeine Sf 200/20/10ml 10 Ml Liquid PO 10 ml Q6H DEO Administration Hydrocodone Bit/Homatropine Methylb 5 ml 10/17/20 04:35 Hydrocodone/Homat 5/1.5/5 Ml 5 Ml Syrup PO Q6H PRN Cough Lactated Ringer's 1,000 mls @ 80 mls/hr 10/17/20 05:45 10/17/20 07:42 Lr IVCONT 80 mls/hr .[id number] DEO Administration Insulin Glargine 15 unit 10/17/20 09:00 10/17/20 09:54 Insulin Glargine,Hum.Rec.Anlog 100 Unit/Ml 10 Ml Vial SUBCUT Not Given DAILY [facility] Insulin Human Lispro 0 unit 10/17/20 07:30 10/17/20 07:55 Insulin Lispro 100 Unit/Ml 3 Ml Vial SUBCUT Not Given QIDACHS [facility] Levetiracetam 1,000 mg 10/17/20 09:00 10/17/20 10:05 Levetiracetam 500 Mg Tablet PO 1,000 mg BID DEO Administration Metoprolol Tartrate 25 mg 10/17/20 09:00 10/17/20 10:05 Metoprolol Tartrate 25 Mg Tablet PO 25 mg BID DEO Administration Protocol Ondansetron HCl 4 mg 10/17/20 01:47 Ondansetron Hcl 4 Mg/2 Ml Vial IVPUSH Q8H PRN Nausea and Vomiting Pantoprazole Sodium 40 mg 10/17/20 06:30 10/17/20 05:52 Pantoprazole Sodium 40 Mg/10 Ml Vial IVPUSH 40 mg BID@0630,1630 DEO Administration Tamsulosin HCl 0.8 mg 10/17/20 21:00 Tamsulosin Hcl 0.4 Mg Capsule PO BEDTIME [facility] Trazodone HCl 50 mg 10/17/20 05:43 Trazodone Hcl 50 Mg Tablet PO BEDTIME PRN Insomnia Labs CBC & Chem 7: 10/17/20 04:51 10/17/20 04:51 Assessment and Plan (1) Hematemesis: Status: Acute (2) Acute upper GI bleed: Status: Acute (3) RADHA (acute kidney injury): Status: Acute (4) Afib: Status: Inactive Assessment and Plan: This is a 75-year-old gentleman with past medical history as above who presents to the hospital with complaints of hematemesis, hemoptysis, and tired black stool for 1 day. Positive occult blood suspected upper GI vs swallowing hemoptysis on chronic steroids and Eliquis on most recent admission. no drop In Hb hold Eliquis start clears today pantoprazole 40 IV b.i.d. consult GI for possible EGD follow H&H transfuse threshold of <7 AFib rate controlled hold Eliquis and continue metoprolol CKD stage 2 dc IV fluids follow BMP acute on chronic hypoxic respiratory failure 2/2 Pul Fibrosis recent COVID infection increase O2 requirement to 14 L restart Prednisone follow respiratory status DVT prophylaxis: SCDs
[2020-10-17] MEDS: predniSONE 20 MG TABLET PO (11:49)
[2020-10-17 14:12] LABS: Glucose, Whole Blood 114 mg/dL (60-115)
--- NOTE | 2020-10-17 15:40 | MHC.CM.PN ---
IMM 10/17/20, CM CALLED PT'S BACK AT [phone] AND PT'S REPORTED PT WAS VERY WEAK AND SLID TO THE FLOOR WHILE IN BATHROOM, WAS UNABLE TO GET PT UP AND CALLED A FRIEND TO ASSIST, ALSO REPORTED PT HAD COUGHED UP A LITTLE BLOOD AND HAD BLOOD IN STOOL WELL. PT'S REPORTS SHE COULD NOT MANAGE PT AT HOME AND FEELS HE NEEDS REHAB FOR PHYSICAL THERAPY, FIRST CHOICE IS [facility] AND PT'S IS OK WITH [facility]OND CHO[facility]. CM TO MAKE REFERRALS TO BOTH. PCP: SURESH SHERIDAN
[2020-10-17 15:59] LABS: Glucose, Whole Blood 122 mg/dL (60-115)
[2020-10-17 20:41] LABS: Glucose, Whole Blood 133 mg/dL (60-115)
[2020-10-17] MEDS: Tamsulosin HCL 0.4 MG CAPSULE 0.8 MG PO (21:19)
[2020-10-17] MEDS: traZODone HCL 50 MG TABLET PO (21:19)
[2020-10-18] VITALS (7 sets, daily range): BP systolic 108–117; BP diastolic 62–70; PULSE 56–110; RESP 19–22; TEMP 36.1–37.1; O2SAT 83–99
[2020-10-18] MEDS: Acetaminophen 325 MG TABLET 650 MG PO (00:13)
--- NOTE | 2020-10-18 01:14 | MHC.PIE ---
Patient very restless, swearing and attempting to hit staff. Pt won't keep o2 venti mask on, o2 sats drop rapidly when o2 not on. MD notified, order for 2.5mg IV Haldol placed. Administered, will monitor patient.
[2020-10-18] MEDS: Haloperidol Lactate 5 MG/ML VIAL 2.5 MG IVPUSH (01:24)
[2020-10-18] MEDS: LORazepam 2 MG/ML VIAL 1 MG IVPUSH (02:19)
--- NOTE | 2020-10-18 05:51 | MHC.PIE ---
Scheduled Haldol at 0124 uneffective, pt still very restless and pulling off o2 mask very frequently. notified, 1mg ativan ordered Administered at 021, pt sleeping shortly after until 529.
[2020-10-18 07:26] LABS: Anion Gap 16 (12-20); Blood Urea Nitrogen 23 mg/dL (9-16); Calcium 9.1 mg/dL (8.4-10.2); Carbon Dioxide 24 mmol/L (22-29); Chloride 108 mmol/L (96-108); Creatinine Clr Calc Pharmacy 46.9; Estimated Glomerular Filt Rate 51; Glucose Random 99 mg/dL (60-115); Potassium 4.9 mmol/L (3.3-5.1); Sodium 143 mmol/L (135-145)
[2020-10-18 09:08] LABS: Glucose, Whole Blood 95 mg/dL (60-115)
[2020-10-18] MEDS: Metoprolol Tartrate 25 MG TABLET PO ×2 (10:10→21:36)
[2020-10-18] MEDS: guaiFENesin LA 600 MG TAB.ER.12H PO ×2 (10:11→21:35)
[2020-10-18] MEDS: Folic Acid 1 MG TABLET PO (10:11)
[2020-10-18] MEDS: predniSONE 20 MG TABLET PO (10:12)
[2020-10-18] MEDS: levETIRAcetam 500 MG TABLET 1000 MG PO ×2 (10:12→21:35)
[2020-10-18] MEDS: Benzonatate 100 MG CAPSULE 200 MG PO ×2 (10:12→21:38)
--- NOTE | 2020-10-18 11:06 | P.PNIM_ITS ---
Subjective Subjective Date of Service: 10/18/20 Interval History: the patient was seen and evaluated this morning Laying in bed, looks comfortable with decrease coughing episodes Denies any fever, chills or shortness of breath at this point no hemoptysis\hematomesis episodes reported while in hospital Hemoglobin has been stable Increase restlessness and anxiety overnight overnight events. Systemic review: No fever, chills or weakness No chest pain, palpitation No shortness of breath but has coughing No abdominal pain, nausea or vomiting No urinary symptoms No any rash or wounds Physical Exam Vital Signs: Vital Signs: Last Vital Signs Temp 97.0 F 10/18/20 08:00 Pulse 56 10/18/20 10:10 Resp 20 10/18/20 08:00 BP 115/69 10/18/20 10:10 Pulse Ox 93 10/18/20 08:00 Body Mass Index 22.4 Const: Other: Constitutional : Alert, oriented to self and place Neck : Normal inspection, Supple Cardiovascular : RRR, S1 S2, no lower extremity edema Respiratory : fair bilateral air entry, fine basal crackles, no wheezes or rhonchi Gastrointestinal: soft, lax, Normal bowel sounds, Non tender Skin : Warm/Dry, No rash Neurological : Alert & oriented to self and place, No focal deficit Objective Data Current Medications Generic Name Dose Route Start Last Admin Trade Name Freq PRN Reason Stop Dose Admin Acetaminophen 650 mg 10/17/20 01:47 10/18/20 00:13 Acetaminophen 325 Mg Tablet PO 650 mg Q6H PRN Administration Pain, Mild (Pain Scale 1-3) Albuterol Sulfate 2 puff 10/17/20 05:43 Albuterol Sulfate 90 Mcg 8 Gm Inhaler INHALE Q4H PRN Wheezing Benzonatate 200 mg 10/17/20 10:05 10/18/20 10:12 Benzonatate 100 Mg Capsule PO 200 mg TID DEO Administration Docusate Sodium 100 mg 10/17/20 01:47 Docusate Sodium 100 Mg Capsule PO DAILY PRN Constipation Folic Acid 1 mg 10/17/20 09:00 10/18/20 10:11 Folic Acid 1 Mg Tablet PO 1 mg DAILY DEO Administration Guaifenesin 600 mg 10/17/20 11:00 10/18/20 10:11 Guaifenesin La 600 Mg Tab.Er.12h PO 600 mg BID DEO Administration Guaifenesin/Codeine Phosphate 10 ml 10/17/20 11:00 10/18/20 10:12 Guaifen/Codeine Sf 200/20/10ml 10 Ml Liquid PO 10 ml Q6H DEO Administration Hydrocodone Bit/Homatropine Methylb 5 ml 10/17/20 04:35 Hydrocodone/Homat 5/1.5/5 Ml 5 Ml Syrup PO Q6H PRN Cough Insulin Glargine 15 unit 10/17/20 09:00 10/18/20 10:10 Insulin Glargine,Hum.Rec.Anlog 100 Unit/Ml 10 Ml Vial SUBCUT Not Given DAILY [facility] Insulin Human Lispro 0 unit 10/17/20 07:30 10/18/20 09:06 Insulin Lispro 100 Unit/Ml 3 Ml Vial SUBCUT Not Given QIDACHS [facility] Insulin Human Lispro 0 unit 10/17/20 21:30 10/18/20 09:06 Insulin Lispro 100 Unit/Ml 3 Ml Vial SUBCUT Not Given QIDACHS [facility] Protocol Levetiracetam 1,000 mg 10/17/20 09:00 10/18/20 10:12 Levetiracetam 500 Mg Tablet PO 1,000 mg BID DEO Administration Metoprolol Tartrate 25 mg 10/17/20 09:00 10/18/20 10:10 Metoprolol Tartrate 25 Mg Tablet PO 25 mg BID DEO Administration Protocol Pantoprazole Sodium 40 mg 10/17/20 06:30 10/18/20 06:02 Pantoprazole Sodium 40 Mg/10 Ml Vial IVPUSH Not Given BID@0630,1630 [facility] Prednisone 20 mg 10/17/20 10:30 10/18/20 10:12 Prednisone 20 Mg Tablet PO 20 mg DAILY DEO Administration Quetiapine Fumarate 25 mg 10/18/20 21:00 Quetiapine Fumarate 25 Mg Tablet PO BEDTIME [facility] Quetiapine Fumarate 25 mg 10/18/20 11:04 Quetiapine Fumarate 25 Mg Tablet PO TID PRN anxiety/restlessness Tamsulosin HCl 0.8 mg 10/17/20 21:00 10/17/20 21:19 Tamsulosin Hcl 0.4 Mg Capsule PO 0.8 mg BEDTIME DEO Administration Trazodone HCl 50 mg 10/17/20 05:43 10/17/20 21:19 Trazodone Hcl 50 Mg Tablet PO 50 mg BEDTIME PRN Administration Insomnia Labs CBC & Chem 7: 10/17/20 04:51 10/18/20 06:27 Assessment and Plan (1) Hematemesis: Status: Acute (2) Acute upper GI bleed: Status: Acute (3) RADHA (acute kidney injury): Status: Acute (4) Afib: Status: Inactive Assessment and Plan: This is a 75-year-old gentleman with past medical history as above who presents to the hospital with complaints of hematemesis, hemoptysis, and tired black stool for 1 day. Positive occult blood suspected upper GI vs swallowing hemoptysis on chronic steroids and Eliquis on most recent admission. no drop In Hb hold Eliquis, to restart after discussing with GI s advanced diet pantoprazole 40 IV b.i.d. consult GI for evaluation follow H&H transfuse threshold of <7 acute on chronic hypoxic respiratory failure 2/2 Pul Fibrosis recent COVID infection Decrease O2 supplement to 8 L today Malagon Prednisone follow respiratory status AFib rate controlled hold Eliquis and continue metoprolol CKD stage 2 dc IV fluids follow BMP Increased anxiety Use Seroquel as needed and bedtime DVT prophylaxis: SCDs
[2020-10-18 11:50] LABS: Glucose, Whole Blood 85 mg/dL (60-115)
--- NOTE | 2020-10-18 15:41 | MHC.CM.PN ---
NURSE CARE MANGER NOTE ELECTRONIC MEDICAL RECORD REVIEWED ALONG WITH CASE DISCUSSED ON MULTIPLE DISCIPLINARY ROUNDS PER DOCUMENTATION(PATIENT WITH POSITIVE OCCULT BLOOD QUESTION OF SWALLOWING HEMOPTYSIS HE IS ON CHRONIC STEROIDS , ELIQUIS PLAN-per hosp[itlaist (ELIQUIS ON HOLD), CONSULT FOR GI FOR EVALUATION, MONITORING HGB/HCT.BNP HYPOXIA RESPIRATORY FAILURE, PULMONARY FIBROSIS RECENT COVID INFECTION DECREASED OXYGEN TO 8 LITERS TODAY, CONTINUE ORAL PREDNISOME,METOPROLOL, STARTED ON SEROQUEL PRN AT HS,) discharge plan short term rehab ( is in agreement) ist choice is the [facility]
[2020-10-18 17:38] LABS: Glucose, Whole Blood 98 mg/dL (60-115)
[2020-10-18] MEDS: Pantoprazole Sodium 40 MG/10 ML VIAL IVPUSH (17:53)
[2020-10-18 20:27] LABS: Glucose, Whole Blood 101 mg/dL (60-115)
[2020-10-18] MEDS: Tamsulosin HCL 0.4 MG CAPSULE 0.8 MG PO (21:35)
[2020-10-18] MEDS: QUEtiapine Fumarate 25 MG TABLET PO (21:37)
[2020-10-18] MEDS: guaiFEN/Codeine SF 200/20/10ML 10 ML LIQUID PO (21:59)
[2020-10-19] VITALS (10 sets, daily range): BP systolic 92–131; BP diastolic 58–70; PULSE 61–119; RESP 15–19; TEMP 36.1–37.1; O2SAT 84–96
--- NOTE | 2020-10-19 02:49 | PC.NURSE ---
patient on telepack, being monitored by [facility] RN
[2020-10-19 07:31] LABS: Glucose, Whole Blood 88 mg/dL (60-115)
[2020-10-19 07:53] LABS: Hematocrit 38.3 % (42-52); Mean Corpuscular HGB Conc 31.3 g/dl (31.0-36.0); Mean Corpuscular Hemoglobin 31.2 pg (27.0-33.0); Mean Corpuscular Volume 99.5 fL (80-98); Mean Platelet Volume 11.2 fL (9.4-12.4); Platelet Count 232 X10*3/uL (160-400); Red Blood Count 3.85 X10*6/uL (4.60-5.80); Red Cell Distribution Width 13.7 % (11.0-16.0); White Blood Count 7.6 X10*3/uL (4.8-10.8)
--- NOTE | 2020-10-19 10:55 | MHC.CM.PN ---
SECONDARY TO HOSPITALIST GOALS OF CARE CONVERSATION WITH HCP/ BARRETT, REFERRAL PLACED TO [facility]. CASE MANAGEMENT FOLLOWING.
--- NOTE | 2020-10-19 10:57 | MHC.CM.PN ---
PATIENT IS DC HOME NO SERVICES. RN AWARE OF PLAN.
[2020-10-19 11:25] LABS: Glucose, Whole Blood 121 mg/dL (60-115)
--- NOTE | 2020-10-19 11:27 | P.PNIM_ITS ---
Subjective Subjective Date of Service: 10/19/20 Interval History: the patient was seen and evaluated this morning Laying in bed, looks comfortable with decrease coughing episodes no hemoptysis\hematomesis episodes reported while in hospital Hemoglobin has been stable Increase restlessness and anxiety overnight overnight events. Systemic review: No fever, chills or weakness No chest pain, palpitation No shortness of breath coughing has improved No abdominal pain, nausea or vomiting No urinary symptoms No any rash or wounds Physical Exam Vital Signs: Vital Signs: Last Vital Signs Temp 97.2 F 10/19/20 11:12 Pulse 61 10/19/20 11:12 Resp 15 10/19/20 11:12 BP 115/61 10/19/20 11:12 Pulse Ox 96 10/19/20 11:12 Body Mass Index 22.4 Const: Other: Constitutional : Alert, oriented to self only Neck : Normal inspection, Supple Cardiovascular : RRR, S1 S2, no lower extremity edema Respiratory : fair bilateral air entry, fine basal crackles, no wheezes or rhonchi, on nasal cannula 6 L Gastrointestinal: soft, lax, Normal bowel sounds, Non tender Skin : Warm/Dry, No rash Neurological : Alert & oriented to self only otherwise confused, No focal deficit Objective Data Current Medications Generic Name Dose Route Start Last Admin Trade Name Freq PRN Reason Stop Dose Admin Acetaminophen 650 mg 10/17/20 01:47 10/18/20 00:13 Acetaminophen 325 Mg Tablet PO 650 mg Q6H PRN Administration Pain, Mild (Pain Scale 1-3) Albuterol Sulfate 2 puff 10/17/20 05:43 Albuterol Sulfate 90 Mcg 8 Gm Inhaler INHALE Q4H PRN Wheezing Benzonatate 200 mg 10/17/20 10:05 10/19/20 09:32 Benzonatate 100 Mg Capsule PO Not Given TID DEO Docusate Sodium 100 mg 10/17/20 01:47 Docusate Sodium 100 Mg Capsule PO DAILY PRN Constipation Folic Acid 1 mg 10/17/20 09:00 10/19/20 09:30 Folic Acid 1 Mg Tablet PO Not Given DAILY DEO Guaifenesin 600 mg 10/17/20 11:00 10/19/20 09:30 Guaifenesin La 600 Mg Tab.Er.12h PO Not Given BID DEO Guaifenesin/Codeine Phosphate 10 ml 10/17/20 11:00 10/19/20 11:20 Guaifen/Codeine Sf 200/20/10ml 10 Ml Liquid PO Not Given Q6H DEO Hydrocodone Bit/Homatropine Methylb 5 ml 10/17/20 04:35 Hydrocodone/Homat 5/1.5/5 Ml 5 Ml Syrup PO Q6H PRN Cough Insulin Glargine 15 unit 10/17/20 09:00 10/19/20 09:30 Insulin Glargine,Hum.Rec.Anlog 100 Unit/Ml 10 Ml Vial SUBCUT Not Given DAILY [facility] Insulin Human Lispro 0 unit 10/17/20 07:30 10/19/20 11:21 Insulin Lispro 100 Unit/Ml 3 Ml Vial SUBCUT Not Given QIDACHS [facility] Insulin Human Lispro 0 unit 10/17/20 21:30 10/19/20 11:21 Insulin Lispro 100 Unit/Ml 3 Ml Vial SUBCUT Not Given QIDACHS [facility] Protocol Levetiracetam 1,000 mg 10/17/20 09:00 10/19/20 09:30 Levetiracetam 500 Mg Tablet PO Not Given BID [facility] Metoprolol Tartrate 25 mg 10/17/20 09:00 10/19/20 09:31 Metoprolol Tartrate 25 Mg Tablet PO Not Given BID [facility] Protocol Pantoprazole Sodium 40 mg 10/17/20 06:30 10/19/20 06:50 Pantoprazole Sodium 40 Mg/10 Ml Vial IVPUSH Not Given BID@0630,1630 [facility] Prednisone 20 mg 10/17/20 10:30 10/19/20 09:31 Prednisone 20 Mg Tablet PO Not Given DAILY [facility] Quetiapine Fumarate 25 mg 10/18/20 21:00 10/18/20 21:37 Quetiapine Fumarate 25 Mg Tablet PO 25 mg BEDTIME DEO Administration Quetiapine Fumarate 25 mg 10/18/20 11:04 Quetiapine Fumarate 25 Mg Tablet PO TID PRN anxiety/restlessness Tamsulosin HCl 0.8 mg 10/17/20 21:00 10/18/20 21:35 Tamsulosin Hcl 0.4 Mg Capsule PO 0.8 mg BEDTIME DEO Administration Trazodone HCl 50 mg 10/17/20 05:43 10/17/20 21:19 Trazodone Hcl 50 Mg Tablet PO 50 mg BEDTIME PRN Administration Insomnia Labs CBC & Chem 7: 10/19/20 07:20 10/18/20 06:27 Assessment and Plan (1) Hematemesis: Status: Acute (2) Acute upper GI bleed: Status: Acute (3) RADHA (acute kidney injury): Status: Acute (4) Afib: Status: Inactive Assessment and Plan: This is a 75-year-old gentleman with past medical history as above who presents to the hospital with complaints of hematemesis, hemoptysis, and tired black stool for 1 day. Positive occult blood Seems to be from swallowing hemoptysis, unlikely GI P on chronic steroids and Eliquis on most recent admission. no drop In Hb To discussed the need of Eliquis with his HCP, she is opting to [facility] care so will continue to hold advanced diet DC pantoprazole 40 IV b.i.d, start omeprazole consult GI for evaluation follow H&H transfuse threshold of <7 acute on chronic hypoxic respiratory failure 2/2 Pul Fibrosis recent COVID infection Decrease O2 supplement to 6 L today Continue Prednisone follow respiratory status AFib rate controlled hold Eliquis and continue metoprolol CKD stage 2 dc IV fluids follow BMP Increased anxiety Use Seroquel as needed and bedtime DVT prophylaxis: SCDs
--- NOTE | 2020-10-19 11:31 | W.MHC.ACPN ---
Advanced Care Planning Note Advanced Care Planning Note Discussed with: family member(s) Time spent (in minutes): 18 Narrative: I had a chance to speak with the Patty the and HCP of the patient to discuss his ongoing medical problem and goals of care. The patient was recently in the hospital for almost a month for treatment of COVID-19 infection and it is related complications. He was discharged and came back to the hospital with few days with reported coughing and vomiting blood. He was started recently on blood thinners during the last admission. His blood work seems to be stable with no reported bleeding since admission. He has requiring more oxygen supplement during this hospital stay and his mentation is altered. The HCP reported that she was unable to take care of him at home as he is more confused and lethargic and unable to do much. They had discussions about his goals of care and she believes the next step should be comfort measures only. We discussed the difference between comfort measures for acute if Mary dying patient and hospice care. We agreed to involve hospice care team to evaluate the patient and needs of cares. To rediscuss and revisit the topic with HCP. Problems Discussed (1) RADHA (acute kidney injury): (2) Afib: (3) Respiratory failure: (4) Altered consciousness:
--- NOTE | 2020-10-19 12:21 | CONS_ITS ---
DATE OF SERVICE: 10/19/2020 REFERRING PHYSICIAN: Gloria Leon MD REASON FOR CONSULTATION: Anemia and Hemoccult-positive stools. HISTORY OF PRESENT ILLNESS: The patient is a pleasant 75-year-old man, who was admitted to the hospital on October 16 after presenting to the emergency room with a history of hematemesis and black tarry stools for 1 day prior to admission. He was started on Eliquis prior to discharge on the and had atrial fibrillation with a rapid ventricular response prior to that. He was evaluated in the emergency room on the day of admission and rectal examination at that time reportedly showed black stool. The patient was admitted to the hospital and has had no bleeding and his hematocrit has remained stable. His Eliquis has been discontinued and he has not required blood transfusion. The patient provides no useful history and the history is obtained from the chart and from nursing. PAST MEDICAL HISTORY: 1. Hypertension. 2. BPH. 3. Respiratory failure. 4. Atrial fibrillation. 5. Diabetes. 6. Pneumonia. CURRENT MEDICATIONS: Current medication list is reviewed in the chart. ALLERGIES: THERE ARE NONE REPORTED. FAMILY HISTORY: This is reviewed in electronic medical record and is noncontributory. SOCIAL HISTORY: There is no reported substance abuse. REVIEW OF SYSTEMS: Not reliably obtainable. PHYSICAL EXAMINATION: GENERAL: Shows a pleasant male, who denies abdominal pain. VITAL SIGNS: Reviewed in the electronic medical record and are stable. SKIN: Anicteric. HEENT: Shows no scleral icterus. NECK: Without lymphadenopathy or thyromegaly. LUNGS: Clear. HEART: Shows a regular rate and rhythm. S1, S2. No murmur. ABDOMEN: Soft without focal masses or tenderness. Bowel sounds are present. No organomegaly is noted. EXTREMITIES: Without edema. LABORATORY DATA: Shows a hematocrit of 38.3, up from 36.2 on admission. IMPRESSION: Anemia with Hemoccult-positive stools. At this time, he shows no signs of GI bleeding. The differential diagnosis for his hematemesis and black stools includes peptic ulcer disease, erosive esophagitis, mass lesions, and ulcers. At this point, appears quite stable with no signs of active GI bleeding and is currently off his anticoagulation. I would recommend monitoring his hematocrit and continuing a proton pump inhibitor. I do not think he needs endoscopy at this time. If he does show signs of bleeding, this could be considered. Thanks for asking me to see him. I will follow him in the hospital with you. MD CHEMA Pichardo/KENNEDY / [phone]
[2020-10-19] MEDS: Benzonatate 100 MG CAPSULE 200 MG PO ×2 (12:53→21:40)
[2020-10-19] MEDS: HYDROcodone/Homat 5/1.5/5 ML 5 ML SYRUP PO (12:53)
[2020-10-19] MEDS: guaiFEN/Codeine SF 200/20/10ML 10 ML LIQUID PO ×2 (15:33→21:45)
[2020-10-19] MEDS: Omeprazole 20 MG CAPSULE.DR PO (15:34)
[2020-10-19] MEDS: QUEtiapine Fumarate 25 MG TABLET PO ×2 (15:51→21:42)
--- NOTE | 2020-10-19 15:53 | PC.NURSE ---
P-patient anxious,sob,sat 91 on 6l i-repositioned, dr. manzanares notified,seroquel administered for anxiety,scheduled cough medicine administered e-will monitor
[2020-10-19 16:35] LABS: Glucose, Whole Blood 112 mg/dL (60-115)
[2020-10-19] MEDS: Acetaminophen 325 MG TABLET 650 MG PO (17:13)
[2020-10-19 21:07] LABS: Glucose, Whole Blood 101 mg/dL (60-115)
[2020-10-19] MEDS: guaiFENesin LA 600 MG TAB.ER.12H PO (21:41)
[2020-10-19] MEDS: Tamsulosin HCL 0.4 MG CAPSULE 0.8 MG PO (21:43)
[2020-10-19] MEDS: levETIRAcetam 500 MG TABLET 1000 MG PO (21:43)
[2020-10-20] VITALS (7 sets, daily range): BP systolic 94–148; BP diastolic 55–72; PULSE 66–99; RESP 16–24; TEMP 36.1–36.9; O2SAT 90–97
[2020-10-20 07:56] LABS: Glucose, Whole Blood 98 mg/dL (60-115)
[2020-10-20] MEDS: guaiFEN/Codeine SF 200/20/10ML 10 ML LIQUID PO ×3 (10:20→21:53)
[2020-10-20] MEDS: Benzonatate 100 MG CAPSULE 200 MG PO ×3 (10:21→20:43)
--- NOTE | 2020-10-20 10:45 | P.PNIM_ITS ---
Subjective Subjective Date of Service: 10/20/20 Interval History: the patient was seen and evaluated this morning Laying in bed, looks comfortable with decrease coughing episodes no hemoptysis\hematomesis episodes reported while in hospital Hemoglobin has been stable Patient confused and requires a sitter in the room Systemic review: No fever, chills or weakness No chest pain, palpitation No shortness of breath coughing has improved No abdominal pain, nausea or vomiting No urinary symptoms No any rash or wounds Physical Exam Vital Signs: Vital Signs: Last Vital Signs Temp 97.0 F 10/20/20 07:40 Pulse 66 10/20/20 07:40 Resp 16 10/20/20 07:40 BP 144/55 H 10/20/20 07:40 Pulse Ox 97 10/20/20 07:40 Body Mass Index 22.4 Const: Other: Constitutional : Alert, oriented to self only Neck : Normal inspection, Supple Cardiovascular : RRR, S1 S2, no lower extremity edema Respiratory : fair bilateral air entry, fine basal crackles, no wheezes or rhonchi, on nasal cannula 6 L Gastrointestinal: soft, lax, Normal bowel sounds, Non tender Skin : Warm/Dry, No rash Neurological : Alert & oriented to self only otherwise confused, No focal deficit Objective Data Current Medications Generic Name Dose Route Start Last Admin Trade Name Freq PRN Reason Stop Dose Admin Acetaminophen 650 mg 10/17/20 01:47 10/19/20 17:13 Acetaminophen 325 Mg Tablet PO 650 mg Q6H PRN Administration Pain, Mild (Pain Scale 1-3) Albuterol Sulfate 2 puff 10/17/20 05:43 Albuterol Sulfate 90 Mcg 8 Gm Inhaler INHALE Q4H PRN Wheezing Benzonatate 200 mg 10/17/20 10:05 10/20/20 10:21 Benzonatate 100 Mg Capsule PO 200 mg TID DEO Administration Docusate Sodium 100 mg 10/17/20 01:47 Docusate Sodium 100 Mg Capsule PO DAILY PRN Constipation Folic Acid 1 mg 10/17/20 09:00 10/20/20 09:35 Folic Acid 1 Mg Tablet PO Not Given DAILY DEO Guaifenesin 600 mg 10/17/20 11:00 10/20/20 09:37 Guaifenesin La 600 Mg Tab.Er.12h PO Not Given BID DEO Guaifenesin/Codeine Phosphate 10 ml 10/17/20 11:00 10/20/20 10:20 Guaifen/Codeine Sf 200/20/10ml 10 Ml Liquid PO 10 ml Q6H DEO Administration Hydrocodone Bit/Homatropine Methylb 5 ml 10/17/20 04:35 10/19/20 12:53 Hydrocodone/Homat 5/1.5/5 Ml 5 Ml Syrup PO 5 ml Q6H PRN Administration Cough Insulin Glargine 15 unit 10/17/20 09:00 10/20/20 09:35 Insulin Glargine,Hum.Rec.Anlog 100 Unit/Ml 10 Ml Vial SUBCUT Not Given DAILY [facility] Insulin Human Lispro 0 unit 10/17/20 21:30 10/20/20 09:21 Insulin Lispro 100 Unit/Ml 3 Ml Vial SUBCUT Not Given QIDACHS [facility] Protocol Levetiracetam 1,000 mg 10/17/20 09:00 10/20/20 09:36 Levetiracetam 500 Mg Tablet PO Not Given BID [facility] Metoprolol Tartrate 25 mg 10/17/20 09:00 10/20/20 09:36 Metoprolol Tartrate 25 Mg Tablet PO Not Given BID [facility] Protocol Omeprazole 20 mg 10/19/20 16:30 10/20/20 06:24 Omeprazole 20 Mg Capsule.Dr PO Not Given BID@0630,1630 [facility] Prednisone 20 mg 10/17/20 10:30 10/20/20 09:36 Prednisone 20 Mg Tablet PO Not Given DAILY [facility] Quetiapine Fumarate 25 mg 10/18/20 21:00 10/19/20 21:42 Quetiapine Fumarate 25 Mg Tablet PO 25 mg BEDTIME DEO Administration Quetiapine Fumarate 25 mg 10/18/20 11:04 10/19/20 15:51 Quetiapine Fumarate 25 Mg Tablet PO 25 mg TID PRN Administration anxiety/restlessness Tamsulosin HCl 0.8 mg 10/17/20 21:00 10/19/20 21:43 Tamsulosin Hcl 0.4 Mg Capsule PO 0.8 mg BEDTIME DEO Administration Trazodone HCl 50 mg 10/17/20 05:43 10/17/20 21:19 Trazodone Hcl 50 Mg Tablet PO 50 mg BEDTIME PRN Administration Insomnia Labs CBC & Chem 7: 10/19/20 07:20 10/18/20 06:27 Assessment and Plan (1) RADHA (acute kidney injury): Status: Acute (2) Afib: Status: Inactive (3) Respiratory failure: Status: Acute (4) Altered consciousness: Status: Acute Assessment and Plan: This is a 75-year-old gentleman with past medical history as above who presents to the hospital with complaints of hematemesis, hemoptysis, and tired black s tool for 1 day. Positive occult blood Seems to be from swallowing hemoptysis, unlikely GIB on chronic steroids and Eliquis on most recent admission. no drop In Hb discussed the need of Eliquis with his HCP, she is opting to [facility] care so will continue to hold advanced diet DC pantoprazole 40 IV b.i.d, start omeprazole consult GI for evaluation follow H&H transfuse threshold of <7 chronic hypoxic respiratory failure 2/2 Pul Fibrosis recent COVID infection Decrease O2 supplement to 6 L today Continue Prednisone follow respiratory status AFib rate controlled hold Eliquis and continue metoprolol CKD stage 2 dc IV fluids follow BMP Behavior problem Increased anxiety Use Seroquel as needed and bedtime Requiring a sitter in the room Dispo, pending hospice evaluation and regards question with family next Lyme DVT prophylaxis: SCDs
--- NOTE | 2020-10-20 10:51 | MHC.CM.PN ---
[facility] CONSULTED WITH , BARRETT. BARRETT DOES NOT FEEL SHE IS ABLE TO MANAGE RUMA'S CARE AT HOME AND IS LOOKING FOR SNF PLACEMENT. CURRENTLY [facility] HAS BEEN FOLLOWING. CASE MANAGEMENT TO SPEAK WITH BARRETT TODAY AND DISCUSS [facility]TC APPLICATION PROCESS.
--- NOTE | 2020-10-20 10:56 | MHC.CM.PN ---
BARRETT ([phone]) WOULD LIKE TO START THE LTC APPLICATION. [facility] FINANCE DEPT REQUEST FOR ASSISTANCE FAXED TO [phone]. CASE MANAGEMENT CONTINUING TO FOLLOW
[2020-10-20 12:06] LABS: Glucose, Whole Blood 104 mg/dL (60-115)
[2020-10-20] MEDS: HYDROcodone/Homat 5/1.5/5 ML 5 ML SYRUP PO (14:11)
--- NOTE | 2020-10-20 15:20 | PC.NURSE ---
questioned need for cardiac rehab nurse,ok to d/c cardiac rehab nurse per dr. Leon
[2020-10-20] MEDS: QUEtiapine Fumarate 25 MG TABLET PO ×2 (15:23→20:44)
[2020-10-20] MEDS: Omeprazole 20 MG CAPSULE.DR PO (15:23)
[2020-10-20 16:31] LABS: Glucose, Whole Blood 144 mg/dL (60-115)
[2020-10-20] MEDS: Acetaminophen 325 MG TABLET 650 MG PO (17:22)
[2020-10-20 20:31] LABS: Glucose, Whole Blood 152 mg/dL (60-115)
[2020-10-20] MEDS: Insulin Lispro 100 UNIT/ML 3 ML VIAL SUBCUT (20:44)
[2020-10-20] MEDS: guaiFENesin LA 600 MG TAB.ER.12H PO (20:46)
[2020-10-20] MEDS: levETIRAcetam 500 MG TABLET 1000 MG PO (20:47)
[2020-10-20] MEDS: Metoprolol Tartrate 25 MG TABLET PO (20:47)
[2020-10-20] MEDS: Tamsulosin HCL 0.4 MG CAPSULE 0.8 MG PO (20:49)
[2020-10-21] VITALS (9 sets, daily range): BP systolic 96–140; BP diastolic 59–93; PULSE 69–89; RESP 19–20; TEMP 36–36.8; O2SAT 90–97
[2020-10-21] MEDS: Omeprazole 20 MG CAPSULE.DR PO ×2 (05:44→17:43)
[2020-10-21] MEDS: guaiFEN/Codeine SF 200/20/10ML 10 ML LIQUID PO ×4 (05:44→22:02)
[2020-10-21 07:54] LABS: Glucose, Whole Blood 117 mg/dL (60-115)
[2020-10-21] MEDS: Insulin Glargine,Hum.rec.anlog 100 UNIT/ML 10 ML VIAL 15 UNIT SUBCUT (08:22)
[2020-10-21] MEDS: Folic Acid 1 MG TABLET PO (08:24)
[2020-10-21] MEDS: Benzonatate 100 MG CAPSULE 200 MG PO ×2 (08:24→22:03)
[2020-10-21] MEDS: levETIRAcetam 500 MG TABLET 1000 MG PO ×2 (08:24→22:03)
[2020-10-21] MEDS: guaiFENesin LA 600 MG TAB.ER.12H PO ×2 (08:24→22:03)
[2020-10-21] MEDS: predniSONE 20 MG TABLET PO (08:24)
--- NOTE | 2020-10-21 08:59 | HO.PM.IMPN ---
Subjective Subjective Date of Service: 10/21/20 Interval History: the patient was seen and evaluated this morning Laying in bed, looks comfortable, on 6 L of oxygen no hemoptysis\hematomesis episodes reported while in hospital Hemoglobin has been stable Patient confused at baseline Systemic review: No fever, chills or weakness No chest pain, palpitation No shortness of breath coughing has improved No abdominal pain, nausea or vomiting No urinary symptoms No any rash or wounds Physical Exam Vital Signs: Vital Signs: Last Vital Signs Temp 96.8 F 10/21/20 07:20 Pulse 69 10/21/20 07:20 Resp 19 10/21/20 07:20 BP 96/59 L 10/21/20 07:20 Pulse Ox 97 10/21/20 07:20 Body Mass Index 22.4 Const: Other: Constitutional : Alert, confused Neck : Normal inspection, Supple Cardiovascular : RRR, S1 S2, no lower extremity edema Respiratory : fair bilateral air entry, fine basal crackles, no wheezes or rhonchi, on nasal cannula 6 L Gastrointestinal: soft, lax, Normal bowel sounds, Non tender Skin : Warm/Dry, No rash Neurological : Alert & oriented to self only otherwise confused, No focal deficit Objective Data Current Medications Generic Name Dose Route Start Last Admin Trade Name Freq PRN Reason Stop Dose Admin Acetaminophen 650 mg 10/17/20 01:47 10/20/20 17:22 Acetaminophen 325 Mg Tablet PO 650 mg Q6H PRN Administration Pain, Mild (Pain Scale 1-3) Albuterol Sulfate 2 puff 10/17/20 05:43 Albuterol Sulfate 90 Mcg 8 Gm Inhaler INHALE Q4H PRN Wheezing Benzonatate 200 mg 10/17/20 10:05 10/21/20 08:24 Benzonatate 100 Mg Capsule PO 200 mg TID DEO Administration Docusate Sodium 100 mg 10/17/20 01:47 Docusate Sodium 100 Mg Capsule PO DAILY PRN Constipation Folic Acid 1 mg 10/17/20 09:00 10/21/20 08:24 Folic Acid 1 Mg Tablet PO 1 mg DAILY DEO Administration Guaifenesin 600 mg 10/17/20 11:00 10/21/20 08:24 Guaifenesin La 600 Mg Tab.Er.12h PO 600 mg BID DEO Administration Guaifenesin/Codeine Phosphate 10 ml 10/17/20 11:00 10/21/20 05:44 Guaifen/Codeine Sf 200/20/10ml 10 Ml Liquid PO 10 ml Q6H DEO Administration Hydrocodone Bit/Homatropine Methylb 5 ml 10/17/20 04:35 10/20/20 14:11 Hydrocodone/Homat 5/1.5/5 Ml 5 Ml Syrup PO 5 ml Q6H PRN Administration Cough Insulin Glargine 15 unit 10/17/20 09:00 10/21/20 08:22 Insulin Glargine,Hum.Rec.Anlog 100 Unit/Ml 10 Ml Vial SUBCUT 15 unit DAILY DEO Administration Insulin Human Lispro 0 unit 10/17/20 21:30 10/21/20 08:25 Insulin Lispro 100 Unit/Ml 3 Ml Vial SUBCUT Not Given QIDACHS [facility] Protocol Levetiracetam 1,000 mg 10/17/20 09:00 10/21/20 08:24 Levetiracetam 500 Mg Tablet PO 1,000 mg BID DEO Administration Metoprolol Tartrate 25 mg 10/17/20 09:00 10/20/20 20:47 Metoprolol Tartrate 25 Mg Tablet PO 25 mg BID DEO Administration Protocol Omeprazole 20 mg 10/19/20 16:30 10/21/20 05:44 Omeprazole 20 Mg Capsule.Dr PO 20 mg BID@0630,1630 DEO Administration Prednisone 20 mg 10/17/20 10:30 10/21/20 08:24 Prednisone 20 Mg Tablet PO 20 mg DAILY DEO Administration Quetiapine Fumarate 25 mg 10/18/20 21:00 10/20/20 20:44 Quetiapine Fumarate 25 Mg Tablet PO 25 mg BEDTIME DEO Administration Quetiapine Fumarate 25 mg 10/18/20 11:04 10/20/20 15:23 Quetiapine Fumarate 25 Mg Tablet PO 25 mg TID PRN Administration anxiety/restlessness Tamsulosin HCl 0.8 mg 10/17/20 21:00 10/20/20 20:49 Tamsulosin Hcl 0.4 Mg Capsule PO 0.8 mg BEDTIME DEO Administration Trazodone HCl 50 mg 10/17/20 05:43 10/17/20 21:19 Trazodone Hcl 50 Mg Tablet PO 50 mg BEDTIME PRN Administration Insomnia Labs CBC & Chem 7: 10/19/20 07:20 10/18/20 06:27 Assessment and Plan (1) RADHA (acute kidney injury): Status: Acute (2) Afib: Status: Inactive (3) Respiratory failure: Status: Acute (4) Altered consciousness: Status: Acute (5) Positive occult stool blood test: Status: Acute (6) Hematemesis: Status: Acute Assessment and Plan: This is a 75-year-old gentleman with past medical history as above who presents to the hospital with complaints of hematemesis, hemoptysis, and tired black stool for 1 day. Positive occult blood Seems to be from swallowing hemoptysis, unlikely GIB on chronic steroids and Eliquis on most recent admission. no drop In Hb discussed the need of Eliquis with his HCP, she is opting to [facility] care so will continue to hold advanced diet DC pantoprazole 40 IV b.i.d, start omeprazole GI input appreciated, no need for intervention at this point follow H&H transfuse threshold of <7 chronic hypoxic respiratory failure 2/2 Pul Fibrosis recent COVID infection Decrease O2 supplement to 6 L today Continue Prednisone follow respiratory status AFib rate controlled hold Eliquis and continue metoprolol CKD stage 2 dc IV fluids follow BMP Behavior problem Increased anxiety Use Seroquel as needed and bedtime Requiring a sitter in the room Dispo, pending hospice evaluation and regards question with family DVT prophylaxis: SCDs
[2020-10-21 11:47] LABS: Glucose, Whole Blood 150 mg/dL (60-115)
--- NOTE | 2020-10-21 12:01 | MHC.CM.PN ---
CM spoke to pts , Patty ([phone]) who reports she was able to speak to Saadia from and she does not want the pt to go to a [place] [facility] [place]. She reports she just wants him to get PT. Patty reports the pt is only confused because he is in the hospital, once he returned home after his last admission, his confusion cleared. She reports he was doing well but then had trouble walking back to the living room after using the rest room. She reports he did not fall because she was there with him and helped lower him to the floor. She reports she had to call the ambulance to help get him up and they brought him to the ED. She reported being interested in STR for the pt however after CM explained the barriers, including pts being unable to participate in a PT eval for insurance authorization, she reported she would like PT at home. Patty reports she will need to get the pt a hospital bed and bedside commode. She is aware the pt will need an order from his PCP so that the insurance will cover it. She will call them today to request this. Per pts , pt will DC home with [facility] for SN and PT. She would like [facility] as they have worked with the pt in the past. Pt will need BLS transport at [place].
[2020-10-21 16:32] LABS: Glucose, Whole Blood 193 mg/dL (60-115)
[2020-10-21] MEDS: Insulin Lispro 100 UNIT/ML 3 ML VIAL SUBCUT (17:43)
[2020-10-21] MEDS: Albuterol Sulfate 90 MCG 8 GM INHALER 2 PUFF INHALE (20:07)
[2020-10-21 20:30] LABS: Glucose, Whole Blood 142 mg/dL (60-115)
[2020-10-21] MEDS: Tamsulosin HCL 0.4 MG CAPSULE 0.8 MG PO (21:00)
[2020-10-21] MEDS: QUEtiapine Fumarate 25 MG TABLET PO (22:02)
[2020-10-21] MEDS: traZODone HCL 50 MG TABLET PO (22:03)
[2020-10-21] MEDS: Metoprolol Tartrate 25 MG TABLET PO (22:06)
[2020-10-22] VITALS (10 sets, daily range): BP systolic 95–122; BP diastolic 49–74; PULSE 60–89; RESP 18–23; TEMP 35.9–36.9; O2SAT 80–98
[2020-10-22] MEDS: QUEtiapine Fumarate 25 MG TABLET PO ×3 (01:16→21:33)
[2020-10-22] MEDS: HYDROcodone/Homat 5/1.5/5 ML 5 ML SYRUP PO (01:16)
[2020-10-22] MEDS: traZODone HCL 25 MG HALFTAB PO (02:33)
--- NOTE | 2020-10-22 06:34 | PC.NURSE ---
CARE OF THIS PATIENT WAS TAKEN BY ASSIGNMENT AT 0300. NURSE TO NURSE REPORT STATED PATIENT HAD BEEN RESTLESS AND UNCOOPERATIVE FROM [id number], THEREFORE, HOSPITALIST ON DUTY HAD PLACED MEDICATION ORDERS THAT CURRENTLY AT 0630 ARE EFFECTIVE PATIENT IS IN BED, EYES CLOSED, NOTED ASLEEP, NO S/SX DISTRESS, AND SITTER POSITIONED AT BEDSIDE. AFTER DISCUSSION WITH [employer] SYSTEM ADMINISTRATOR, THE BEST INTEREST OF PT IN MIND WILL NOT AWAKEN FOR SCHEDULED COUGH SYRUP OR PO PRILOSEC AT THIS TIME. WILL REPORT THIS INFORMATION TO DAY RN.
[2020-10-22 07:49] LABS: Glucose, Whole Blood 111 mg/dL (60-115)
[2020-10-22] MEDS: Insulin Glargine,Hum.rec.anlog 100 UNIT/ML 10 ML VIAL 15 UNIT SUBCUT (08:41)
[2020-10-22] MEDS: guaiFENesin LA 600 MG TAB.ER.12H PO ×2 (08:41→21:33)
[2020-10-22] MEDS: predniSONE 20 MG TABLET PO (08:41)
[2020-10-22] MEDS: Benzonatate 100 MG CAPSULE 200 MG PO ×2 (08:41→19:35)
[2020-10-22] MEDS: levETIRAcetam 500 MG TABLET 1000 MG PO ×2 (08:41→21:31)
[2020-10-22] MEDS: Folic Acid 1 MG TABLET PO (08:42)
[2020-10-22] MEDS: guaiFEN/Codeine SF 200/20/10ML 10 ML LIQUID PO (10:35)
--- NOTE | 2020-10-22 10:45 | MHC.CM.PN ---
EMR REVIEWED, PER MULTIDISCIPLINARY ROUNDS PT INCREASINGLY HYPOXIC, ON 7-8L OF O2, PT'S FAMILY TO DISCUSS [facility] SAL[facility] VS HOSPICE, NO DISCHARGE PLANNED FOR TODAY.
[2020-10-22] MEDS: Insulin Lispro 100 UNIT/ML 3 ML VIAL SUBCUT (11:39)
[2020-10-22 11:42] LABS: Glucose, Whole Blood 158 mg/dL (60-115)
--- NOTE | 2020-10-22 13:19 | P.PNIM_ITS ---
Subjective Subjective Date of Service: 10/22/20 Interval History: Patient was seen and evaluated at bedtime no hemoptysis\hematomesis now Patient confused at baseline continues to require oxygen Systemic review: No fever, chills or weakness No chest pain, palpitation No shortness of breath coughing has improved No abdominal pain, nausea or vomiting No urinary symptoms No any rash or wounds Physical Exam Vital Signs: Vital Signs: Last Vital Signs Temp 97.2 F 10/22/20 11:30 Pulse 78 10/22/20 11:30 Resp 23 H 10/22/20 11:30 BP 103/57 L 10/22/20 11:30 Pulse Ox 90 L 10/22/20 11:30 Body Mass Index 22.4 Const: General: cooperative and no acute distress O rientation/consciousness: patient oriented x3 Eyes: General: appearance normal, both eyes and all related structures Resp: Other: Tachypneic, coughing Effort & Inspection: normal respiratory effort and Actively coughing Auscultation: crackles Cardio: Other: Constitutional : Alert, confused Neck : Normal inspection, Supple Cardiovascular : RRR, S1 S2, no lower extremity edema Respiratory : fair bilateral air entry, fine basal crackles, no wheezes or rhonchi, on nasal cannula 6 L Gastrointestinal: soft, lax, Normal bowel sounds, Non tender Skin : Warm/Dry, No rash Neurological : Alert & oriented to self only otherwise confused, No focal deficit Rate: regular rate Rhythm: regular rhythm GI: Palpation (GI): Soft to palpation Auscultation: normal bowel sounds Neuro: General: patient oriented x3 Cognition (Neuro): normal cognition Extrem: General: Yes normal to inspection and Yes no pedal edema Objective Data Current Medications Generic Name Dose Route Start Last Admin Trade Name Pranavq PRN Reason Stop Dose Admin Acetaminophen 650 mg 10/17/20 01:47 10/20/20 17:22 Acetaminophen 325 Mg Tablet PO 650 mg Q6H PRN Administration Pain, Mild (Pain Scale 1-3) Albuterol Sulfate 2 puff 10/17/20 05:43 10/21/20 20:07 Albuterol Sulfate 90 Mcg 8 Gm Inhaler INHALE 2 puff Q4H PRN Administration Wheezing Benzonatate 200 mg 10/17/20 10:05 10/22/20 08:41 Benzonatate 100 Mg Capsule PO 200 mg TID DEO Administration Docusate Sodium 100 mg 10/17/20 01:47 Docusate Sodium 100 Mg Capsule PO DAILY PRN Constipation Folic Acid 1 mg 10/17/20 09:00 10/22/20 08:42 Folic Acid 1 Mg Tablet PO 1 mg DAILY DEO Administration Guaifenesin 600 mg 10/17/20 11:00 10/22/20 08:41 Guaifenesin La 600 Mg Tab.Er.12h PO 600 mg BID DEO Administration Insulin Glargine 15 unit 10/17/20 09:00 10/22/20 08:41 Insulin Glargine,Hum.Rec.Anlog 100 Unit/Ml 10 Ml Vial SUBCUT 15 unit DAILY [facility] Administration Insulin Human Lispro 0 unit 10/17/20 21:30 10/22/20 11:39 Insulin Lispro 100 Unit/Ml 3 Ml Vial SUBCUT 2 unit QIDACHS [facility] Administration Protocol Levetiracetam 1,000 mg 10/17/20 09:00 10/22/20 08:41 Levetiracetam 500 Mg Tablet PO 1,000 mg BID DEO Administration Metoprolol Tartrate 25 mg 10/17/20 09:00 10/22/20 08:48 Metoprolol Tartrate 25 Mg Tablet PO Not Given BID [facility] Protocol Omeprazole 20 mg 10/19/20 16:30 10/22/20 06:34 Omeprazole 20 Mg Capsule.Dr PO Not Given BID@0630,1630 [facility] Prednisone 20 mg 10/17/20 10:30 10/22/20 08:41 Prednisone 20 Mg Tablet PO 20 mg DAILY DEO Administration Quetiapine Fumarate 25 mg 10/18/20 21:00 10/21/20 22:02 Quetiapine Fumarate 25 Mg Tablet PO 25 mg BEDTIME DEO Administration Quetiapine Fumarate 25 mg 10/18/20 11:04 10/22/20 01:16 Quetiapine Fumarate 25 Mg Tablet PO 25 mg TID PRN Administration anxiety/restlessness Tamsulosin HCl 0.8 mg 10/17/20 21:00 10/21/20 21:00 Tamsulosin Hcl 0.4 Mg Capsule PO 0.8 mg BEDTIME DEO Administration Trazodone HCl 50 mg 10/17/20 05:43 10/21/20 22:03 Trazodone Hcl 50 Mg Tablet PO 50 mg BEDTIME PRN Administration Insomnia Labs CBC & Chem 7: 10/19/20 07:20 10/18/20 06:27 Assessment and Plan (1) RADHA (acute kidney injury): Status: Acute (2) Afib: Status: Inactive (3) Respiratory failure: Status: Acute (4) Altered consciousness: Status: Acute (5) Positive occult stool blood test: Status: Acute (6) Hematemesis: Status: Acute Assessment and Plan: This is a 75-year-old gentleman with past medical history as above who presents to the hospital with complaints of hematemesis, hemoptysis, and tired black stool for 1 day. Positive occult blood Seems to be from hemoptysis, unlikely GIB on chronic steroids and Eliquis on most recent admission. no drop In Hb HCp does not want start on Eliquis considering hospice advanced diet continue omeprazole GI input appreciated, no need for intervention at this point follow H&H transfuse threshold of <7 chronic hypoxic respiratory failure 2/2 Pul Fibrosis recent COVID infection continue oxygen supplementation currently at 6-7 L Continue Prednisone follow respiratory status AFib rate controlled hold Eliquis and continue metoprolol CKD stage 2 dc IV fluids follow BMP Behavior problem Increased anxiety Use Seroquel as needed and bedtime Requiring a sitter in the room Dispo, family decided on hospice DVT prophylaxis: SCDs
--- NOTE | 2020-10-22 15:28 | MHC.CM.PN ---
CM CONTACTED PT'S BARRETT AT 3:15PM ([phone]) REGARDING HOSPICE AND D/C PLANNING, PT'S IS ADAMANTLY REFUSING HOSPICE OR A FACILITY, PT'S INSISTENT AND REQUESTS WE DO ROM EXERCISES W/PT WHILE HE IS IN BED SO THAT HE CAN HAVE PT WHEN HE IS DISCHARGED, PT'S ALSO REPORTS SHE HAS REQUESTED PRESCRIPTIONS FOR A HOSPITAL BED, COMMODE, WALKER ETC FROM PT'S PCP, PT'S UNDER THE IMPRESSION INSURANCE WILL PAY FOR ALL SUPPLIES AND CM DID GIVE PT'S THE NUMBER TO TWO [employer]ICAL SUPPLY COMPANIES SO SHE COULD CALL AND VERIFY WHAT IS COVERED, PT'S ALSO REQUESTED TO SPEAK WITH HOSPITALIST, MESSAGE SENT W/REQUEST VIA [employer]. DISCHARGE PLAN: HOME W/[facility]NA, BLS FOR TRANSPORT
[2020-10-22] MEDS: Omeprazole 20 MG CAPSULE.DR PO (15:41)
[2020-10-22 16:09] LABS: Glucose, Whole Blood 142 mg/dL (60-115)
[2020-10-22 20:11] LABS: Glucose, Whole Blood 132 mg/dL (60-115)
[2020-10-22] MEDS: Metoprolol Tartrate 25 MG TABLET PO (21:33)
[2020-10-22] MEDS: Tamsulosin HCL 0.4 MG CAPSULE 0.8 MG PO (21:40)
[2020-10-22] MEDS: traZODone HCL 50 MG TABLET PO (21:55)
[2020-10-23] MEDS: QUEtiapine Fumarate 25 MG TABLET PO ×3 (02:51→23:24)
[2020-10-23] MEDS: Acetaminophen 325 MG TABLET 650 MG PO (03:39)
[2020-10-23 04:00] VITALS: BP 146/70; PULSE 89; RESP 20; TEMP 36.3; O2SAT 95
[2020-10-23] MEDS: Omeprazole 20 MG CAPSULE.DR PO (06:20)
[2020-10-23 07:45] LABS: Glucose, Whole Blood 91 mg/dL (60-115)
[2020-10-23 09:23] VITALS: BP 100/60; PULSE 59; RESP 18; TEMP 35.8; O2SAT 97
[2020-10-23] MEDS: guaiFENesin LA 600 MG TAB.ER.12H PO ×2 (10:16→20:18)
[2020-10-23] MEDS: Benzonatate 100 MG CAPSULE 200 MG PO ×2 (10:16→20:18)
[2020-10-23] MEDS: Folic Acid 1 MG TABLET PO (10:16)
[2020-10-23] MEDS: predniSONE 20 MG TABLET PO (10:17)
[2020-10-23] MEDS: levETIRAcetam 500 MG TABLET 1000 MG PO ×2 (10:17→20:19)
[2020-10-23 11:08] VITALS: BP 119/66; PULSE 69; RESP 17; TEMP 35.8; O2SAT 93
[2020-10-23 11:18] LABS: Glucose, Whole Blood 111 mg/dL (60-115)
[2020-10-23 11:44] LABS: MANUAL DIFF FLAG NO
[2020-10-23 11:50] LABS: Basophils Absolute Auto 0.1 X10*3/uL (0.0-0.2); Basophils Percent Auto 0.7 % (0-2); Eosinophils Absolute Auto 0.5 X10*3/uL (0.0-0.4); Eosinophils Percent Auto 6.4 % (0-4); Hematocrit 37.6 % (42-52); Hemoglobin 11.9 g/dl (14.0-18.0); Imm Gran Abs Auto 0.04 X10*3/uL (0.00-0.03); Imm Gran Pct Auto 0.5 % (0.0-0.4); Lymphocytes Absolute Auto 1.5 X10*3/uL (1.2-4.9); Lymphocytes Percent Auto 19.9 % (20-40); Mean Corpuscular HGB Conc 31.6 g/dl (31.0-36.0); Mean Corpuscular Volume 97.9 fL (80-98); Mean Platelet Volume 10.7 fL (9.4-12.4); Monocytes Absolute Auto 0.7 X10*3/uL (0.1-1.2); Monocytes Percent Auto 9.1 % (2-11); Neutrophils Absolute Auto 4.6 X10*3/uL (2.0-8.3); Neutrophils Percent Auto 63.4 % (45-73); Platelet Count 221 X10*3/uL (160-400); Red Blood Count 3.84 X10*6/uL (4.60-5.80); Red Cell Distribution Width 13.6 % (11.0-16.0); White Blood Count 7.3 X10*3/uL (4.8-10.8)
[2020-10-23 12:17] LABS: Anion Gap 14 (12-20); Blood Urea Nitrogen 27 mg/dL (9-16); Carbon Dioxide 24 mmol/L (22-29); Chloride 105 mmol/L (96-108); Creatinine Clr Calc Pharmacy 46.2; Estimated Glomerular Filt Rate 50; Glucose Random 94 mg/dL (60-115); Potassium 3.9 mmol/L (3.3-5.1); Sodium 139 mmol/L (135-145)
--- NOTE | 2020-10-23 14:34 | P.PNIM_ITS ---
Subjective Subjective Date of Service: 10/23/20 Interval History: Patient was seen and evaluated at bedtime Patient confused at baseline continues to require oxygen Systemic review: No fever, chills or weakness No chest pain, palpitation No shortness of breath coughing has improved No abdominal pain, nausea or vomiting No urinary symptoms No any rash or wounds Physical Exam Vital Signs: Vital Signs: Last Vital Signs Temp 96.5 F L 10/23/20 11:08 Pulse 69 10/23/20 11:08 Resp 17 10/23/20 11:08 BP 119/66 10/23/20 11:08 Pulse Ox 93 10/23/20 11:08 Body Mass Index 22.4 Const: General: no acute distress Orientation/consciousness: patient o riented x3 Eyes: General: appearance normal, both eyes and all related structures Resp: Other: Tachypneic, coughing Effort & Inspection: normal respiratory effort and Actively coughing Auscultation: crackles Cardio: Rate: regular rate Rhythm: regular rhythm GI: Palpation (GI): Soft to palpation Auscultation: normal bowel sounds Neuro: General: patient oriented x3 Cognition (Neuro): normal cognition Extrem: General: Yes normal to inspection and Yes no pedal edema Objective Data Current Medications Generic Name Dose Route Start Last Admin Trade Name Freq PRN Reason Stop Dose Admin Acetaminophen 650 mg 10/17/20 01:47 10/23/20 03:39 Acetaminophen 325 Mg Tablet PO 650 mg Q6H PRN Administration Pain, Mild (Pain Scale 1-3) Albuterol Sulfate 2 puff 10/17/20 05:43 10/21/20 20:07 Albuterol Sulfate 90 Mcg 8 Gm Inhaler INHALE 2 puff Q4H PRN Administration Wheezing Benzonatate 200 mg 10/17/20 10:05 10/23/20 14:33 Benzonatate 100 Mg Capsule PO Not Given TID DEO Docusate Sodium 100 mg 10/17/20 01:47 Docusate Sodium 100 Mg Capsule PO DAILY PRN Constipation Folic Acid 1 mg 10/17/20 09:00 10/23/20 10:16 Folic Acid 1 Mg Tablet PO 1 mg DAILY [facility] Administration Guaifenesin 600 mg 10/17/20 11:00 10/23/20 10:16 Guaifenesin La 600 Mg Tab.Er.12h PO 600 mg BID [facility] Administration Insulin Glargine 15 unit 10/17/20 09:00 10/23/20 10:27 Insulin Glargine,Hum.Rec.Anlog 100 Unit/Ml 10 Ml Vial SUBCUT Not Given DAILY [facility] Insulin Human Lispro 0 unit 10/17/20 21:30 10/23/20 12:27 Insulin Lispro 100 Unit/Ml 3 Ml Vial SUBCUT Not Given QIDACHS [facility]CLUDES [facility] Protocol Levetiracetam 1,000 mg 10/17/20 09:00 10/23/20 10:17 Levetiracetam 500 Mg Tablet PO 1,000 mg BID [facility] Administration Metoprolol Tartrate 25 mg 10/17/20 09:00 10/23/20 10:33 Metoprolol Tartrate 25 Mg Tablet PO Not Given BID [facility] Protocol Omeprazole 20 mg 10/19/20 16:30 10/23/20 06:20 Omeprazole 20 Mg Capsule.Dr PO 20 mg BID@0630,1630 [facility] Administration Prednisone 20 mg 10/17/20 10:30 10/23/20 10:17 Prednisone 20 Mg Tablet PO 20 mg DAILY [facility] Administration Quetiapine Fumarate 25 mg 10/18/20 21:00 10/22/20 21:33 Quetiapine Fumarate 25 Mg Tablet PO 25 mg BEDTIME [facility] Administration Quetiapine Fumarate 25 mg 10/18/20 11:04 10/23/20 02:51 Quetiapine Fumarate 25 Mg Tablet PO 25 mg TID PRN Administration anxiety/restlessness Tamsulosin HCl 0.8 mg 10/17/20 21:00 10/22/20 21:40 Tamsulosin Hcl 0.4 Mg Capsule PO 0.8 mg BEDTIME [facility] Administration Trazodone HCl 50 mg 10/17/20 05:43 10/22/20 21:55 Trazodone Hcl 50 Mg Tablet PO 50 mg BEDTIME PRN Administration Insomnia Labs CBC & Chem 7: 10/23/20 11:25 10/23/20 11:25 Assessment and Plan (1) RADHA (acute kidney injury): Status: Acute (2) Afib: Status: Inactive (3) Respiratory failure: Status: Resolved (4) Altered consciousness: Status: Acute (5) Positive occult stool blood test: Status: Acute (6) Hematemesis: Status: Acute Assessment and Plan: This is a 75-year-old gentleman with past medical history as above who presents to the hospital with complaints of hematemesis, hemoptysis, and tired black stool for 1 day. Positive occult blood Seems to be from hemoptysis, unlikely GIB on chronic steroids and Eliquis on most recent admission. no drop In Hb HCp does not want start on Eliquis considering hospice advanced diet continue omeprazole GI input appreciated, no need for intervention at this point follow H&H transfuse threshold of <7 chronic hypoxic respiratory failure 2/2 Pul Fibrosis recent COVID infection continue oxygen supplementation currently at 6-7 L Continue Prednisone follow respiratory status AFib rate controlled hold Eliquis and continue metoprolol CKD stage 2 dc IV fluids follow BMP Behavior problem Increased anxiety Use Seroquel as needed and bedtime Requiring a sitter in the room Dispo, family decided on hospice DVT prophylaxis: SCDs evaluated by Physical therapy recommended long-term care discussed with family wants to take him home, patient is high risk for fall case management working on safe discharge
[2020-10-23 15:36] VITALS: BP 132/73; PULSE 57; RESP 16; TEMP 35.7; O2SAT 100
[2020-10-23 16:25] LABS: Glucose, Whole Blood 136 mg/dL (60-115)
--- NOTE | 2020-10-23 16:41 | PC.NURSE ---
P-patient refuses sequentils I-dr. Buck notified e-activity encouraged
[2020-10-23 19:19] VITALS: BP 110/59; PULSE 85; RESP 16; TEMP 36.1; O2SAT 93
[2020-10-23 20:16] VITALS: BP 110/59; PULSE 85
[2020-10-23] MEDS: Metoprolol Tartrate 25 MG TABLET PO (20:16)
[2020-10-23] MEDS: Tamsulosin HCL 0.4 MG CAPSULE 0.8 MG PO (20:19)
[2020-10-23 20:38] LABS: Glucose, Whole Blood 166 mg/dL (60-115)
[2020-10-23] MEDS: Insulin Lispro 100 UNIT/ML 3 ML VIAL SUBCUT (21:19)
[2020-10-23] MEDS: traZODone HCL 50 MG TABLET PO (22:29)
[2020-10-24] VITALS (8 sets, daily range): BP systolic 113–138; BP diastolic 70–78; PULSE 61–100; RESP 16–20; TEMP 35.5–36.5; O2SAT 87–100
[2020-10-24] MEDS: QUEtiapine Fumarate 25 MG TABLET PO ×2 (01:55→20:44)
--- NOTE | 2020-10-24 07:07 | PC.NURSE ---
at 0145 pt very restless and agitated, trying to get out of bed, arguing with staff and getting combative. I gave him 25 mg of PRN seroquel at 2325, it's ordered TID PRN. I asked Dr. Beard if there was anything else he could order for him or if I could give the PRN seroquel early. He said to give the seroquel early. Seroquel given with some effectiveness.
[2020-10-24 08:21] LABS: Glucose, Whole Blood 102 mg/dL (60-115)
[2020-10-24] MEDS: levETIRAcetam 500 MG TABLET 1000 MG PO ×2 (09:54→20:44)
[2020-10-24] MEDS: predniSONE 20 MG TABLET PO (09:54)
[2020-10-24] MEDS: Metoprolol Tartrate 25 MG TABLET PO ×2 (09:54→20:46)
[2020-10-24] MEDS: Folic Acid 1 MG TABLET PO (09:54)
[2020-10-24] MEDS: guaiFENesin LA 600 MG TAB.ER.12H PO ×2 (09:56→20:45)
[2020-10-24] MEDS: Insulin Glargine,Hum.rec.anlog 100 UNIT/ML 10 ML VIAL 15 UNIT SUBCUT (09:56)
[2020-10-24] MEDS: Benzonatate 100 MG CAPSULE 200 MG PO ×3 (09:56→20:45)
[2020-10-24 11:18] LABS: Glucose, Whole Blood 94 mg/dL (60-115)
--- NOTE | 2020-10-24 11:42 | P.PNIM_ITS ---
Subjective Subjective Date of Service: 10/24/20 Interval History: Patient was seen and evaluated at bedtime Patient confused at baseline continues to require oxygen Review of Systems Unable to do review of system given confusion Physical Exam Vital Signs: Vital Signs: Last Vital Signs Temp 96.7 F L 10/24/20 08:00 Pulse 69 10/24/20 08:00 Resp 20 10/24/20 08:00 BP 119/73 10/24/20 08:00 Pulse Ox 94 10/24/20 08:00 Body Mass Index 22.4 Const: General: cooperative and no acute distress Orientation/consci ousness: patient oriented x3 Eyes: General: appearance normal, both eyes and all related structures Resp: Other: Tachypneic, coughing Effort & Inspection: normal respiratory effort and Actively coughing Auscultation: crackles Cardio: Rate: regular rate Rhythm: regular rhythm GI: Palpation (GI): Soft to palpation Auscultation: normal bowel sounds Neuro: General: patient oriented x3 Cognition (Neuro): normal cognition Extrem: General: Yes normal to inspection and Yes no pedal edema Objective Data Current Medications Generic Name Dose Route Start Last Admin Trade Name Freq PRN Reason Stop Dose Admin Acetaminophen 650 mg 10/17/20 01:47 10/23/20 03:39 Acetaminophen 325 Mg Tablet PO 650 mg Q6H PRN Administration Pain, Mild (Pain Scale 1-3) Albuterol Sulfate 2 puff 10/17/20 05:43 10/21/20 20:07 Albuterol Sulfate 90 Mcg 8 Gm Inhaler INHALE 2 puff Q4H PRN Administration Wheezing Benzonatate 200 mg 10/17/20 10:05 10/24/20 09:56 Benzonatate 100 Mg Capsule PO 200 mg TID DEO Administration Docusate Sodium 100 mg 10/17/20 01:47 Docusate Sodium 100 Mg Capsule PO DAILY PRN Constipation Folic Acid 1 mg 10/17/20 09:00 10/24/20 09:54 Folic Acid 1 Mg Tablet PO 1 mg DAILY [facility] Administration Guaifenesin 600 mg 10/17/20 11:00 10/24/20 09:56 Guaifenesin La 600 Mg Tab.Er.12h PO 600 mg BID [facility] Administration Insulin Glargine 15 unit 10/17/20 09:00 10/24/20 09:56 Insulin Glargine,Hum.Rec.Anlog 100 Unit/Ml 10 Ml Vial SUBCUT 15 unit DAILY [facility] Administration Insulin Human Lispro 0 unit 10/17/20 21:30 10/24/20 11:33 Insulin Lispro 100 Unit/Ml 3 Ml Vial SUBCUT Not Given QIDACHS [facility] Protocol Levetiracetam 1,000 mg 10/17/20 09:00 10/24/20 09:54 Levetiracetam 500 Mg Tablet PO 1,000 mg BID [facility] Administration Metoprolol Tartrate 25 mg 10/17/20 09:00 10/24/20 09:54 Metoprolol Tartrate 25 Mg Tablet PO 25 mg BID [facility] Administration Protocol Omeprazole 20 mg 10/19/20 16:30 10/24/20 06:01 Omeprazole 20 Mg Capsule.Dr PO Not Given BID@0630,8940 [facility] Prednisone 20 mg 10/17/20 10:30 10/24/20 09:54 Prednisone 20 Mg Tablet PO 20 mg DAILY [facility] Administration Quetiapine Fumarate 25 mg 10/18/20 21:00 10/23/20 20:16 Quetiapine Fumarate 25 Mg Tablet PO 25 mg BEDTIME [facility] Administration Quetiapine Fumarate 25 mg 10/18/20 11:04 10/24/20 01:55 Quetiapine Fumarate 25 Mg Tablet PO 25 mg TID PRN Administration anxiety/restlessness Tamsulosin HCl 0.8 mg 10/17/20 21:00 10/23/20 20:19 Tamsulosin Hcl 0.4 Mg Capsule PO 0.8 mg BEDTIME [facility] Administration Trazodone HCl 50 mg 10/17/20 05:43 10/23/20 22:29 Trazodone Hcl 50 Mg Tablet PO 50 mg BEDTIME PRN Administration Insomnia Labs CBC & Chem 7: 10/23/20 11:25 10/23/20 11:25 Assessment and Plan (1) RADHA (acute kidney injury): Status: Acute (2) Afib: Status: Inactive (3) Respiratory failure: Status: Resolved (4) Altered consciousness: Status: Acute (5) Positive occult stool blood test: Status: Acute (6) Hematemesis: Status: Acute Assessment and Plan: This is a 75-year-old gentleman with past medical history as above who presents to the hospital with complaints of hematemesis, hemoptysis, and tired black stool for 1 day. Positive occult blood Seems to be from hemoptysis, unlikely GIB on chronic steroids and Eliquis on most recent admission. no drop In Hb HCp does not want start on Eliquis given bleeding advanced diet continue omeprazole GI input appreciated, no need for intervention at this point follow H&H transfuse threshold of <7 chronic hypoxic respiratory failure 2/2 Pul Fibrosis recent COVID infection continue oxygen supplementation currently at 4-6 litres L Continue Prednisone follow respiratory status AFib rate controlled hold Eliquis and continue metoprolol CKD stage 2 dc IV fluids follow BMP Dementia with behavior problem Use Seroquel as needed and bedtime DVT prophylaxis: SCDs evaluated by Physical therapy recommended long-term care family wants to take him home, patient is high risk for fall discussed with again today willing to send patient to rehab, case management working on safe discharge
--- NOTE | 2020-10-24 13:50 | MHC.CM.PN ---
[facility] IS WILLING TO OFFER A BED, PENDING INSURANCE AUTHORIZATION. PROCESS STARTED. , BARRETT ([phone]) AWARE AND IN AGREEMENT. SHE EXPRESSES RELUCTANCE OVER PATIENT NOT DISCHARGING TO [facility] [place], BUT IS AWARE OF INSURANCE CONTRACT LIMITATIONS. CURRENTLY, NO [facility]ICE OR OTHER SNF IS OFFERING FOR PATIENT'S CONTINUED CARE. HOSPITALIST MADE AWARE. STATES THAT IF CASE MANAGEMENT IS UNABLE TO REACH HER AT HOME, TO PLEASE TRY HER CELL PHONE (ON FILE).
[2020-10-24] MEDS: Omeprazole 20 MG CAPSULE.DR PO (15:49)
[2020-10-24 16:27] LABS: Glucose, Whole Blood 143 mg/dL (60-115)
[2020-10-24 20:28] LABS: Glucose, Whole Blood 157 mg/dL (60-115)
[2020-10-24] MEDS: traZODone HCL 50 MG TABLET PO (20:45)
[2020-10-24] MEDS: Tamsulosin HCL 0.4 MG CAPSULE 0.8 MG PO (20:45)
[2020-10-24] MEDS: Insulin Lispro 100 UNIT/ML 3 ML VIAL SUBCUT (20:46)
[2020-10-25] VITALS (7 sets, daily range): BP systolic 109–140; BP diastolic 66–81; PULSE 61–83; RESP 18–24; TEMP 36–36.6; O2SAT 85–100
[2020-10-25] MEDS: QUEtiapine Fumarate 25 MG TABLET PO ×3 (00:38→20:52)
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
[2020-10-25] MEDS: Omeprazole 20 MG CAPSULE.DR PO ×2 (06:05→16:40)
[2020-10-25 07:41] LABS: Glucose, Whole Blood 103 mg/dL (60-115)
[2020-10-25] MEDS: Insulin Glargine,Hum.rec.anlog 100 UNIT/ML 10 ML VIAL 15 UNIT SUBCUT (08:36)
[2020-10-25] MEDS: Metoprolol Tartrate 25 MG TABLET PO ×2 (08:37→20:53)
[2020-10-25] MEDS: guaiFENesin LA 600 MG TAB.ER.12H PO ×2 (08:37→20:52)
[2020-10-25] MEDS: levETIRAcetam 500 MG TABLET 1000 MG PO ×2 (08:37→20:52)
[2020-10-25] MEDS: predniSONE 20 MG TABLET PO (08:37)
[2020-10-25] MEDS: Folic Acid 1 MG TABLET PO (08:37)
[2020-10-25] MEDS: Benzonatate 100 MG CAPSULE 200 MG PO ×3 (08:37→20:52)
[2020-10-25 11:37] LABS: Glucose, Whole Blood 139 mg/dL (60-115)
--- NOTE | 2020-10-25 13:17 | MHC.CM.PN ---
[facility] UNABLE TO OBTAIN AUTH, PATIENT IS UNABLE TO PARTICIPATE IN PHYSICAL THERAPY. BARRETT ([phone] MADE AWARE. IMM 10/25 DISCUSSED AND APPEALS CONTACT NUMBER ([phone]) GIVEN. BARRETT DICTATED NUMBER BACK TO THIS SEAM FINISHER. CASE MANAGEMENT ATTEMPTING TO SECURE A [facility] TO COME TO THE HOME. BARRETT AWARE OF PLAN AND ATTEMPTING TO SECURE A HOSPITAL BED FOR PATIENT SO THAT SHE CAN TAKE HIM HOME. BARRETT IS REQUESTING A PRESCRIPTION FOR A BEDSIDE COMMODE. CASE MANAGEMENT FOLLOWING.
--- NOTE | 2020-10-25 14:32 | P.PNIM_ITS ---
Subjective Subjective Date of Service: 10/25/20 Interval History: Patient was seen and evaluated at bedtime Patient confused at baseline continues to require oxygen Review of Systems Unable to do review of system given confusion Neurologic Neurologic: Reports confusion Psychiatric Psychiatric: Reports confusion Physical Exam Vital Signs: Vital Signs: Last Vital Signs Temp 97.7 F 10/25/20 11:13 Pulse 63 10/25/20 11:13 Resp 19 10/25/20 11:13 BP 109/69 10/25/20 11:13 Pulse Ox 100 10/25/20 11:13 Body Mass Index 22.4 Const: Other: therwise confused, No focal deficit General: cooperative, no acute distress and confusion Orientation/consciousness: confusion Eyes: General: appearance normal, both eyes and all related structures Resp: Effort & Inspection: normal respiratory effort and Actively coughing Auscultation: crackles Cardio: Rate: regular rate Rhythm: regular rhythm GI: Palpation (GI): Soft to palpation Auscultation: normal bowel sounds Neuro: General: confusion Cognition (Neuro): normal cognition Extrem: General: Yes normal to inspection and Yes no pedal edema Objective Data Current Medications Generic Name Dose Route Start Last Admin Trade Name Freq PRN Reason Stop Dose Admin Acetaminophen 650 mg 10/17/20 01:47 10/23/20 03:39 Acetaminophen 325 Mg Tablet PO 650 mg Q6H PRN Administration Pain, Mild (Pain Scale 1-3) Albuterol Sulfate 2 puff 10/17/20 05:43 10/21/20 20:07 Albuterol Sulfate 90 Mcg 8 Gm Inhaler INHALE 2 puff Q4H PRN Administration Wheezing Benzonatate 200 mg 10/17/20 10:05 10/25/20 14:21 Benzonatate 100 Mg Capsule PO 200 mg TID DEO Administration Docusate Sodium 100 mg 10/17/20 01:47 Docusate Sodium 100 Mg Capsule PO DAILY PRN Constipation Folic Acid 1 mg 10/17/20 09:00 10/25/20 08:37 Folic Acid 1 Mg Tablet PO 1 mg DAILY [facility] Administration Guaifenesin 600 mg 10/17/20 11:00 10/25/20 08:37 Guaifenesin La 600 Mg Tab.Er.12h PO 600 mg BID [facility] Administration Insulin Glargine 15 unit 10/17/20 09:00 10/25/20 08:36 Insulin Glargine,Hum.Rec.Anlog 100 Unit/Ml 10 Ml Vial SUBCUT 15 unit DAILY [facility] Administration Insulin Human Lispro 0 unit 10/17/20 21:30 10/25/20 11:44 Insulin Lispro 100 Unit/Ml 3 Ml Vial SUBCUT Not Given QIDACHS [facility] Protocol Levetiracetam 1,000 mg 10/17/20 09:00 10/25/20 08:37 Levetiracetam 500 Mg Tablet PO 1,000 mg BID [facility] Administration Metoprolol Tartrate 25 mg 10/17/20 09:00 10/25/20 08:37 Metoprolol Tartrate 25 Mg Tablet PO 25 mg BID [facility] Administration Protocol Omeprazole 20 mg 10/19/20 16:30 10/25/20 06:05 Omeprazole 20 Mg Capsule.Dr PO 20 mg BID@0630,2410 [facility] Administration Prednisone 20 mg 10/17/20 10:30 10/25/20 08:37 Prednisone 20 Mg Tablet PO 20 mg DAILY [facility] Administration Quetiapine Fumarate 25 mg 10/18/20 21:00 10/24/20 20:44 Quetiapine Fumarate 25 Mg Tablet PO 25 mg BEDTIME [facility] Administration Quetiapine Fumarate 25 mg 10/18/20 11:04 10/25/20 00:38 Quetiapine Fumarate 25 Mg Tablet PO 25 mg TID PRN Administration anxiety/restlessness Tamsulosin HCl 0.8 mg 10/17/20 21:00 10/24/20 20:45 Tamsulosin Hcl 0.4 Mg Capsule PO 0.8 mg BEDTIME [facility] Administration Trazodone HCl 50 mg 10/17/20 05:43 10/24/20 20:45 Trazodone Hcl 50 Mg Tablet PO 50 mg BEDTIME PRN Administration Insomnia Labs CBC & Chem 7: 10/23/20 11:25 10/23/20 11:25 Assessment and Plan (1) RADHA (acute kidney injury): Status: Acute (2) Afib: Status: Inactive (3) Respiratory failure: Status: Resolved (4) Altered consciousness: Status: Acute (5) Positive occult stool blood test: Status: Acute (6) Hematemesis: Status: Acute Assessment and Plan: This is a 75-year-old gentleman with past medical history as above who presents to the hospital with complaints of hematemesis, hemoptysis, and tired black stool for 1 day. Positive occult blood Seems to be from hemoptysis, unlikely GIB on chronic steroids and Eliquis on most recent admission. no drop In Hb HCp does not want start on Eliquis given bleeding Tolerating diet continue omeprazole GI input appreciated, no need for intervention at this point follow H&H chronic hypoxic respiratory failure 2/2 Pul Fibrosis recent COVID infection continue oxygen supplementation currently at 4-6 litres L Continue Prednisone follow respiratory status AFib rate controlled hold Eliquis and continue metoprolol CKD stage 2 dc IV fluids follow BMP Dementia with behavior problem Use Seroquel as needed and bedtime DVT prophylaxis: SCDs evaluated by Physical therapy recommended long-term care patient is high risk for fall awaiting rehab case management working on safe discharge
--- NOTE | 2020-10-25 15:17 | PM.DS ---
DS: Providers Provider Date of Service: 10/29/20 Date of admission: 10/16/20 22:45 Primary care physician: Unknown Physician Consults: 10/17/20 01:47 Consult to Gastroenterology Routine Consulting Provider: Charli Grajeda Reason for consultation: GI bleed Has provider been notified: No DS: Diagnosis Discharge Diagnosis (1) RADHA (acute kidney injury): Status: Acute (2) Afib: Status: Inactive (3) Respiratory failure: Status: Resolved (4) Altered consciousness: Status: Acute (5) Positive occult stool blood test: Status: Acute (6) Hematemesis: Status: Acute DS: Medications Discharge Medications Home Medications: Home Medications Medication Instructions Recorded Confirmed Lantus Solostar U-100 Insulin 35 unit SUBCUT DAILY 09/16/20 10/16/20 albuterol sulfate [ProAir HFA] 2 puff PO Q4H PRN 09/16/20 10/16/20 calcium carbonate-vitamin D3 2 tab PO DAILY 09/16/20 10/16/20 cyanocobalamin (vitamin B-12) 2 tab PO DAILY 09/16/20 10/16/20 folic acid 1 tab PO DAILY 09/16/20 10/16/20 guaifenesin 10 ml PO Q8H PRN 09/16/20 10/16/20 insulin aspart U-100 [Novolog See Protocol SUBCUT TID 09/16/20 10/16/20 Flexpen U-100 Insulin] levetiracetam 10 ml PO BID 09/16/20 10/16/20 multivitamin 1 tab PO DAILY 09/16/20 10/16/20 pantoprazole 1 tab PO DAILY 09/16/20 10/16/20 tamsulosin 2 cap PO BEDTIME 09/16/20 10/16/20 trazodone 1 tab PO BEDTIME PRN 09/16/20 10/16/20 Previous Rx's Medication Instructions Recorded prednisone 10 mg tablet 20 mg PO DAILY #90 tab 07/03/20 apixaban [Eliquis] 5 mg PO BID #60 tab 10/15/20 metoprolol tartrate 25 mg PO BID #60 tab 10/15/20 commode #1 ea 10/25/20 hospital bed #1 ea 10/25/20 DS: Summary Hospital Course Hospital Course: HPI 75-year-old male with past medical history of pulmonary interstitial fibrosis, subdural hematoma, hypertension, BPH was discharged from the hospital on 10/15 after a prolonged hospital stay for management of COVID-19 with acute on chronic hypoxic respiratory failure. Patient is at baseline 6 L of oxygen and was successfully weaned down to 6 L and sent home on the . While in the hospital patient developed AFib with RVR when at that time was started on Eliquis. He returns today stating that he had 1 episode of bloody vomitus. He also has a constant non relenting cough and reports that he noticed sputum produced with cough was also slightly bloody. He is also reporting black tarry stools for past 1 day. He otherwise denies any abdominal pain, no nausea, no chest pain, no shortness of breath more than usual, no abdominal pain diarrhea constipation, no urinary symptoms and no lower extremity edema. On arrival to the ED hemodynamically stable with no No significant abnormal vitals. Labs are significant for WBC count of 12.1 hemoglobin 12.3 which is around his baseline, PT of 17.5, INR of 1.5, BUN of 23, creatinine of 1.38 from 1.26 on the day prior, stool occult blood positive. Patient will be admitted for further management. Hospital course 75-year-old male recently treated with COVID pneumonia admitted with bloody vomiting with possible GI bleed, patient has hemoptysis and bloody vomiting was likely secondary to hemoptysis, H&H remains stable, patient was seen by Gastroenterology stool for occult blood was positive secondary to hemoptysis GI recommended no intervention. He was treated with PPI and h/h remained stable. patient was also treated with IV fluid for acute kidney injury, RADHA was resolved, patient continues to require 5-6 L of oxygen given patient recently has COVID and has interstitial lung disease. Patient was evaluated by Physical therapy recommended short-term rehab with transition to long-term care. Anticipate less than 30 days at STR. Time Spent with Patient Time attestation: Total time spent providing and/or coordinating discharge services: Discharge coordination time: Greater than 30 minutes Physical Exam Vital Signs: Vital Signs: Last Vital Signs Temp 96.8 F 10/25/20 15:10 Pulse 83 10/25/20 15:10 Resp 24 H 10/25/20 15:10 BP 134/75 10/25/20 15:10 Pulse Ox 100 10/25/20 11:13 Body Mass Index 22.4 DS: Data Data Completed and Pending Labs on day of discharge: Laboratory Results - last 24 hr 10/24/20 10/24/20 10/25/20 16:24 20:19 07:09 POC Glucose 143 H 157 H 103 10/25/20 11:10 POC Glucose 139 H Discharge Plan Discharge Patient Disposition: er SNF Referrals: [facility] [Other] ([facility] IS SUPPLYING BED AND BEDSIDE COMMODE. ) [facility] [Outside] [facility] [Outside] Physician,Unknown [Primary Care Provider] - Discharge Medications: New (DME) hospital bed Kit See Rx Instructions .ROUTE .MEDSUPPLY Qty: 1 RF: 0 (DME) commode Kit See Rx Instructions .ROUTE .MEDSUPPLY Qty: 1 RF: 0 Continued prednisone 10 mg tablet 20 mg PO DAILY Qty: 90 RF: 1 insulin aspart U-100 [Novolog Flexpen U-100 Insulin] 100 unit/mL (3 mL) insulin pen See Protocol unit subcut TID RF: 0 levetiracetam 100 mg/mL solution 10 ml PO BID RF: 0 Lantus Solostar U-100 Insulin 100 unit/mL (3 mL) insulin pen 35 unit subcut DAILY RF: 0 albuterol sulfate [ProAir HFA] 90 mcg/actuation HFA aerosol inhaler 2 puff PO Q4H PRN (Reason: Wheezing) RF: 0 calcium carbonate-vitamin D3 600 mg(1,500mg) -400 unit tablet 2 tab PO DAILY RF: 0 cyanocobalamin (vitamin B-12) 1,000 mcg tablet 2 tab PO DAILY RF: 0 folic acid 1 mg tablet 1 tab PO DAILY RF: 0 multivitamin Tablet 1 tab PO DAILY RF: 0 trazodone 50 mg tablet 1 tab PO BEDTIME PRN (Reason: Insomnia) RF: 0 tamsulosin 0.4 mg capsule 2 cap PO BEDTIME RF: 0 guaifenesin 100 mg/5 mL liquid 10 ml PO Q8H PRN (Reason: Cough) RF: 0 pantoprazole 40 mg tablet,delayed release (DR/EC) 1 tab PO DAILY RF: 0 metoprolol tartrate 25 mg Tablet 25 mg PO BID Qty: 60 RF: 0 Discontinued Eliquis 5 mg Tablet 5 mg PO BID Qty: 60 RF: 0 Discharge Orders: Discharge Order (Routine); Ordered 10/27/20 Ordered By: Raphael Garcia Diet: advance to usual diet Activity on Discharge: As tolerated Stand Alone Forms: Patient Portal Discharge page Care Plan Goals: To stay healthy and out of the hospital. Health Concerns: GI Bleed. Plan of Treatment: No further bleeding. Discharge Date/Time: 10/27/20 13:27
--- NOTE | 2020-10-25 15:20 | MHC.CM.PN ---
[facility] IS WILLING TO PROVIDE A HOSPITAL BED CONTACT IS [facility] @ [phone]. FACE SHEET, RX FOR BED (AND COMMODE), AND DC SUMMARY FAXED TO [facility] @ [phone]. SHARAD NOTIFIED THAT PATIENT MAY NOT DC UNTIL WEDNESDAY OR WEDNESDAY. [facility] ([phone]) MADE AWARE. [facility] IS SCHEDULING THE REMOVAL OF A LARGE CHAIR SO THAT THE BED WILL FIT. THIS IS SCHEDULED TO OCCUR ON Wednesday. RN, HOSPITALIST,AND UNIT MADE AWARE
--- NOTE | 2020-10-25 16:03 | MHC.CM.PN ---
CALL RECEIVED FROM [facility] AT [facility]. BED TO BE DELIVERED Wednesday. [facility] TO NOTIFY , [facility]. UNIT AWARE.
[2020-10-25 16:25] LABS: Glucose, Whole Blood 202 mg/dL (60-115)
[2020-10-25] MEDS: Insulin Lispro 100 UNIT/ML 3 ML VIAL SUBCUT ×2 (16:40→20:53)
[2020-10-25 20:44] LABS: Glucose, Whole Blood 152 mg/dL (60-115)
[2020-10-25] MEDS: Tamsulosin HCL 0.4 MG CAPSULE 0.8 MG PO (20:52)
[2020-10-26] VITALS (7 sets, daily range): BP systolic 117–144; BP diastolic 61–80; PULSE 59–96; RESP 18–34; TEMP 35.7–36.6; O2SAT 90–99
[2020-10-26] MEDS: Omeprazole 20 MG CAPSULE.DR PO ×2 (06:28→16:00)
[2020-10-26 07:52] LABS: Glucose, Whole Blood 101 mg/dL (60-115)
[2020-10-26 08:52] LABS: MANUAL DIFF FLAG NO
[2020-10-26] MEDS: Benzonatate 100 MG CAPSULE 200 MG PO ×3 (08:52→21:05)
[2020-10-26] MEDS: Folic Acid 1 MG TABLET PO (08:52)
[2020-10-26] MEDS: guaiFENesin LA 600 MG TAB.ER.12H PO ×2 (08:52→21:05)
[2020-10-26] MEDS: predniSONE 20 MG TABLET PO (08:53)
[2020-10-26] MEDS: Metoprolol Tartrate 25 MG TABLET PO ×2 (08:53→21:06)
[2020-10-26] MEDS: levETIRAcetam 500 MG TABLET 1000 MG PO ×2 (08:53→21:05)
[2020-10-26] MEDS: Insulin Glargine,Hum.rec.anlog 100 UNIT/ML 10 ML VIAL 15 UNIT SUBCUT (08:55)
[2020-10-26 08:59] LABS: Basophils Absolute Auto 0.1 X10*3/uL (0.0-0.2); Basophils Percent Auto 0.7 % (0-2); Eosinophils Absolute Auto 0.2 X10*3/uL (0.0-0.4); Eosinophils Percent Auto 2.7 % (0-4); Hematocrit 41.2 % (42-52); Hemoglobin 12.8 g/dl (14.0-18.0); Imm Gran Abs Auto 0.08 X10*3/uL (0.00-0.03); Imm Gran Pct Auto 1.1 % (0.0-0.4); Mean Corpuscular HGB Conc 31.1 g/dl (31.0-36.0); Mean Corpuscular Hemoglobin 30.8 pg (27.0-33.0); Mean Corpuscular Volume 99.3 fL (80-98); Mean Platelet Volume 11.2 fL (9.4-12.4); Monocytes Absolute Auto 0.8 X10*3/uL (0.1-1.2); Monocytes Percent Auto 11.1 % (2-11); Neutrophils Absolute Auto 4.3 X10*3/uL (2.0-8.3); Neutrophils Percent Auto 57.4 % (45-73); Platelet Count 181 X10*3/uL (160-400); Red Blood Count 4.15 X10*6/uL (4.60-5.80); Red Cell Distribution Width 13.6 % (11.0-16.0); White Blood Count 7.5 X10*3/uL (4.8-10.8)
[2020-10-26 09:22] LABS: Anion Gap 15 (12-20); Blood Urea Nitrogen 20 mg/dL (9-16); Calcium 8.5 mg/dL (8.4-10.2); Carbon Dioxide 19 mmol/L (22-29); Chloride 110 mmol/L (96-108); Creatinine Clr Calc Pharmacy 59.6; Estimated Glomerular Filt Rate > 60; Glucose Random 115 mg/dL (60-115); Potassium 4.3 mmol/L (3.3-5.1); Sodium 140 mmol/L (135-145)
--- NOTE | 2020-10-26 11:48 | P.PNIM_ITS ---
Subjective Subjective Date of Service: 10/26/20 Interval History: Patient was seen and evaluated at bedtime Patient confused at baseline and weak continues to require oxygen Review of Systems Unable to do review of system given confusion Neurologic Neurologic: Reports confusion Psychiatric Psychiatric: Reports confusion Physical Exam Vital Signs: Vital Signs: Last Vital Signs Temp 97.1 F 10/26/20 11:12 Pulse 59 10/26/20 11:12 Resp 18 10/26/20 11:12 BP 117/70 10/26/20 11:12 Pulse Ox 98 10/26/20 11:12 Body Mass Index 22.4 Const: Other: therwise confused, No focal deficit General: cooperative, no acute distress and confusion Orientation/consciousness: confusion Eyes: General: appearance normal, both eyes and all related structures Resp: Effort & Inspection: normal respiratory effort and Actively coughing Auscultation: crackles Cardio: Rate: regular rate Rhythm: regular rhythm GI: Palpation (GI): Soft to palpation Auscultation: normal bowel sounds Neuro: General: confusion Cognition (Neuro): normal cognition Extrem: General: Yes normal to inspection and Yes no pedal edema Objective Data Current Medications Generic Name Dose Route Start Last Admin Trade Name Freq PRN Reason Stop Dose Admin Acetaminophen 650 mg 10/17/20 01:47 10/23/20 03:39 Acetaminophen 325 Mg Tablet PO 650 mg Q6H PRN Administration Pain, Mild (Pain Scale 1-3) Albuterol Sulfate 2 puff 10/17/20 05:43 10/21/20 20:07 Albuterol Sulfate 90 Mcg 8 Gm Inhaler INHALE 2 puff Q4H PRN Administration Wheezing Benzonatate 200 mg 10/17/20 10:05 10/26/20 08:52 Benzonatate 100 Mg Capsule PO 200 mg TID DEO Administration Docusate Sodium 100 mg 10/17/20 01:47 Docusate Sodium 100 Mg Capsule PO DAILY PRN Constipation Folic Acid 1 mg 10/17/20 09:00 10/26/20 08:52 Folic Acid 1 Mg Tablet PO 1 mg DAILY DEO Administration Guaifenesin 600 mg 10/17/20 11:00 10/26/20 08:52 Guaifenesin La 600 Mg Tab.Er.12h PO 600 mg BID DEO Administration Insulin Glargine 15 unit 10/17/20 09:00 10/26/20 08:55 Insulin Glargine,Hum.Rec.Anlog 100 Unit/Ml 10 Ml Vial SUBCUT 15 unit DAILY DEO Administration Insulin Human Lispro 0 unit 10/17/20 21:30 10/26/20 08:32 Insulin Lispro 100 Unit/Ml 3 Ml Vial SUBCUT Not Given QIDACHS [facility] Protocol Levetiracetam 1,000 mg 10/17/20 09:00 10/26/20 08:53 Levetiracetam 500 Mg Tablet PO 1,000 mg BID DEO Administration Metoprolol Tartrate 25 mg 10/17/20 09:00 10/26/20 08:53 Metoprolol Tartrate 25 Mg Tablet PO 25 mg BID DEO Administration Protocol Omeprazole 20 mg 10/19/20 16:30 10/26/20 06:28 Omeprazole 20 Mg Capsule.Dr PO 20 mg BID@0630,4780 DEO Administration Prednisone 20 mg 10/17/20 10:30 10/26/20 08:53 Prednisone 20 Mg Tablet PO 20 mg DAILY DEO Administration Quetiapine Fumarate 25 mg 10/18/20 21:00 10/25/20 20:52 Quetiapine Fumarate 25 Mg Tablet PO 25 mg BEDTIME DEO Administration Quetiapine Fumarate 25 mg 10/18/20 11:04 10/25/20 18:59 Quetiapine Fumarate 25 Mg Tablet PO 25 mg TID PRN Administration anxiety/restlessness Tamsulosin HCl 0.8 mg 10/17/20 21:00 10/25/20 20:52 Tamsulosin Hcl 0.4 Mg Capsule PO 0.8 mg BEDTIME DEO Administration Trazodone HCl 50 mg 10/17/20 05:43 10/24/20 20:45 Trazodone Hcl 50 Mg Tablet PO 50 mg BEDTIME PRN Administration Insomnia Labs CBC & Chem 7: 10/26/20 08:44 10/26/20 08:44 Assessment and Plan (1) RADHA (acute kidney injury): Status: Acute (2) Afib: Status: Inactive (3) Respiratory failure: Status: Resolved (4) Altered consciousness: Status: Acute (5) Positive occult stool blood test: Status: Acute (6) Hematemesis: Status: Acute Assessment and Plan: This is a 75-year-old gentleman with past medical history as above who presents to the hospital with complaints of hematemesis, hemoptysis, and tired black stool for 1 day. Episode of hemoptysis and hematemesis on admission Positive occult blood Seems to be from hemoptysis, unlikely GIB on chronic steroids and Eliquis on most recent admission. no drop In Hb HCp does not want start on Eliquis given bleeding Tolerating diet continue omeprazole GI input appreciated, no need for intervention at this point follow H&H Chronic hypoxic respiratory failure 2/2 Pul Fibrosis recent COVID infection continue oxygen supplementation currently at 4-6 litres L Continue Prednisone follow respiratory status AFib rate controlled hold Eliquis and continue metoprolol CKD stage 2 dc IV fluids follow BMP Dementia with behavior problem Use Seroquel as needed and bedtime DVT prophylaxis: SCDs evaluated by Physical therapy recommended long-term care , patient is high risk for fall case management working on safe discharge arranging equipments , plan to discharge home on wednesday with physical therapy
[2020-10-26 11:51] LABS: Glucose, Whole Blood 162 mg/dL (60-115)
[2020-10-26] MEDS: Insulin Lispro 100 UNIT/ML 3 ML VIAL SUBCUT (12:08)
[2020-10-26 16:29] LABS: Glucose, Whole Blood 116 mg/dL (60-115)
[2020-10-26] MEDS: QUEtiapine Fumarate 25 MG TABLET PO ×2 (17:03→21:06)
[2020-10-26 20:43] LABS: Glucose, Whole Blood 137 mg/dL (60-115)
[2020-10-26] MEDS: traZODone HCL 50 MG TABLET PO (21:06)
[2020-10-26] MEDS: Tamsulosin HCL 0.4 MG CAPSULE 0.8 MG PO (21:06)
[2020-10-27] VITALS: BP 121/72; PULSE 60; RESP 20; TEMP 36.7; O2SAT 98
[2020-10-27 04:00] VITALS: RESP 20
[2020-10-27] MEDS: Omeprazole 20 MG CAPSULE.DR PO (06:16)
[2020-10-27 07:15] VITALS: BP 140/77; PULSE 59; RESP 18; TEMP 36.1; O2SAT 99
[2020-10-27 07:32] LABS: Glucose, Whole Blood 106 mg/dL (60-115)
[2020-10-27] MEDS: levETIRAcetam 500 MG TABLET 1000 MG PO (08:58)
[2020-10-27] MEDS: predniSONE 20 MG TABLET PO (08:58)
[2020-10-27] MEDS: guaiFENesin LA 600 MG TAB.ER.12H PO (08:58)
[2020-10-27] MEDS: Insulin Glargine,Hum.rec.anlog 100 UNIT/ML 10 ML VIAL 15 UNIT SUBCUT (08:58)
[2020-10-27] MEDS: Metoprolol Tartrate 25 MG TABLET PO (08:58)
[2020-10-27] MEDS: Benzonatate 100 MG CAPSULE 200 MG PO (08:58)
[2020-10-27] MEDS: Folic Acid 1 MG TABLET PO (08:58)
--- NOTE | 2020-10-27 10:00 | MHC.CM.PN ---
Addendum entered by Karolina Ward 10/27/20 12:30: COVID-19 test results sent to SNF via [employer] Original Note: [facility] NOTIFIED CASE MANAGEMENT THAT THEY ARE ABLE TO OFFER A BED ON A LESS THAN 30 DAY ANTICIPATED STAY. CALL TO , [facility] ([phone]) WHO AGREES THAT THIS IS A BETTER PLAN FOR PATIENT. HOSPITALIST MADE AWARE. CM TO NOTIFY [facility] AND [facility] OF THE CHANGE, AND ASK AGENCIES TO FOLLOW FROM [facility]. IMM 3/ IN CHART. RN AND UNIT AWARE OF PLAN. IS BRINGING CLOTHES IN BEFORE [facility] 1300 TRANSPORT [facility]IA [facility].
--- NOTE | 2020-10-27 10:27 | P.DS_ITS ---
DS: Providers Provider Date of Service: 10/27/20 Date of admission: 10/16/20 22:45 Primary care physician: Unknown Physician Consults: 10/17/20 01:47 Consult to Gastroenterology Routine Consulting Provider: Charli Grajeda Reason for consultation: GI bleed Has provider been notified: No DS: Diagnosis Discharge Diagnosis (1) Acute upper GI bleed: Status: Acute (2) RADHA (acute kidney injury): Status: Acute (3) Respiratory failure: Status: Resolved (4) Altered consciousness: Status: Acute (5) Hemoptysis: Status: Acute DS: Medications Discharge Medications Home Medications: Home Medications Medication Instructions Recorded Confirmed Lantus Solostar U-100 Insulin 35 unit SUBCUT DAILY 09/16/20 10/16/20 albuterol sulfate [ProAir HFA] 2 puff PO Q4H PRN 09/16/20 10/16/20 calcium carbonate-vitamin D3 2 tab PO DAILY 09/16/20 10/16/20 cyanocobalamin (vitamin B-12) 2 tab PO DAILY 09/16/20 10/16/20 folic acid 1 tab PO DAILY 09/16/20 10/16/20 guaifenesin 10 ml PO Q8H PRN 09/16/20 10/16/20 insulin aspart U-100 [Novolog See Protocol SUBCUT TID 09/16/20 10/16/20 Flexpen U-100 Insulin] levetiracetam 10 ml PO BID 09/16/20 10/16/20 multivitamin 1 tab PO DAILY 09/16/20 10/16/20 pantoprazole 1 tab PO DAILY 09/16/20 10/16/20 tamsulosin 2 cap PO BEDTIME 09/16/20 10/16/20 trazodone 1 tab PO BEDTIME PRN 09/16/20 10/16/20 Previous Rx's Medication Instructions Recorded prednisone 10 mg tablet 20 mg PO DAILY #90 tab 07/03/20 metoprolol tartrate 25 mg PO BID #60 tab 10/15/20 commode #1 ea 10/25/20 hospital bed #1 ea 10/25/20 DS: Summary Hospital Course Hospital Course: HPI 75-year-old male with past medical history of pulmonary interstitial fibrosis, subdural hematoma, hypertension, BPH was discharged from the hospital on 10/15 after a prolonged hospital stay for management of COVID-19 with acute on chronic hypoxic respiratory failure. Patient is at baseline 6 L of oxygen and was successfully weaned down to 6 L and sent home on the . While in the hospital patient developed AFib with RVR when at that time was started on Eliqu is. He returns today stating that he had 1 episode of bloody vomitus. He also has a constant non relenting cough and reports that he noticed sputum produced with cough was also slightly bloody. He is also reporting black tarry stools for past 1 day. He otherwise denies any abdominal pain, no nausea, no chest pain, no shortness of breath more than usual, no abdominal pain diarrhea constipation, no urinary symptoms and no lower extremity edema. On arrival to the ED hemodynamically stable with no No significant abnormal vitals. Labs are significant for WBC count of 12.1 hemoglobin 12.3 which is around his baseline, PT of 17.5, INR of 1.5, BUN of 23, creatinine of 1.38 from 1.26 on the day prior, stool occult blood positive. Patient will be admitted for further management. Hospital course 75-year-old male recently treated with COVID pneumonia admitted with bloody vomiting with possible GI bleed, patient has hemoptysis and bloody vomiting was likely secondary to hemoptysis, H&H remains stable, patient was seen by Gastroenterology stool for occult blood was positive secondary to hemoptysis GI recommended no intervention. He was treated with PPI and h/h remained stable. patient was also treated with IV fluid for acute kidney injury, RADHA was resolved, patient continues to require 5-6 L of oxygen given patient recently has COVID and has interstitial lung disease. Patient was evaluated by Physical therapy recommended short-term rehab with transition to long-term care. Anticipate less than 30 days at STR. Time Spent with Patient Time attestation: Total time spent providing and/or coordinating discharge services: Discharge coordination time: Greater than 30 minutes Physical Exam Vital Signs: Vital Signs: Last Vital Signs Temp 96.9 F 10/27/20 07:15 Pulse 59 10/27/20 07:15 Resp 18 10/27/20 07:15 BP 140/77 H 10/27/20 07:15 Pulse Ox 99 10/27/20 07:15 Body Mass Index 22.4 Const: Other: therwise confused, No focal deficit General: cooperative, no acute distress and confusion Orientation/consciousness: confusion Eyes: General: appearance normal, both eyes and all related structures Resp: Other: Tachypneic, coughing Effort & Inspection: normal respiratory effort and Actively coughing Auscultation: crackles Cardio: Other: No focal deficit Rate: regular rate Rhythm: regular rhythm GI: Palpation (GI): Soft to palpation Auscultation: normal bowel sounds Neuro: General: confusion Cognition (Neuro): normal cognition Extrem: General: Yes normal to inspection and Yes no pedal edema DS: Data Data Completed and Pending Labs on day of discharge: Laboratory Results - last 24 hr 10/26/20 10/26/20 10/26/20 11:11 16:18 20:25 POC Glucose 162 H 116 H 137 H 10/27/20 07:11 POC Glucose 106 Discharge Plan Discharge Patient Disposition: er SNF Referrals: [facility] [Other] ([facility] SUPPL[facility] BED AND BEDSIDE COMMODE. ) [facility] [Outside] [facility] [Outside] Physician,Unknown [Primary Care Provider] - Discharge Medications: New (DME) hospital bed Kit See Rx Instructions .ROUTE .MEDSUPPLY Qty: 1 RF: 0 (DME) commode Kit See Rx Instructions .ROUTE .MEDSUPPLY Qty: 1 RF: 0 Continued prednisone 10 mg tablet 20 mg PO DAILY Qty: 90 RF: 1 insulin aspart U-100 [Novolog Flexpen U-100 Insulin] 100 unit/mL (3 mL) insulin pen See Protocol unit subcut TID RF: 0 levetiracetam 100 mg/mL solution 10 ml PO BID RF: 0 Lantus Solostar U-100 Insulin 100 unit/mL (3 mL) insulin pen 35 unit subcut DAILY RF: 0 albuterol sulfate [ProAir HFA] 90 mcg/actuation HFA aerosol inhaler 2 puff PO Q4H PRN (Reason: Wheezing) RF: 0 calcium carbonate-vitamin D3 600 mg(1,500mg) -400 unit tablet 2 tab PO DAILY RF: 0 cyanocobalamin (vitamin B-12) 1,000 mcg tablet 2 tab PO DAILY RF: 0 folic acid 1 mg tablet 1 tab PO DAILY RF: 0 multivitamin Tablet 1 tab PO DAILY RF: 0 trazodone 50 mg tablet 1 tab PO BEDTIME PRN (Reason: Insomnia) RF: 0 tamsulosin 0.4 mg capsule 2 cap PO BEDTIME RF: 0 guaifenesin 100 mg/5 mL liquid 10 ml PO Q8H PRN (Reason: Cough) RF: 0 pantoprazole 40 mg tablet,delayed release (DR/EC) 1 tab PO DAILY RF: 0 metoprolol tartrate 25 mg Tablet 25 mg PO BID Qty: 60 RF: 0 Discontinued Eliquis 5 mg Tablet 5 mg PO BID Qty: 60 RF: 0 Discharge Orders: Discharge Order (Routine); Ordered 10/27/20 Ordered By: Raphael Garcia Diet: advance to usual diet Activity on Discharge: As tolerated Stand Alone Forms: Patient Portal Discharge page Care Plan Goals: To stay healthy and out of the hospital. Health Concerns: GI Bleed. Plan of Treatment: No further bleeding.
[2020-10-27 11:20] VITALS: BP 116/69; PULSE 61; RESP 18; TEMP 35.9; O2SAT 100
--- NOTE | 2020-10-27 11:28 | MHC.INPTTRAN ---
Pt alert and confused, oriented to self only. wearing 6L of oxygen via [place], desats quickly, pt needs to be reminded to keep on. Up to commode with 1 person assist and no assistive device. poor po intake. difficulty swallowing, crush pills and put in apple sauce.
[2020-10-27 11:36] LABS: Glucose, Whole Blood 171 mg/dL (60-115)
[2020-10-27] MEDS: Insulin Lispro 100 UNIT/ML 3 ML VIAL SUBCUT (11:50)
[2020-10-27 11:58] LABS: COVID-19 Test Negative (Negative)
[2020-10-27] MEDS: QUEtiapine Fumarate 25 MG TABLET PO (13:03)
== END 2020-10-27 13:27 | disposition skilled nursing facility (03) | DRG 377 ==
LOC: HO.ED 22:44 → HO.EDOVER 22:51 → HO.S3 10-17 00:59
PROVIDERS: Internal Medicine; Nurse Practitioner Family; Student in an Organized Health Care Education/Training Program; Admitting Provider Internal Medicine; Emergency Provider Emergency Medicine; PCP Internal Medicine Geriatric Medicine; Visit Provider Family Medicine
DX: K92.0 Hematemesis (principal); J96.21 Acute and chronic respiratory failure with hypoxia; N17.9 Acute kidney failure, unspecified; F03.91 Unspecified dementia, unspecified severity, with behavioral disturbance; N18.2 Chronic kidney disease, stage 2 (mild); D63.1 Anemia in chronic kidney disease; F41.9 Anxiety disorder, unspecified; I12.9 Hypertensive chronic kidney disease with stage 1 through stage 4 chronic kidney disease, or unspecified chronic kidney disease; E11.22 Type 2 diabetes mellitus with diabetic chronic kidney disease; J84.10 Pulmonary fibrosis, unspecified; I48.91 Unspecified atrial fibrillation; N40.0 Benign prostatic hyperplasia without lower urinary tract symptoms; Z20.822 Contact with and (suspected) exposure to COVID-19; Z79.4 Long term (current) use of insulin; Z86.16 Personal history of COVID-19; Z79.899 Other long term (current) drug therapy
CPT/HCPCS: 36415; 71045; 80048; 80076; 82272; 82947; 83735; 85025; 85027; 85610; 86850; 86900; 86901; 87635; 93005; 94640; 97163; 99285; J2060